=== PATIENT | female | born 1980 | race Caucasian/White ===

== ENCOUNTER 2017-02-12 14:39 | Inpatient (IN) | payer BC ==
--- NOTE | 2017-02-12 15:04 | ER Document Report ---
ED Medical Screen (RME) - General Chief Complaint: Fall Injury Stated Complaint: FALL,BACK,NECK,HEAD PAIN Time Seen by Provider: 02/12/17 14:56 Notes: 36-year-old female with extensive past medical history including multiple abdominal surgeries who presents today after a fall yesterday morning. According to the patient and friend the patient has been "going downhill" for many months. Patient supposedly has lost extensive amounts of weight and supposedly is around 85 pounds. Patient states she fell down 3-4 steps losing consciousness. She complains of pain to the head, neck, lower back and chest. She denies any shortness of breath. Patient states that she has nausea with "gagging" without any obvious vomiting. TRAVEL OUTSIDE OF THE [place] IN LAST 30 DAYS: No - Related Data Allergies/Adverse Reactions: amoxicillin [Amoxicillin] Allergy (Severe, Verified 02/12/17 14:42) Past Medical History - Past Medical History Cardiac Medical History: Denies: Hx Coronary Artery Disease, Hx Heart Attack, Hx Hypertension Pulmonary Medical History: Denies: Hx Asthma, Hx Bronchitis, Hx COPD, Hx Pneumonia, Hx Tuberculosis Neurological Medical History: Denies: Hx Cerebrovascular Accident, Hx Seizures Renal/ Medical History: Denies: Hx Peritoneal Dialysis GI Medical History: Reports: Hx Ulcer - Required surgical treatment Musculoskeltal Medical History: Denies Hx Arthritis Past Surgical History: Reports: Hx Abdominal Surgery - entrectomy, vagotomy, Hx Appendectomy, Hx Cholecystectomy. Denies: Hx Hysterectomy, Hx Pacemaker - Immunizations Hx Diphtheria, Pertussis, Tetanus Vaccination: Yes Physical Exam - Vital signs Vitals: Temp Pulse Resp BP Pulse Ox 98.0 F 73 14 123/87 H 99 02/12/17 14:44 02/12/17 14:44 02/12/17 14:44 02/12/17 14:44 02/12/17 14:44 Course - Vital Signs Vital signs: Temp Pulse Resp BP Pulse Ox 98.0 F 73 14 123/87 H 99 02/12/17 14:44 02/12/17 14:44 02/12/17 14:44 02/12/17 14:44 02/12/17 14:44
[2017-02-12 15:49] LABS: ABSOLUTE EOSINOPHILS # (AUTO) 0.2 10^3/uL (0.0-0.6); ABSOLUTE LYMPHOCYTES (AUTO) 1.8 10^3/uL (0.5-4.7); ABSOLUTE MONOCYTES (AUTO) 0.4 10^3/uL (0.1-1.4); ABSOLUTE NEUT (AUTO) 4.2 10^3/uL (1.7-8.2); BASOPHILS % (AUTO) 0.7 % (0-2); EOSINOPHILS % (AUTO) 3.1 % (0-6); HEMATOCRIT 40.9 % (36.0-47.0); HEMOGLOBIN 13.9 g/dL (12.0-15.5); HGB HCT DIFFERENCE 0.8; LYMPHOCYTES % (AUTO) 27.4 % (13-45); MEAN CORPUSCULAR HEMOGLOBIN 31.4 pg (27.0-33.4); MEAN CORPUSCULAR HGB CONC 34.1 g/dL (32.0-36.0); MEAN CORPUSCULAR VOLUME 92 fl (80-97); MONOCYTES % (AUTO) 5.6 % (3-13); RED BLOOD COUNT 4.44 10^6/uL (3.72-5.28); RED CELL DISTRIBUTION WIDTH 11.8 % (11.5-14.0); SEGMENTED NEUTROPHILS % (AUTO) 63.2 % (42-78); WHITE BLOOD COUNT 6.6 10^3/uL (4.0-10.5)
[2017-02-12 16:19] LABS: ALANINE AMINOTRANSFERASE 30 U/L (9-52); ALBUMIN 4.3 g/dL (3.5-5.0); ALKALINE PHOSPHATASE 43 U/L (38-126); ANION GAP 12 (5-19); ASPARTATE AMINO TRANSFERASE 26 U/L (14-36); BILIRUBIN,DIRECT 0.4 mg/dL (0.0-0.4); BILIRUBIN,TOTAL 0.5 mg/dL (0.2-1.3); BLOOD UREA NITROGEN 31 mg/dL (7-20); CALCIUM 9.8 mg/dL (8.4-10.2); CARBON DIOXIDE 33 mmol/L (22-30); CHLORIDE 93 mmol/L (98-107); CREATININE RESULT 0.91 mg/dL (0.52-1.25); GLUCOSE 89 mg/dL (75-110); SODIUM 137.8 mmol/L (137-145); TOTAL PROTEIN 7.3 g/dL (6.3-8.2)
[2017-02-12 16:23] LABS: POTASSIUM 2.7 mmol/L (3.6-5.0)
--- NOTE | 2017-02-12 17:19 | ER Document Report ---
ED General - General Mode of Arrival: Ambulatory Information source: Patient TRAVEL OUTSIDE OF THE [place] IN LAST 30 DAYS: No - HPI Patient complains to provider of: Back Pain and malnutrition Onset: Other - see notes above Associated symptoms: Other - see notes above <AMIRA FONTENOT - Last Filed: 02/12/17 18:10> <SHIRLEYJADON MARK - Last Filed: 02/12/17 22:01> - General Chief Complaint: Fall Injury Stated Complaint: FALL,BACK,NECK,HEAD PAIN Time Seen by Provider: 02/12/17 16:56 Notes: 36 year old female with history of vagomoty, enterectomy, gastric revision surgery for her enterectomy, and a bowel obstruction presents to the ED complaining of back, bilateral leg, and bilateral feet pain secondary to falling down the stairs today and malnutrition that started secondary to multiple abdominal surgeries 3.5-4 years ago. Patient's friend states that over the past 3 months, the patient has been losing a lot of weight with about a 20 lbs loss in the last 2 months. Patient reports that she tries to eat, but becomes nauseous and starts dry heaving when doing so. Patient is also complaining of bilateral lower extremity swelling, but has seen Dr. Garay (GI) who has given her water pills. Patient had an endoscopy performed in [place] which was unremarkable. Patient reports that she feels like she needs to be admitted and the last time she felt good was when she had a PICC line placed in Summer 2015. Patient's surgeon is Dr. Corbett at [facility]. (AMIRA FONTENOT) - Related Data Allergies/Adverse Reactions: amoxicillin [Amoxicillin] Allergy (Severe, Verified 02/12/17 14:42) Home Medications: Current Home Medications Clonazepam [Klonopin] 1 mg PO QHS 02/12/17 [History] Hydrochlorothiazide 12.5 mg PO DAILY 02/12/17 [History] Iron,Carbonyl/Vit C/Vit B12/FA [Iron 100 Plus Tablet] 1 each PO DAILY 02/12/17 [ History] Potassium Chloride [Klor-Con] 1 each PO DAILY 02/12/17 [History] Past Medical History - General Information source: Patient - Social History Smoking Status: Never Smoker Chew tobacco use (# tins/day): No Frequency of alcohol use: None Drug Abuse: None Family History: Reviewed & Not Pertinent Patient has suicidal ideation: No Patient has homicidal ideation: No Renal/ Medical History: Denies: Hx Peritoneal Dialysis GI Medical History: Reports: Hx Ulcer - Required surgical treatment Musculoskeltal Medical History: Denies Hx Arthritis Past Surgical History: Reports: Hx Abdominal Surgery - entrectomy, vagotomy, Hx Appendectomy, Hx Cholecystectomy - Immunizations Hx Diphtheria, Pertussis, Tetanus Vaccination: Yes <AMIRA FONTENOT - Last Filed: 02/12/17 18:10> Review of Systems - Review of Systems Constitutional: See HPI, Weight loss - 20 lbs over 2 months EENT: No symptoms reported Cardiovascular: No symptoms reported Respiratory: No symptoms reported Gastrointestinal: See HPI, Nausea, Other - dry heaving Genitourinary: No symptoms reported Female Genitourinary: No symptoms reported Musculoskeletal: See HPI, Back pain, Leg swelling - bilaterally, Other - bilateral leg and feet pain Skin: No symptoms reported Hematologic/Lymphatic: No symptoms reported Neurological/Psychological: No symptoms reported -: Yes All other systems reviewed and negative <AMIRA FONTENOT - Last Filed: 02/12/17 18:10> Physical Exam - Vital signs Interpretation: Normal - General General appearance: Alert, Other - cachectic In distress: Mild - tearful - Respiratory Respiratory status: No respiratory distress Chest status: Nontender Breath sounds: Normal Chest palpation: Normal - Cardiovascular Rhythm: Regular Heart sounds: Normal auscultation Murmur: No - Abdominal Inspection: Normal Distension: No distension Bowel sounds: Normal Tenderness: Nontender Organomegaly: No organomegaly - Extremities General upper extremity: Normal inspection, Nontender, Normal color, Normal ROM , Normal temperature General lower extremity: Normal inspection, Nontender, Edema - mild nonpitting, b/l, Normal color, Normal ROM, Normal temperature, Normal weight bearing. No: Manjula's sign <JADON WATSON - Last Filed: 02/12/17 22:01> - Vital signs Vitals: Temp Pulse Resp BP Pulse Ox 98.0 F 73 14 123/87 H 99 02/12/17 14:44 02/12/17 14:44 02/12/17 14:44 02/12/17 14:44 02/12/17 14:44 Course - Laboratory Result Diagrams: 02/12/17 15:20 02/12/17 15:20 - Consults Dr. Claros Time consulted: 17:27 <AMIRA FONTENOT - Last Filed: 02/12/17 18:10> - Laboratory Result Diagrams: 02/12/17 15:20 02/12/17 15:20 <JADON WATSON - Last Filed: 02/12/17 22:01> - Re-evaluation Re-evalutation: 02/12/17 Patient is a 36-year-old female who comes in complaining of weakness and falling. Patient has a history of valvular patient due to multiple intestinal surgeries. Patient is tearful in the room and states that she is nauseated all the time and cannot keep things down. Patient is hypokalemic. Potassium will be ordered as a replacement in the emergency department. Patient will be discussed with the hospitalist service for further evaluation of her malnourishment. Stable time of admission. Patient agrees with this plan. (JADON WATSON) - Vital Signs Vital signs: Temp Pulse Resp BP Pulse Ox 98.7 F 76 16 106/62 100 02/12/17 21:33 02/12/17 21:33 02/12/17 21:33 02/12/17 21:33 02/12/17 21:33 - Laboratory Laboratory results interpreted by me: 02/12/17 15:20 Potassium 2.7 L* Chloride 93 L Carbon Dioxide 33 H BUN 31 H - Consults Dr. Claros Reason for consultation: 02/12/17 17:27 Patient was discussed with Dr. Claros who agrees to admit her. (AMIRA FONTENOT) Discharge <AMIRA FONTENOT - Last Filed: 02/12/17 18:10> - Discharge Admitting Provider: Hospitalist Unit Admitted: Telemetry <JADON WATSON - Last Filed: 02/12/17 22:01> - Discharge Clinical Impression: Hypokalemia, Weakness Condition: Stable Disposition: ADMITTED INPATIENT Scribe Attestation: 02/12/17 22:01 I personally performed the services described in the documentation, reviewed and edited the documentation which was dictated to the scribe in my presence, and it accurately records my words and actions. (JADON WATSON) Scribe Documentation - Scribe Written by Scribe:: Arben Curiel, 02/12/2017 1809 acting as scribe for :: Shirley <AMIRA FONTENOT - Last Filed: 02/12/17 18:10>
[2017-02-12] MEDS: POTASSI CL 20 MEQ/50 ML RIDER 50 ML IV SCH ×3 (17:53→23:15)
[2017-02-12] MEDS ORDERED: ACETAMINOPHEN 325 MG TABLET PO PRN (18:20)
--- NOTE | 2017-02-12 18:37 | PDOC H&P ---
History of Present Illness Admission Date/PCP: 02/12/17 17:51 Patient complains of: Weakness and fall History of Present Illness: SHIKHA DEAN is a 36 year old female with a past history of malnutrition following multiple abdominal surgeries a few years ago including gastric antrectomy and vagotomy. She has since been hospitalized for small bowel obstruction. She has at times required home TPN for several months. She has had prior issues with electrolyte disturbances as well. She was found in the emergency department to be very hypokalemic. Of note she was started on HCTZ one month ago for swelling in her legs. In discussion with patient it does not sound like she has any symptoms consistent with short gut syndrome such as watery diarrhea. Her protein/ albumin levels are normal. It sounds more like she has no appetite or sensation of hunger since having vagotomy. Past Medical History Cardiac Medical History: Denies: Coronary Artery Disease, Myocardial Infarction, Hypertension Pulmonary Medical History: Denies: Asthma, Bronchitis, Chronic Obstructive Pulmonary Disease (COPD), Pneumonia, Tuberculosis Neurological Medical History: Denies: Seizures Musculoskeltal Medical History: Denies: Arthritis Hematology: Reports: Anemia Past Surgical History Past Surgical History: Reports: Appendectomy, Cholecystectomy, Other - Gastric antrectomy/vagotomy Denies: Hysterectomy, Pacemaker Social History Information Source: Patient Lives with: Family Smoking Status: Never Smoker Frequency of Alcohol Use: None Hx Recreational Drug Use: No Hx Prescription Drug Abuse: No - Advance Directive Resuscitation Status: Full Code Family History Family History: Reviewed & Not Pertinent Parental Family History Reviewed: Yes Children Family History Reviewed: Yes Sibling(s) Family History Reviewed.: Yes Medication/Allergy Home Medications: Clonazepam [Klonopin] 1 mg PO QHS 02/12/17 Hydrochlorothiazide 12.5 mg PO DAILY 02/12/17 Iron,Carbonyl/Vit C/Vit B12/FA [Iron 100 Plus Tablet] 1 each PO DAILY 02/12/17 Potassium Chloride [Klor-Con] 1 each PO DAILY 02/12/17 Allergies/Adverse Reactions: amoxicillin [Amoxicillin] Allergy (Severe, Verified 02/12/17 14:42) Review of Systems Constitutional: PRESENT: fatigue, weakness. ABSENT: chills, fever(s), headache( s), weight gain, weight loss Eyes: ABSENT: visual disturbances Ears: ABSENT: hearing changes Cardiovascular: ABSENT: chest pain, dyspnea on exertion, edema, orthropnea, palpitations Respiratory: ABSENT: cough, hemoptysis Gastrointestinal: ABSENT: abdominal pain, constipation, diarrhea, hematemesis, hematochezia, nausea, vomiting Genitourinary: ABSENT: dysuria, hematuria Musculoskeletal: ABSENT: joint swelling Integumentary: ABSENT: rash, wounds Neurological: ABSENT: abnormal gait, abnormal speech, confusion, dizziness, focal weakness, syncope Psychiatric: ABSENT: anxiety, depression, homidical ideation, suicidal ideation Endocrine: ABSENT: cold intolerance, heat intolerance, polydipsia, polyuria Hematologic/Lymphatic: ABSENT: easy bleeding, easy bruising Physical Exam Vital Signs: Temp Pulse Resp BP Pulse Ox 98.0 F 73 14 123/87 H 99 02/12/17 14:44 02/12/17 14:44 02/12/17 14:44 02/12/17 14:44 02/12/17 14:44 PHYSICAL EXAM: GENERAL: Appears well, no acute distress, emaciated HEENT: Normocephalic, no scleral icterus, conjunctiva clear, EOEM intact, PERRLA , moist mucous membranes NECK: trachea midline, no thyromegally RESPIRATORY: Clear to auscultation, no wheezes/rhonchi CARDIAC: Regular rate and rhythm, no murmur/kasi/rub ABDOMEN: Soft, no distension, no tenderness, no guarding, normal bowel sounds, negative Stone sign RECTAL: deferred : deferred EXTREMITIES: No edema, cyanosis, clubbing MUSCULOSKELETAL: No joint swelling or deformity VASCULAR: normal peripheral pulses NEUROLOGIC: Alert, oriented to person/place/time, normal speech, cranial nerves grossly intact, 5/5 strength in all extremities, tactile sensation intact in all extremities SKIN: No rash, no wounds, no worrisome skin lesions PSYCHIATRIC: Normal mood, normal affect Results Laboratory Results: Labs- All tests 24 hr 02/12/17 02/12/17 02/12/17 15:20 15:20 15:20 WBC 6.6 RBC 4.44 Hgb 13.9 Hct 40.9 MCV 92 MCH 31.4 MCHC 34.1 RDW 11.8 Plt Count 340 Seg Neutrophils % 63.2 Lymphocytes % 27.4 Monocytes % 5.6 Eosinophils % 3.1 Basophils % 0.7 Absolute Neutrophils 4.2 Absolute Lymphocytes 1.8 Absolute Monocytes 0.4 Absolute Eosinophils 0.2 Absolute Basophils 0.0 Sodium 137.8 Potassium 2.7 L* Chloride 93 L Carbon Dioxide 33 H Anion Gap 12 BUN 31 H Creatinine 0.91 Est GFR ( Amer) > 60 Est GFR (Non-Af Amer) > 60 Glucose 89 Calcium 9.8 Total Bilirubin 0.5 Direct Bilirubin 0.4 Indirect Bilirubin Not Reportable Neonat Total Bilirubin Not Reportable AST 26 ALT 30 Alkaline Phosphatase 43 Troponin I < 0.012 Total Protein 7.3 Albumin 4.3 Impressions: Cervical Spine CT 02/12/17 15:02 IMPRESSION: No acute findings. Head CT 02/12/17 15:02 IMPRESSION: NORMAL BRAIN CT WITHOUT CONTRAST. Chest X-Ray 02/12/17 15:03 IMPRESSION: NO SIGNIFICANT RADIOGRAPHIC FINDING IN THE CHEST. Lumbar Spine X-Ray 02/12/17 15:03 IMPRESSION: Mild scoliosis with no acute abnormality. Pelvis X-Ray 02/12/17 15: IMPRESSION: NEGATIVE STUDY OF THE PELVIS. Assessment & Plan - Diagnosis (1) Hypokalemia Is this a current diagnosis for this admission?: Yes (2) Anorexia Is this a current diagnosis for this admission?: YesPlan: Likely related to abdominal surgeries and vagotomy. I will start patient on Megace. (3) Weakness Is this a current diagnosis for this admission?: Yes (4) B12 deficiency anemia Is this a current diagnosis for this admission?: YesPlan: Likely related to gastric surgery. Check B-12 level. (5) History of partial gastrectomy Is this a current diagnosis for this admission?: Yes (6) Peptic ulcer disease Is this a current diagnosis for this admission?: YesPlan: Patient states that she has not had a take medications since having vagotomy. (7) Edema Is this a current diagnosis for this admission?: YesPlan: Discontinue hydrochlorothiazide secondary to hypokalemia. Start spironolactone 50 mg daily. (8) Underweight Is this a current diagnosis for this admission?: YesPlan: Start Megace for appetite stimulation. Ensure 1 can twice daily. Patient's albumin level is normal at this time and she is able to take oral intake, so I don't think TPN is entirely necessary. Check thyroid function studies. (9) Status post fall Is this a current diagnosis for this admission?: YesPlan: Imaging mentioned above negative for acute injury. - Time Time Spent: Greater than 70 Minutes Anticipated discharge: Home Within: within 24 hours
[2017-02-12] MEDS ORDERED: ENOXAPARIN SODIUM INJ 40 MG/0.4 ML DISP.SYRIN SUBCUT ONE (19:30)
[2017-02-12] MEDS: CLONAZEPAM 1 MG TABLET PO SCH (22:06)
[2017-02-12 22:07] LABS: PHOSPHORUS 4.7 mg/dL (2.5-4.5)
--- NOTE | 2017-02-12 22:13 | EKG REPORT ---
SEVERITY:- NORMAL ECG - SINUS RHYTHM : Confirmed by: Padma Mota MD 12-Feb-2017 22:13:10
[2017-02-12 22:32] LABS: FREE T3 3.26 pg/mL (2.77-5.27)
[2017-02-12 22:45] LABS: THYROID STIMULATING HORMONE 0.08 uIU/mL (0.47-4.68)
[2017-02-13] MEDS: ENOXAPARIN SODIUM INJ 40 MG/0.4 ML DISP.SYRIN SUBCUT SCH (08:00)
[2017-02-13] MEDS ORDERED: VIT C PO SCH (10:00)
[2017-02-13] MEDS: MEGESTROL ACETATE SUSP 400 MG/10 ML UDCUP PO SCH (10:00)
[2017-02-13] MEDS: SPIRONOLACTONE 25 MG TABLET PO SCH (10:00)
[2017-02-13] MEDS ORDERED: IRON CARBONYL PO SCH (10:00)
[2017-02-13] MEDS ORDERED: [UNRECOGNIZED DRUG - OTHER] PO SCH (10:00)
[2017-02-13] MEDS ORDERED: VIT B12 PO SCH (10:00)
[2017-02-13] MEDS ORDERED: DOCUSATE SODIUM 100 MG CAPSULE ONE ×2 (11:40→17:46)
[2017-02-13] MEDS ORDERED: POTASSI CL 20 MEQ/50 ML RIDER 20 MEQ/50 ML RTUPB IV ONE ×2 (11:40→13:02)
--- NOTE | 2017-02-13 16:42 | PROGRESS NOTE E ---
Progress Note NAME: SHIKHA DEAN : 1980 AGE: 36Y DATE: 02/13/2017 ROOM: 425 TIME SPENT MANAGING PATIENT: Twenty-five minutes. SUBJECTIVE: The patient has no new complaints. Her appetite is still poor. Potassium is reported to be low at 3.0 by nursing staff. Nursing also reports that patient has had issues with constipation and has not had a bowel movement in 3 or 4 days. OBJECTIVE: VITAL SIGNS: Temperature 97.6, blood pressure 153/86, pulse 114, respiratory rate 16, O2 sat 94% on room air. GENERAL: She is alert, very cachectic appearing. No acute distress. HEENT: Sclerae are nonicteric. Oropharynx has moist mucous membranes. NECK: No JVD. Midline trachea. RESPIRATORY: Clear to auscultation. No wheezes or rhonchi. CARDIAC: Regular rate and rhythm. No murmurs, gallops, or rubs. ABDOMEN: Scaphoid, nondistended, nontender. Positive bowel sounds. EXTREMITIES: No edema, cyanosis, or clubbing. She does have diffuse muscle wasting noted. LABORATORY: Potassium 3.0. ASSESSMENT AND PLAN: 1. HYPOKALEMIA. Patient will be administered potassium chloride 20 mEq IV times 2 doses. Continue potassium containing maintenance IV fluids. Magnesium level was normal. 2. MALNUTRITION. Continue to address this with oral means. Patient has been given Megace for poor appetite. She does not appear to have findings consistent with a short gut syndrome despite multiple prior GI surgeries. I think her anorexia is related to previous vagotomy possibly. 3. HISTORY OF PEPTIC ULCER DISEASE WITH PRIOR VAGOTOMY. 4. EDEMA. Patient was taken off hydrochlorothiazide secondary to hypokalemia. She has been placed on spironolactone. 5. CONSTIPATION. Start Colace. DICTATING PHYSICIAN: DENIS CARNEY M.D. [id number] PHY#: [id number] ID: [id number] JOB#: [id number] ACCT: [id number] cc: >
[2017-02-13] MEDS: CLONAZEPAM 1 MG TABLET PO SCH (22:20)
[2017-02-14 06:35] LABS: HEMATOCRIT 33.7 % (36.0-47.0); HGB HCT DIFFERENCE 1.1; MEAN CORPUSCULAR HEMOGLOBIN 31.6 pg (27.0-33.4); MEAN CORPUSCULAR HGB CONC 34.3 g/dL (32.0-36.0); MEAN CORPUSCULAR VOLUME 92 fl (80-97); RED BLOOD COUNT 3.66 10^6/uL (3.72-5.28); WHITE BLOOD COUNT 8.9 10^3/uL (4.0-10.5)
[2017-02-14 06:37] LABS: HEMOGLOBIN 11.6 g/dL (12.0-15.5)
[2017-02-14] MEDS: ENOXAPARIN SODIUM INJ 40 MG/0.4 ML DISP.SYRIN SUBCUT SCH (08:08)
[2017-02-14 08:54] LABS: ANION GAP 9 (5-19); BLOOD UREA NITROGEN 24 mg/dL (7-20); CALCIUM 8.5 mg/dL (8.4-10.2); CARBON DIOXIDE 27 mmol/L (22-30); CHLORIDE 106 mmol/L (98-107); CREATININE RESULT 0.75 mg/dL (0.52-1.25); GLUCOSE 60 mg/dL (75-110); MAGNESIUM 1.7 mg/dL (1.6-2.3)
[2017-02-14 08:57] LABS: POTASSIUM 2.9 mmol/L (3.6-5.0)
[2017-02-14] MEDS ORDERED: POTASSI CL 20 MEQ/50 ML RIDER 50 ML IV SCH (09:05)
--- NOTE | 2017-02-14 13:46 | Physician Advisory Note ---
Physician Advisor ProgressNote .: Pursuant to the plan for [facility], I have reviewed the medical record for this patient. Physician Advisor Statement: Possible documentation opportunities if attending agrees: 1. "acute hypokalemia due to HCTZ, correctly prescribed & properly administered " 2. ? - "anemia of nutritional B12 deficiency & ___" 3. "underweight with protein-calorie malnutrition [state mild, mod, or severe] with BMI 18.0, ____[?wt loss, ?appetite loss, ]" [if possible, give specifics on intake, wt loss, loss of SQ fat & muscle mass, diminished hand under cutter strength, & clinical importance such as (A) nutritional assessment ordered, (B) modified diet or supplements ordered, (C) additional labs ordered, (D) prolonged wound healing time, (E) delayed infxn clearance] As always, if concerned about any unstable VS or abnormal labs, please comment on them & note what doing about them, & please document each day the potential clinical problems you are concerned could occur if pt not kept in hospital for tx at this time. Thanks for your help with documentation accuracy/specificity improvement! Lisa Tejeda MD [facility] Physician Advisor, Fellow of Hospital Medicine
[2017-02-14] MEDS: FERROUS SULFATE 325 MG TABLET PO SCH (13:53)
[2017-02-14] MEDS: DOCUSATE SODIUM 100 MG CAPSULE PO SCH ×2 (13:53→20:27)
[2017-02-14] MEDS: POTASSIUM CHLORIDE 10 MEQ TABLET.SA PO SCH ×2 (13:53→22:10)
[2017-02-14] MEDS: SPIRONOLACTONE 25 MG TABLET PO SCH (13:53)
[2017-02-14] MEDS: MEGESTROL ACETATE SUSP 400 MG/10 ML UDCUP PO SCH (15:03)
[2017-02-14] MEDS: ONDANSETRON HCL INJ/PF 4 MG/2 ML SDV IV PRN (15:04)
[2017-02-14 17:40] LABS: APPEARANCE,URINE CLEAR; BILIRUBIN,URINE NEGATIVE (NEGATIVE); GLUCOSE, URINE NEGATIVE (NEGATIVE); KETONES,URINE NEGATIVE (NEGATIVE); LEUKOCYTE ESTERASE,URINE NEGATIVE (NEGATIVE); NITRITE,URINE NEGATIVE (NEGATIVE); PROTEIN,URINE NEGATIVE (NEGATIVE); URINE SPECIFIC GRAVITY 1.026; UROBILINOGEN,URINE NEGATIVE mg/dL (<2.0)
[2017-02-14 17:52] LABS: URINE BARBITURATES SCREEN NEGATIVE; URINE METHADONE SCREEN NEGATIVE; URINE OPIATES LOW NEGATIVE; URINE PHENCYCLIDINE SCREEN NEGATIVE
[2017-02-14] MEDS ORDERED: CYANOCOBALAMIN (VITAMIN B-12) INJ 1000 MCG/1 ML VIAL IM ONE (19:00)
[2017-02-14] MEDS ORDERED: NORMAL SALINE 10 ML SDV (AFTER EACH USE) IV PRN (20:02)
[2017-02-14] MEDS: POTASSIUM CHLORIDE 20 MEQ/50 ML RTU IV SCH ×2 (20:27→23:10)
--- NOTE | 2017-02-14 20:46 | PROGRESS NOTE E ---
Progress Note NAME: SHIKHA DEAN : 1980 AGE: 36Y DATE: 02/14/2017 ROOM: 425 TIME SPENT: Time spent managing patient is 35 minutes. SUBJECTIVE: The patient still has poor appetite. She is very concerned about her weight and states that her and her mother would like to consider TPN to improve her malnutrition. She states this has worked in the past and she has had home TPN before. She is very comfortable administering this. She denies fever, chills, headache, chest pain, shortness of breath. OBJECTIVE: VITAL SIGNS: Temperature 98.0. Blood pressure 111/61. Pulse 84. Respirations 20. GENERAL: She is alert in no acute distress. She is very emaciated appearing. HEENT: Sclerae anicteric. Conjunctivae clear. Oropharynx has moist mucous membranes. NECK: No JVD. Midline trachea. RESPIRATORY: Clear to auscultation. No wheeze or rhonchi. CARDIAC: Regular rate and rhythm without murmurs, gallops, rubs. ABDOMEN: Soft, nontender, nondistended. Positive bowel sounds. EXTREMITIES: No edema, cyanosis, or clubbing. SKIN: No rashes. PSYCHIATRIC: Appropriate mood and affect. LABORATORIES: White blood count 8.9, hemoglobin 11.6, hematocrit 33.7, platelets 233. Sodium 142, potassium 2.9, chloride 106, bicarbonate 27, BUN 24, creatinine 0.75, glucose 60, calcium 8.5. Magnesium 1.7. ASSESSMENT: 1. ACUTE HYPOKALEMIA. Multifactorial to include poor nutritional intake as well as hydrochlorothiazide administration. Hydrochlorothiazide was discontinued. We are addressing nutritional issues as mentioned below. Potassium will be replaced IV, and she will be started on Klor-Con 20 mEq p.o. twice daily as well. Continue to monitor electrolytes closely. 2. SEVERE MALNUTRITION DUE TO POOR ORAL INTAKE AND MULTIPLE GASTRIC SURGERIES PREVIOUSLY. We will place a PICC line and have Dietary consult for TPN recommendations. The patient may need to go home on home TPN again. She is followed by Dr. Valle of Gastroenterology for GI issues. 3. ANOREXIA. Possibly secondary to multiple abdominal surgeries and prior vagotomy. Continue Megace. The patient will be started on Remeron 7.5 mg nightly as well. 4. VITAMIN B12 DEFICIENCY ANEMIA. Start the patient on daily B12 injections for now. We will probably do this for 3 days or so, and then she will need B12 injections every 2 weeks for now. 5. HISTORY OF PARTIAL GASTRECTOMY AND VAGOTOMY. 6. PEPTIC ULCER DISEASE. The patient does not take routine medications for this since having antral gastrectomy and vagotomy. 7. EDEMA. The patient was taken off hydrochlorothiazide secondary to hypokalemia. She was started on spironolactone 50 mg daily. 8. DICTATING PHYSICIAN: DENIS CARNEY M.D. [id number] PHY#: [id number] ID: [id number] JOB#: [id number] ACCT: [id number] cc: >
[2017-02-14] MEDS: CLONAZEPAM 1 MG TABLET PO SCH (22:10)
[2017-02-14] MEDS: MIRTAZAPINE 15 MG TABLET PO SCH (22:11)
[2017-02-14] MEDS: NORMAL SALINE 10 ML SDV (SCHEDULED) IV SCH (22:12)
[2017-02-15 06:48] LABS: ABSOLUTE EOSINOPHILS # (AUTO) 0.2 10^3/uL (0.0-0.6); ABSOLUTE LYMPHOCYTES (AUTO) 2.1 10^3/uL (0.5-4.7); ABSOLUTE MONOCYTES (AUTO) 0.6 10^3/uL (0.1-1.4); ABSOLUTE NEUT (AUTO) 4.4 10^3/uL (1.7-8.2); BASOPHILS % (AUTO) 0.6 % (0-2); EOSINOPHILS % (AUTO) 2.9 % (0-6); HEMATOCRIT 33.1 % (36.0-47.0); HGB HCT DIFFERENCE -0.1; LYMPHOCYTES % (AUTO) 28.3 % (13-45); MEAN CORPUSCULAR HEMOGLOBIN 31.2 pg (27.0-33.4); MEAN CORPUSCULAR HGB CONC 33.1 g/dL (32.0-36.0); MEAN CORPUSCULAR VOLUME 94 fl (80-97); MONOCYTES % (AUTO) 7.5 % (3-13); RED BLOOD COUNT 3.51 10^6/uL (3.72-5.28); RED CELL DISTRIBUTION WIDTH 12.3 % (11.5-14.0); SEGMENTED NEUTROPHILS % (AUTO) 60.7 % (42-78); WHITE BLOOD COUNT 7.3 10^3/uL (4.0-10.5)
[2017-02-15 07:00] LABS: BLOOD UREA NITROGEN 23 mg/dL (7-20); CALCIUM 8.8 mg/dL (8.4-10.2); CARBON DIOXIDE 24 mmol/L (22-30); CHLORIDE 112 mmol/L (98-107); CREATININE RESULT 0.55 mg/dL (0.52-1.25); GLUCOSE 96 mg/dL (75-110); POTASSIUM 3.6 mmol/L (3.6-5.0)
[2017-02-15 07:10] LABS: SODIUM 139.7 mmol/L (137-145)
[2017-02-15 07:11] LABS: ANION GAP 4 (5-19)
[2017-02-15] MEDS ORDERED: ENOXAPARIN SODIUM INJ 30 MG/0.3 ML DISP.SYRIN SUBCUT SCH (08:00)
[2017-02-15] MEDS: MEGESTROL ACETATE SUSP 400 MG/10 ML UDCUP PO SCH (10:40)
[2017-02-15] MEDS: POTASSIUM CHLORIDE 10 MEQ TABLET.SA PO SCH ×2 (10:40→22:09)
[2017-02-15] MEDS: FERROUS SULFATE 325 MG TABLET PO SCH (10:40)
[2017-02-15] MEDS: CYANOCOBALAMIN (VITAMIN B-12) INJ 1000 MCG/1 ML VIAL IM SCH (10:40)
[2017-02-15] MEDS: DOCUSATE SODIUM 100 MG CAPSULE PO SCH ×2 (10:40→17:15)
[2017-02-15] MEDS: NORMAL SALINE 10 ML SDV (SCHEDULED) IV SCH ×2 (10:41→22:10)
[2017-02-15] MEDS ORDERED: GLUCAGON,HUMAN RECOMB 1 MG INJ IM PRN (10:43)
[2017-02-15] MEDS ORDERED: DEXTROSE 50%-WATER SYRINGE 12.5 GM/25 ML DOSE IV PRN (10:43)
[2017-02-15] MEDS ORDERED: DEXTROSE 40% GEL 15 GM TUBE PO PRN (10:43)
[2017-02-15] MEDS ORDERED: DEXTROSE 40% GEL 15 GM TUBE X 2 PO PRN (10:43)
[2017-02-15] MEDS ORDERED: DEXTROSE 50%-WATER SYRINGE 25 GM/50 ML DOSE IV PRN (10:43)
[2017-02-15] MEDS ORDERED: DEXTROSE 10%-WATER 1,000 ML IV PRN (10:43)
[2017-02-15] MEDS ORDERED: INSULIN REG, HUMAN 100 UNIT/ML 3 ML VIAL (PYX) SUBCUT PRN (10:43)
[2017-02-15] MEDS ORDERED: ENOXAPARIN SODIUM INJ 40 MG/0.4 ML DISP.SYRIN SUBCUT ONE (11:00)
[2017-02-15] MEDS ORDERED: MAGNESIUM SULFATE/D5W 100 ML IV ONE (11:00)
[2017-02-15] MEDS ORDERED: THIAMINE HCL 100 MG TABLET PO ONE (11:00)
[2017-02-15] MEDS ORDERED: SPIRONOLACTONE 25 MG TABLET PO ONE (11:00)
[2017-02-15] MEDS ORDERED: POTASSI CL 20 MEQ/50 ML RIDER 50 ML IV ONE (11:00)
--- NOTE | 2017-02-15 11:06 | PROGRESS NOTE E ---
Progress Note NAME: SHIKHA DEAN : 1980 AGE: 36Y DATE: 02/15/2017 ROOM: 425 TIME SPENT MANAGING PATIENT: Thirty-five minutes. SUBJECTIVE: The patient has no particular complaints. She had PICC line placed yesterday for TPN. Nursing reports that she has had some issues with nonsustained ventricular tachycardia, brief episodes of anywhere from 5-10 beats. These have been asymptomatic. Patient has no fever, chills, headache, chest pain, shortness of breath, abdominal pain, nausea, vomiting. Appetite remains poor despite initiation of Megace and Remeron. OBJECTIVE: VITAL SIGNS: Temperature 98.5, blood pressure 96/53, pulse 64, respirations 12. GENERAL: She is alert, in no apparent distress. Answers questions appropriately. She is quite cachectic appearing. HEENT: Sclerae are nonicteric. Oropharynx has moist mucous membranes. NECK: No JVD. Midline trachea. RESPIRATORY: Clear to auscultation. No wheezes or rhonchi. CARDIAC: Regular rate and rhythm. No murmurs, gallops, or rubs. ABDOMEN: Soft, nontender, nondistended. Positive bowel sounds. No rebound. No guarding. EXTREMITIES: No edema, cyanosis, or clubbing. NEUROLOGIC: Appropriate mood and affect. LABORATORY: White blood count 7.3, hemoglobin 11.0, hematocrit 33.1, platelets 239. Sodium 139, potassium 3.6, chloride 112, bicarb 24, BUN 23, creatinine 0.55, glucose 96, calcium 8.8. ASSESSMENT AND PLAN: 1. HYPOKALEMIA. Potassium is in the low normal range now. I would still like to give an additional 20 mEq potassium chloride IV to try and get potassium level closer to 4.0 given episodes of nonsustained ventricular tachycardia. 2. HYPOMAGNESEMIA. I will give patient another 2 g of magnesium sulfate IV. 3. NONSUSTAINED VENTRICULAR TACHYCARDIA. Given patient's edema and malnutrition, I would like to check an echocardiogram to rule out cardiomyopathy. 4. EDEMA. This is likely related to malnutrition, however, severe malnutrition states can cause thiamine deficiency and associated cardiomyopathy, so I would like to check an echocardiogram. I would decrease her spironolactone to 25 mg daily secondary to hypotension. Patient was taken off of hydrochlorothiazide for her edema as this caused profound hypokalemia. 5. POOR APPETITE. Likely the result of prior gastrectomy and vagotomy. Patient was started on Megace and Remeron this admission with minimal improvement so far. 6. VITAMIN B12 DEFICIENCY ANEMIA. Patient was started on B12 injections daily on 02/14/2017. We can probably do this for 3 days and then start giving patient B12 injections every 2 weeks. She probably is not absorbing B12 due to prior gastrectomy. 7. HISTORY OF PARTIAL GASTRECTOMY AND VAGOTOMY. 8. HISTORY OF PEPTIC ULCER DISEASE. Patient states she does not take routine medication for this since having antral gastrectomy and vagotomy. 9. SEVERE MALNUTRITION. Patient will be started on TPN in addition to oral intake. We had placed a PICC line and we plan on discharging her home on home TPN once she is medically stable. DICTATING PHYSICIAN: DENIS CARNEY M.D. [id number] PHY#: [id number] ID: [id number] JOB#: [id number] ACCT: [id number] cc: >
[2017-02-15 11:32] LABS: BLOOD UREA NITROGEN 26 mg/dL (7-20); CALCIUM 8.8 mg/dL (8.4-10.2); CREATININE RESULT 0.81 mg/dL (0.52-1.25); GLUCOSE 76 mg/dL (75-110)
[2017-02-15 11:34] LABS: ANION GAP 10 (5-19); CARBON DIOXIDE 29 mmol/L (22-30); CHLORIDE 101 mmol/L (98-107)
[2017-02-15] MEDS ORDERED: FAT EMULSIONS 250 ML IV ONE ×2 (12:00→19:00)
[2017-02-15 12:49] LABS: MAGNESIUM 1.7 mg/dL (1.6-2.3); PHOSPHORUS 2.2 mg/dL (2.5-4.5)
[2017-02-15] MEDS: ONDANSETRON HCL INJ/PF 4 MG/2 ML SDV IV PRN (17:15)
[2017-02-15 17:23] LABS: PROTHROMBIN TIME 14.3 SEC (11.4-15.4)
--- NOTE | 2017-02-15 17:58 | XCELERA REPORT ---
[address] [address] Transthoracic Echocardiogram Report Name: SHIKHA DEAN Age: 36 yrs Gender: Female : 1980 Patient Status: Inpatient Patient Location: 4S\S\425\S\A Study Date: 02/15/2017 11:50 AM Height: 60 in Weight: 85 lb BSA: 1.3 m2 Procedure: A complete two-dimensional transthoracic echocardiogram was performed (2D, M-mode, spectral and color flow Doppler). The study was technically adequate with some images being suboptimal in quality. Reason For Study: vtach, edema Ordering Physician: DENIS CARNEY Performed By: Kike Posadas Interpretation Summary The left ventricular ejection fraction is normal. Doppler measurements suggest normal left ventricular diastolic function There is normal left ventricular wall thickness. The left ventricle is grossly normal size. No regional wall motion abnormalities noted. Borderline right ventricular enlargement. The right ventricular systolic function is normal. The right atrium is normal in size The left atrial size is normal. There is no mitral valve stenosis. There is a trace to mild amount of mitral regurgitation There is no aortic valve stenosis No aortic regurgitation is present. There is a mild amount of tricuspid regurgitation Right ventricular systolic pressure is at the upper limits of normal The aortic root is not well visualized but is probably normal size. The inferior vena cava was not visualized There is no pericardial effusion. MMode/2D Measurements \T\ Calculations RVDd: 1.9 cm LVIDd: 4.3 cm FS: 36.7 % Ao root diam: 2.5 cm IVSd: 0.63 cm LVIDs: 2.7 cm EDV(Teich): 81.2 ml LVPWd: 0.63 cm ESV(Teich): 26.8 ml Ao root area: 4.7 cm2 EF(Teich): 66.9 % LA dimension: 2.6 cm Doppler Measurements \T\ Calculations MV E max luis carlos: MV P1/2t max luis carlos: Ao V2 max: LV V1 max P.4 cm/sec 94.8 cm/sec 119.0 cm/sec 2.5 mmHg MV A max luis carlos: MV P1/2t: 49.1 msec Ao max PG: LV V1 max: 43.3 cm/sec 5.7 mmHg 78.4 cm/sec MV E/A: 2.2 MVA(P1/2t): 4.5 cm2 MV dec slope: 565.2 cm/sec2 PA V2 max: TR max luis carlos: RAP systole: 71.6 cm/sec 207.1 cm/sec 10.0 mmHg PA max PG: TR max P.2 mmHg 2.0 mmHg RVSP(TR): 27.2 mmHg Left Ventricle The left ventricle is grossly normal size. There is normal left ventricular wall thickness. The left ventricular ejection fraction is normal. Doppler measurements suggest normal left ventricular diastolic function. No regional wall motion abnormalities noted. Right Ventricle Borderline right ventricular enlargement. There is normal right ventricular wall thickness. The right ventricular systolic function is normal. Atria The right atrium is normal in size. The left atrial size is normal. Interarterial septum not well visualized and not well dopplered. Cannot comment on ASD/PFO presence. Mitral Valve The mitral valve is grossly normal. There is no mitral valve stenosis. There is a trace to mild amount of mitral regurgitation. Aortic Valve The aortic valve is grossly normal. There is no aortic valve stenosis. No aortic regurgitation is present. Tricuspid Valve The tricuspid valve is not well visualized, but is grossly normal. There is no tricuspid stenosis. There is a mild amount of tricuspid regurgitation. Right ventricular systolic pressure is at the upper limits of normal. Pulmonic Valve The pulmonic valve is not well visualized. Great Vessels The aortic root is not well visualized but is probably normal size. The inferior vena cava was not visualized. Effusions There is no pericardial effusion. : DENIS CARNEY Shyamal
[2017-02-15] MEDS: AMINO ACIDS 5%/D25W 1,000 ML IV PRN (22:08)
[2017-02-15] MEDS: MIRTAZAPINE 15 MG TABLET PO SCH (22:09)
[2017-02-15] MEDS: CLONAZEPAM 1 MG TABLET PO SCH (22:10)
[2017-02-16 06:31] LABS: ABSOLUTE EOSINOPHILS # (AUTO) 0.1 10^3/uL (0.0-0.6); ABSOLUTE LYMPHOCYTES (AUTO) 2.2 10^3/uL (0.5-4.7); ABSOLUTE MONOCYTES (AUTO) 0.7 10^3/uL (0.1-1.4); ABSOLUTE NEUT (AUTO) 6.9 10^3/uL (1.7-8.2); BASOPHILS % (AUTO) 0.4 % (0-2); EOSINOPHILS % (AUTO) 1.3 % (0-6); HEMATOCRIT 32.2 % (36.0-47.0); HEMOGLOBIN 10.8 g/dL (12.0-15.5); HGB HCT DIFFERENCE 0.2; LYMPHOCYTES % (AUTO) 21.8 % (13-45); MEAN CORPUSCULAR HEMOGLOBIN 31.5 pg (27.0-33.4); MEAN CORPUSCULAR HGB CONC 33.4 g/dL (32.0-36.0); MEAN CORPUSCULAR VOLUME 94 fl (80-97); MONOCYTES % (AUTO) 6.7 % (3-13); RED BLOOD COUNT 3.42 10^6/uL (3.72-5.28); RED CELL DISTRIBUTION WIDTH 12.2 % (11.5-14.0); SEGMENTED NEUTROPHILS % (AUTO) 69.8 % (42-78); WHITE BLOOD COUNT 9.9 10^3/uL (4.0-10.5)
[2017-02-16 06:51] LABS: ALANINE AMINOTRANSFERASE 30 U/L (9-52); ALBUMIN 2.5 g/dL (3.5-5.0); ALKALINE PHOSPHATASE 33 U/L (38-126); ANION GAP 7 (5-19); ASPARTATE AMINO TRANSFERASE 12 U/L (14-36); BLOOD UREA NITROGEN 21 mg/dL (7-20); CALCIUM 8.4 mg/dL (8.4-10.2); CARBON DIOXIDE 22 mmol/L (22-30); CHLORIDE 112 mmol/L (98-107); CREATININE RESULT 0.53 mg/dL (0.52-1.25); GLUCOSE 84 mg/dL (75-110); MAGNESIUM 1.8 mg/dL (1.6-2.3); PHOSPHORUS 3.3 mg/dL (2.5-4.5); POTASSIUM 4.4 mmol/L (3.6-5.0); SODIUM 140.5 mmol/L (137-145); TOTAL PROTEIN 4.1 g/dL (6.3-8.2)
[2017-02-16 06:58] LABS: PREALBUMIN 16.3 mg/dL (17.6-36.0)
[2017-02-16 07:05] LABS: BILIRUBIN,TOTAL < 0.1 mg/dL (0.2-1.3)
[2017-02-16] MEDS: ENOXAPARIN SODIUM INJ 40 MG/0.4 ML DISP.SYRIN SUBCUT SCH (08:00)
[2017-02-16] MEDS: SPIRONOLACTONE 25 MG TABLET PO SCH (10:23)
[2017-02-16] MEDS: DOCUSATE SODIUM 100 MG CAPSULE PO SCH ×2 (10:24→17:44)
[2017-02-16] MEDS: MEGESTROL ACETATE SUSP 400 MG/10 ML UDCUP PO SCH (10:24)
[2017-02-16] MEDS: POTASSIUM CHLORIDE 10 MEQ TABLET.SA PO SCH ×2 (10:24→22:26)
[2017-02-16] MEDS: THIAMINE HCL 100 MG TABLET PO SCH (10:24)
[2017-02-16] MEDS: FERROUS SULFATE 325 MG TABLET PO SCH (10:24)
[2017-02-16] MEDS: CYANOCOBALAMIN (VITAMIN B-12) INJ 1000 MCG/1 ML VIAL IM SCH (10:25)
[2017-02-16] MEDS: ONDANSETRON HCL INJ/PF 4 MG/2 ML SDV IV PRN ×2 (10:25→20:32)
[2017-02-16] MEDS: NORMAL SALINE 10 ML SDV (SCHEDULED) IV SCH ×2 (10:25→22:26)
--- NOTE | 2017-02-16 11:34 | PDOC PROGRESS REPORT ---
Subjective Progress Note for:: 02/16/17 Subjective:: Patient is seen on morning rounds. She denies any shortness of breath, dyspnea or chest pain. She is resting comfortably in bed. She denies nausea, abdominal pain or vomiting at the present time. She denies any significant arthralgias or myalgias. Rest of the review of systems are negative. Physical Exam Vital Signs: Temp Pulse Resp BP Pulse Ox 98.7 F 92 12 118/65 100 02/16/17 08:12 02/16/17 08:12 02/16/17 08:12 02/16/17 08:12 02/16/17 08:12 Intake & Output 02/15/17 02/16/17 02/17/17 06:59 06:59 06:59 Intake Total 1755 1752 Output Total 200 Balance 1555 1752 Weight 45.7 kg 48.7 kg General appearance: PRESENT: no acute distress, thin, well-developed Head exam: PRESENT: atraumatic, normocephalic Eye exam: PRESENT: conjunctiva pink, EOMI, PERRLA. ABSENT: scleral icterus Ear exam: PRESENT: normal external ear exam Mouth exam: PRESENT: moist, tongue midline Neck exam: ABSENT: carotid bruit, JVD, lymphadenopathy, thyromegaly Respiratory exam: PRESENT: clear to auscultation jamaal. ABSENT: rales, rhonchi, wheezes Cardiovascular exam: PRESENT: RRR. ABSENT: diastolic murmur, rubs, systolic murmur Pulses: PRESENT: normal dorsalis pedis pul Vascular exam: PRESENT: normal capillary refill GI/Abdominal exam: PRESENT: normal bowel sounds, soft. ABSENT: distended, guarding, mass, organolmegaly, rebound, tenderness Rectal exam: PRESENT: deferred Extremities exam: PRESENT: full ROM. ABSENT: calf tenderness, clubbing, pedal edema Neurological exam: PRESENT: alert, awake, oriented to person, oriented to place , oriented to time, oriented to situation, CN II-XII grossly intact. ABSENT: motor sensory deficit Psychiatric exam: PRESENT: appropriate affect, normal mood. ABSENT: homicidal ideation, suicidal ideation Skin exam: PRESENT: dry, intact, warm. ABSENT: cyanosis, rash Results Laboratory Results: 02/16/17 05:45 02/16/17 05:45 02/13/17 02/15/17 02/16/17 05:11 06:25 05:45 WBC 9.9 RBC 3.42 L Hgb 10.8 L Hct 32.2 L MCV 94 MCH 31.5 MCHC 33.4 RDW 12.2 Plt Count 229 Seg Neutrophils % 69.8 Lymphocytes % 21.8 Monocytes % 6.7 Eosinophils % 1.3 Basophils % 0.4 Absolute Neutrophils 6.9 Absolute Lymphocytes 2.2 Absolute Monocytes 0.7 Absolute Eosinophils 0.1 Absolute Basophils 0.0 Sodium 140.0 Potassium 3.0 L* Chloride 101 Carbon Dioxide 29 Anion Gap 10 BUN 26 H Creatinine 0.81 Est GFR ( Amer) > 60 Est GFR (Non-Af Amer) > 60 Glucose 76 Calcium 8.8 Phosphorus 2.2 L Magnesium 2.0 1.7 Total Bilirubin AST ALT Alkaline Phosphatase Total Protein Albumin Prealbumin 02/16/17 05:45 WBC RBC Hgb Hct MCV MCH MCHC RDW Plt Count Seg Neutrophils % Lymphocytes % Monocytes % Eosinophils % Basophils % Absolute Neutrophils Absolute Lymphocytes Absolute Monocytes Absolute Eosinophils Absolute Basophils Sodium 140.5 Potassium 4.4 Chloride 112 H Carbon Dioxide 22 Anion Gap 7 BUN 21 H Creatinine 0.53 Est GFR ( Amer) > 60 Est GFR (Non-Af Amer) > 60 Glucose 84 Calcium 8.4 Phosphorus 3.3 Magnesium 1.8 Total Bilirubin < 0.1 L AST 12 L ALT 30 Alkaline Phosphatase 33 L Total Protein 4.1 L Albumin 2.5 L Prealbumin 16.3 L Impressions: Cervical Spine CT 02/12/17 15:02 IMPRESSION: No acute findings. Head CT 02/12/17 15:02 IMPRESSION: NORMAL BRAIN CT WITHOUT CONTRAST. Chest X-Ray 02/12/17 15:03 IMPRESSION: NO SIGNIFICANT RADIOGRAPHIC FINDING IN THE CHEST. Lumbar Spine X-Ray 02/12/17 15:03 IMPRESSION: Mild scoliosis with no acute abnormality. Pelvis X-Ray 02/12/17 15:03 IMPRESSION: NEGATIVE STUDY OF THE PELVIS. Guidance Fluoroscopy 02/14/17 00:00 IMPRESSION: SUCCESSFUL PLACEMENT OF A 5 FR DUAL LUMEN 38 CM PICC IN THE left basilic VEIN. Interventional Vascular Procedure 02/14/17 00:00 IMPRESSION: SUCCESSFUL PLACEMENT OF A 5 FR DUAL LUMEN 38 CM PICC IN THE left basilic VEIN. PICC Line Insertion 02/14/17 00:00 IMPRESSION: SUCCESSFUL PLACEMENT OF A 5 FR DUAL LUMEN 38 CM PICC IN THE left basilic VEIN. Assessment & Plan - Diagnosis (1) Anorexia Is this a current diagnosis for this admission?: YesPlan: Patient is improving on TPN. Electrolytes have normalized. Plan is for her to be discharged on home TPN therapy on Saturday. 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 (2) Hypokalemia Is this a current diagnosis for this admission?: YesPlan: Secondary to hydrochlorothiazide. This is been repleted and is now normal. (3) Underweight Is this a current diagnosis for this admission?: YesPlan: Improved, patient has been increasing her oral intake. We will continue to support with TPN therapy (4) Iron deficiency anemia Qualifiers: Iron deficiency anemia type: unspecified iron deficiency Qualified Code(s): D50.9 - Iron deficiency anemia, unspecified Is this a current diagnosis for this admission?: YesPlan: Continue iron supplement (5) B12 deficiency anemia Qualifiers: Vitamin B12 deficiency anemia type: unspecified B12 deficiency Qualified Code(s): D51.9 - Vitamin B12 deficiency anemia, unspecified Is this a current diagnosis for this admission?: YesPlan: Continue supplementation (6) History of partial gastrectomy Is this a current diagnosis for this admission?: YesPlan: Malabsorption secondary to this. (7) Weakness Is this a current diagnosis for this admission?: YesPlan: Improving with TPN (8) Edema Qualifiers: Malnutrition edema type: unspecified malnutrition type Is this a current diagnosis for this admission?: YesPlan: Secondary to hypoalbuminemia (9) Protein-calorie malnutrition, moderate Is this a current diagnosis for this admission?: YesPlan: Secondary to malabsorption due to partial gastrectomy and poor appetite secondary to nausea and abdominal pain. Patient has had less pain and has been able to increase her intake - Time Time Spent with patient: 25-34 minutes Critical Time spent with patient: 15-24 minutes Medications reviewed and adjusted accordingly: Yes Anticipated discharge: Home with Homehealth Within: within 48 hours
--- NOTE | 2017-02-16 17:49 | EKG REPORT ---
SEVERITY:- ABNORMAL ECG - SINUS RHYTHM NONSPECIFIC T ABNORMALITIES, DIFFUSE LEADS PROLONGED QT INTERVAL : Confirmed by: Padma Mota MD 16-Feb-2017 17:48:44
[2017-02-16] MEDS: MIRTAZAPINE 15 MG TABLET PO SCH (22:26)
[2017-02-16] MEDS: AMINO ACIDS 5%/D25W 1,000 ML IV PRN (22:26)
[2017-02-16] MEDS: CLONAZEPAM 1 MG TABLET PO SCH (22:26)
[2017-02-17 05:40] LABS: ALANINE AMINOTRANSFERASE 26 U/L (9-52); ALBUMIN 2.3 g/dL (3.5-5.0); ALKALINE PHOSPHATASE 29 U/L (38-126); ANION GAP 6 (5-19); ASPARTATE AMINO TRANSFERASE 11 U/L (14-36); BILIRUBIN,DIRECT 0.2 mg/dL (0.0-0.4); BILIRUBIN,TOTAL 0.2 mg/dL (0.2-1.3); BLOOD UREA NITROGEN 23 mg/dL (7-20); CALCIUM 8.4 mg/dL (8.4-10.2); CARBON DIOXIDE 20 mmol/L (22-30); CHLORIDE 114 mmol/L (98-107); CREATININE RESULT 0.56 mg/dL (0.52-1.25); GLUCOSE 87 mg/dL (75-110); POTASSIUM 4.8 mmol/L (3.6-5.0); SODIUM 139.8 mmol/L (137-145); TOTAL PROTEIN 4.2 g/dL (6.3-8.2)
[2017-02-17 05:47] LABS: PREALBUMIN 17.4 mg/dL (17.6-36.0)
[2017-02-17] MEDS: THIAMINE HCL 100 MG TABLET PO SCH (09:14)
[2017-02-17] MEDS: POTASSIUM CHLORIDE 10 MEQ TABLET.SA PO SCH ×2 (09:14→21:09)
[2017-02-17] MEDS: MEGESTROL ACETATE SUSP 400 MG/10 ML UDCUP PO SCH (09:14)
[2017-02-17] MEDS: DOCUSATE SODIUM 100 MG CAPSULE PO SCH ×2 (09:14→17:33)
[2017-02-17] MEDS: SPIRONOLACTONE 25 MG TABLET PO SCH (09:14)
[2017-02-17] MEDS: FERROUS SULFATE 325 MG TABLET PO SCH (09:14)
[2017-02-17] MEDS: CYANOCOBALAMIN (VITAMIN B-12) INJ 1000 MCG/1 ML VIAL IM SCH (09:15)
[2017-02-17] MEDS: ENOXAPARIN SODIUM INJ 40 MG/0.4 ML DISP.SYRIN SUBCUT SCH (09:21)
[2017-02-17] MEDS: NORMAL SALINE 10 ML SDV (SCHEDULED) IV SCH ×2 (09:22→21:09)
[2017-02-17] MEDS: ONDANSETRON HCL INJ/PF 4 MG/2 ML SDV IV PRN (09:22)
--- NOTE | 2017-02-17 11:05 | PDOC PROGRESS REPORT ---
Subjective Subjective:: Patient is seen on morning rounds. She denies any shortness of breath, dyspnea or chest pain. She is resting comfortably in bed. She has some intermittent nausea, no abdominal pain or vomiting at the present time. She denies any significant arthralgias or myalgias. Rest of the review of systems are negative. Physical Exam Vital Signs: Temp Pulse Resp BP Pulse Ox 98.5 F 88 12 108/62 98 02/17/17 07:15 02/17/17 07:15 02/17/17 07:15 02/17/17 07:15 02/17/17 07:15 Intake & Output 02/16/17 02/17/17 02/18/17 06:59 06:59 06:59 Intake Total 1752 1428 Balance 1752 1428 Weight 48.7 kg 50.1 kg General appearance: PRESENT: no acute distress, thin, well-developed, well- nourished Head exam: PRESENT: atraumatic, normocephalic Eye exam: PRESENT: conjunctiva pink, EOMI, PERRLA. ABSENT: scleral icterus Ear exam: PRESENT: normal external ear exam Mouth exam: PRESENT: moist, tongue midline Neck exam: ABSENT: carotid bruit, JVD, lymphadenopathy, thyromegaly Respiratory exam: PRESENT: clear to auscultation jamaal. ABSENT: rales, rhonchi, wheezes Cardiovascular exam: PRESENT: RRR. ABSENT: diastolic murmur, rubs, systolic murmur Pulses: PRESENT: normal dorsalis pedis pul Vascular exam: PRESENT: normal capillary refill GI/Abdominal exam: PRESENT: normal bowel sounds, soft. ABSENT: distended, guarding, mass, organolmegaly, rebound, tenderness Rectal exam: PRESENT: deferred Extremities exam: PRESENT: full ROM. ABSENT: calf tenderness, clubbing, pedal edema Neurological exam: PRESENT: alert, awake, oriented to person, oriented to place , oriented to time, oriented to situation, CN II-XII grossly intact. ABSENT: motor sensory deficit Psychiatric exam: PRESENT: appropriate affect, normal mood. ABSENT: homicidal ideation, suicidal ideation Skin exam: PRESENT: dry, intact, warm. ABSENT: cyanosis, rash Results Laboratory Results: 02/16/17 05:45 02/17/17 05:10 02/16/17 02/17/17 05:45 05:10 Sodium 139.8 Potassium 4.8 Chloride 114 H Carbon Dioxide 20 L Anion Gap 6 BUN 23 H Creatinine 0.56 Est GFR ( Amer) > 60 Est GFR (Non-Af Amer) > 60 Glucose 87 Calcium 8.4 Total Bilirubin 0.2 AST 11 L ALT 26 Alkaline Phosphatase 29 L Total Protein 4.2 L Albumin 2.3 L Prealbumin 17.4 L Triglycerides 49 Impressions: Cervical Spine CT 02/12/17 15:02 IMPRESSION: No acute findings. Head CT 02/12/17 15:02 IMPRESSION: NORMAL BRAIN CT WITHOUT CONTRAST. Chest X-Ray 02/12/17 15:03 IMPRESSION: NO SIGNIFICANT RADIOGRAPHIC FINDING IN THE CHEST. Lumbar Spine X-Ray 02/12/17 15:03 IMPRESSION: Mild scoliosis with no acute abnormality. Pelvis X-Ray 02/12/17 15:03 IMPRESSION: NEGATIVE STUDY OF THE PELVIS. Guidance Fluoroscopy 02/14/17 00:00 IMPRESSION: SUCCESSFUL PLACEMENT OF A 5 FR DUAL LUMEN 38 CM PICC IN THE left basilic VEIN. Interventional Vascular Procedure 02/14/17 00:00 IMPRESSION: SUCCESSFUL PLACEMENT OF A 5 FR DUAL LUMEN 38 CM PICC IN THE left basilic VEIN. PICC Line Insertion 02/14/17 00:00 IMPRESSION: SUCCESSFUL PLACEMENT OF A 5 FR DUAL LUMEN 38 CM PICC IN THE left basilic VEIN. Assessment & Plan - Diagnosis (1) Anorexia Is this a current diagnosis for this admission?: YesPlan: Patient is improving on TPN. Electrolytes have normalized. Plan is for her to be discharged on home TPN therapy on Saturday. 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 (2) Hypokalemia Is this a current diagnosis for this admission?: YesPlan: Secondary to hydrochlorothiazide. This is been repleted and is now normal. (3) Underweight Is this a current diagnosis for this admission?: YesPlan: Improved, patient has been increasing her oral intake. We will continue to support with TPN therapy (4) Iron deficiency anemia Qualifiers: Iron deficiency anemia type: unspecified iron deficiency Qualified Code(s): D50.9 - Iron deficiency anemia, unspecified Is this a current diagnosis for this admission?: YesPlan: Continue iron supplement (5) B12 deficiency anemia Qualifiers: Vitamin B12 deficiency anemia type: unspecified B12 deficiency Qualified Code(s): D51.9 - Vitamin B12 deficiency anemia, unspecified Is this a current diagnosis for this admission?: YesPlan: Continue supplementation (6) History of partial gastrectomy Is this a current diagnosis for this admission?: YesPlan: Malabsorption secondary to this. (7) Weakness Is this a current diagnosis for this admission?: YesPlan: Improving with TPN (8) Edema Qualifiers: Malnutrition edema type: unspecified malnutrition type Is this a current diagnosis for this admission?: YesPlan: Secondary to hypoalbuminemia (9) Protein-calorie malnutrition, moderate Is this a current diagnosis for this admission?: YesPlan: Secondary to malabsorption due to partial gastrectomy and poor appetite secondary to nausea and abdominal pain. Patient has had less pain and has been able to increase her intake - Time Time Spent with patient: 25-34 minutes Critical Time spent with patient: 15-24 minutes Medications reviewed and adjusted accordingly: Yes Anticipated discharge: Home with Homehealth Within: within 24 hours
--- NOTE | 2017-02-17 19:32 | PDOC CONSULTATION ---
Consultation Consult Date: 02/15/17 Attending physician:: DENIS CARNEY Consult reason:: V tach History of Present Illness Admission Date/PCP: 02/12/17 18:20 Patient complains of: Generalized weakness and tiredness. History of Present Illness: SHIKHA DEAN is a 36 year old female with a past history of malnutrition following multiple abdominal surgeries a few years ago including gastric antrectomy and vagotomy. She has since been hospitalized for small bowel obstruction. She has at times required home TPN for several months. She has had prior issues with electrolyte disturbances as well. She was found in the emergency department to be very hypokalemic. Of note she was started on HCTZ one month ago for swelling in her legs. In discussion with patient it does not sound like she has any symptoms consistent with short gut syndrome such as watery diarrhea. Her protein/ albumin levels are normal. It sounds more like she has no appetite or sensation of hunger since having vagotomy. While patient being monitored in the hospital she was noted to have short run of nonsustained wide-complex and also a short run of nonsustained narrow complex tachycardia. Patient does describe intermittent palpitations being noted. She has a history of previous syncopal spell but cannot describe it in detail. Last syncopal spell was approximately a year ago. Patient denied any prior history of other heart problems suggest angina, congestive heart failure. History was obtained, and I agree with it, this was supplemented and confirmed. Past Medical History Cardiac Medical History: Denies: Coronary Artery Disease, Myocardial Infarction, Hypertension Pulmonary Medical History: Denies: Asthma, Bronchitis, Chronic Obstructive Pulmonary Disease (COPD), Pneumonia, Tuberculosis Neurological Medical History: Denies: Seizures Musculoskeltal Medical History: Denies: Arthritis Psychiatric Medical History: Denies: Depression Hematology: Reports: Anemia Past Surgical History Past Surgical History: Reports: Appendectomy, Cholecystectomy, Other - Gastric antrectomy/vagotomy Denies: Hysterectomy, Pacemaker Social History Information Source: Patient Lives with: Family Smoking Status: Never Smoker Frequency of Alcohol Use: None Hx Recreational Drug Use: No Drugs: None Hx Prescription Drug Abuse: No - Advance Directive Resuscitation Status: Full Code Family History Family History: Hypertension Parental Family History Reviewed: Yes Children Family History Reviewed: Yes Sibling(s) Family History Reviewed.: Yes Medication/Allergy Home Medications: Clonazepam [Klonopin] 1 mg PO QHS 02/12/17 Hydrochlorothiazide 12.5 mg PO DAILY 02/12/17 Iron,Carbonyl/Vit C/Vit B12/FA [Iron 100 Plus Tablet] 1 each PO DAILY 02/12/17 Potassium Chloride [Klor-Con] 1 each PO DAILY 02/12/17 Allergies/Adverse Reactions: amoxicillin [Amoxicillin] Allergy (Severe, Verified 02/12/17 14:42) Review of Systems Review of Systems: Please see history of present illness and past medical history as wall. Constitutional: No fever or chills reported. Head : No recent chronic headaches, recent head injury. Eyes: No recent eye pain, diplopia, redness, discharge, acute visual changes. Ears: No recent chronic ear pain, acute hearing loss, ear discharge. Oral cavity: No recent ulcerations, bleeding, oral cavity discomfort. Neck: No recent acute neck pain reported. Hematologic: No recent easy bruising or bleeding or hematologic malignancy reported. Lymphatic: No recent lymphatic malignancy, chronic lymphadenopathy reported yet Cardiovascular system review: See history of present illness. Respiratory system review: No recent chronic cough, hemoptysis, blood clots in the lungs reported. Mild Shortness of breath on exertion Gastrointestinal system review: No history of hematemesis, melena, recent change in bowel habits. Patient does describe lack of appetite, intermittent constipation and diarrhea and occasional epigastric discomfort. Genitourinary system review: No recent acute or chronic hematuria, flank pain, UTI etc. reported. Skin system review: Negative for any recent abnormal bruising, no rash, no pruritus reported. Neurologic: No prior history of strokes, mini strokes, seizure disorder. History of syncopal spell a year ago. Psychologic: No history of major psychosis or major depression reported. Mild depression reported Musculoskeletal: Minor aches and pains reported. No acute joint swelling reported. Endocrine: No recent polyuria, polydipsia, recent heat or cold intolerance. Physical Exam Vital Signs: Temp Pulse Resp BP Pulse Ox 98.7 F 85 16 108/65 98 02/15/17 19:20 02/15/17 19:20 02/15/17 19:20 02/15/17 19:20 02/15/17 19:20 Intake & Output 02/14/17 02/15/17 02/16/17 06:59 06:59 06:59 Intake Total 700 5045 782 Output Total 871 200 Balance 75 2335 782 Weight 41.8 kg 45.7 kg Exam: GENERAL: well-nourished and in no acute distress. Alert and oriented x3 HEAD: Atraumatic, normocephalic. EYES: Pupils equal round and reactive to light, extraocular movements intact, sclera anicteric, conjunctiva are normal. ENT: TMs normal, nares patent, oropharynx clear without exudates. Moist mucous membranes. No oral ulcerations or bleeding gums noted NECK: supple without lymphadenopathy. Trachea is central. No cervical or axillary lymphadenopathy noted. Carotids are 2+, JVD WNL LUNGS: Respiration seems nonlabored, no significant accessory muscle action noted. Breath sounds clear to auscultation bilaterally and equal noted. No wheezes rales or rhonchi noted. No significant dullness noted on percussion. CHEST: Palpation of the chest wall shows no significant chest wall tenderness. No other significant abnormalities noted. HEART: [place] [employer]IC, No PSH, 1/6 MYRNA aortic area, 1/6 milan systolic murmur mitral area, no rubs, no gallops. ABDOMEN: Soft, no significant tenderness appreciated, normoactive bowel sounds. No guarding, no rebound. No rigidity noted . No masses appreciated. Scar of previous surgery noted EXTREMITIES: Pedal pulses are 1-2+, no calf tenderness noted. No clubbing or cyanosis.trace to 1+ pedal edema noted NEUROLOGICAL: Focused neurological exam showed no significant neurologic deficit. Normal speech, no focal weakness appreciated. PSYCH: Normal mood, normal affect. Judgment and insight within normal limits. SKIN: No significant ecchymosis, rash, ulcerations or signs of pruritus noted. MUSCULOSKELETAL EXAM: No significant joint swelling noted. Results Laboratory Results: 02/15/17 06:25 02/15/17 06:25 02/13/17 02/15/17 02/15/17 05:11 06:25 06:25 WBC 7.3 RBC 3.51 L Hgb 11.0 L Hct 33.1 L MCV 94 MCH 31.2 MCHC 33.1 RDW 12.3 Plt Count 239 Seg Neutrophils % 60.7 Lymphocytes % 28.3 Monocytes % 7.5 Eosinophils % 2.9 Basophils % 0.6 Absolute Neutrophils 4.4 Absolute Lymphocytes 2.1 Absolute Monocytes 0.6 Absolute Eosinophils 0.2 Absolute Basophils 0.0 Sodium 140.0 139.7 Potassium 3.0 L* 3.6 Chloride 101 112 H Carbon Dioxide 29 24 Anion Gap 10 4 L BUN 26 H 23 H Creatinine 0.81 0.55 Est GFR ( Amer) > 60 > 60 Est GFR (Non-Af Amer) > 60 > 60 Glucose 76 96 Calcium 8.8 8.8 Phosphorus Magnesium 2.0 02/15/17 06:25 WBC RBC Hgb Hct MCV MCH MCHC RDW Plt Count Seg Neutrophils % Lymphocytes % Monocytes % Eosinophils % Basophils % Absolute Neutrophils Absolute Lymphocytes Absolute Monocytes Absolute Eosinophils Absolute Basophils Sodium Potassium Chloride Carbon Dioxide Anion Gap BUN Creatinine Est GFR ( Amer) Est GFR (Non-Af Amer) Glucose Calcium Phosphorus 2.2 L Magnesium 1.7 EKG Comments: Sinus rhythm, nonspecific T-wave inversions are noted. Impressions: Cervical Spine CT 02/12/17 15:02 IMPRESSION: No acute findings. Head CT 02/12/17 15:02 IMPRESSION: NORMAL BRAIN CT WITHOUT CONTRAST. Chest X-Ray 02/12/17 15:03 IMPRESSION: NO SIGNIFICANT RADIOGRAPHIC FINDING IN THE CHEST. Lumbar Spine X-Ray 02/12/17 15:03 IMPRESSION: Mild scoliosis with no acute abnormality. Pelvis X-Ray 02/12/17 15:03 IMPRESSION: NEGATIVE STUDY OF THE PELVIS. Guidance Fluoroscopy 02/14/17 00:00 IMPRESSION: SUCCESSFUL PLACEMENT OF A 5 FR DUAL LUMEN 38 CM PICC IN THE left basilic VEIN. Interventional Vascular Procedure 02/14/17 00:00 IMPRESSION: SUCCESSFUL PLACEMENT OF A 5 FR DUAL LUMEN 38 CM PICC IN THE left basilic VEIN. PICC Line Insertion 02/14/17 00:00 IMPRESSION: SUCCESSFUL PLACEMENT OF A 5 FR DUAL LUMEN 38 CM PICC IN THE left basilic VEIN. Assessment & Plan - Diagnosis (1) Nonsustained ventricular tachycardia Is this a current diagnosis for this admission?: Yes (2) Paroxysmal atrial tachycardia Is this a current diagnosis for this admission?: Yes (3) Abnormal electrocardiogram Is this a current diagnosis for this admission?: Yes (4) Malnutrition Is this a current diagnosis for this admission?: Yes (5) Electrolyte imbalance Is this a current diagnosis for this admission?: Yes - Notes Notes: Nonsustained ventricular tachycardia: This was asymptomatic. Patient does have significant electrolyte imbalance. At this point will recommend prolonged monitoring. Paroxysmal atrial tachycardia: Possibly also related to electrolyte imbalance. Abnormal electrocardiogram: Patient has some nonspecific T-wave inversion. Will order a 2D echocardiogram to look at any structural cardiac abnormalities. Malnutrition: Patient may have deficiency of thiamine, selenium, which can cause cardiomyopathy. Patient encouraged to improve intake. Electrolyte imbalance and malnutrition: Recommend keeping potassium above 4 mg/ L and magnesium over 2 mg percent. This was discussed with hospitalist. Patient to report any syncope, near syncope. - Time Time Spent: 30 to 50 Minutes - CODE STATUS was discussed, patient remains full code. Surrogate decision-maker not identified by the patient. Multiple medical problems were addressed. More than 50% of the time spent coordinating care, discussing management plans with involved caregivers. Management plans discussed with involved personnels. Medical decision making was of moderate to high complexity, patient's has multiple comorbidities. Medications reviewed and adjusted accordingly: Yes
--- NOTE | 2017-02-17 19:34 | PDOC PROGRESS REPORT ---
Subjective Progress Note for:: 02/16/17 Subjective:: Patient claims to be feeling better. She is denying any chest, neck discomfort. Telemetry strips reviewed showed no significant arrhythmia. Physical Exam Vital Signs: Temp Pulse Resp BP Pulse Ox 98.6 F 101 H 25 H 120/65 98 02/16/17 16:00 02/16/17 16:00 02/16/17 16:00 02/16/17 16:00 02/16/17 16:00 Intake & Output 02/15/17 02/16/17 02/17/17 06:59 06:59 06:59 Intake Total 1755 1752 580 Output Total 200 Balance 1555 1752 580 Weight 45.7 kg 48.7 kg Exam: GENERAL: well-nourished and in no acute distress. Alert and oriented x3 HEAD: Atraumatic, normocephalic. EYES: Pupils equal round and reactive to light, extraocular movements intact, sclera anicteric, conjunctiva are normal. ENT: TMs normal, nares patent, oropharynx clear without exudates. Moist mucous membranes. No oral ulcerations or bleeding gums noted NECK: supple without lymphadenopathy. Trachea is central. No cervical or axillary lymphadenopathy noted. Carotids are 2+, JVD WNL LUNGS: Respiration seems nonlabored, no significant accessory muscle action noted. Breath sounds clear to auscultation bilaterally and equal noted. No wheezes rales or rhonchi noted. No significant dullness noted on percussion. CHEST: Palpation of the chest wall shows no significant chest wall tenderness. No other significant abnormalities noted. 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 ABDOMEN: Soft, no significant tenderness appreciated, normoactive bowel sounds. No guarding, no rebound. No rigidity noted . No masses appreciated. EXTREMITIES: Pedal pulses are 1-2+, no calf tenderness noted. No clubbing or cyanosis.trace to 1+ pedal edema noted NEUROLOGICAL: Focused neurological exam showed no significant neurologic deficit. Normal speech, no focal weakness appreciated. PSYCH: Normal mood, normal affect. Judgment and insight within normal limits. SKIN: No significant ecchymosis, rash, ulcerations or signs of pruritus noted. MUSCULOSKELETAL EXAM: No significant joint swelling noted. Results Laboratory Results: 02/16/17 05:45 02/16/17 05:45 02/16/17 02/16/17 02/16/17 05:45 05:45 05:45 WBC 9.9 RBC 3.42 L Hgb 10.8 L Hct 32.2 L MCV 94 MCH 31.5 MCHC 33.4 RDW 12.2 Plt Count 229 Seg Neutrophils % 69.8 Lymphocytes % 21.8 Monocytes % 6.7 Eosinophils % 1.3 Basophils % 0.4 Absolute Neutrophils 6.9 Absolute Lymphocytes 2.2 Absolute Monocytes 0.7 Absolute Eosinophils 0.1 Absolute Basophils 0.0 Sodium 140.5 Potassium 4.4 Chloride 112 H Carbon Dioxide 22 Anion Gap 7 BUN 21 H Creatinine 0.53 Est GFR ( Amer) > 60 Est GFR (Non-Af Amer) > 60 Glucose 84 Calcium 8.4 Phosphorus 3.3 Magnesium 1.8 Total Bilirubin < 0.1 L AST 12 L ALT 30 Alkaline Phosphatase 33 L Total Protein 4.1 L Albumin 2.5 L Prealbumin 16.3 L Triglycerides 49 Impressions: Cervical Spine CT 02/12/17 15:02 IMPRESSION: No acute findings. Head CT 02/12/17 15:02 IMPRESSION: NORMAL BRAIN CT WITHOUT CONTRAST. Chest X-Ray 02/12/17 15:03 IMPRESSION: NO SIGNIFICANT RADIOGRAPHIC FINDING IN THE CHEST. Lumbar Spine X-Ray 02/12/17 15:03 IMPRESSION: Mild scoliosis with no acute abnormality. Pelvis X-Ray 02/12/17 15:03 IMPRESSION: NEGATIVE STUDY OF THE PELVIS. Guidance Fluoroscopy 02/14/17 00:00 IMPRESSION: SUCCESSFUL PLACEMENT OF A 5 FR DUAL LUMEN 38 CM PICC IN THE left basilic VEIN. Interventional Vascular Procedure 02/14/17 00:00 IMPRESSION: SUCCESSFUL PLACEMENT OF A 5 FR DUAL LUMEN 38 CM PICC IN THE left basilic VEIN. PICC Line Insertion 02/14/17 00:00 IMPRESSION: SUCCESSFUL PLACEMENT OF A 5 FR DUAL LUMEN 38 CM PICC IN THE left basilic VEIN. Assessment & Plan - Diagnosis (1) Abnormal electrocardiogram Is this a current diagnosis for this admission?: Yes (2) Electrolyte imbalance Is this a current diagnosis for this admission?: Yes (3) Hypokalemia Is this a current diagnosis for this admission?: Yes (4) Malnutrition Is this a current diagnosis for this admission?: Yes (5) Nonsustained ventricular tachycardia Is this a current diagnosis for this admission?: Yes (6) Paroxysmal atrial tachycardia Is this a current diagnosis for this admission?: Yes - Notes Notes: Nonsustained ventricular tachycardia: This was asymptomatic. No recurrences noted last 24 hours patient does have significant electrolyte imbalance. At this point will recommend prolonged monitoring. Paroxysmal atrial tachycardia: Possibly also related to electrolyte imbalance. No recurrences noted last 24 hours Abnormal electrocardiogram: Patient has some nonspecific T-wave inversion. 2D echo results reviewed with the patient and no structural cardiac abnormalities. Malnutrition: Patient may have deficiency of thiamine, selenium, which can cause cardiomyopathy. Patient encouraged to improve intake. Electrolyte imbalance and malnutrition: Recommend keeping potassium above 4 mg/ L and magnesium over 2 mg percent. This was discussed with hospitalist. Patient to report any syncope, near syncope. There has been no recurrence of cardiac dysrhythmia. Electrolytes have improved. 2D echocardiogram results reviewed with the patient. Patient has normal LVEF. Will continue to observe patient. - Time Time with patient: 15-25 minutes - More than 50% of the time spent coordinating care, discussing management plans with involved caregivers. Management plans discussed with involved personnels. Medical decision making was of moderate to high complexity, patient's has multiple comorbidities. Medications reviewed and adjusted accordingly: Yes
--- NOTE | 2017-02-17 19:36 | PDOC PROGRESS REPORT ---
Subjective Progress Note for:: 02/17/17 Subjective:: Patient claims to be feeling better. She is denying any chest, neck discomfort. Telemetry strips reviewed showed no significant arrhythmia. Patient is noted to be receiving IV hyperalimentation. Discussed that there could be some short-term risk with it. Patient again encouraged to improve p.o. intake.. Physical Exam Vital Signs: Temp Pulse Resp BP Pulse Ox 98.6 F 104 H 12 113/67 99 02/17/17 16:00 02/17/17 16:00 02/17/17 16:00 02/17/17 16:00 02/17/17 16:00 Intake & Output 02/16/17 02/17/17 02/18/17 06:59 06:59 06:59 Intake Total 1752 1428 Balance 1752 1428 Weight 48.7 kg 50.1 kg Exam: GENERAL: well-nourished and in no acute distress. Alert and oriented x3 HEAD: Atraumatic, normocephalic. EYES: Pupils equal round and reactive to light, extraocular movements intact, sclera anicteric, conjunctiva are normal. ENT: TMs normal, nares patent, oropharynx clear without exudates. Moist mucous membranes. No oral ulcerations or bleeding gums noted NECK: supple without lymphadenopathy. Trachea is central. No cervical or axillary lymphadenopathy noted. Carotids are 2+, JVD WNL LUNGS: Respiration seems nonlabored, no significant accessory muscle action noted. Breath sounds clear to auscultation bilaterally and equal noted. No wheezes rales or rhonchi noted. No significant dullness noted on percussion. CHEST: Palpation of the chest wall shows no significant chest wall tenderness. No other significant abnormalities noted. 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 ABDOMEN: Soft, no significant tenderness appreciated, normoactive bowel sounds. No guarding, no rebound. No rigidity noted . No masses appreciated. EXTREMITIES: Pedal pulses are 1-2+, no calf tenderness noted. No clubbing or cyanosis.trace to 1+ pedal edema noted NEUROLOGICAL: Focused neurological exam showed no significant neurologic deficit. Normal speech, no focal weakness appreciated. PSYCH: Normal mood, normal affect. Judgment and insight within normal limits. SKIN: No significant ecchymosis, rash, ulcerations or signs of pruritus noted. MUSCULOSKELETAL EXAM: No significant joint swelling noted. Results Laboratory Results: 02/16/17 05:45 02/17/17 05:10 02/17/17 05:10 Sodium 139.8 Potassium 4.8 Chloride 114 H Carbon Dioxide 20 L Anion Gap 6 BUN 23 H Creatinine 0.56 Est GFR ( Amer) > 60 Est GFR (Non-Af Amer) > 60 Glucose 87 Calcium 8.4 Total Bilirubin 0.2 AST 11 L ALT 26 Alkaline Phosphatase 29 L Total Protein 4.2 L Albumin 2.3 L Prealbumin 17.4 L Impressions: Cervical Spine CT 02/12/17 15:02 IMPRESSION: No acute findings. Head CT 02/12/17 15:02 IMPRESSION: NORMAL BRAIN CT WITHOUT CONTRAST. Chest X-Ray 02/12/17 15:03 IMPRESSION: NO SIGNIFICANT RADIOGRAPHIC FINDING IN THE CHEST. Lumbar Spine X-Ray 02/12/17 15:03 IMPRESSION: Mild scoliosis with no acute abnormality. Pelvis X-Ray 02/12/17 15:03 IMPRESSION: NEGATIVE STUDY OF THE PELVIS. Guidance Fluoroscopy 02/14/17 00:00 IMPRESSION: SUCCESSFUL PLACEMENT OF A 5 FR DUAL LUMEN 38 CM PICC IN THE left basilic VEIN. Interventional Vascular Procedure 02/14/17 00:00 IMPRESSION: SUCCESSFUL PLACEMENT OF A 5 FR DUAL LUMEN 38 CM PICC IN THE left basilic VEIN. PICC Line Insertion 02/14/17 00:00 IMPRESSION: SUCCESSFUL PLACEMENT OF A 5 FR DUAL LUMEN 38 CM PICC IN THE left basilic VEIN. Assessment & Plan - Diagnosis (1) Abnormal electrocardiogram Is this a current diagnosis for this admission?: Yes (2) Electrolyte imbalance Is this a current diagnosis for this admission?: Yes (3) Hypokalemia Is this a current diagnosis for this admission?: Yes (4) Malnutrition Is this a current diagnosis for this admission?: Yes (5) Nonsustained ventricular tachycardia Is this a current diagnosis for this admission?: Yes (6) Paroxysmal atrial tachycardia Is this a current diagnosis for this admission?: Yes - Notes Notes: Telemetry strips were all reviewed. There has been no significant dysrhythmia noted in the last 48 hours. This is probably related to improved nutrition and correction of electrolytes. As noted before, will recommend a stress echo to be ordered as an outpatient. This can be performed to my office. In the meantime patient has been asked to report any dizziness, sustained palpitations , syncope, near syncope. It may also be worthwhile to consider a event monitor as an outpatient. This was discussed with the patient - Time Time with patient: 15-25 minutes Medications reviewed and adjusted accordingly: Yes
[2017-02-17] MEDS: MIRTAZAPINE 15 MG TABLET PO SCH (21:09)
[2017-02-17] MEDS: AMINO ACIDS 5%/D25W 1,000 ML IV PRN (21:09)
[2017-02-17] MEDS: CLONAZEPAM 1 MG TABLET PO SCH (21:09)
[2017-02-18 05:52] LABS: HEMATOCRIT 29.9 % (36.0-47.0); HEMOGLOBIN 10.1 g/dL (12.0-15.5); HGB HCT DIFFERENCE 0.4; MEAN CORPUSCULAR HEMOGLOBIN 31.7 pg (27.0-33.4); MEAN CORPUSCULAR HGB CONC 33.7 g/dL (32.0-36.0); MEAN CORPUSCULAR VOLUME 94 fl (80-97); RED BLOOD COUNT 3.19 10^6/uL (3.72-5.28); RED CELL DISTRIBUTION WIDTH 12.4 % (11.5-14.0); WHITE BLOOD COUNT 9.4 10^3/uL (4.0-10.5)
[2017-02-18 06:07] LABS: ALANINE AMINOTRANSFERASE 30 U/L (9-52); ALBUMIN 2.5 g/dL (3.5-5.0); ALKALINE PHOSPHATASE 29 U/L (38-126); ANION GAP 6 (5-19); ASPARTATE AMINO TRANSFERASE 14 U/L (14-36); BLOOD UREA NITROGEN 21 mg/dL (7-20); CALCIUM 8.3 mg/dL (8.4-10.2); CARBON DIOXIDE 20 mmol/L (22-30); CHLORIDE 112 mmol/L (98-107); CREATININE RESULT 0.51 mg/dL (0.52-1.25); GLUCOSE 77 mg/dL (75-110); MAGNESIUM 1.5 mg/dL (1.6-2.3); POTASSIUM 4.8 mmol/L (3.6-5.0); PROTHROMBIN TIME 13.9 SEC (11.4-15.4); TOTAL PROTEIN 3.9 g/dL (6.3-8.2)
[2017-02-18 06:30] LABS: BILIRUBIN,TOTAL < 0.1 mg/dL (0.2-1.3)
[2017-02-18] MEDS: CYANOCOBALAMIN (VITAMIN B-12) INJ 1000 MCG/1 ML VIAL IM SCH (09:10)
[2017-02-18] MEDS: MEGESTROL ACETATE SUSP 400 MG/10 ML UDCUP PO SCH (09:11)
[2017-02-18] MEDS: THIAMINE HCL 100 MG TABLET PO SCH (09:11)
[2017-02-18] MEDS: FERROUS SULFATE 325 MG TABLET PO SCH (09:11)
[2017-02-18] MEDS: DOCUSATE SODIUM 100 MG CAPSULE PO SCH (09:11)
[2017-02-18] MEDS: ENOXAPARIN SODIUM INJ 40 MG/0.4 ML DISP.SYRIN SUBCUT SCH (09:12)
[2017-02-18] MEDS: NORMAL SALINE 10 ML SDV (SCHEDULED) IV SCH (09:12)
[2017-02-18] MEDS ORDERED: POTASSIUM CHLORIDE 10 MEQ TABLET.SA PO SCH (10:00)
[2017-02-18] MEDS ORDERED: POTASSIUM CHLORIDE PO SCH (10:00)
[2017-02-18] MEDS ORDERED: FAT EMULSIONS 250 ML IV SCH (10:00)
[2017-02-18] MEDS ORDERED: HYDROCHLOROTHIAZIDE 12.5 MG CAPSULE PO SCH (10:00)
[2017-02-18] MEDS: ONDANSETRON HCL INJ/PF 4 MG/2 ML SDV IV PRN (11:40)
[2017-02-18] MEDS: MAGNESIUM SULFATE 1 GM/D5W 100 ML IV SCH ×2 (11:43→13:18)
[2017-02-18] MEDS ORDERED: BUMETANIDE 1 MG TABLET PO ONE ×2 (12:00→13:00)
--- NOTE | 2017-02-18 15:49 | PDOC PROGRESS REPORT ---
Subjective Progress Note for:: 02/18/17 Subjective:: Patient is seen on morning rounds. She denies any shortness of breath, dyspnea or chest pain. She is resting comfortably in bed. She has some intermittent nausea, no abdominal pain or vomiting at the present time. She denies any significant arthralgias or myalgias. Rest of the review of systems are negative. Physical Exam Vital Signs: Temp Pulse Resp BP Pulse Ox 99.0 F 116 H 12 124/63 98 02/18/17 14:56 02/18/17 14:56 02/18/17 14:56 02/18/17 14:56 02/18/17 14:56 Intake & Output 02/17/17 02/18/17 02/19/17 06:59 06:59 06:59 Intake Total 1428 2578 Balance 1428 2578 Weight 50.1 kg 52.4 kg General appearance: PRESENT: no acute distress, thin, well-developed Head exam: PRESENT: atraumatic, normocephalic Eye exam: PRESENT: conjunctiva pink, EOMI, PERRLA. ABSENT: scleral icterus Ear exam: PRESENT: normal external ear exam Mouth exam: PRESENT: moist, tongue midline Neck exam: ABSENT: carotid bruit, JVD, lymphadenopathy, thyromegaly Respiratory exam: PRESENT: clear to auscultation jamaal. ABSENT: rales, rhonchi, wheezes Cardiovascular exam: PRESENT: RRR. ABSENT: diastolic murmur, rubs, systolic murmur Pulses: PRESENT: normal dorsalis pedis pul Vascular exam: PRESENT: normal capillary refill GI/Abdominal exam: PRESENT: normal bowel sounds, soft. ABSENT: distended, guarding, mass, organolmegaly, rebound, tenderness Rectal exam: PRESENT: deferred Extremities exam: PRESENT: full ROM. ABSENT: calf tenderness, clubbing, pedal edema Neurological exam: PRESENT: alert, awake, oriented to person, oriented to place , oriented to time, oriented to situation, CN II-XII grossly intact. ABSENT: motor sensory deficit Psychiatric exam: PRESENT: appropriate affect, normal mood. ABSENT: homicidal ideation, suicidal ideation Skin exam: PRESENT: dry, intact, warm. ABSENT: cyanosis, rash Results Laboratory Results: 02/18/17 05:25 02/18/17 05:25 02/18/17 02/18/17 05:25 05:25 WBC 9.4 RBC 3.19 L Hgb 10.1 L Hct 29.9 L MCV 94 MCH 31.7 MCHC 33.7 RDW 12.4 Plt Count 241 Sodium 138.0 Potassium 4.8 Chloride 112 H Carbon Dioxide 20 L Anion Gap 6 BUN 21 H Creatinine 0.51 L Est GFR ( Amer) > 60 Est GFR (Non-Af Amer) > 60 Glucose 77 Calcium 8.3 L Magnesium 1.5 L Total Bilirubin < 0.1 L AST 14 ALT 30 Alkaline Phosphatase 29 L Total Protein 3.9 L Albumin 2.5 L Prealbumin 22.0 Impressions: Cervical Spine CT 02/12/17 15:02 IMPRESSION: No acute findings. Head CT 02/12/17 15:02 IMPRESSION: NORMAL BRAIN CT WITHOUT CONTRAST. Chest X-Ray 02/12/17 15:03 IMPRESSION: NO SIGNIFICANT RADIOGRAPHIC FINDING IN THE CHEST. Lumbar Spine X-Ray 02/12/17 15:03 IMPRESSION: Mild scoliosis with no acute abnormality. Pelvis X-Ray 02/12/17 15:03 IMPRESSION: NEGATIVE STUDY OF THE PELVIS. Guidance Fluoroscopy 02/14/17 00:00 IMPRESSION: SUCCESSFUL PLACEMENT OF A 5 FR DUAL LUMEN 38 CM PICC IN THE left basilic VEIN. Interventional Vascular Procedure 02/14/17 00:00 IMPRESSION: SUCCESSFUL PLACEMENT OF A 5 FR DUAL LUMEN 38 CM PICC IN THE left basilic VEIN. PICC Line Insertion 02/14/17 00:00 IMPRESSION: SUCCESSFUL PLACEMENT OF A 5 FR DUAL LUMEN 38 CM PICC IN THE left basilic VEIN. Assessment & Plan - Diagnosis (1) Anorexia Is this a current diagnosis for this admission?: YesPlan: Patient is improving on TPN. Electrolytes have normalized. Plan is for her to be discharged on home TPN therapy on Saturday. 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 (2) Hypokalemia Is this a current diagnosis for this admission?: YesPlan: Secondary to hydrochlorothiazide. This is been repleted and is now normal. (3) Underweight Is this a current diagnosis for this admission?: YesPlan: Improved, patient has been increasing her oral intake. We will continue to support with TPN therapy (4) Iron deficiency anemia Qualifiers: Iron deficiency anemia type: unspecified iron deficiency Qualified Code(s): D50.9 - Iron deficiency anemia, unspecified Is this a current diagnosis for this admission?: YesPlan: Continue iron supplement (5) B12 deficiency anemia Qualifiers: Vitamin B12 deficiency anemia type: unspecified B12 deficiency Qualified Code(s): D51.9 - Vitamin B12 deficiency anemia, unspecified Is this a current diagnosis for this admission?: YesPlan: Continue supplementation (6) History of partial gastrectomy Is this a current diagnosis for this admission?: YesPlan: Malabsorption secondary to this. (7) Weakness Is this a current diagnosis for this admission?: YesPlan: Improving with TPN (8) Edema Qualifiers: Malnutrition edema type: unspecified malnutrition type Is this a current diagnosis for this admission?: YesPlan: Secondary to hypoalbuminemia (9) Protein-calorie malnutrition, moderate Is this a current diagnosis for this admission?: YesPlan: Secondary to malabsorption due to partial gastrectomy and poor appetite secondary to nausea and abdominal pain. Patient has had less pain and has been able to increase her intake - Time Time Spent with patient: 25-34 minutes Critical Time spent with patient: 15-24 minutes Medications reviewed and adjusted accordingly: Yes Anticipated discharge: Home
[2017-02-18 17:42] VITALS: BP 107/55
--- NOTE | 2017-02-18 17:57 | PDOC DISCHARGE SUMMARY ---
General - Admit/Disc Date/PCP Admission Date/Primary Care Provider: 02/12/17 18:20 Discharge Date: 02/18/17 - Discharge Diagnosis (1) Anorexia Is this a current diagnosis for this admission?: YesSummary: Patient was started on Megace 800mg daily (2) Hypokalemia Is this a current diagnosis for this admission?: YesSummary: Repleted (3) Underweight Is this a current diagnosis for this admission?: Yes (4) Iron deficiency anemia Is this a current diagnosis for this admission?: Yes (5) B12 deficiency anemia Is this a current diagnosis for this admission?: YesSummary: Was supplemented (6) History of partial gastrectomy Is this a current diagnosis for this admission?: Yes (7) Weakness Is this a current diagnosis for this admission?: YesSummary: Resolved (8) Edema Is this a current diagnosis for this admission?: YesSummary: Improved (9) Protein-calorie malnutrition, moderate Is this a current diagnosis for this admission?: YesSummary: TPN supplement for the next week - Additional Information Resuscitation Status: Full Code Discharge Diet: Regular Discharge Activity: Activity As Tolerated, Balance Activity w/Rest Home Medications: Clonazepam [Klonopin] 1 mg PO QHS 02/12/17 Hydrochlorothiazide 12.5 mg PO DAILY 02/12/17 Iron,Carbonyl/Vit C/Vit B12/FA [Iron 100 Plus Tablet] 1 each PO DAILY 02/12/17 Potassium Chloride [Klor-Con] 1 each PO DAILY 02/12/17 Diltiazem HCl [Cardizem Cd 120 mg Capsule] 120 mg PO QHS #30 cap.sr.24h Megestrol Acetate [Megace Leola 400 mg/10 ml Udcup] 800 mg PO DAILY #240 ml 02/18 Ondansetron [Zofran Odt 4 mg Tablet] 4 mg PO Q4HP PRN #30 tab.rapdis 02/18/17 History of Present Illness Patient complains of: Weakness and fall History of Present Illness: SHIKHA DEAN is a 36 year old female with a past history of malnutrition following multiple abdominal surgeries a few years ago including gastric antrectomy and vagotomy. She has since been hospitalized for small bowel obstruction. She has at times required home TPN for several months. She has had prior issues with electrolyte disturbances as well. She was found in the emergency department to be very hypokalemic. Of note she was started on HCTZ one month ago for swelling in her legs. In discussion with patient it does not sound like she has any symptoms consistent with short gut syndrome such as watery diarrhea. Her protein/ albumin levels are normal. It sounds more like she has no appetite or sensation of hunger since having vagotomy. Hospital Course Hospital Course: Patient was admitted to telemetry floor. She was started on Megace and Remeron, her appetite remained poor. She had a PICC line placed and was started on TPN to supplement her oral intake. She had some atrial arrythmias and nonsustained VT on telemetry. Cardiology was consulted. Dr Mcdonald saw the patient in consult. She was started on low dose Diltiazem. She had transthoracic echo that was unremarkable. Social work was consulted for discharge planning with home TPN. Patient is ready for discharge today with home TPN Physical Exam Vital Signs: Temp Pulse Resp BP Pulse Ox 99.0 F 116 H 12 124/63 98 02/18/17 14:56 02/18/17 14:56 02/18/17 14:56 02/18/17 14:56 02/18/17 14:56 Intake & Output 02/17/17 02/18/17 02/19/17 06:59 06:59 06:59 Intake Total 1428 2578 Balance 1428 2578 Weight 50.1 kg 52.4 kg General appearance: PRESENT: no acute distress, thin, well-developed Head exam: PRESENT: atraumatic, normocephalic Eye exam: PRESENT: conjunctiva pink, EOMI, PERRLA. ABSENT: scleral icterus Ear exam: PRESENT: normal external ear exam Mouth exam: PRESENT: moist, tongue midline Neck exam: ABSENT: carotid bruit, JVD, lymphadenopathy, thyromegaly Respiratory exam: PRESENT: clear to auscultation jamaal. ABSENT: rales, rhonchi, wheezes Cardiovascular exam: PRESENT: RRR. ABSENT: diastolic murmur, rubs, systolic murmur Pulses: PRESENT: normal dorsalis pedis pul Vascular exam: PRESENT: normal capillary refill GI/Abdominal exam: PRESENT: normal bowel sounds, soft. ABSENT: distended, guarding, mass, organolmegaly, rebound, tenderness Rectal exam: PRESENT: deferred Extremities exam: PRESENT: +2 edema Musculoskeletal exam: PRESENT: ambulatory, full ROM, normal inspection Neurological exam: PRESENT: alert, awake, oriented to person, oriented to place , oriented to time, oriented to situation, CN II-XII grossly intact. ABSENT: motor sensory deficit Psychiatric exam: PRESENT: appropriate affect, normal mood. ABSENT: homicidal ideation, suicidal ideation Skin exam: PRESENT: dry, intact, warm. ABSENT: cyanosis, rash Results Laboratory Results: 02/18/17 05:25 02/18/17 05:25 02/18/17 02/18/17 02/18/17 05:25 05:25 16:00 WBC 9.4 RBC 3.19 L Hgb 10.1 L Hct 29.9 L MCV 94 MCH 31.7 MCHC 33.7 RDW 12.4 Plt Count 241 Sodium 138.0 Potassium 4.8 Chloride 112 H Carbon Dioxide 20 L Anion Gap 6 BUN 21 H Creatinine 0.51 L Est GFR ( Amer) > 60 Est GFR (Non-Af Amer) > 60 Glucose 77 Calcium 8.3 L Magnesium 1.5 L Total Bilirubin < 0.1 L AST 14 ALT 30 Alkaline Phosphatase 29 L Total Protein 3.9 L Albumin 2.5 L Prealbumin 22.0 Triglycerides 108 Impressions: Cervical Spine CT 02/12/17 15:02 IMPRESSION: No acute findings. Head CT 02/12/17 15:02 IMPRESSION: NORMAL BRAIN CT WITHOUT CONTRAST. Chest X-Ray 02/12/17 15:03 IMPRESSION: NO SIGNIFICANT RADIOGRAPHIC FINDING IN THE CHEST. Lumbar Spine X-Ray 02/12/17 15:03 IMPRESSION: Mild scoliosis with no acute abnormality. Pelvis X-Ray 02/12/17 15:03 IMPRESSION: NEGATIVE STUDY OF THE PELVIS. Guidance Fluoroscopy 02/14/17 00:00 IMPRESSION: SUCCESSFUL PLACEMENT OF A 5 FR DUAL LUMEN 38 CM PICC IN THE left basilic VEIN. Interventional Vascular Procedure 02/14/17 00:00 IMPRESSION: SUCCESSFUL PLACEMENT OF A 5 FR DUAL LUMEN 38 CM PICC IN THE left basilic VEIN. PICC Line Insertion 02/14/17 00:00 IMPRESSION: SUCCESSFUL PLACEMENT OF A 5 FR DUAL LUMEN 38 CM PICC IN THE left basilic VEIN. Qualifiers PATEINT BEING DISCHARGED WITH ANY OF THE FOLLOWING DIAGNOSIS?: No Plan Discharge Plan: Home with home TPN and HH nursing Time Spent: Less than 30 Minutes
[2017-02-18] MEDS ORDERED: DILTIAZEM HCL 120 MG CAP.SR.24H PO SCH (22:00)
--- NOTE | 2017-02-19 09:15 | PDOC PROGRESS REPORT ---
Subjective Progress Note for:: 02/18/17 Subjective:: Patient claims to be feeling better. She is denying any chest, neck discomfort. Telemetry strips reviewed showed nonsustained run of wide-complex tachycardia. Patient also complains of feeling intermittent fluttering in the chest. Patient was noted to have low magnesium level of 1.5 mg percent. I gave verbal order for patient to have 2 g of magnesium sulfate over one hour.. Patient is noted to be receiving IV hyperalimentation. Discussed that there could be some short-term risk with it. Patient again encouraged to improve p.o. intake of calories and nutrition... Physical Exam Vital Signs: Temp Pulse Resp BP Pulse Ox 99.0 F 116 H 12 107/55 L 98 02/18/17 17:39 02/18/17 17:39 02/18/17 17:39 02/18/17 17:39 02/18/17 17:39 Intake & Output 02/18/17 02/19/17 02/20/17 06:59 06:59 06:59 Intake Total 2578 Balance 2578 Weight 52.4 kg Exam: GENERAL: well-nourished and in no acute distress. Alert and oriented x3 HEAD: Atraumatic, normocephalic. EYES: Pupils equal round and reactive to light, extraocular movements intact, sclera anicteric, conjunctiva are normal. ENT: TMs normal, nares patent, oropharynx clear without exudates. Moist mucous membranes. No oral ulcerations or bleeding gums noted NECK: supple without lymphadenopathy. Trachea is central. No cervical or axillary lymphadenopathy noted. Carotids are 2+, JVD WNL LUNGS: Respiration seems nonlabored, no significant accessory muscle action noted. Breath sounds clear to auscultation bilaterally and equal noted. No wheezes rales or rhonchi noted. No significant dullness noted on percussion. CHEST: Palpation of the chest wall shows no significant chest wall tenderness. No other significant abnormalities noted. 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 ABDOMEN: Soft, no significant tenderness appreciated, normoactive bowel sounds. No guarding, no rebound. No rigidity noted . No masses appreciated. Surgical scars noted in the abdomen. EXTREMITIES: Pedal pulses are 1-2+, no calf tenderness noted. No clubbing or cyanosis.trace to 1+ pedal edema noted NEUROLOGICAL: Focused neurological exam showed no significant neurologic deficit. Normal speech, no focal weakness appreciated. PSYCH: Normal mood, normal affect. Judgment and insight within normal limits. SKIN: No significant ecchymosis, rash, ulcerations or signs of pruritus noted. MUSCULOSKELETAL EXAM: No significant joint swelling noted. Results Laboratory Results: 02/18/17 05:25 02/18/17 05:25 02/18/17 16:00 Triglycerides 108 Impressions: Cervical Spine CT 02/12/17 15:02 IMPRESSION: No acute findings. Head CT 02/12/17 15:02 IMPRESSION: NORMAL BRAIN CT WITHOUT CONTRAST. Chest X-Ray 02/12/17 15:03 IMPRESSION: NO SIGNIFICANT RADIOGRAPHIC FINDING IN THE CHEST. Lumbar Spine X-Ray 02/12/17 15:03 IMPRESSION: Mild scoliosis with no acute abnormality. Pelvis X-Ray 02/12/17 15:03 IMPRESSION: NEGATIVE STUDY OF THE PELVIS. Guidance Fluoroscopy 02/14/17 00:00 IMPRESSION: SUCCESSFUL PLACEMENT OF A 5 FR DUAL LUMEN 38 CM PICC IN THE left basilic VEIN. Interventional Vascular Procedure 02/14/17 00:00 IMPRESSION: SUCCESSFUL PLACEMENT OF A 5 FR DUAL LUMEN 38 CM PICC IN THE left basilic VEIN. PICC Line Insertion 02/14/17 00:00 IMPRESSION: SUCCESSFUL PLACEMENT OF A 5 FR DUAL LUMEN 38 CM PICC IN THE left basilic VEIN. Assessment & Plan - Diagnosis (1) Wide-complex tachycardia Is this a current diagnosis for this admission?: Yes (2) Nonsustained ventricular tachycardia Is this a current diagnosis for this admission?: Yes (3) Paroxysmal atrial tachycardia Is this a current diagnosis for this admission?: Yes (4) Abnormal electrocardiogram Is this a current diagnosis for this admission?: Yes (5) Malnutrition Is this a current diagnosis for this admission?: Yes (6) Electrolyte imbalance Is this a current diagnosis for this admission?: Yes - Notes Notes: Wide-complex tachycardia versus nonsustained ventricular tachycardia: Probable wide-complex aberrant rather than nonsustained ventricular tachycardia. Most likely related to hypomagnesemia. Patient noted to have normal LVEF. Patient never had syncope or near syncope. Patient to report such occurrence. In the meantime maintain electrolytes within normal limits. Paroxysmal atrial tachycardia: Stable Abnormal electrocardiogram: Echocardiogram results reviewed. Malnutrition: Patient on TPN. Electrolyte imbalance: This is being corrected. Intermittent pedal edema: Possibly related to venous insufficiency. Patient encouraged to elevate legs. Patient on Lasix for symptomatic relief patient was on HCTZ for symptomatic relief but feel that the Bumex may be a better option. Patient advised to follow-up with operations logistics analyst of her choice. - Time Time with patient: 15-25 minutes - CODE STATUS was discussed, patient remains full code. Surrogate decision-maker unchanged. Multiple medical problems were addressed. More than 50% of the time spent coordinating care, discussing management plans with involved caregivers. Management plans discussed with involved personnels. Medical decision making was of moderate to high complexity , patient's has multiple comorbidities. Medications reviewed and adjusted accordingly: Yes
== END 2017-02-18 17:42 | disposition home health service (06) | DRG 640 ==
LOC: ER 14:39 → UNDOADMIN 17:51 → EH 17:51 → INTOOBSV 18:20 → EH 18:20 → OBSVTOIN 18:20 → 4S 19:44 → OBSVTOIN 02-14 18:19
PROVIDERS: ADMIT Family Medicine; ATTEND Family Medicine
PROC: 3E0436Z Introduction of Nutritional Substance into Central Vein, Percutaneous Approach (ICD-10-PCS; principal; 2017-02-14)
PROC: B548ZZA Ultrasonography of Superior Vena Cava, Guidance (ICD-10-PCS; 2017-02-14)
PROC: 3E0436Z Introduction of Nutritional Substance into Central Vein, Percutaneous Approach (ICD-10-PCS; 2017-02-14)
DX: E87.6 Hypokalemia (principal); E43 Unspecified severe protein-calorie malnutrition; I47.1 Supraventricular tachycardia; I47.2 Ventricular tachycardia; K91.2 Postsurgical malabsorption, not elsewhere classified; E83.42 Hypomagnesemia; D51.9 Vitamin B12 deficiency anemia, unspecified; R60.9 Edema, unspecified; I87.2 Venous insufficiency (chronic) (peripheral); K59.00 Constipation, unspecified; D50.9 Iron deficiency anemia, unspecified; Z68.22 Body mass index [BMI] 22.0-22.9, adult; Z88.0 Allergy status to penicillin; Z90.49 Acquired absence of other specified parts of digestive tract; Z90.3 Acquired absence of stomach [part of]; Z87.11 Personal history of peptic ulcer disease; Z91.81 History of falling
CPT/HCPCS: 36415; 36569; 70450; 71020; 72110; 72125; 72170; 76937; 77001; 80048; 80053; 80076; 80307; 81001; 82607; 82962; 83735; 84100; 84134; 84439; 84443; 84478; 84481; 84484; 84703; 85025; 85027; 85610; 93005; 93010; 93306; 99285; G0378; J1642; J1650; J2405; J3420; J3475; J3480; J3490

== ENCOUNTER 2017-03-14 18:35 | Emergency (ER) | payer SELFPAY ==
--- NOTE | 2017-03-14 20:17 | ER Document Report ---
ED General - General Chief Complaint: Arm Pain Stated Complaint: PICC LINE ISSUES Time Seen by Provider: 03/14/17 19:26 Notes: Patient is a 36 year old female who presents with concerns of possible PICC line issues. States that her PICC line has been pulled back approximately 1 inch since placement that she was referred to the emergency department by her primary care doctor for concerns regarding displacement. She notes that since line is in place she has had a constant, throbbing, mild pain to the area. This is not new or different today. She denies any spreading erythema around the area, purulent drainage fever or constitutional symptoms. TRAVEL OUTSIDE OF THE [place] IN LAST 30 DAYS: No - Related Data Allergies/Adverse Reactions: amoxicillin [Amoxicillin] Allergy (Severe, Verified 03/14/17 18:44) Past Medical History - General Information source: Patient - Social History Smoking Status: Never Smoker Frequency of alcohol use: None Drug Abuse: None Lives with: Family Family History: Reviewed & Not Pertinent, Hypertension Patient has suicidal ideation: No Patient has homicidal ideation: No - Past Medical History Cardiac Medical History: Denies: Hx Coronary Artery Disease, Hx Heart Attack, Hx Hypertension Pulmonary Medical History: Denies: Hx Asthma, Hx Bronchitis, Hx COPD, Hx Pneumonia, Hx Tuberculosis Neurological Medical History: Denies: Hx Cerebrovascular Accident, Hx Seizures Renal/ Medical History: Denies: Hx Peritoneal Dialysis GI Medical History: Reports: Hx Ulcer - Required surgical treatment Musculoskeltal Medical History: Denies Hx Arthritis Psychiatric Medical History: Denies: Hx Depression Past Surgical History: Reports: Hx Abdominal Surgery - entrectomy, vagotomy, Hx Appendectomy, Hx Cholecystectomy, Other - Gastric antrectomy/vagotomy. Denies: Hx Hysterectomy, Hx Pacemaker - Immunizations Hx Diphtheria, Pertussis, Tetanus Vaccination: Yes Review of Systems - Review of Systems Notes: Constitutional: Negative for fever. HENT: Negative for sore throat. Eyes: Negative for visual changes. Cardiovascular: Negative for chest pain. Respiratory: Negative for shortness of breath. Gastrointestinal: Negative for abdominal pain, vomiting or diarrhea. Genitourinary: Negative for dysuria. Musculoskeletal: Negative for back pain. Skin: Negative for rash. Neurological: Negative for headaches, weakness or numbness. 10 point ROS negative except as marked above and in HPI. Physical Exam - Vital signs Interpretation: Normal Notes: PHYSICAL EXAMINATION: GENERAL: Well-appearing, well-nourished and in no acute distress. HEAD: Atraumatic, normocephalic. EYES: sclera anicteric, conjunctiva are normal. ENT: Moist mucous membranes. NECK: Normal range of motion LUNGS: Normal work of breathing HEART: 2+ radial pulses bilaterally EXTREMITIES: no pitting or edema. No cyanosis. NEUROLOGICAL: No focal neurological deficits. Moves all extremities spontaneously and on command. PSYCH: Normal mood, normal affect. SKIN: Warm, Dry, normal turgor, no rashes or lesions noted. Left PICC line in place without surrounding erythema or purulent drainage. Mild ecchymosis to the area. Course - Re-evaluation Re-evalutation: 03/14/17 20:17 Patient presents with concerns about possible PICC line displacement in her left upper extremity. Notes that the PICC line apparently was pulled back approximately 1 inch and then reinserted by her home nurse. There is no evidence of infection or erythema at the site. She states that she has chronic pain to the site is unchanged today. No infectious symptoms, vitals within normal limits. Patient is overall very well in appearance and in no acute distress. I discussed the PICC line with our radiologist decontamination technician who agrees that given that the line pulled back and flushes without difficulty and there are no infectious signs at the site there is no acute indication for further imaging or workup for this concern today. At this time will discharge with return precautions and follow-up recommendations. Verbal discharge instructions given a the bedside and opportunity for questions given. Medication warnings reviewed. Patient is in agreement with this plan and has verbalized understanding of return precautions and the need for primary care follow-up in the next 24-72 hours. Discharge - Discharge Clinical Impression: Status post PICC central line placement Condition: Good Disposition: HOME, SELF-CARE Additional Instructions: Please return if you develop signs of infection around the PICC site including spreading redness, increased pain, pus draining from the area or any other symptoms that are concerning to you. Referrals: ARTEMIO JOSEPH, DO [Primary Care Provider] - Follow up as needed
== END 2017-03-14 20:30 | disposition home or self-care (01) ==
LOC: ER 18:35
DX: Z45.2 Encounter for adjustment and management of vascular access device (principal); M79.602 Pain in left arm; G89.29 Other chronic pain; R58 Hemorrhage, not elsewhere classified
CPT/HCPCS: 99283

== ENCOUNTER 2017-06-14 17:18 | Emergency (ER) | payer OTHER ==
[2017-06-14] MEDS ORDERED: ALTEPLASE INJ 2 MG VIAL (CATH CLEARANCE) IV ONE ×2 (17:56→18:36)
--- NOTE | 2017-06-14 18:09 | ER Document Report ---
ED Medical Screen (RME) - General Chief Complaint: Other Stated Complaint: LEFT ARM PAIN Time Seen by Provider: 06/14/17 17:56 Mode of Arrival: Ambulatory Information source: Patient TRAVEL OUTSIDE OF THE [place] IN LAST 30 DAYS: No - HPI Patient complains to provider of: PICC line dysfunction Notes: 06/14/17 18:09 Patient is a 36-year-old female who receives TPN through PICC line in her left upper extremity, 3 days ago she reports she had a hard time pushing flushes through, yesterday as stopped working altogether, she tried to go to [facility] today to see if they could help her out, however it has been quite sometime since she was a patient there so they referred her to the emergency room for evaluation and treatment - Related Data Allergies/Adverse Reactions: amoxicillin [Amoxicillin] Allergy (Severe, Verified 06/14/17 17:31) Past Medical History - Social History Chew tobacco use (# tins/day): No Frequency of alcohol use: None Drug Abuse: None - Past Medical History Cardiac Medical History: Denies: Hx Coronary Artery Disease, Hx Heart Attack, Hx Hypertension Pulmonary Medical History: Denies: Hx Asthma, Hx Bronchitis, Hx COPD, Hx Pneumonia, Hx Tuberculosis Neurological Medical History: Denies: Hx Cerebrovascular Accident, Hx Seizures Renal/ Medical History: Denies: Hx Peritoneal Dialysis GI Medical History: Reports: Hx Ulcer - Required surgical treatment Musculoskeltal Medical History: Denies Hx Arthritis Psychiatric Medical History: Denies: Hx Depression Past Surgical History: Reports: Hx Abdominal Surgery - entrectomy, vagotomy, SBO , Hx Appendectomy, Hx Cholecystectomy, Other - Gastric antrectomy/vagotomy. Denies: Hx Hysterectomy, Hx Pacemaker - Immunizations Hx Diphtheria, Pertussis, Tetanus Vaccination: Yes Physical Exam - Vital signs Vitals: Temp Pulse Resp BP Pulse Ox 97.2 F 122 H 18 103/75 98 06/14/17 17:29 06/14/17 17:29 06/14/17 17:29 06/14/17 17:29 06/14/17 17:29 Course - Vital Signs Vital signs: Temp Pulse Resp BP Pulse Ox 97.2 F 122 H 18 103/75 98 06/14/17 17:29 06/14/17 17:29 06/14/17 17:29 06/14/17 17:29 06/14/17 17:29
--- NOTE | 2017-06-14 18:27 | RADIOLOGY REPORT (SQ) ---
EXAM DESCRIPTION: HUMERUS LEFT COMPLETED DATE/TIME: 06/14/2017 6:12 pm REASON FOR STUDY: UNABLE TO ACCESS PICC line COMPARISON: None. NUMBER OF VIEWS: One view. TECHNIQUE: Two radiographic images were acquired of the left humerus to include elbow and shoulder i n at least one projection. LIMITATIONS: None. FINDINGS: An AP view shows a PICC line on the medial aspect of left all arm and extending upward. T he line appears intact and is not kinked. IMPRESSION: PICC line as described. TECHNICAL DOCUMENTATION: JOB ID: [id number]- All Rights Reserved
--- NOTE | 2017-06-14 18:29 | RADIOLOGY REPORT (SQ) ---
EXAM DESCRIPTION: CHEST SINGLE VIEW COMPLETED DATE/TIME: 06/14/2017 6:12 pm REASON FOR STUDY: UNABLE TO ACCESS PICC LINE COMPARISON: None. EXAM PARAMETERS: NUMBER OF VIEWS: One view. TECHNIQUE: Single frontal radiographic view of the chest acquired. RADIATION DOSE: NA LIMITATIONS: None. FINDINGS: LUNGS AND PLEURA: No opacities, masses or pneumothorax. No pleural effusion. MEDIASTINUM AND HILAR STRUCTURES: No masses. Contour normal. HEART AND VASCULAR STRUCTURES: Heart normal in size. Normal vasculature. BONES: No acute findings. HARDWARE: A PICC line is present from the left. The tip of the catheter is in the superior vena cava . The tip of the catheter does not appear to be up against vessel wall. The catheter is not kinked. OTHER: No other significant finding. IMPRESSION: No acute disease in the chest. PICC line is as described. TECHNICAL DOCUMENTATION: JOB ID: [id number]
--- NOTE | 2017-06-14 19:05 | ER Document Report ---
ED General - General Chief Complaint: Other Stated Complaint: LEFT ARM PAIN Time Seen by Provider: 06/14/17 17:56 Mode of Arrival: Ambulatory Notes: Patient is a 36-year-old female with past medical history of anorexia, chronic TPN infusion requirement through a PICC line who presents with concerns that her PICC line is not functioning. States that she is having difficulty infusing TPN due to resistance. She has had similar symptoms in the past. She has not seen her primary care doctor regarding this concern. Denies any erythema or infectious symptoms around the PICC line site. She denies any additional concerns or complaints. TRAVEL OUTSIDE OF THE [place] IN LAST 30 DAYS: No - Related Data Allergies/Adverse Reactions: amoxicillin [Amoxicillin] Allergy (Severe, Verified 06/14/17 17:31) Past Medical History - General Information source: Patient - Social History Smoking Status: Never Smoker Chew tobacco use (# tins/day): No Frequency of alcohol use: None Drug Abuse: None Lives with: Family Family History: Reviewed & Not Pertinent, Hypertension - Past Medical History Cardiac Medical History: Denies: Hx Coronary Artery Disease, Hx Heart Attack, Hx Hypertension Pulmonary Medical History: Denies: Hx Asthma, Hx Bronchitis, Hx COPD, Hx Pneumonia, Hx Tuberculosis Neurological Medical History: Denies: Hx Cerebrovascular Accident, Hx Seizures Renal/ Medical History: Denies: Hx Peritoneal Dialysis GI Medical History: Reports: Hx Ulcer - Required surgical treatment Musculoskeltal Medical History: Denies Hx Arthritis Psychiatric Medical History: Denies: Hx Depression Past Surgical History: Reports: Hx Abdominal Surgery - entrectomy, vagotomy, SBO , Hx Appendectomy, Hx Cholecystectomy, Other - Gastric antrectomy/vagotomy. Denies: Hx Hysterectomy, Hx Pacemaker - Immunizations Hx Diphtheria, Pertussis, Tetanus Vaccination: Yes Review of Systems - Review of Systems Notes: Constitutional: Negative for fever. HENT: Negative for sore throat. Eyes: Negative for visual changes. Cardiovascular: Negative for chest pain. Respiratory: Negative for shortness of breath. Gastrointestinal: Negative for abdominal pain, vomiting or diarrhea. Genitourinary: Negative for dysuria. Musculoskeletal: Negative for back pain. Skin: Negative for rash. Neurological: Negative for headaches, weakness or numbness. 10 point ROS negative except as marked above and in HPI. Physical Exam - Vital signs Vitals: Temp Pulse Resp BP Pulse Ox 97.2 F 122 H 18 103/75 98 06/14/17 17:29 06/14/17 17:29 06/14/17 17:29 06/14/17 17:29 06/14/17 17:29 Interpretation: Tachycardic Notes: PHYSICAL EXAMINATION: GENERAL: Well-appearing, well-nourished and in no acute distress. HEAD: Atraumatic, normocephalic. EYES: sclera anicteric, conjunctiva are normal. ENT: Moist mucous membranes. NECK: Normal range of motion LUNGS: Normal work of breathing HEART: 2+ radial pulses bilaterally EXTREMITIES: no pitting or edema. No cyanosis. NEUROLOGICAL: No focal neurological deficits. Moves all extremities spontaneously and on command. PSYCH: Normal mood, normal affect. SKIN: Warm, Dry, normal turgor, no rashes or lesions noted. Left upper extremity PICC line site in place without surrounding erythema Course - Re-evaluation Re-evalutation: 06/14/17 19:05 Patient presents with poor flow to her PICC line ports. X-rays show PICC line is in place. Will infuse TPA to these areas and reassess 06/14/17 20:46 PICC lines are now flowing with blood return and saline is easy to push. No further concerns. At this time will discharge with return precautions and follow-up recommendations. Verbal discharge instructions given a the bedside and opportunity for questions given. Medication warnings reviewed. Patient is in agreement with this plan and has verbalized understanding of return precautions and the need for primary care follow-up in the next 24-72 hours. - Vital Signs Vital signs: Temp Pulse Resp BP Pulse Ox 97.2 F 74 16 112/66 98 06/14/17 17:29 06/14/17 20:58 06/14/17 20:58 06/14/17 20:58 06/14/17 20:58 - Diagnostic Test Radiology reviewed: Reports reviewed Discharge - Discharge Clinical Impression: Occluded PICC line Qualifiers: Encounter type: initial encounter Qualified Code(s): T82.898A - Other specified complication of vascular prosthetic devices, implants and grafts, initial encounter Condition: Good Disposition: HOME, SELF-CARE Additional Instructions: Please return to the emergency room immediately if you experience any concerning symptoms including high fevers, severe headache, chest pain, difficulty breathing, abdominal pain, slurred speech, numbness or weakness in your arms or legs, or any other symptom that concerns you. Referrals: ARTEMIO JOSEPH, [Primary Care Provider] - Follow up as needed
[2017-06-14 21:37] VITALS: BP 112/66
== END 2017-06-14 20:58 | disposition home or self-care (01) ==
LOC: ER 17:18
DX: T82.898A Other specified complication of vascular prosthetic devices, implants and grafts, initial encounter (principal); M79.602 Pain in left arm; R63.0 Anorexia
CPT/HCPCS: 99283; 71010; 73060; J2997

== ENCOUNTER 2017-07-01 14:15 | Inpatient (IN) | payer OTHER ==
[2017-07-01] MEDS ORDERED: NORMAL SALINE 500 ML IV PRN (15:33)
--- NOTE | 2017-07-01 15:38 | ER Document Report ---
ED Medical Screen (RME) - General Chief Complaint: Weakness Stated Complaint: LEFT ARM PAIN AT PIC LINE SITE Time Seen by Provider: 07/01/17 15:33 Mode of Arrival: Ambulatory Information source: Patient Notes: This is a 36-year-old female with a history of malabsorption syndrome, refractory ulcers requiring antrectomy and vagotomy complicated by SBO and need for further gastric revision. The patient gets her nutrition via TPN via a left PICC line. She presents to the emergency room with significantly increased weakness, difficulty ambulating because of the weakness. Records reveal that she does have a history significant for electrolyte depletion precipitating cardiac arrhythmias. TRAVEL OUTSIDE OF THE [place] IN LAST 30 DAYS: No - Related Data Allergies/Adverse Reactions: amoxicillin [Amoxicillin] Allergy (Severe, Verified 06/14/17 17:31) Past Medical History - Social History Chew tobacco use (# tins/day): No Frequency of alcohol use: None Drug Abuse: None - Past Medical History Cardiac Medical History: Denies: Hx Coronary Artery Disease, Hx Heart Attack, Hx Hypertension Pulmonary Medical History: Denies: Hx Asthma, Hx Bronchitis, Hx COPD, Hx Pneumonia, Hx Tuberculosis Neurological Medical History: Denies: Hx Cerebrovascular Accident, Hx Seizures Renal/ Medical History: Denies: Hx Peritoneal Dialysis GI Medical History: Reports: Hx Ulcer - Required surgical treatment Musculoskeltal Medical History: Denies Hx Arthritis Psychiatric Medical History: Denies: Hx Depression Past Surgical History: Reports: Hx Abdominal Surgery - entrectomy, vagotomy, SBO , Hx Appendectomy, Hx Cholecystectomy, Other - Gastric antrectomy/vagotomy. Denies: Hx Hysterectomy, Hx Pacemaker - Immunizations Hx Diphtheria, Pertussis, Tetanus Vaccination: Yes Physical Exam - Vital signs Vitals: Temp Pulse Resp BP Pulse Ox 99.5 F 74 18 106/57 L 100 07/01/17 14:21 07/01/17 14:21 07/01/17 14:21 07/01/17 14:21 07/01/17 14:21 Course - Vital Signs Vital signs: Temp Pulse Resp BP Pulse Ox 99.5 F 74 18 106/57 L 100 07/01/17 14:21 07/01/17 14:21 07/01/17 14:21 07/01/17 14:21 07/01/17 14:21
[2017-07-01] MEDS ORDERED: NORMAL SALINE 10 ML SDV (AFTER EACH USE) IV PRN (16:23)
[2017-07-01 17:34] LABS: ABSOLUTE BASOPHILS # (AUTO) 0.1 10^3/uL (0.0-0.2); ABSOLUTE EOSINOPHILS # (AUTO) 0.4 10^3/uL (0.0-0.6); ABSOLUTE LYMPHOCYTES (AUTO) 2.2 10^3/uL (0.5-4.7); ABSOLUTE MONOCYTES (AUTO) 0.7 10^3/uL (0.1-1.4); EOSINOPHILS % (AUTO) 4.3 % (0-6); HEMATOCRIT 30.7 % (36.0-47.0); HEMOGLOBIN 11.1 g/dL (12.0-15.5); HGB HCT DIFFERENCE 2.6; LYMPHOCYTES % (AUTO) 26.5 % (13-45); MEAN CORPUSCULAR HGB CONC 36.2 g/dL (32.0-36.0); MEAN CORPUSCULAR VOLUME 86 fl (80-97); MONOCYTES % (AUTO) 7.8 % (3-13); RED BLOOD COUNT 3.58 10^6/uL (3.72-5.28); SEGMENTED NEUTROPHILS % (AUTO) 60.4 % (42-78); WHITE BLOOD COUNT 8.3 10^3/uL (4.0-10.5)
[2017-07-01 17:54] LABS: ALANINE AMINOTRANSFERASE 30 U/L (9-52); ALBUMIN 3.3 g/dL (3.5-5.0); ALKALINE PHOSPHATASE 43 U/L (38-126); ANION GAP 14 (5-19); ASPARTATE AMINO TRANSFERASE 34 U/L (14-36); BILIRUBIN,DIRECT 0.6 mg/dL (0.0-0.4); BILIRUBIN,TOTAL 0.6 mg/dL (0.2-1.3); BLOOD UREA NITROGEN 18 mg/dL (7-20); CALCIUM 8.7 mg/dL (8.4-10.2); CARBON DIOXIDE 20 mmol/L (22-30); CHLORIDE 107 mmol/L (98-107); CREATININE RESULT 0.95 mg/dL (0.52-1.25); GLUCOSE 87 mg/dL (75-110); MAGNESIUM 1.8 mg/dL (1.6-2.3); SODIUM 140.5 mmol/L (137-145)
[2017-07-01 18:08] LABS: POTASSIUM 2.9 mmol/L (3.6-5.0)
[2017-07-01] MEDS ORDERED: POTASSIUM CHLORIDE 20 MEQ/15 ML UDCUP PO ONE (18:30)
--- NOTE | 2017-07-01 18:31 | ER Document Report ---
ED Dizziness/Weakness - General Chief Complaint: General Weakness Stated Complaint: LEFT ARM PAIN AT PIC LINE SITE Time Seen by Provider: 07/01/17 15:33 Mode of Arrival: Ambulatory Notes: The patient is a 36-year-old female, past medical history malnutrition following multiple abdominal surgeries a few years ago including gastric antrectomy and vagotomy, anorexia, daily 18 hour TPN, presents with increased generalized weakness and a clogged left arm PICC line for the past day. She received 16 hours of TPN yesterday, but was unable to begin her TPN today. She feels like her potassium is low because she is having difficulty moving her legs , which frequently happens with her hypokalemia. She was admitted to the hospital 4 months ago for similar symptoms where she required 4 days of admission due to her severe hypokalemia, atrial and ventricular arrhythmias and lower extremity weakness. After supplementation for 4 days, her strength returned and she was discharged home on the TPN. She denies nausea, vomiting, abdominal pain, fevers, diarrhea, constipation, back pain, rash, shortness of breath or chest pain. TRAVEL OUTSIDE OF THE [place] IN LAST 30 DAYS: No - Related Data Allergies/Adverse Reactions: amoxicillin [Amoxicillin] Allergy (Severe, Verified 06/14/17 17:31) Home Medications: Current Home Medications Aspirin/Acetaminophen/Caffeine [Excedrin Migraine Caplet] 1 each PO DAILY [History] Furosemide 20 mg PO DAILY 07/01/17 [History] Ibuprofen [Motrin 800 mg Tablet] 800 mg PO PRN PRN 07/01/17 [History] Promethazine HCl [Phenergan 25 mg Tablet] 25 mg PO PRN PRN 07/01/17 [History] Rizatriptan Benzoate [Maxalt] 10 mg PO PRN PRN 07/01/17 [History] Past Medical History - General Information source: Patient - Social History Smoking Status: Never Smoker Chew tobacco use (# tins/day): No Frequency of alcohol use: None Drug Abuse: None Family History: Reviewed & Not Pertinent, Hypertension Patient has suicidal ideation: No - Past Medical History Cardiac Medical History: Denies: Hx Coronary Artery Disease, Hx Heart Attack, Hx Hypertension Pulmonary Medical History: Denies: Hx Asthma, Hx Bronchitis, Hx COPD, Hx Pneumonia, Hx Tuberculosis Neurological Medical History: Denies: Hx Cerebrovascular Accident, Hx Seizures Renal/ Medical History: Denies: Hx Peritoneal Dialysis GI Medical History: Reports: Hx Ulcer - Required surgical treatment Musculoskeltal Medical History: Denies Hx Arthritis Psychiatric Medical History: Denies: Hx Depression Past Surgical History: Reports: Hx Abdominal Surgery - entrectomy, vagotomy, SBO , Hx Appendectomy, Hx Cholecystectomy, Other - Gastric antrectomy/vagotomy. Denies: Hx Hysterectomy, Hx Pacemaker - Immunizations Hx Diphtheria, Pertussis, Tetanus Vaccination: Yes Review of Systems - Review of Systems Notes: REVIEW OF SYSTEMS: CONSTITUTIONAL: -fevers, -chills EENT: -eye pain, -difficulty swallowing, -nasal congestion CARDIOVASCULAR:-chest pain, -syncope. RESPIRATORY: -cough, -SOB GASTROINTESTINAL: -abdominal pain, - nausea, -vomiting, -diarrhea GENITOURINARY: -dysuria, -hematuria MUSCULOSKELETAL: +B/L leg weakness, -back pain, -neck pain SKIN: -rash or skin lesions. HEMATOLOGIC: -easy bruising or bleeding. LYMPHATIC: -swollen, enlarged glands. NEUROLOGICAL: -altered mental status or loss of consciousness, -headache PSYCHIATRIC: -anxiety, -depression. ALL OTHER SYSTEMS REVIEWED AND NEGATIVE. Physical Exam - Vital signs Vitals: Temp Pulse Resp BP Pulse Ox 99.5 F 74 18 106/57 L 100 07/01/17 14:21 07/01/17 14:21 07/01/17 14:21 07/01/17 14:21 07/01/17 14:21 - Notes Notes: PHYSICAL EXAMINATION: GENERAL: Underweight, no acute distress HEAD: Atraumatic, normocephalic. EYES: Pupils equal round and reactive to light, extraocular movements intact, sclera anicteric, conjunctiva are normal. ENT: nares patent, oropharynx clear without exudates. Moist mucous membranes. NECK: Normal range of motion, supple without lymphadenopathy LUNGS: Breath sounds clear to auscultation bilaterally and equal. No wheezes rales or rhonchi. HEART: Regular rate and rhythm without murmurs ABDOMEN: Soft, nontender, normoactive bowel sounds. No guarding, no rebound. No masses appreciated. EXTREMITIES: Left arm PICC line without blood return, no surrounding erythema or discharge. Normal range of motion, no pitting or edema. No cyanosis. NEUROLOGICAL: Cranial nerves grossly intact. Unable to move bilateral legs. Brisk capillary refill. PSYCH: Normal mood, normal affect. SKIN: Warm, Dry, normal turgor, no rashes or lesions noted. Course - Re-evaluation Re-evalutation: Patient presents with severe hypokalemia that is leading to her generalized weakness and difficulty moving her legs. She has had this in the past and it resolved after several days with potassium supplementation. She was last admitted 01/2017 and required 4 days of admission for similar symptoms. Considered [place] Syndrome, but with the hypokalemia and similar symptoms in the past, I believe it is less likely today. No respiratory issues. PICC line was unclogged using TPA, but she said that it frequently malfunctions at home. She was given potassium and magnesium supplementation in the ER, but she still is having similar symptoms. Her primary care physician is Dr. Mendez. No arrhythmias on the vehicle monitor technician while in the ED. 07/02/17 00:[address] Vaughan (Hospitalist) and he has accepted patient as Inpatient to Telemetry due to the hypokalemia and weakness. - Vital Signs Vital signs: Temp Pulse Resp BP Pulse Ox 99.5 F 74 18 106/57 L 100 07/01/17 14:21 07/01/17 14:21 07/01/17 14:21 07/01/17 14:21 07/01/17 14:21 - Laboratory Result Diagrams: 07/01/17 17:15 07/01/17 20:40 Laboratory results interpreted by me: 07/01/17 07/01/17 07/01/17 17:15 17:15 20:40 RBC 3.58 L Hgb 11.1 L Hct 30.7 L MCHC 36.2 H Potassium 2.9 L* 2.8 L* Chloride 112 H Carbon Dioxide 20 L 21 L Glucose 72 L Calcium 8.2 L Direct Bilirubin 0.6 H Total Protein 6.0 L 5.3 L Albumin 3.3 L 2.9 L - EKG Interpretation by Me EKG shows normal: Sinus rhythm, [place], Intervals, QRS Complexes When compared to previous EKG there are: No significant change Discharge - Discharge Clinical Impression: Hypokalemia, Weakness, Protein-calorie malnutrition, moderate, Electrolyte imbalance Condition: Stable
[2017-07-01] MEDS: POTASSI CL 20 MEQ/50 ML RIDER 20 MEQ/50 ML RTUPB IV SCH ×2 (19:01→22:47)
[2017-07-01] MEDS ORDERED: ALTEPLASE INJ 2 MG VIAL (CATH CLEARANCE) IV ONE (19:56)
[2017-07-01 20:13] LABS: ADD ON TESTING BLD IN LAB ACKNOWLEDGE
[2017-07-01 20:34] LABS: MAGNESIUM 1.8 mg/dL (1.6-2.3)
[2017-07-01] MEDS ORDERED: MAGNESIUM SULFATE/D5W 1 GM/100 ML RTUPB IV SCH (20:45)
[2017-07-01 21:03] LABS: ALANINE AMINOTRANSFERASE 28 U/L (9-52); ALBUMIN 2.9 g/dL (3.5-5.0); ALKALINE PHOSPHATASE 44 U/L (38-126); ANION GAP 8 (5-19); ASPARTATE AMINO TRANSFERASE 17 U/L (14-36); BILIRUBIN,DIRECT 0.2 mg/dL (0.0-0.4); BILIRUBIN,TOTAL 0.2 mg/dL (0.2-1.3); BLOOD UREA NITROGEN 15 mg/dL (7-20); CALCIUM 8.2 mg/dL (8.4-10.2); CARBON DIOXIDE 21 mmol/L (22-30); CHLORIDE 112 mmol/L (98-107); CREATININE RESULT 0.84 mg/dL (0.52-1.25); GLUCOSE 72 mg/dL (75-110); SODIUM 140.9 mmol/L (137-145); TOTAL PROTEIN 5.3 g/dL (6.3-8.2)
[2017-07-01 21:10] LABS: POTASSIUM 2.8 mmol/L (3.6-5.0)
[2017-07-01] MEDS ORDERED: NORMAL SALINE 10 ML SDV (SCHEDULED) IV SCH (22:00)
[2017-07-02] MEDS ORDERED: POTASSI CL 20 MEQ/D5-1/2NS 1L 1,000 ML IV SCH (00:45)
[2017-07-02] MEDS ORDERED: PROMETHAZINE HCL 25 MG TABLET PO PRN (00:46)
[2017-07-02] MEDS ORDERED: DICYCLOMINE HCL 20 MG TABLET PO ONE ×2 (00:46→04:15)
[2017-07-02] MEDS ORDERED: ACETAMINOPHEN 325 MG TABLET PO PRN (00:46)
[2017-07-02 01:48] LABS: ANION GAP 7 (5-19); BLOOD UREA NITROGEN 15 mg/dL (7-20); CALCIUM 8.1 mg/dL (8.4-10.2); CARBON DIOXIDE 20 mmol/L (22-30); CHLORIDE 115 mmol/L (98-107); CREATININE RESULT 0.79 mg/dL (0.52-1.25); GLUCOSE 81 mg/dL (75-110); POTASSIUM 3.1 mmol/L (3.6-5.0); SODIUM 142.4 mmol/L (137-145)
[2017-07-02] MEDS ORDERED: INFLUENZA ADLT QUAD (36MOS+) 2017-18 VAC 0.5 ML SYR IM PRN (03:11)
[2017-07-02] MEDS: POTASSI CL 20 MEQ/50 ML RIDER 20 MEQ/50 ML RTUPB IV SCH (03:43)
[2017-07-02] MEDS: POTASSIUM CHLORIDE 20 MEQ/15 ML UDCUP PO SCH ×4 (04:10→19:01)
[2017-07-02 04:16] LABS: APPEARANCE,URINE CLEAR; BILIRUBIN,URINE NEGATIVE (NEGATIVE); GLUCOSE, URINE NEGATIVE (NEGATIVE); KETONES,URINE NEGATIVE (NEGATIVE); LEUKOCYTE ESTERASE,URINE NEGATIVE (NEGATIVE); NITRITE,URINE NEGATIVE (NEGATIVE); PROTEIN,URINE NEGATIVE (NEGATIVE); URINE SPECIFIC GRAVITY 1.012; UROBILINOGEN,URINE NEGATIVE mg/dL (<2.0)
[2017-07-02 04:32] LABS: URINE BARBITURATES SCREEN NEGATIVE; URINE METHADONE SCREEN NEGATIVE; URINE OPIATES LOW NEGATIVE; URINE PHENCYCLIDINE SCREEN NEGATIVE
--- NOTE | 2017-07-02 04:46 | EKG REPORT ---
SEVERITY:- ABNORMAL ECG - SINUS RHYTHM ABNORMAL T, CONSIDER ISCHEMIA, DIFFUSE LEADS : Confirmed by: Padma Mota MD 02-Jul-2017 04:29:37
--- NOTE | 2017-07-02 06:14 | PDOC H&P ---
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 Patient denies recent change in TPN or medication regiment with persistent loose stools developing severe weakness prompting evaluation emergency room where she is found to have a potassium of 2.9 after repletion it is unchanged prompting referral to the hospitalist for admission. Patient denies chest pain abdominal pain nausea or vomiting. Past Medical History Cardiac Medical History: Denies: Coronary Artery Disease, Myocardial Infarction, Hypertension Pulmonary Medical History: Denies: Asthma, Bronchitis, Chronic Obstructive Pulmonary Disease (COPD), Pneumonia, Tuberculosis Neurological Medical History: Denies: Seizures GI Medical History: Reports: Peptic Ulcer Disease, Other - partial gastrectomy, partial small bowel resection. Dumping syndrome Musculoskeltal Medical History: Denies: Arthritis Psychiatric Medical History: Denies: Depression - anxiety, insomnia Hematology: Reports: Anemia Past Surgical History Past Surgical History: Reports: Appendectomy, Cholecystectomy, Other - Gastric antrectomy/vagotomy Denies: Hysterectomy, Pacemaker Social History Information Source: Patient Lives with: Family Smoking Status: Never Smoker Frequency of Alcohol Use: None Hx Recreational Drug Use: No Drugs: None Hx Prescription Drug Abuse: No - Advance Directive Resuscitation Status: Full Code Family History Family History: Reviewed & Not Pertinent, Hypertension Parental Family History Reviewed: Yes Children Family History Reviewed: Yes Sibling(s) Family History Reviewed.: Yes Medication/Allergy Home Medications: Clonazepam [Klonopin] 2 mg PO QHS 02/12/17 Diltiazem HCl [Cardizem Cd 120 mg Capsule] 120 mg PO QHS #30 cap.sr.24h Megestrol Acetate [Megace [place] 400 mg/10 ml Udcup] 800 mg PO DAILY #240 ml 02/18 Aspirin/Acetaminophen/Caffeine [Excedrin Migraine Caplet] 1 each PO DAILY Furosemide 20 mg PO DAILY 07/01/17 Ibuprofen [Motrin 800 mg Tablet] 800 mg PO PRN PRN 07/01/17 Promethazine HCl [Phenergan 25 mg Tablet] 25 mg PO PRN PRN 07/01/17 Rizatriptan Benzoate [Maxalt] 10 mg PO PRN PRN 07/01/17 Allergies/Adverse Reactions: amoxicillin [Amoxicillin] Allergy (Severe, Verified 06/14/17 17:31) Review of Systems Constitutional: ABSENT: chills, fever(s), headache(s), weight gain, weight loss Eyes: ABSENT: visual disturbances Ears: ABSENT: hearing changes Cardiovascular: ABSENT: chest pain, dyspnea on exertion, edema, orthropnea, palpitations Respiratory: ABSENT: cough, hemoptysis Gastrointestinal: ABSENT: abdominal pain, constipation, diarrhea, hematemesis, hematochezia, nausea, vomiting Genitourinary: ABSENT: dysuria, hematuria Musculoskeletal: ABSENT: joint swelling Integumentary: ABSENT: rash, wounds Neurological: ABSENT: abnormal gait, abnormal speech, confusion, dizziness, focal weakness, syncope Psychiatric: ABSENT: anxiety, depression, homidical ideation, suicidal ideation Endocrine: ABSENT: cold intolerance, heat intolerance, polydipsia, polyuria Hematologic/Lymphatic: ABSENT: easy bleeding, easy bruising Physical Exam Vital Signs: Temp Pulse Resp BP Pulse Ox 98 F 80 16 120/58 L 100 07/02/17 02:37 07/02/17 02:37 07/02/17 02:37 07/02/17 02:37 07/02/17 02:37 Intake & Output 06/30/17 07/01/17 07/02/17 11:59 11:59 11:59 Weight 48.3 kg General appearance: PRESENT: no acute distress, cooperative Head exam: PRESENT: atraumatic, normocephalic Eye exam: PRESENT: conjunctiva pink, EOMI, PERRLA. ABSENT: scleral icterus Ear exam: PRESENT: normal external ear exam Mouth exam: PRESENT: dry mucosa Neck exam: ABSENT: carotid bruit, JVD, lymphadenopathy, thyromegaly Respiratory exam: PRESENT: clear to auscultation jamaal. ABSENT: rales, rhonchi, wheezes Cardiovascular exam: PRESENT: RRR. ABSENT: diastolic murmur, rubs, systolic murmur Pulses: PRESENT: normal dorsalis pedis pul Vascular exam: PRESENT: normal capillary refill GI/Abdominal exam: PRESENT: normal bowel sounds, soft. ABSENT: distended, guarding, mass, organolmegaly, rebound, tenderness Rectal exam: PRESENT: deferred Extremities exam: PRESENT: full ROM. ABSENT: calf tenderness, clubbing, pedal edema Neurological exam: PRESENT: alert, awake, oriented to person, oriented to place , oriented to time, oriented to situation, CN II-XII grossly intact. ABSENT: motor sensory deficit Psychiatric exam: PRESENT: appropriate affect, normal mood. ABSENT: homicidal ideation, suicidal ideation Skin exam: PRESENT: dry, intact, warm. ABSENT: cyanosis, rash Results Laboratory Results: 07/02/17 01:19 07/02/17 07/02/17 01:19 03:59 Sodium 142.4 Potassium 3.1 L Chloride 115 H Carbon Dioxide 20 L Anion Gap 7 BUN 15 Creatinine 0.79 Est GFR ( Amer) > 60 Est GFR (Non-Af Amer) > 60 Glucose 81 Calcium 8.1 L Urine Color YELLOW Urine Appearance CLEAR Urine pH 6.0 Ur Specific [place] 1.012 Urine Protein NEGATIVE Urine Glucose (UA) NEGATIVE Urine Ketones NEGATIVE Urine Blood NEGATIVE Urine Nitrite NEGATIVE Ur Leukocyte Esterase NEGATIVE Urine WBC (Auto) 1 Assessment & Plan - Diagnosis (1) Hypokalemia Is this a current diagnosis for this admission?: Yes Plan: Secondary to partial small bowel obstruction and dumping syndrome, consider trial antibiotics for overgrowth, GI consult, half-normal saline with 20 mEq of potassium and potassium chloride liquid every 6 hours with reevaluation of chemistry. (2) Protein-calorie malnutrition, moderate Is this a current diagnosis for this admission?: Yes Plan: Suggested by body habitus will obtain prealbumin (3) Weakness Is this a current diagnosis for this admission?: Yes Plan: Secondary to #1 replete and recheck - Time Time Spent: 50 to 70 Minutes
[2017-07-02] MEDS: HEPARIN SOD (PORCINE) 5,000 UNIT/ML 1 ML SYRINGE SUBCUT SCH ×3 (06:54→21:44)
[2017-07-02] MEDS ORDERED: POTASSI CL 20 MEQ/D5-1/2NS 1L 1000 ML IV SCH (09:30)
[2017-07-02 09:34] LABS: ANION GAP 5 (5-19); BLOOD UREA NITROGEN 12 mg/dL (7-20); CALCIUM 8.4 mg/dL (8.4-10.2); CARBON DIOXIDE 21 mmol/L (22-30); CHLORIDE 116 mmol/L (98-107); CREATININE RESULT 0.71 mg/dL (0.52-1.25); GLUCOSE 97 mg/dL (75-110); POTASSIUM 3.3 mmol/L (3.6-5.0); SODIUM 142.2 mmol/L (137-145)
[2017-07-02] MEDS: NORMAL SALINE 10 ML SDV (AFTER EACH USE) IV PRN ×2 (10:13→15:51)
[2017-07-02] MEDS: NORMAL SALINE 10 ML SDV (SCHEDULED) IV SCH ×2 (10:15→21:43)
[2017-07-02] MEDS: MEGESTROL ACETATE SUSP 400 MG/10 ML UDCUP PO SCH (11:34)
--- NOTE | 2017-07-02 14:10 | PDOC CONSULTATION ---
Consultation Consult Date: 07/02/17 Attending physician:: ML BRADY Consult reason:: dysphagia History of Present Illness Admission Date/PCP: 07/02/17 00:46 History of Present Illness: Patient has a complicated medical history had weight loss surgery and was complicated by multiple strictures I had seen the patient back in 2012, and she required multiple dilations due to stricture formation eventually had a revision, patient states still has some nausea and vomiting apparently still taking NSAIDS at times for migraines patient admitted secondary to hypokalemia and weakness this is being corrected she has been having peripheral edema patient initially felt due to low albumin, however peripheral edema continued when protein was corrected with TPN patient apparently started on diuretic now does have hypokalemia. Past Medical History Cardiac Medical History: Denies: Coronary Artery Disease, Myocardial Infarction, Hypertension Pulmonary Medical History: Denies: Asthma, Bronchitis, Chronic Obstructive Pulmonary Disease (COPD), Pneumonia, Tuberculosis Neurological Medical History: Denies: Seizures GI Medical History: Reports: Peptic Ulcer Disease, Other - partial gastrectomy, partial small bowel resection. Dumping syndrome Musculoskeltal Medical History: Denies: Arthritis Psychiatric Medical History: Denies: Depression - anxiety, insomnia Hematology: Reports: Anemia Past Surgical History Past Surgical History: Reports: Appendectomy, Cholecystectomy, Other - Gastric antrectomy/vagotomy Denies: Hysterectomy, Pacemaker Social History Lives with: Family Smoking Status: Never Smoker Frequency of Alcohol Use: None Hx Recreational Drug Use: No Drugs: None Hx Prescription Drug Abuse: No - Advance Directive Resuscitation Status: Full Code Family History Family History: Reviewed & Not Pertinent, Hypertension Parental Family History Reviewed: Yes Children Family History Reviewed: Unknown Sibling(s) Family History Reviewed.: Unknown Medication/Allergy Home Medications: Clonazepam [Klonopin] 4 mg PO QHS 02/12/17 Diltiazem HCl [Cardizem Cd 120 mg Capsule] 120 mg PO QHS #30 cap.sr.24h Megestrol Acetate [Megace Leola 400 mg/10 ml Udcup] 800 mg PO DAILY #240 ml 02/18 Aspirin/Acetaminophen/Caffeine [Excedrin Migraine Caplet] 1 each PO DAILY Furosemide 20 mg PO DAILY 07/01/17 Ibuprofen [Motrin 800 mg Tablet] 800 mg PO TID 07/01/17 Rizatriptan Benzoate [Maxalt] 10 mg PO DAILYP PRN 07/01/17 Buprenorphine HCl/Naloxone HCl [Suboxone 8 mg-2 mg Sl Film] 2 film SL DAILY 12/14 Ondansetron HCl [Zofran 8 mg Tablet] 8 mg PO Q8 07/02/17 Allergies/Adverse Reactions: amoxicillin [Amoxicillin] Allergy (Severe, Verified 06/14/17 17:31) Review of Systems Constitutional: ABSENT: fever(s), headache(s), night sweats, weakness Eyes: ABSENT: visual disturbances Ears: ABSENT: hearing changes Nose, Mouth, and Throat: ABSENT: mouth pain, sore throat Cardiovascular: ABSENT: edema, orthropnea Respiratory: ABSENT: dyspnea, hemoptysis Gastrointestinal: PRESENT: dysphagia, nausea, vomiting. ABSENT: diarrhea, melena Genitourinary: ABSENT: dysuria, hematuria Musculoskeletal: ABSENT: deformity Integumentary: ABSENT: lesions, pruritus Neurological: PRESENT: weakness. ABSENT: syncope, tingling, tremor(s), vertigo Psychiatric: ABSENT: hallucinations Endocrine: ABSENT: polydipsia, polyphagia, polyuria Hematologic/Lymphatic: ABSENT: easy bruising Physical Exam Vital Signs: Temp Pulse Resp BP Pulse Ox 98.3 F 71 15 98/44 L 99 07/02/17 11:57 07/02/17 11:57 07/02/17 11:57 07/02/17 11:57 07/02/17 11:57 Intake & Output 07/01/17 07/02/17 07/03/17 06:59 06:59 06:59 Intake Total 698 Output Total 600 Balance 98 Weight 48.3 kg General appearance: PRESENT: cooperative, mild distress, thin Head exam: PRESENT: atraumatic, normocephalic Eye exam: PRESENT: EOMI, PERRLA. ABSENT: nystagmus, periorbital swelling, scleral icterus Mouth exam: PRESENT: moist, neck supple Teeth exam: ABSENT: edentulous Throat exam: ABSENT: tonsillar exudate Neck exam: ABSENT: meningismus, tenderness, thyromegaly Respiratory exam: PRESENT: symmetrical, unlabored. ABSENT: tachypnea, wheezes Cardiovascular exam: PRESENT: RRR, +S1, +S2 GI/Abdominal exam: PRESENT: normal bowel sounds, soft. ABSENT: Stone's sign, rebound, rigid Extremities exam: ABSENT: joint swelling Musculoskeletal exam: PRESENT: full ROM Neurological exam: PRESENT: oriented to time, oriented to situation, CN II-XII grossly intact Skin exam: PRESENT: normal color. ABSENT: mottled, pallor, petechiae, urticaria , vesicles Results Laboratory Results: 07/02/17 09:00 07/02/17 07/02/17 07/02/17 01:19 03:59 04:32 Sodium 142.4 Potassium 3.1 L Chloride 115 H Carbon Dioxide 20 L Anion Gap 7 BUN 15 Creatinine 0.79 Est GFR ( Amer) > 60 Est GFR (Non-Af Amer) > 60 Glucose 81 Calcium 8.1 L Prealbumin 20.2 Urine Color YELLOW Urine Appearance CLEAR Urine pH 6.0 Ur Specific [place] 1.012 Urine Protein NEGATIVE Urine Glucose (UA) NEGATIVE Urine Ketones NEGATIVE Urine Blood NEGATIVE Urine Nitrite NEGATIVE Ur Leukocyte Esterase NEGATIVE Urine WBC (Auto) 1 07/02/17 09:00 Sodium 142.2 Potassium 3.3 L Chloride 116 H Carbon Dioxide 21 L Anion Gap 5 BUN 12 Creatinine 0.71 Est GFR ( Amer) > 60 Est GFR (Non-Af Amer) > 60 Glucose 97 Calcium 8.4 Prealbumin Urine Color Urine Appearance Urine pH Ur Specific [place] Urine Protein Urine Glucose (UA) Urine Ketones Urine Blood Urine Nitrite Ur Leukocyte Esterase Urine WBC (Auto) Assessment & Plan - Diagnosis (1) Hypokalemia Is this a current diagnosis for this admission?: Yes Plan: Probably due to use of Lasix, although she is not taking here while admitted would check urine potassium to see there are any renal issues with respect to K wasting spoke to Dr Woodall, 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 (2) Protein-calorie malnutrition, moderate Is this a current diagnosis for this admission?: Yes Plan: On TPN, patient will need twice weekly labs as an out patient to monitor the original issue leading to this has been the inability to eat since her first operation , she has not done well multiple strictures in the past leading to another revision will need repeat EGD now Risks, benefit and alternatives discussed with the patient in detail further recommendations to follow she is still taking occasional NSAID which should be completely discontinued she may need a feeding jejunostomy which may have be placed surgically at some point if she is not able to maintain her weight (3) Edema Qualifiers: Malnutrition edema type: unspecified malnutrition type Plan: it was left to be due to a low albumin but patient has stated that she would get peripheral edema even when that had been corrected that was the reason she was started on Lasix which may have precipitated the hypokalemia Dr Woodall will check a spot urine potassium since she is not on Lasix at this point. - Time Time Spent: 50 to 70 Minutes
[2017-07-02] MEDS ORDERED: HEPARIN SOD (PORCINE) 5,000 UNIT/ML 1 ML SYRINGE SUBCUT ONE (16:00)
[2017-07-02] MEDS ORDERED: POTASSIUM CHLORIDE 10 MEQ TABLET.SA PO ONE (16:15)
[2017-07-02] MEDS: NORMAL SALINE 1000 ML 1,000 ML IV PRN (16:27)
[2017-07-02] MEDS: CLONAZEPAM 1 MG TABLET PO SCH (21:42)
[2017-07-03] MEDS: DILTIAZEM HCL 120 MG CAP.SR.24H PO SCH (00:14)
[2017-07-03] MEDS: NORMAL SALINE 1000 ML 1,000 ML IV PRN ×2 (03:07→23:48)
[2017-07-03 03:43] LABS: ANION GAP 6 (5-19); BLOOD UREA NITROGEN 13 mg/dL (7-20); CALCIUM 8.2 mg/dL (8.4-10.2); CARBON DIOXIDE 19 mmol/L (22-30); CHLORIDE 118 mmol/L (98-107); CREATININE RESULT 0.66 mg/dL (0.52-1.25); GLUCOSE 84 mg/dL (75-110); POTASSIUM 3.5 mmol/L (3.6-5.0); SODIUM 143.3 mmol/L (137-145)
[2017-07-03] MEDS: HEPARIN SOD (PORCINE) 5,000 UNIT/ML 1 ML SYRINGE SUBCUT SCH ×3 (05:10→21:44)
[2017-07-03 06:27] LABS: ABSOLUTE EOSINOPHILS # (AUTO) 0.2 10^3/uL (0.0-0.6); ABSOLUTE LYMPHOCYTES (AUTO) 1.3 10^3/uL (0.5-4.7); ABSOLUTE MONOCYTES (AUTO) 0.4 10^3/uL (0.1-1.4); ABSOLUTE NEUT (AUTO) 4.6 10^3/uL (1.7-8.2); BASOPHILS % (AUTO) 0.3 % (0-2); HEMATOCRIT 25.8 % (36.0-47.0); HEMOGLOBIN 9.1 g/dL (12.0-15.5); HGB HCT DIFFERENCE 1.5; LYMPHOCYTES % (AUTO) 19.8 % (13-45); MEAN CORPUSCULAR HGB CONC 35.4 g/dL (32.0-36.0); MEAN CORPUSCULAR VOLUME 88 fl (80-97); MONOCYTES % (AUTO) 5.8 % (3-13); RED BLOOD COUNT 2.95 10^6/uL (3.72-5.28); RED CELL DISTRIBUTION WIDTH 11.5 % (11.5-14.0); SEGMENTED NEUTROPHILS % (AUTO) 71.1 % (42-78); WHITE BLOOD COUNT 6.4 10^3/uL (4.0-10.5)
[2017-07-03] MEDS ORDERED: GLYCOPYRROLATE INJ 0.4 MG/2 ML VIAL ONE (11:11)
[2017-07-03] MEDS ORDERED: ONDANSETRON HCL INJ/PF 4 MG/2 ML SDV ONE ×2 (11:11→13:04)
[2017-07-03] MEDS ORDERED: NALOXONE HCL INJ/PF 0.4 MG/1 ML SDV ONE (11:11)
[2017-07-03] MEDS ORDERED: EPINEPHRINE INJ 1 MG/10 ML DISP.SYRIN ONE (11:12)
[2017-07-03] MEDS ORDERED: FLUMAZENIL INJ 0.5 MG/5 ML VIAL ONE (11:12)
[2017-07-03] MEDS ORDERED: DIPHENHYDRAMINE HCL 50 MG/ML VIAL ONE (11:13)
[2017-07-03] MEDS ORDERED: MIDAZOLAM 2 MG/2 ML INJ ONE ×2 (11:13→13:01)
[2017-07-03] MEDS ORDERED: GLUCAGON,HUMAN RECOMB 1 MG INJ ONE (11:13)
[2017-07-03] MEDS: MIDAZOLAM 2 MG/2 ML INJ ONE ×2 (11:49→12:11)
[2017-07-03] MEDS: FENTANYL CITRATE INJ/PF 100 MCG/2 ML AMPUL ONE ×3 (11:51→12:13)
[2017-07-03] MEDS ORDERED: POTASSI CL 20 MEQ/50 ML RIDER 20 MEQ/50 ML RTUPB IV SCH (13:00)
[2017-07-03] MEDS ORDERED: FENTANYL CITRATE INJ/PF 100 MCG/2 ML AMPUL ONE (13:01)
[2017-07-03] MEDS ORDERED: PROPOFOL INJ 200 MG/20 ML VIAL IV ONE (13:02)
[2017-07-03] MEDS ORDERED: DIPHENHYDRAMINE HCL 50 MG/ML VIAL IV PRN (13:47)
[2017-07-03] MEDS ORDERED: FENTANYL CITRATE INJ/PF 100 MCG/2 ML AMPUL IV PRN ×3 (13:47)
--- NOTE | 2017-07-03 15:06 | PDOC PROGRESS REPORT ---
Subjective Progress Note for:: 07/03/17 Subjective:: Patient feeling slightly better today. No diarrhea. No nausea or vomiting this time. Patient not on any diuretics at the moment. Patient reports lower extremity edema and has been on diuretics before. There is no chills or fever. No chest pain or shortness of breath. Physical Exam Vital Signs: Temp Pulse Resp BP Pulse Ox 98.3 F 68 18 100/63 100 07/03/17 14:21 07/03/17 14:21 07/03/17 14:21 07/03/17 14:21 07/03/17 14:21 Intake & Output 07/02/17 07/03/17 07/04/17 06:59 06:59 06:59 Intake Total 698 3641 5682 Output Total 600 500 Balance 98 3141 5682 Weight 48.3 kg General appearance: PRESENT: no acute distress, cooperative Head exam: PRESENT: normocephalic Eye exam: PRESENT: EOMI Mouth exam: PRESENT: moist, neck supple Neck exam: ABSENT: JVD Respiratory exam: PRESENT: clear to auscultation jamaal. ABSENT: rhonchi, wheezes Cardiovascular exam: PRESENT: RRR. ABSENT: gallop GI/Abdominal exam: PRESENT: hyperactive bowel sounds. ABSENT: distended Extremities exam: PRESENT: other - Trace lower extremity edema Neurological exam: PRESENT: alert, awake, oriented to situation Skin exam: PRESENT: dry, warm. ABSENT: cyanosis Results Laboratory Results: 07/03/17 06:05 07/03/17 03:05 07/03/17 07/03/17 03:05 06:05 WBC 6.4 RBC 2.95 L Hgb 9.1 L Hct 25.8 L MCV 88 MCH 31.0 MCHC 35.4 RDW 11.5 Plt Count 249 Seg Neutrophils % 71.1 Lymphocytes % 19.8 Monocytes % 5.8 Eosinophils % 3.0 Basophils % 0.3 Absolute Neutrophils 4.6 Absolute Lymphocytes 1.3 Absolute Monocytes 0.4 Absolute Eosinophils 0.2 Absolute Basophils 0.0 Sodium 143.3 Potassium 3.5 L Chloride 118 H Carbon Dioxide 19 L Anion Gap 6 BUN 13 Creatinine 0.66 Est GFR ( Amer) > 60 Est GFR (Non-Af Amer) > 60 Glucose 84 Calcium 8.2 L Assessment & Plan - Diagnosis (1) Hypokalemia Is this a current diagnosis for this admission?: Yes (2) Protein-calorie malnutrition, moderate Is this a current diagnosis for this admission?: Yes (3) Edema Qualifiers: Malnutrition edema type: unspecified malnutrition type Is this a current diagnosis for this admission?: Yes (5) Anemia of chronic disease Is this a current diagnosis for this admission?: Yes - Time Time Spent with patient: 15-24 minutes - Plan Summary Plan Summary: Continue IV hydration. Continue to monitor electrolytes. Replace potassium. Hemoglobin dropped probably related to hydration we will recheck level in the morning. Patient is going for dilatation today due to esophageal stricture. Appreciate gastroenterology help.
[2017-07-03] MEDS: MEGESTROL ACETATE SUSP 400 MG/10 ML UDCUP PO SCH (15:25)
[2017-07-03] MEDS: NORMAL SALINE 10 ML SDV (SCHEDULED) IV SCH ×2 (15:30→21:43)
[2017-07-03] MEDS: POTASSIUM CHLORIDE 20 MEQ/50 ML RTU IV SCH ×2 (17:50→20:46)
--- NOTE | 2017-07-03 19:11 | Operative Report ---
Operative Report DATE OF SURGERY: 07/03/17 Operative Report: The risks benefits and alternatives of the procedure explained to the patient in detail and informed consent is obtained. A GIF Olympus video scope was inserted into the patient's mouth and hypopharynx, the esophagus is identified intubated and insufflated ,the scope was then advanced through the esophagus stomach and duodenum ,retroflexion maneuver is done, the esophagus stomach and first and second portions of the duodenum examined Patient initially taken for conscious sedation. It was noted that her PICC line did not appear to be functioning well. She had had 2 mg of Versed and 75 mcg of fentanyl but did not appear to have any sedation effects. Therefore new IV was placed. She was given a further 2 mg and 50 mcg of fentanyl. She was unable to tolerate the procedure. She had to be taken down to the OR for propofol sedation. PREOPERATIVE DIAGNOSIS: Nausea vomiting POSTOPERATIVE DIAGNOSIS: Normal anastomotic site no stricture noted OPERATION: Small intestinal enteroscopy with biopsies SURGEON: ML BRADY ANESTHESIA: LMAC TISSUE REMOVED OR ALTERED: Tissue at the anastomotic site sampled COMPLICATIONS: None. ESTIMATED BLOOD LOSS: None. INTRAOPERATIVE FINDINGS: As noted above. PROCEDURE: Patient tolerated the procedure well. No immediate postprocedure complications are noted. Patient discharged her room in good condition. Resume previous diet as tolerated. We will wait on pathology. Outpatient follow-up.
[2017-07-03] MEDS: CLONAZEPAM 1 MG TABLET PO SCH (21:42)
[2017-07-04] MEDS: DILTIAZEM HCL 120 MG CAP.SR.24H PO SCH ×2 (00:20→21:37)
[2017-07-04] MEDS: HEPARIN SOD (PORCINE) 5,000 UNIT/ML 1 ML SYRINGE SUBCUT SCH ×3 (05:15→21:41)
[2017-07-04 06:24] LABS: HEMATOCRIT 26.2 % (36.0-47.0); HEMOGLOBIN 9.3 g/dL (12.0-15.5); HGB HCT DIFFERENCE 1.7; MEAN CORPUSCULAR HGB CONC 35.3 g/dL (32.0-36.0); MEAN CORPUSCULAR VOLUME 88 fl (80-97); RED BLOOD COUNT 2.98 10^6/uL (3.72-5.28); RED CELL DISTRIBUTION WIDTH 11.6 % (11.5-14.0); WHITE BLOOD COUNT 7.3 10^3/uL (4.0-10.5)
[2017-07-04 06:38] LABS: ANION GAP 7 (5-19); BLOOD UREA NITROGEN 12 mg/dL (7-20); CARBON DIOXIDE 19 mmol/L (22-30); CHLORIDE 114 mmol/L (98-107); CREATININE RESULT 0.66 mg/dL (0.52-1.25); GLUCOSE 99 mg/dL (75-110); POTASSIUM 3.5 mmol/L (3.6-5.0); SODIUM 139.9 mmol/L (137-145)
[2017-07-04] MEDS: MEGESTROL ACETATE SUSP 400 MG/10 ML UDCUP PO SCH (10:10)
[2017-07-04] MEDS: NORMAL SALINE 10 ML SDV (SCHEDULED) IV SCH ×2 (10:11→21:41)
--- NOTE | 2017-07-04 10:32 | Physician Advisory Note ---
Physician Advisor ProgressNote .: Pursuant to the plan for [facility], I have reviewed the medical record for this patient. Physician Advisor Statement: Nice documentation of malnutrition & likely causes of edema. No real major recommendations to add to this chart's documentation. May consider documenting, if you agree: 1. "Acute metabolic acidosis, suspect due to ____" [GI losses from ...?, hyperalimentation?, ...] - Last bicarb was low, but before that, normal several times .... 2. "Anemia due to chronic ____" [best guess here] - 'anemia of chr dz' isn't a specific enough dx now - we are expected to indicate most likely type underlying chr dz, which may be CKD, or a cancer, an inflammatory d/o, or an infectious dz.... (not leaving a blue note on this one) Thanks! CK
--- NOTE | 2017-07-04 12:01 | PDOC PROGRESS REPORT ---
Subjective Progress Note for:: 07/04/17 Subjective:: Patient felt better this morning. However still has poor oral intake. No nausea or vomiting or abdominal pain this time. No chills or fever. No diarrhea. Her PICC line was malfunctioning. It is her second PICC line placed for her to have TPN as needed at home. Upper endoscopy performed no reported stricture was present. Physical Exam Vital Signs: Temp Pulse Resp BP Pulse Ox 98.2 F 75 18 101/71 100 07/04/17 08:00 07/04/17 08:00 07/04/17 08:00 07/04/17 08:00 07/04/17 08:00 Intake & Output 07/03/17 07/04/17 07/05/17 06:59 06:59 06:59 Intake Total 3641 7327 Output Total 500 700 Balance 3141 6627 General appearance: PRESENT: no acute distress, cooperative Head exam: PRESENT: normocephalic Eye exam: PRESENT: EOMI Mouth exam: PRESENT: moist, neck supple Neck exam: ABSENT: JVD Respiratory exam: PRESENT: clear to auscultation jamaal. ABSENT: rhonchi, wheezes Cardiovascular exam: PRESENT: RRR. ABSENT: gallop GI/Abdominal exam: PRESENT: soft. ABSENT: distended, tenderness Extremities exam: PRESENT: other - Trace lower extremity edema Neurological exam: PRESENT: alert, awake, oriented to situation Skin exam: PRESENT: dry, warm. ABSENT: cyanosis Results Laboratory Results: 07/04/17 06:05 07/04/17 06:05 07/04/17 07/04/17 06:05 06:05 WBC 7.3 RBC 2.98 L Hgb 9.3 L Hct 26.2 L MCV 88 MCH 31.0 MCHC 35.3 RDW 11.6 Plt Count 242 Sodium 139.9 Potassium 3.5 L Chloride 114 H Carbon Dioxide 19 L Anion Gap 7 BUN 12 Creatinine 0.66 Est GFR ( Amer) > 60 Est GFR (Non-Af Amer) > 60 Glucose 99 Calcium 8.0 L Assessment & Plan - Diagnosis (1) Hypokalemia Is this a current diagnosis for this admission?: Yes (2) Protein-calorie malnutrition, moderate Is this a current diagnosis for this admission?: Yes (3) Edema Qualifiers: Malnutrition edema type: unspecified malnutrition type Is this a current diagnosis for this admission?: Yes (5) Anemia of chronic disease Is this a current diagnosis for this admission?: Yes - Time Time Spent with patient: 25-34 minutes - Plan Summary Plan Summary: Case discussed with Dr. Valle. Continue current medications. No definite recent while the patient will have dysphagia at this time. The meantime we will correct hypokalemia and check magnesium. I have consulted and discussed the case with surgical service regarding putting a more permanent line of Port-A -Cath. Be scheduled to have one placed tomorrow. Continue supportive care.
[2017-07-04] MEDS: NORMAL SALINE 1000 ML 1,000 ML IV PRN (12:44)
[2017-07-04] MEDS: POTASSI CL 20 MEQ/50 ML RIDER 20 MEQ/50 ML RTUPB IV SCH ×2 (12:46→14:59)
[2017-07-04] MEDS ORDERED: MAGNESIUM SULFATE/D5W 1 GM/100 ML RTUPB IV SCH (15:00)
--- NOTE | 2017-07-04 16:11 | PDOC CONSULTATION ---
History of Present Illness Admission Date/PCP: 07/02/17 00:46 Patient complains of: Need for central venous access for TPN. History of Present Illness: 36-year-old female status post multiple abdominal surgeries with chronic nausea and anorexia, TPN dependent. She has a PICC line that has been present for several months with dysfunction frequently. Request made now to general surgery for Port-A-Cath placement. Past Medical History Cardiac Medical History: Denies: Coronary Artery Disease, Myocardial Infarction, Hypertension Pulmonary Medical History: Denies: Asthma, Bronchitis, Chronic Obstructive Pulmonary Disease (COPD), Pneumonia, Tuberculosis Neurological Medical History: Denies: Seizures GI Medical History: Reports: Peptic Ulcer Disease, Other - partial gastrectomy, partial small bowel resection. Dumping syndrome Musculoskeltal Medical History: Denies: Arthritis Psychiatric Medical History: Denies: Depression - anxiety, insomnia Hematology: Reports: Anemia Past Surgical History Past Surgical History: Reports: Appendectomy, Cholecystectomy, Other - Gastric antrectomy/vagotomy Denies: Hysterectomy, Pacemaker Social History Lives with: Family Smoking Status: Never Smoker Frequency of Alcohol Use: None Hx Recreational Drug Use: No Drugs: None Hx Prescription Drug Abuse: No - Advance Directive Resuscitation Status: Full Code Family History Family History: Reviewed & Not Pertinent, Hypertension Parental Family History Reviewed: No Children Family History Reviewed: No Sibling(s) Family History Reviewed.: No Medication/Allergy Home Medications: Clonazepam [Klonopin] 4 mg PO QHS 02/12/17 Diltiazem HCl [Cardizem Cd 120 mg Capsule] 120 mg PO QHS #30 cap.sr.24h Megestrol Acetate [Megace [place] 400 mg/10 ml Udcup] 800 mg PO DAILY #240 ml 02/18 Aspirin/Acetaminophen/Caffeine [Excedrin Migraine Caplet] 1 each PO DAILY Furosemide 20 mg PO DAILY 07/01/17 Ibuprofen [Motrin 800 mg Tablet] 800 mg PO TID 07/01/17 Rizatriptan Benzoate [Maxalt] 10 mg PO DAILYP PRN 07/01/17 Buprenorphine HCl/Naloxone HCl [Suboxone 8 mg-2 mg Sl Film] 2 film SL DAILY 12/14 Ondansetron HCl [Zofran 8 mg Tablet] 8 mg PO Q8 07/02/17 Allergies/Adverse Reactions: amoxicillin [Amoxicillin] Allergy (Severe, Verified 06/14/17 17:31) Physical Exam Vital Signs: Temp Pulse Resp BP Pulse Ox 98.2 F 86 18 101/71 100 07/04/17 08:00 07/04/17 14:00 07/04/17 08:00 07/04/17 08:00 07/04/17 08:00 Intake & Output 07/03/17 07/04/17 07/05/17 06:59 06:59 06:59 Intake Total 3641 7327 Output Total 500 700 Balance 3141 6627 General appearance: PRESENT: no acute distress, cooperative Neck exam: PRESENT: other - No neck masses. Respiratory exam: PRESENT: clear to auscultation jamaal Cardiovascular exam: PRESENT: RRR GI/Abdominal exam: PRESENT: other - Soft, nondistended, nontender to palpation. Results Laboratory Results: 07/04/17 06:05 07/04/17 06:05 07/04/17 07/04/17 07/04/17 06:05 06:05 12:55 WBC 7.3 RBC 2.98 L Hgb 9.3 L Hct 26.2 L MCV 88 MCH 31.0 MCHC 35.3 RDW 11.6 Plt Count 242 Sodium 139.9 Potassium 3.5 L Chloride 114 H Carbon Dioxide 19 L Anion Gap 7 BUN 12 Creatinine 0.66 Est GFR ( Amer) > 60 Est GFR (Non-Af Amer) > 60 Glucose 99 Calcium 8.0 L Magnesium 1.4 L Assessment & Plan - Diagnosis (1) Anorexia Is this a current diagnosis for this admission?: Yes Plan: Patient has long-term requirements for TPN. Hospitalist request Port-A-Cath placement. Will plan Port-A-Cath placement tomorrow. I have discussed with the patient the risk and benefits of the procedure including risk of bleeding, infection, vascular injury, lung injury, thrombotic complications. She understands and wants to proceed. I will discuss her case with the oncoming surgical list and will get her on the schedule for the procedure tomorrow. N.p.o. in the morning for the procedure
[2017-07-04] MEDS ORDERED: MAGNESIUM SULFATE/D5W 1 GM/100 ML RTUPB IV ONE (19:30)
[2017-07-04] MEDS ORDERED: POTASSIUM CHLORIDE 20 MEQ/50 ML RTU IV ONE (20:30)
[2017-07-04] MEDS: CLONAZEPAM 1 MG TABLET PO SCH (21:40)
[2017-07-05] MEDS: NORMAL SALINE 1000 ML 1,000 ML IV PRN (01:34)
[2017-07-05] MEDS: HEPARIN SOD (PORCINE) 5,000 UNIT/ML 1 ML SYRINGE SUBCUT SCH ×3 (05:17→22:02)
[2017-07-05] MEDS ORDERED: MIDAZOLAM 2 MG/2 ML INJ ONE ×2 (09:01→09:07)
[2017-07-05] MEDS ORDERED: FENTANYL CITRATE INJ/PF 100 MCG/2 ML AMPUL ONE ×2 (09:02→09:07)
[2017-07-05] MEDS ORDERED: KETAMINE HCL INJ 500 MG/10 ML VIAL ONE (09:06)
[2017-07-05] MEDS ORDERED: EPHEDRINE SULFATE INJ 50 MG/1 ML AMPULE ONE (09:07)
[2017-07-05] MEDS ORDERED: PROPOFOL INJ 200 MG/20 ML VIAL IV ONE (09:07)
[2017-07-05] MEDS ORDERED: ACETAMINOPHEN 100 ML IV ONE (09:08)
[2017-07-05] MEDS ORDERED: CLINDAMYCIN PHOSPHATE INJ 300 MG/2 ML SDV ONE (09:08)
[2017-07-05] MEDS: MEGESTROL ACETATE SUSP 400 MG/10 ML UDCUP PO SCH (09:22)
[2017-07-05] MEDS: NORMAL SALINE 10 ML SDV (SCHEDULED) IV SCH ×2 (09:22→22:01)
[2017-07-05] MEDS ORDERED: LIDOCAINE 1%/EPINEPHRINE INJ 20 ML VIAL ONE (09:36)
[2017-07-05] MEDS ORDERED: PROMETHAZINE HCL INJ 25 MG/1 ML VIAL IV PRN (10:43)
[2017-07-05] MEDS ORDERED: DIPHENHYDRAMINE HCL 50 MG/ML VIAL IV PRN (10:43)
[2017-07-05] MEDS ORDERED: FENTANYL CITRATE INJ/PF 100 MCG/2 ML AMPUL IV PRN ×3 (10:43)
[2017-07-05] MEDS ORDERED: MORPHINE SULFATE 10 MG/ML INJ IV PRN (10:47)
--- NOTE | 2017-07-05 10:47 | OPERATIVE REPORT E ---
Operative Report NAME: SHIKHA DEAN : 1980 AGE: 36Y DATE OF SURGERY: 07/05/2017 ROOM: 535 PREOPERATIVE DIAGNOSIS: Post multiple abdominal surgeries and malnutrition. POSTOPERATIVE DIAGNOSIS: Post multiple abdominal surgeries and malnutrition. PROCEDURE: Placement of port-a-cath for TPN use. SURGEON: JAIME ADKINS M.D. ANESTHESIA: Local MAC. INDICATION: This is a 36-year-old female with previous gastric resection for ulcer and subsequent other operations for obstruction. Patient unable to tolerate enough p.o. nutrition and therefore needed TPN supplement. DESCRIPTION OF PROCEDURE: After adequate IV sedation, patient was placed in supine position and the right neck and chest were then prepped and draped in the usual sterile fashion. Local anesthesia infiltrated right infraclavicular area and another area on the mid clavicular area about 8 cm below. The right subclavian vein was then punctured and guidewire passed through the needle into the superior vena cava under fluoroscopy guidance. The insertion site was then incised to about 8 mm. Next, another incision made at the lower anesthetized area about 2.5 cm long. A pocket was then developed and the subcutaneous area just below the dermis. Next, a catheter was then threaded from the lower incision to the subclavian incision site. Next, the guidewire was then placed with dilator and sheath. The sheath noted to be going down into the superior vena cava under fluoroscopy. Next, the dilator and guidewire subsequently pulled out and the tip of the catheter inserted through the sheath and threaded down to the superior vena cava under fluoroscopy guidance. Sheath was subsequently removed, peeled out. The other end of the catheter was then divided to about the 18 cm aiden. Next, the [id number] reservoir was then connected to the sheath and the catheter protected threaded over the connection to the reservoir. The reservoir was then placed into the previously made pocket and subsequently the dermis and subcu closed with interrupted 2-0 Vicryl and the skin closed with subcuticular 4-0 Vicryl undyed. The infraclavicular area was then closed with running subcuticular closure 4-0 Vicryl undyed. The port was subsequently accessed with a Grimm needle and where the blood could easily be aspirated and heparin about 4 mL was injected into the catheter. Sterile Dermabond dressings were used to close the incision sites. Patient tolerated procedure well. Needle, instrument, and sponge count were all correct, and estimated blood loss was about 5 mL. Patient then brought to the PACU in satisfactory condition. A portable chest x-ray will be taken in the PACU. Patient tolerated the procedure well. DICTATING PHYSICIAN: JAIME ADKINS M.D. [id number] PHY#: [id number] ID: [id number] JOB#: [id number] ACCT: [id number] cc:JAIME ADKINS M.D. >
--- NOTE | 2017-07-05 10:50 | PDOC DISCHARGE SUMMARY ---
General - Admit/Disc Date/PCP Admission Date/Primary Care Provider: 07/02/17 00:46 Discharge Date: 07/05/17 - Discharge Diagnosis (1) Hypokalemia Is this a current diagnosis for this admission?: Yes (2) Protein-calorie malnutrition, moderate Is this a current diagnosis for this admission?: Yes (3) Edema Is this a current diagnosis for this admission?: Yes (5) Anemia of chronic disease Is this a current diagnosis for this admission?: Yes - Additional Information Resuscitation Status: Full Code Discharge Diet: As Tolerated, Regular Discharge Activity: Activity As Tolerated, Balance Activity w/Rest Home Medications: Clonazepam [Klonopin] 4 mg PO QHS 02/12/17 Diltiazem HCl [Cardizem Cd 120 mg Capsule] 120 mg PO QHS #30 cap.sr.24h Megestrol Acetate [Megace Leola 400 mg/10 ml Udcup] 800 mg PO DAILY #240 ml 02/18 Aspirin/Acetaminophen/Caffeine [Excedrin Migraine Caplet] 1 each PO DAILY Furosemide 20 mg PO DAILY 07/01/17 Ibuprofen [Motrin 800 mg Tablet] 800 mg PO TID 07/01/17 Rizatriptan Benzoate [Maxalt] 10 mg PO DAILYP PRN 07/01/17 Buprenorphine HCl/Naloxone HCl [Suboxone 8 mg-2 mg Sl Film] 2 film SL DAILY 12/14 Ondansetron HCl [Zofran 8 mg Tablet] 8 mg PO Q8 07/02/17 Magnesium Oxide 400 mg PO BID #20 tablet 07/05/17 Potassium Chloride 20 meq PO BID #10 tab.er.prt 07/05/17 Additional Information: Basic metabolic panel and magnesium level outpatient with primary care physician on next visit. History of Present Illness Patient complains of: Dizziness and lightheadedness History of Present Illness: SHIKHA DEAN is a 36 year old female with a past medical history of exceptional and severe peptic ulcer disease requiring partial gastrectomy with revision, complicated by small bowel obstruction requiring partial small bowel resection resulting in chronic dumping and malnutrition requiring long-term TPN. Patient denies recent change in TPN or medication regiment with persistent loose stools developing severe weakness prompting evaluation emergency room where she is found to have a potassium of 2.9 after repletion it is unchanged prompting referral to the hospitalist for admission. Patient denies chest pain abdominal pain nausea or vomiting. Hospital Course Hospital Course: The patient was admitted to telemetry. The patient was started on intravenous fluids. Antiemetics were given as needed. Gastroenterology was consulted. Patient eventually underwent upper endoscopy which did not reveal any stricture. Likewise there is no peptic ulcer disease that is active as reported by gastroenterology service. Course was noted for patient having malfunctioning on her PICC line. Surgery was consulted who eventually performed Port-A-Cath placement. The patient tolerated the procedure well. The patient's symptoms with time improved and resolved and she was able to tolerate oral intake. At this point patient was ready to be discharged. Electrolytes were monitored and were replaced. The rest of the hospital stays unremarkable. Physical Exam Vital Signs: Temp Pulse Resp BP Pulse Ox 98.0 F 73 14 99/59 L 100 07/05/17 08:34 07/05/17 08:34 07/05/17 08:34 07/05/17 08:34 07/05/17 08:34 Intake & Output 07/04/17 07/05/17 07/06/17 06:59 06:59 06:59 Intake Total 7327 3666 Output Total 700 Balance 6627 3666 General appearance: PRESENT: no acute distress, cooperative Head exam: PRESENT: normocephalic Eye exam: PRESENT: EOMI Mouth exam: PRESENT: moist, neck supple Neck exam: ABSENT: JVD Respiratory exam: PRESENT: clear to auscultation jamaal Cardiovascular exam: PRESENT: RRR GI/Abdominal exam: PRESENT: hyperactive bowel sounds, soft. ABSENT: distended Extremities exam: PRESENT: other - Trace pretibial edema Neurological exam: PRESENT: alert, awake, oriented to person, oriented to place , oriented to time, oriented to situation Skin exam: PRESENT: dry, warm. ABSENT: cyanosis Results Laboratory Results: 07/04/17 06:05 07/04/17 06:05 07/04/17 12:55 Magnesium 1.4 L Qualifiers PATEINT BEING DISCHARGED WITH ANY OF THE FOLLOWING DIAGNOSIS?: No Plan Discharge Plan: Follow-up with primary care physician in 1 week. Follow-up with Dr. Valle in 1- 2 weeks. Time Spent: Less than 30 Minutes
[2017-07-05] MEDS ORDERED: DEXAMETHASONE SOD PHOSPHATE INJ 4 MG/1 ML VIAL ONE (11:00)
[2017-07-05] MEDS ORDERED: ONDANSETRON HCL INJ/PF 4 MG/2 ML SDV ONE (11:00)
[2017-07-05] MEDS ORDERED: LIDOCAINE 2% INJ-PF (20 MG/ML) 10 ML AMPUL ONE (11:00)
--- NOTE | 2017-07-05 11:20 | RADIOLOGY REPORT (SQ) ---
EXAM DESCRIPTION: CHEST SINGLE VIEW COMPLETED DATE/TIME: 07/05/2017 10:43 am REASON FOR STUDY: POST PORTACATH INSERTION. COMPARISON: 06/14/2017 EXAM PARAMETERS: NUMBER OF VIEWS: One view. TECHNIQUE: Single frontal radiographic view of the chest acquired. RADIATION DOSE: NA LIMITATIONS: None. FINDINGS: LUNGS AND PLEURA: No opacities, masses or pneumothorax. No pleural effusion. MEDIASTINUM AND HILAR STRUCTURES: No masses. Contour normal. HEART AND VASCULAR STRUCTURES: Heart normal in size. Normal vasculature. BONES: Scoliosis. No acute abnormality. HARDWARE: Injection port on the right. A PICC line is in place on the left with the tip of the fernie ter in the superior vena cava. OTHER: No other significant finding. IMPRESSION: NO ACUTE RADIOGRAPHIC FINDING IN THE CHEST. TECHNICAL DOCUMENTATION: JOB ID: [id number]
--- NOTE | 2017-07-05 12:34 | RADIOLOGY REPORT (SQ) ---
EXAM DESCRIPTION: FLUORO/CV PLACEMENT COMPLETED DATE/TIME: 07/05/2017 10:53 am REASON FOR STUDY: PORTACATH PLCMT RT SIDE ASSISTED WITH FLUORO IN OR COMPARISON: None. FLUOROSCOPY TIME: 1.1 minutes 1 digital C-arm image saved to PACS. TECHNIQUE: Intra-operative images acquired during surgical procedure to evaluate progress. NUMBER OF IMAGES: Cine fluoroscopic images. LIMITATIONS: None. FINDINGS: Intra procedural imaging and fluoro during placement of a right permanent central line, wi th the tip of the catheter in the superior vena cava. Please see the operative report for further de tails. IMPRESSION: Intra procedural imaging and fluoro COMMENT: Quality ID [id number]: Final reports for procedures using fluoroscopy that document radiation exp osure indices, or exposure time and number of fluorographic images (if radiation exposure indices are not available) Please consult full operative report of the attending physician for description of the procedure. TECHNICAL DOCUMENTATION: JOB ID: [id number] [employer]- All Rights Reserved
[2017-07-05] MEDS: OXYCODONE-ACETAMINOPHEN 5-325 MG TABLET PO PRN ×2 (13:21→17:55)
[2017-07-05] MEDS: CLINDAMYCIN 300 MG/D5W RTU 300 MG/50 ML RTUPB IV SCH (17:48)
[2017-07-05 20:38] LABS: ANION GAP 9 (5-19); BLOOD UREA NITROGEN 11 mg/dL (7-20); CALCIUM 8.6 mg/dL (8.4-10.2); CARBON DIOXIDE 18 mmol/L (22-30); CHLORIDE 113 mmol/L (98-107); CREATININE RESULT 0.71 mg/dL (0.52-1.25); GLUCOSE 94 mg/dL (75-110); MAGNESIUM 1.8 mg/dL (1.6-2.3); POTASSIUM 4.5 mmol/L (3.6-5.0)
[2017-07-05 21:08] LABS: THYROID STIMULATING HORMONE 0.06 uIU/mL (0.47-4.68)
[2017-07-05] MEDS: DILTIAZEM HCL 120 MG CAP.SR.24H PO SCH (22:01)
[2017-07-05] MEDS: CLONAZEPAM 1 MG TABLET PO SCH (22:01)
[2017-07-06] MEDS: CLINDAMYCIN 300 MG/D5W RTU 300 MG/50 ML RTUPB IV SCH (01:40)
[2017-07-06] MEDS: HEPARIN SOD (PORCINE) 5,000 UNIT/ML 1 ML SYRINGE SUBCUT SCH (05:27)
[2017-07-06] MEDS: OXYCODONE-ACETAMINOPHEN 5-325 MG TABLET PO PRN (08:08)
[2017-07-06] MEDS: MEGESTROL ACETATE SUSP 400 MG/10 ML UDCUP PO SCH (09:12)
[2017-07-06] MEDS: NORMAL SALINE 10 ML SDV (SCHEDULED) IV SCH (09:14)
--- NOTE | 2017-07-06 10:10 | PDOC PROGRESS REPORT ---
Subjective Progress Note for:: 07/06/17 Subjective:: Patient postoperatively yesterday developed some nausea and stayed in the hospital overnight. Patient had antiemetics and symptoms resolved. Feeling better this morning. No chills or fever. Physical Exam Vital Signs: Temp Pulse Resp BP Pulse Ox 98.1 F 74 14 96/47 L 100 07/06/17 07:56 07/06/17 07:56 07/06/17 07:56 07/06/17 07:56 07/06/17 07:56 Intake & Output 07/05/17 07/06/17 07/07/17 06:59 06:59 06:59 Intake Total 3666 3225 Output Total 905 Balance 3666 2320 General appearance: PRESENT: no acute distress, cooperative Head exam: PRESENT: normocephalic Eye exam: PRESENT: EOMI Skin exam: PRESENT: other - Surgical wound without any bleeding or dehiscence. Results Laboratory Results: 07/04/17 06:05 07/05/17 18:51 07/05/17 07/05/17 07/05/17 18:51 18:51 18:51 Sodium 140.0 Potassium 4.5 Chloride 113 H Carbon Dioxide 18 L Anion Gap 9 BUN 11 Creatinine 0.71 Est GFR ( Amer) > 60 Est GFR (Non-Af Amer) > 60 Glucose 94 Calcium 8.6 Magnesium 1.8 TSH 0.06 L Free T4 0.54 L Free T3 pg/mL 1.96 L Impressions: Chest X-Ray 07/05/17 00:00 IMPRESSION: NO ACUTE RADIOGRAPHIC FINDING IN THE CHEST. Guidance Fluoroscopy 07/05/17 00:00 IMPRESSION: Intra procedural imaging and fluoro Assessment & Plan - Diagnosis (1) Hypokalemia Is this a current diagnosis for this admission?: Yes (2) Protein-calorie malnutrition, moderate Is this a current diagnosis for this admission?: Yes (3) Edema Qualifiers: Malnutrition edema type: unspecified malnutrition type Is this a current diagnosis for this admission?: Yes (5) Anemia of chronic disease Is this a current diagnosis for this admission?: Yes (6) Hypothyroidism (acquired) Is this a current diagnosis for this admission?: Yes - Time Time Spent with patient: Less than 15 minutes - Plan Summary Plan Summary: Continue discharge plan. Magnesium and potassium is be normal we will discontinue. 3 T4 and free T3 were low we will begin Synthroid.
[2017-07-06] MEDS ORDERED: LEVOTHYROXINE SODIUM 0.025 MG TABLET PO SCH (11:00)
[2017-07-06 12:03] VITALS: BP 99/59
== END 2017-07-06 12:18 | disposition home health service (06) | DRG 641 ==
LOC: ER 14:15 → EH 07-02 00:46 → 5 07-02 02:31
PROVIDERS: ADMIT Internal Medicine; ATTEND Internal Medicine
PROC: 0DB68ZX Excision of Stomach, Via Natural or Artificial Opening Endoscopic, Diagnostic (ICD-10-PCS; 2017-07-03)
PROC: 0JH63XZ Insertion of Tunneled Vascular Access Device into Chest Subcutaneous Tissue and Fascia, Percutaneous Approach (ICD-10-PCS; 2017-07-05)
PROC: 0JH60XZ Insertion of Tunneled Vascular Access Device into Chest Subcutaneous Tissue and Fascia, Open Approach (ICD-10-PCS; 2017-07-05)
PROC: B5181ZA Fluoroscopy of Superior Vena Cava using Low Osmolar Contrast, Guidance (ICD-10-PCS; 2017-07-05)
PROC: 3E0436Z Introduction of Nutritional Substance into Central Vein, Percutaneous Approach (ICD-10-PCS; 2017-07-05)
PROC: 02HV33Z Insertion of Infusion Device into Superior Vena Cava, Percutaneous Approach (ICD-10-PCS; principal; 2017-07-05 09:30)
DX: E87.6 Hypokalemia (principal); E44.0 Moderate protein-calorie malnutrition; K95.89 Other complications of other bariatric procedure; T82.514A Breakdown (mechanical) of infusion catheter, initial encounter; K91.1 Postgastric surgery syndromes; Z68.20 Body mass index [BMI] 20.0-20.9, adult; R63.0 Anorexia; F41.9 Anxiety disorder, unspecified; D64.9 Anemia, unspecified; Y83.9 Surgical procedure, unspecified as the cause of abnormal reaction of the patient, or of later complication, without mention of misadventure at the time of the procedure; R60.9 Edema, unspecified; Z90.49 Acquired absence of other specified parts of digestive tract; Z88.0 Allergy status to penicillin; Z90.3 Acquired absence of stomach [part of]; Z87.11 Personal history of peptic ulcer disease; Z82.49 Family history of ischemic heart disease and other diseases of the circulatory system
CPT/HCPCS: 36415; 36592; 43239; 532; 71010; 740; 77001; 80048; 80053; 80307; 81001; 83735; 84133; 84134; 84300; 84439; 84443; 84481; 84703; 85025; 85027; 88305; 88342; 90686; 93005; 93010; 96361; 96365; 96366; 96368; 96375; 99285; C1788; J0131; J0171; J1100; J1200; J1610; J1642; J1644; J2250; J2270; J2310; J2405; J2704; J2997; J3010; J3475; J3480; J3490; J7030; J7040

== ENCOUNTER → 2017-07-29 | Outpatient (CLI) | payer OTHER ==
[2017-07-29 13:50] LABS: ABSOLUTE EOSINOPHILS # (AUTO) 0.5 10^3/uL (0.0-0.6); ABSOLUTE LYMPHOCYTES (AUTO) 2.6 10^3/uL (0.5-4.7); ABSOLUTE MONOCYTES (AUTO) 0.5 10^3/uL (0.1-1.4); ABSOLUTE NEUT (AUTO) 4.5 10^3/uL (1.7-8.2); BASOPHILS % (AUTO) 0.6 % (0-2); EOSINOPHILS % (AUTO) 5.8 % (0-6); HEMATOCRIT 32.1 % (36.0-47.0); HGB HCT DIFFERENCE 0.9; LYMPHOCYTES % (AUTO) 32.1 % (13-45); MEAN CORPUSCULAR HEMOGLOBIN 30.4 pg (27.0-33.4); MEAN CORPUSCULAR HGB CONC 34.3 g/dL (32.0-36.0); MEAN CORPUSCULAR VOLUME 89 fl (80-97); RED BLOOD COUNT 3.62 10^6/uL (3.72-5.28); RED CELL DISTRIBUTION WIDTH 12.8 % (11.5-14.0); SEGMENTED NEUTROPHILS % (AUTO) 55.5 % (42-78)
[2017-07-29 14:08] LABS: ALANINE AMINOTRANSFERASE 29 U/L (9-52); ALBUMIN 3.9 g/dL (3.5-5.0); ALKALINE PHOSPHATASE 47 U/L (38-126); ANION GAP 14 (5-19); ASPARTATE AMINO TRANSFERASE 21 U/L (14-36); BILIRUBIN,DIRECT 0.4 mg/dL (0.0-0.4); BILIRUBIN,TOTAL 0.4 mg/dL (0.2-1.3); BLOOD UREA NITROGEN 22 mg/dL (7-20); CALCIUM 8.9 mg/dL (8.4-10.2); CARBON DIOXIDE 21 mmol/L (22-30); CHLORIDE 109 mmol/L (98-107); CREATININE RESULT 0.89 mg/dL (0.52-1.25); GLUCOSE 114 mg/dL (75-110); MAGNESIUM 2.1 mg/dL (1.6-2.3); PHOSPHORUS 4.4 mg/dL (2.5-4.5); SODIUM 143.8 mmol/L (137-145); TOTAL PROTEIN 6.3 g/dL (6.3-8.2); TRIGLYCERIDES 102 mg/dL (<150)
[2017-07-29 14:14] LABS: PREALBUMIN 31.7 mg/dL (17.6-36.0)
== END ==
LOC: WELLCARE 13:39
PROVIDERS: ATTEND Family Medicine
DX: Z90.3 Acquired absence of stomach [part of] (principal); R63.0 Anorexia; R11.0 Nausea
CPT/HCPCS: 80053; 83735; 84100; 84134; 84478; 85025

== ENCOUNTER → 2017-08-09 | Outpatient (CLI) | payer OTHER ==
[2017-08-09 17:36] LABS: ANION GAP 14 (5-19); BLOOD UREA NITROGEN 21 mg/dL (7-20); CALCIUM 8.2 mg/dL (8.4-10.2); CARBON DIOXIDE 20 mmol/L (22-30); CHLORIDE 111 mmol/L (98-107); CREATININE RESULT 0.76 mg/dL (0.52-1.25); GLUCOSE 88 mg/dL (75-110); MAGNESIUM 1.8 mg/dL (1.6-2.3); PHOSPHORUS 3.6 mg/dL (2.5-4.5); POTASSIUM 3.2 mmol/L (3.6-5.0)
== END ==
LOC: LAB 16:58
PROVIDERS: ATTEND Family Medicine
DX: Z90.3 Acquired absence of stomach [part of] (principal); R63.0 Anorexia; M62.81 Muscle weakness (generalized); R11.0 Nausea
CPT/HCPCS: 36415; 80048; 83735; 84100

== ENCOUNTER 2017-11-22 13:26 | Emergency (ER) | payer OTHER ==
[2017-11-22] MEDS ORDERED: NORMAL SALINE 1000 ML 1,000 ML IV ONE (14:09)
--- NOTE | 2017-11-22 14:09 | ER Document Report ---
ED Medical Screen (RME) - General Chief Complaint: Abnormal Lab Results Stated Complaint: ABNORMAL LABS, FEVER Time Seen by Provider: 11/22/17 14:07 Mode of Arrival: Ambulatory Information source: Patient, Relative TRAVEL OUTSIDE OF THE [place] IN LAST 30 DAYS: No - HPI Patient complains to provider of: abnormal labs Onset: This morning - Dr. Mendez follows pt. for malabsorption syndrome. She had labs done earlier this week and was called by his office to let her know her WBC count was elevated and K+ was low - Related Data Allergies/Adverse Reactions: amoxicillin [Amoxicillin] Allergy (Severe, Verified 11/22/17 13:30) Past Medical History - Past Medical History Cardiac Medical History: Denies: Hx Coronary Artery Disease, Hx Heart Attack, Hx Hypertension Pulmonary Medical History: Denies: Hx Asthma, Hx Bronchitis, Hx COPD, Hx Pneumonia, Hx Tuberculosis Neurological Medical History: Denies: Hx Cerebrovascular Accident, Hx Seizures Renal/ Medical History: Denies: Hx Peritoneal Dialysis GI Medical History: Reports: Hx Ulcer - Required surgical treatment Musculoskeltal Medical History: Denies Hx Arthritis Psychiatric Medical History: Denies: Hx Depression - anxiety, insomnia Past Surgical History: Reports: Hx Abdominal Surgery - entrectomy, vagotomy, SBO , Hx Appendectomy, Hx Cholecystectomy, Other - Gastric antrectomy/vagotomy. Denies: Hx Hysterectomy, Hx Pacemaker - Immunizations Hx Diphtheria, Pertussis, Tetanus Vaccination: Yes History of Influenza Vaccine for 06/2017 - 11/2017 Season: No Physical Exam - Vital signs Vitals: Temp Pulse Resp BP Pulse Ox 98.7 F 90 14 110/66 99 11/22/17 13:41 11/22/17 13:41 11/22/17 13:41 11/22/17 13:41 11/22/17 13:41 Course - Vital Signs Vital signs: Temp Pulse Resp BP Pulse Ox 98.7 F 90 14 110/66 99 11/22/17 13:41 11/22/17 13:41 11/22/17 13:41 11/22/17 13:41 11/22/17 13:41
[2017-11-22 14:49] LABS: ABSOLUTE BASOPHILS # (AUTO) 0.1 10^3/uL (0.0-0.2); ABSOLUTE EOSINOPHILS # (AUTO) 0.2 10^3/uL (0.0-0.6); ABSOLUTE LYMPHOCYTES (AUTO) 2.2 10^3/uL (0.5-4.7); ABSOLUTE MONOCYTES (AUTO) 0.5 10^3/uL (0.1-1.4); ABSOLUTE NEUT (AUTO) 4.5 10^3/uL (1.7-8.2); BASOPHILS % (AUTO) 0.7 % (0-2); EOSINOPHILS % (AUTO) 2.5 % (0-6); HEMOGLOBIN 10.4 g/dL (12.0-15.5); LYMPHOCYTES % (AUTO) 29.6 % (13-45); MEAN CORPUSCULAR HEMOGLOBIN 29.8 pg (27.0-33.4); MEAN CORPUSCULAR HGB CONC 34.5 g/dL (32.0-36.0); MEAN CORPUSCULAR VOLUME 86 fl (80-97); MONOCYTES % (AUTO) 6.2 % (3-13); PLATELET COUNT 400 10^3/uL (150-450); RED BLOOD COUNT 3.48 10^6/uL (3.72-5.28); TOTAL CELLS COUNTED % (AUTO) 100 %; WHITE BLOOD COUNT 7.4 10^3/uL (4.0-10.5)
[2017-11-22 15:08] LABS: APPEARANCE,URINE SLIGHTLY-CLOUDY; BILIRUBIN,URINE NEGATIVE (NEGATIVE); COLOR,URINE YELLOW; GLUCOSE, URINE NEGATIVE (NEGATIVE); KETONES,URINE TRACE mg/dL (NEGATIVE); LEUKOCYTE ESTERASE,URINE SMALL (NEGATIVE); NITRITE,URINE NEGATIVE (NEGATIVE); PROTEIN,URINE 30 mg/dL (NEGATIVE); URINE SPECIFIC GRAVITY 1.018; UROBILINOGEN,URINE NEGATIVE mg/dL (<2.0)
[2017-11-22 15:09] LABS: ALANINE AMINOTRANSFERASE 50 U/L (9-52); ALBUMIN 3.6 g/dL (3.5-5.0); ALKALINE PHOSPHATASE 126 U/L (38-126); ANION GAP 15 (5-19); ASPARTATE AMINO TRANSFERASE 20 U/L (14-36); BILIRUBIN,DIRECT 0.2 mg/dL (0.0-0.4); BILIRUBIN,TOTAL 0.2 mg/dL (0.2-1.3); BLOOD UREA NITROGEN 17 mg/dL (7-20); CALCIUM 8.9 mg/dL (8.4-10.2); CARBON DIOXIDE 20 mmol/L (22-30); CHLORIDE 105 mmol/L (98-107); GLUCOSE 84 mg/dL (75-110); POTASSIUM 3.1 mmol/L (3.6-5.0); SODIUM 139.7 mmol/L (137-145); TOTAL PROTEIN 6.4 g/dL (6.3-8.2)
--- NOTE | 2017-11-22 16:21 | RADIOLOGY REPORT (SQ) ---
EXAM DESCRIPTION: CHEST PA/LAT COMPLETED DATE/TIME: 11/22/2017 4:11 pm REASON FOR STUDY: fever COMPARISON: 07/05/2017. EXAM PARAMETERS: NUMBER OF VIEWS: two views TECHNIQUE: Digital Frontal and Lateral radiographic views of the chest acquired. RADIATION DOSE: NA LIMITATIONS: none FINDINGS: LUNGS AND PLEURA: No opacities, masses or pneumothorax. No pleural effusion. MEDIASTINUM AND HILAR STRUCTURES: No masses or contour abnormalities. HEART AND VASCULAR STRUCTURES: Heart normal size. No evidence for failure. BONES: No acute findings. Thoracic scoliosis. HARDWARE: Vascular access port. OTHER: No other significant finding. IMPRESSION: NO SIGNIFICANT RADIOGRAPHIC FINDING IN THE CHEST. TECHNICAL DOCUMENTATION: JOB ID: [id number] [employer]- All Rights Reserved Reading location - IP/workstation name: [email or web address]
[2017-11-22] MEDS ORDERED: POTASSIUM CHLORIDE 10 MEQ TABLET.SA PO ONE (16:36)
[2017-11-22 17:19] LABS: A TYPE INFLUENZA AG NEGATIVE (NEGATIVE); B INFLUENZA AG NEGATIVE (NEGATIVE)
[2017-11-22] MEDS ORDERED: CEFTRIAXONE INJ 1000 MG VIAL IV ONE (17:33)
--- NOTE | 2017-11-22 17:34 | ER Document Report ---
ED General - General Chief Complaint: Abnormal Lab Results Stated Complaint: ABNORMAL LABS, FEVER Time Seen by Provider: 11/22/17 14:07 Mode of Arrival: Ambulatory Information source: Patient TRAVEL OUTSIDE OF THE [place] IN LAST 30 DAYS: No - HPI Notes: 37-year-old female presents today with a past medical history of multiple abdominal surgeries, malabsorption syndrome, gastric antrectomy, vagal myotomy, anorexia, daily 18 hours TPN presents today for concerns of recent elevated fevers 4 days ago that has since ceased as well as her home health nurse told her that she should be seen in the ER because she had abnormal lab values after she had blood drawn 3 days ago, was told last night that her labs looked abnormal and advised her to go to the ER Because she had flulike symptoms 4 days ago. Denies . Is getting her TPN through her portacath. she does drink fluids without issues. Denies any fevers or chills. Denies fevers, chills, chest pain,palpitations, shortness of breath, dyspnea, nausea, vomiting, diarrhea, abdominal pain, hematuria,blurred vision, double vision, loss of vision, speech changes, LH, dizziness, syncope, headaches, wheezing, ST , URI, neck pain, weakness, bowel or bladder dysfunction, saddle anesthesia, numbness or tingling in bilateral upper or lower extremities equally, muscle paralysis, weakness in bilateral upper or lower extremities equally or rash. Denies IV drug use. - Related Data Allergies/Adverse Reactions: amoxicillin [Amoxicillin] Allergy (Severe, Verified 11/22/17 13:30) Past Medical History - General Information source: Patient, Relative - Social History Smoking Status: Never Smoker Frequency of alcohol use: None Drug Abuse: None Family History: Reviewed & Not Pertinent, Hypertension Patient has suicidal ideation: No Patient has homicidal ideation: No - Past Medical History Cardiac Medical History: Denies: Hx Coronary Artery Disease, Hx Heart Attack, Hx Hypertension Pulmonary Medical History: Denies: Hx Asthma, Hx Bronchitis, Hx COPD, Hx Pneumonia, Hx Tuberculosis Neurological Medical History: Denies: Hx Cerebrovascular Accident, Hx Seizures Renal/ Medical History: Denies: Hx Peritoneal Dialysis GI Medical History: Reports: Hx Ulcer - Required surgical treatment Musculoskeltal Medical History: Denies Hx Arthritis Psychiatric Medical History: Denies: Hx Depression - anxiety, insomnia Past Surgical History: Reports: Hx Abdominal Surgery - entrectomy, vagotomy, SBO , Hx Appendectomy, Hx Cholecystectomy, Hx Genitourinary Surgery - intestines removed from prior bowel obstruction., Other - Gastric antrectomy/vagotomy. Denies: Hx Hysterectomy, Hx Pacemaker - Immunizations Hx Diphtheria, Pertussis, Tetanus Vaccination: Yes Review of Systems - Review of Systems Notes: REVIEW OF SYSTEMS: CONSTITUTIONAL : Denies fever, chills, or sweats. Reports recent fevers, congestion myalgias 4 days ago. EENT: Denies eye, ear, throat, or mouth pain or symptoms. Denies nasal or sinus congestion or discharge. Denies throat, tongue, or mouth swelling or difficulty swallowing. CARDIOVASCULAR: Denies chest pain. Denies palpitations or racing or irregular heart beat. Denies ankle edema. RESPIRATORY: Denies cough, cold, or chest congestion. Denies shortness of breath, difficulty breathing, or wheezing. GASTROINTESTINAL: Denies abdominal pain or distention. Denies nausea, vomiting , or diarrhea. Denies blood in vomitus, stools, or per rectum. Denies black, tarry stools. Denies constipation. GENITOURINARY: Denies difficulty urinating, painful urination, burning, frequency, blood in urine, or discharge. FEMALE GENITOURINARY: Denies vaginal bleeding, heavy or abnormal periods, irregular periods. Denies vaginal discharge or odor. MUSCULOSKELETAL: Denies back or neck pain or stiffness. Denies joint pain or swelling. SKIN: Denies rash, lesions or sores. HEMATOLOGIC : Denies easy bruising or bleeding. LYMPHATIC: Denies swollen, enlarged glands. NEUROLOGICAL: Denies confusion or altered mental status. Denies passing out or loss of consciousness. Denies dizziness or lightheadedness. Denies headache. Denies weakness or paralysis or loss of use of either side. Denies problems with gait or speech. Denies sensory loss, numbness, or tingling. Denies seizures. PSYCHIATRIC: Denies anxiety or stress. Denies depression, suicidal ideation, or homicidal ideation. ALL OTHER SYSTEMS REVIEWED AND NEGATIVE. Physical Exam - Vital signs Vitals: Temp Pulse Resp BP Pulse Ox 98.7 F 90 14 110/66 99 11/22/17 13:41 11/22/17 13:41 11/22/17 13:41 11/22/17 13:41 11/22/17 13:41 - Notes Notes: PHYSICAL EXAMINATION: GENERAL: underweight, no acute distress. HEAD: Atraumatic, normocephalic. EYES: Pupils equal round and reactive to light, extraocular movements intact, conjunctiva are normal. ENT: Nares patent, oropharynx clear without exudates. Moist mucous membranes. NECK: Normal range of motion, supple without lymphadenopathy LUNGS: Breath sounds clear to auscultation bilaterally and equal. No wheezes rales or rhonchi. HEART: Regular rate and rhythm without murmurs ABDOMEN: Soft, nontender, nondistended abdomen. No guarding, no rebound. No masses appreciated. Female : deferred Musculoskeletal: Normal range of motion, no pitting or edema. No cyanosis. Noted Port-A-Cath in her right chest, no surrounding erythema, induration or fluctuance. No drainage from site NEUROLOGICAL: Cranial nerves grossly intact. Normal speech, normal gait. Normal sensory, motor exams PSYCH: Normal mood, normal affect. SKIN: Warm, Dry, normal turgor, no rashes or lesions noted. Dictation was performed using [employer] software voice recognition software Course - Re-evaluation Re-evalutation: 1600-Contacted Dr. Mendez primary care office to see if they had any recent lab work that showed a leukocytosis or any recent blood cultures that showed any septicemia because patient was very concerned about this, was not exactly sure as to why she was told to come to the emergency room. Discussed with the nurse that patient has not had any recent leukocytosis, positive blood cultures with bacteremia. Discussed this with patient that I have spoken to the primary care and am unable to ascertain as to why she was advised to come to the emergency room. Patient pulled up an email from the home health nurse who advised her to be seen by the doctors because she had abnormal lab values such as hypokalemia. Asked her if she had any recent fevers which patient says she did approximately 4 days ago, patient states that this is why she came to the emergency room today because her home health nurse advised her to be seen by a medical provider. Labs are negative for leukocytosis, patient does have hypokalemia we will replace with 40 mEq of potassium chloride p.o. . CMP showed normal kidney and liver results unremarkable. Urinalysis does show a UTI, will treat with Bactrim DS, twice daily for 10 days.. Patient given 1 L of fluid as well as 1 g Rocephin IV. Vitals are stable. Crease oral fluids. Follow-up with PCP within 24 hours. Discussed the need to return to the ER for any new or worsening sx. Patient understands to take the Rx as directed. All questions answered. Patient comfortable with the decision to go home. - Vital Signs Vital signs: Temp Pulse Resp BP Pulse Ox 98.7 F 90 14 110/66 99 11/22/17 13:41 11/22/17 13:41 11/22/17 13:41 11/22/17 13:41 11/22/17 13:41 - Laboratory Result Diagrams: 11/22/17 14:26 11/22/17 14:26 Laboratory results interpreted by me: 11/22/17 11/22/17 11/22/17 14:26 14:26 14:26 RBC 3.48 L Hgb 10.4 L Hct 30.0 L Potassium 3.1 L Carbon Dioxide 20 L Lactic Acid 0.6 L Urine Protein Urine Ketones Urine Blood Ur Leukocyte Esterase 11/22/17 14:26 RBC Hgb Hct Potassium Carbon Dioxide Lactic Acid Urine Protein 30 H Urine Ketones TRACE H Urine Blood MODERATE H Ur Leukocyte Esterase SMALL H Discharge - Discharge Clinical Impression: Hypokalemia, Underweight UTI (urinary tract infection) Qualifiers: Urinary tract infection type: site unspecified Hematuria presence: with hematuria Qualified Code(s): N39.0 - Urinary tract infection, site not specified Condition: Good Disposition: HOME, SELF-CARE Instructions: Hypokalemia ([facility]), Nitrofurantoin ([facility]), Urinary Tract Infection ([facility]) Additional Instructions: Hypokalemia You have an abnormally decreased level of serum potassium. Hypokalemia may cause weakness, fatigue, or heart rhythm abnormalities. Sometimes there are no symptoms at all. Usually, low serum potassium is due to taking diuretics ( water pills). It can also be due to excessive vomiting or diarrhea. If no obvious cause is evident, further evaluation will be necessary. Treatment is usually oral potassium supplements. Take these exactly as prescribed. You may also want to select foods which are naturally high in potassium -- fruits (such as bananas, cantaloupe, grapes, oranges, prunes, tomatoes), fresh vegetables (potatoes, spinach, beans, peas), orange or tomato juice, tomato pasta sauce, milk, fish (halibut, tuna, salmon, brigette) A follow-up blood test is usually performed to assure that the potassium is returning to normal. Call the physician if you suffer severe weakness, muscle twitching or cramping, palpitations (pounding or irregular heartbeat), or any other new or alarming symptoms. Urinary Tract Infection Your evaluation indicates that you have a urinary tract infection. This is due to germs growing in the bladder. This is a common problem. This infection usually responds quickly to antibiotics. Your antibiotic should be taken exactly as prescribed. Drink plenty of fluids -- three to four quarts a day. Occasionally, a bladder anesthetic will be prescribed to help stop the feeling of urgency until the antibiotic has a chance to clear the infection. This may cause your urine to be dark orange. Certain urine infections require a culture. If the doctor obtained a culture, the results will be back in two days. You should call to see if a change in treatment is needed. A repeat urinalysis after you finish treatment is often recommended. The physician will let you know if further testing is required. Call the doctor if you develop fever, chills, flank pain, inability to urinate, or blood in the urine. Take antibiotics with food as directed. Eat yogurt daily to prevent loose stool. Monitor for any fevers or chills. Follow-up with your primary care provider tomorrow, return to the emergency room if symptoms become worse as soon as possible. Return immediately for any new or worsening symptoms. Follow up with primary care provider, call tomorrow to make followup appointment. Prescriptions: Sulfamethoxazole/Trimethoprim [Bactrim Ds Tablet] 1 each PO BID #20 tablet Referrals: ARTEMIO MENDEZ DO [Primary Care Provider] - Follow up tomorrow
[2017-11-22 18:56] VITALS: BP 112/84
== END 2017-11-22 19:50 | disposition home or self-care (01) ==
LOC: ER 13:26
DX: N39.0 Urinary tract infection, site not specified (principal); R50.9 Fever, unspecified; K90.9 Intestinal malabsorption, unspecified; R63.0 Anorexia
CPT/HCPCS: 99284; 96361; 96365; 36415; 87040; 83605; 85025; 81025; 87077; 80053; 81001; 87186; 87804; 71046; J0696; J7030

== ENCOUNTER 2017-11-23 16:10 | Inpatient (IN) | payer OTHER ==
--- NOTE | 2017-11-23 16:28 | ER Document Report ---
ED Medical Screen (RME) - General Chief Complaint: Abnormal Lab Results Stated Complaint: ABNORMAL LABS Time Seen by Provider: 11/23/17 16:27 Mode of Arrival: Ambulatory Information source: Patient TRAVEL OUTSIDE OF THE [place] IN LAST 30 DAYS: No - HPI Patient complains to provider of: abnl labs Onset: Yesterday - pt . seen in ED yesterday and sent home -- called today to [facility] for positive BC - Related Data Allergies/Adverse Reactions: amoxicillin [Amoxicillin] Allergy (Severe, Verified 11/22/17 13:30) Past Medical History - Past Medical History Cardiac Medical History: Denies: Hx Coronary Artery Disease, Hx Heart Attack, Hx Hypertension Pulmonary Medical History: Denies: Hx Asthma, Hx Bronchitis, Hx COPD, Hx Pneumonia, Hx Tuberculosis Neurological Medical History: Denies: Hx Cerebrovascular Accident, Hx Seizures Renal/ Medical History: Denies: Hx Peritoneal Dialysis GI Medical History: Reports: Hx Ulcer - Required surgical treatment Musculoskeltal Medical History: Denies Hx Arthritis Psychiatric Medical History: Denies: Hx Depression - anxiety, insomnia Past Surgical History: Reports: Hx Abdominal Surgery - entrectomy, vagotomy, SBO , Hx Appendectomy, Hx Cholecystectomy, Hx Genitourinary Surgery - intestines removed from prior bowel obstruction., Other - Gastric antrectomy/vagotomy. Denies: Hx Hysterectomy, Hx Pacemaker - Immunizations Hx Diphtheria, Pertussis, Tetanus Vaccination: Yes History of Influenza Vaccine for 06/2017 - 11/2017 Season: No
[2017-11-23 17:58] LABS: ABSOLUTE BASOPHILS # (AUTO) 0.1 10^3/uL (0.0-0.2); ABSOLUTE EOSINOPHILS # (AUTO) 0.3 10^3/uL (0.0-0.6); ABSOLUTE LYMPHOCYTES (AUTO) 1.7 10^3/uL (0.5-4.7); ABSOLUTE MONOCYTES (AUTO) 0.5 10^3/uL (0.1-1.4); ABSOLUTE NEUT (AUTO) 6.3 10^3/uL (1.7-8.2); BASOPHILS % (AUTO) 0.7 % (0-2); EOSINOPHILS % (AUTO) 2.9 % (0-6); HEMATOCRIT 28.3 % (36.0-47.0); HEMOGLOBIN 9.7 g/dL (12.0-15.5); LYMPHOCYTES % (AUTO) 18.8 % (13-45); MEAN CORPUSCULAR HEMOGLOBIN 29.8 pg (27.0-33.4); MEAN CORPUSCULAR HGB CONC 34.2 g/dL (32.0-36.0); MEAN CORPUSCULAR VOLUME 87 fl (80-97); MONOCYTES % (AUTO) 6.1 % (3-13); PLATELET COUNT 416 10^3/uL (150-450); RED BLOOD COUNT 3.25 10^6/uL (3.72-5.28); RED CELL DISTRIBUTION WIDTH 12.5 % (11.5-14.0); SEGMENTED NEUTROPHILS % (AUTO) 71.5 % (42-78); TOTAL CELLS COUNTED % (AUTO) 100 %; WHITE BLOOD COUNT 8.9 10^3/uL (4.0-10.5)
[2017-11-23 18:18] LABS: ALANINE AMINOTRANSFERASE 33 U/L (9-52); ALBUMIN 3.4 g/dL (3.5-5.0); ALKALINE PHOSPHATASE 123 U/L (38-126); ANION GAP 13 (5-19); ASPARTATE AMINO TRANSFERASE 15 U/L (14-36); BLOOD UREA NITROGEN 13 mg/dL (7-20); CALCIUM 8.9 mg/dL (8.4-10.2); CARBON DIOXIDE 18 mmol/L (22-30); CHLORIDE 111 mmol/L (98-107); GLUCOSE 94 mg/dL (75-110); POTASSIUM 3.4 mmol/L (3.6-5.0); SODIUM 142.4 mmol/L (137-145)
[2017-11-23 18:20] LABS: BILIRUBIN,TOTAL < 0.1 mg/dL (0.2-1.3)
[2017-11-23] MEDS ORDERED: MICAFUNGIN SODIUM INJ/PF 100 MG VIAL IV ONE (19:30)
[2017-11-23] MEDS ORDERED: VANCOMYCIN HCL INJ 1000 MG VIAL IV ONE (19:32)
[2017-11-23] MEDS ORDERED: CEFEPIME 2 GM/D5W RTU 2 GM/50 ML RTUPB IV ONE (19:32)
--- NOTE | 2017-11-23 19:38 | ER Document Report ---
ED General - General Chief Complaint: Abnormal Lab Results Stated Complaint: ABNORMAL LABS Time Seen by Provider: 11/23/17 16:27 Mode of Arrival: Ambulatory Notes: Patient is a 37-year-old female with a complex past medical history including chronic anorexia, need for continuous TPN infusion through Port-A-Cath site who was seen in the emergency department yesterday and has been contacted to come back due to a fungal contaminant versus possible infection in a blood culture was drawn yesterday from her Port-A-Cath site. Patient reports that the Port-A- Cath site has been red, swollen and painful for the past 5-6 days. She describes it as a dull, aching, constant pain. Nothing improves or worsens the pain. She has never had similar complications with this cath site. She did have fever several days ago but has not had a recurrence since that time. She denies any vomiting or any additional new symptoms. TRAVEL OUTSIDE OF THE [place] IN LAST 30 DAYS: No - Related Data Allergies/Adverse Reactions: amoxicillin [Amoxicillin] Allergy (Severe, Verified 11/22/17 13:30) Past Medical History - General Information source: Patient - Social History Smoking Status: Never Smoker Frequency of alcohol use: None Drug Abuse: None Lives with: Family Family History: Reviewed & Not Pertinent, Hypertension Patient has suicidal ideation: No Patient has homicidal ideation: No - Past Medical History Cardiac Medical History: Denies: Hx Coronary Artery Disease, Hx Heart Attack, Hx Hypertension Pulmonary Medical History: Denies: Hx Asthma, Hx Bronchitis, Hx COPD, Hx Pneumonia, Hx Tuberculosis Neurological Medical History: Denies: Hx Cerebrovascular Accident, Hx Seizures Renal/ Medical History: Denies: Hx Peritoneal Dialysis GI Medical History: Reports: Hx Ulcer - Required surgical treatment Musculoskeltal Medical History: Denies Hx Arthritis Psychiatric Medical History: Denies: Hx Depression - anxiety, insomnia Past Surgical History: Reports: Hx Abdominal Surgery - entrectomy, vagotomy, SBO , Hx Appendectomy, Hx Cholecystectomy, Hx Genitourinary Surgery - intestines removed from prior bowel obstruction., Other - Gastric antrectomy/vagotomy. Denies: Hx Hysterectomy, Hx Pacemaker - Immunizations Hx Diphtheria, Pertussis, Tetanus Vaccination: Yes Review of Systems - Review of Systems Notes: Constitutional: Negative for fever. HENT: Negative for sore throat. Eyes: Negative for visual changes. Cardiovascular: Negative for chest pain. Respiratory: Negative for shortness of breath. Gastrointestinal: Negative for abdominal pain, vomiting or diarrhea. Genitourinary: Negative for dysuria. Musculoskeletal: Negative for back pain. Skin: Positive for pain and swelling around the Port-A-Cath site. Neurological: Negative for headaches, weakness or numbness. 10 point ROS negative except as marked above and in HPI. Physical Exam - Vital signs Vitals: Temp Pulse Resp BP Pulse Ox 97.9 F 81 16 126/83 H 94 11/23/17 16:11 11/23/17 16:11 11/23/17 16:11 11/23/17 16:11 11/23/17 16:11 Interpretation: Normal Notes: PHYSICAL EXAMINATION: GENERAL: Well-appearing, well-nourished and in no acute distress. HEAD: Atraumatic, normocephalic. EYES: Pupils equal round and reactive to light, extraocular movements intact, sclera anicteric, conjunctiva are normal. ENT: nares patent, oropharynx clear without exudates. Moist mucous membranes. NECK: Normal range of motion, supple without lymphadenopathy LUNGS: Breath sounds clear to auscultation bilaterally and equal. No wheezes rales or rhonchi. HEART: Regular rate and rhythm without murmurs ABDOMEN: Soft, nontender, normoactive bowel sounds. No guarding, no rebound. No masses appreciated. EXTREMITIES: Normal range of motion, no pitting or edema. No cyanosis. NEUROLOGICAL: No focal neurological deficits. Moves all extremities spontaneously and on command. PSYCH: Normal mood, normal affect. SKIN: Warm, Dry, normal turgor, erythema and swelling around the Port-A-Cath site in the right chest Course - Re-evaluation Re-evalutation: 11/23/17 19:36 Patient presents is presenting with a port that appears to to be infected with associated erythema and swelling. Unfortunately 1 of her blood cultures from yesterday has returned positive for yeast and although this may be a contaminant in the context of the patient having had fevers within the past several days and what appears to be an apparent port site infection, I do believe that she warrants broad-spectrum coverage including antifungals. We will also redraw cultures today prior to initiation of antibiotics. I have also consulted with Dr. Watson and awaiting a callback as he did place this port originally. I have discussed this case with the hospitalist on-call Dr. Velazquez who is accepted this patient for admission. - Vital Signs Vital signs: Temp Pulse Resp BP Pulse Ox 98.4 F 88 18 121/76 100 11/23/17 21:27 11/23/17 21:27 11/23/17 21:27 11/23/17 21:27 11/23/17 21:27 - Laboratory Result Diagrams: 11/23/17 17:45 11/23/17 17:45 Laboratory results interpreted by me: 11/23/17 11/23/17 17:45 17:45 RBC 3.25 L Hgb 9.7 L Hct 28.3 L Potassium 3.4 L Chloride 111 H Carbon Dioxide 18 L Total Bilirubin < 0.1 L Total Protein 6.0 L Albumin 3.4 L Discharge - Discharge Clinical Impression: Hypokalemia, Underweight, Anemia of chronic disease Infection due to port-a-cath Qualifiers: Encounter type: initial encounter Qualified Code(s): T80.219A - Unspecified infection due to central venous catheter, initial encounter Condition: Fair Disposition: ADMITTED INPATIENT Admitting Provider: Hospitalist - [facility] Unit Admitted: Medical Floor
[2017-11-23] MEDS ORDERED: 1/2 NORMAL SALINE 1,000 ML IV PRN (19:46)
[2017-11-23] MEDS ORDERED: ALBUTEROL SULFATE 0.083% NEB 2.5 MG/3 ML AMPUL NEB PRN (19:46)
[2017-11-23] MEDS ORDERED: VANCOMYCIN HCL 0 MG in DEXTROSE 5%-WATER 250 ML IV NR (20:00)
[2017-11-23] MEDS: FENTANYL CITRATE INJ/PF 100 MCG/2 ML AMPUL IV PRN (20:48)
[2017-11-23] MEDS ORDERED: FENTANYL CITRATE INJ/PF 100 MCG/2 ML AMPUL IV PRN (21:13)
[2017-11-23] MEDS: PROMETHAZINE HCL INJ 25 MG/1 ML VIAL IV PRN (21:29)
[2017-11-23] MEDS ORDERED: FLUCONAZOLE 200 MG/NS RTU 100 ML IV ONE (21:30)
--- NOTE | 2017-11-23 21:43 | PDOC H&P ---
History of Present Illness Admission Date/PCP: ARTEMIO JOSEPH DO Patient complains of: Fever and chills with increased pain and erythema around port-a- cath for about a week. 1/2 blood cultures drawm yesterday grew yeast. History of Present Illness: SHIKHA DEAN is a 37 year old female with history of malabsorption ( post multiple abdominal surgeries including partial gastrectomy secondary to nonhealing ulcers, on TPN) and tachycardia was admitted with above-mentioned complaints. The patient was at her pharmacist yesterday getting her TPN where she was told that her WBC was elevated and was advised to come to the ED. In the ED, she had blood work done including blood cultures and UA. She was found to have UTI and was started on Bactrim and discharged home. The patient was called back today because 1/2 of her blood cultures grew yeast. According to the patient, she has been having fevers up to 103.5 over the last week and that she has been having increased pain and erythema around her Port-A-Cath for the last 2 days. She denied any discharge from Port-A-Cath. She said she felt nauseous but she is unable to vomit. She had some abdominal pain and she has been constipated. The last bowel movement was 2 days ago of somewhat soft, nonbloody stool. She denied any urinary symptoms but had generalized weakness. She apparently has chronic chest pain and dyspnea. She has been feeling congested lately and having intermittent cough. In the ED, her temperature was 98.7, heart rate 90, respiratory rate 14, blood pressure 110/66 with oxygen saturation of 99% on room air. WBC was 8.9. Her urinalysis was positive on 11/22/2026 but her chest x-ray was negative for any acute findings. She was started on Vancomycin x1, 2 g cefepime 1 and 100 mg Diflucan IV 1. Past Medical History Medical History: Other - According to the patient and per previous records. Cardiac Medical History: Denies: Coronary Artery Disease, Myocardial Infarction, Hypertension Pulmonary Medical History: Denies: Asthma, Bronchitis, Chronic Obstructive Pulmonary Disease (COPD), Pneumonia, Tuberculosis Neurological Medical History: Denies: Seizures GI Medical History: Reports: Other - Malabsorption, post multiple abdominal/ gastric surgeries. Musculoskeltal Medical History: Denies: Arthritis Psychiatric Medical History: Denies: Depression - anxiety, insomnia Hematology: Reports: Anemia Past Surgical History Past Surgical History: Reports: Appendectomy, Cholecystectomy, Other - Gastric antrectomy/vagotomy; SBO. Denies: Hysterectomy, Pacemaker Social History Smoking Status: Never Smoker Cigarettes Packs Per Day: 0 Frequency of Alcohol Use: None Hx Recreational Drug Use: No Drugs: None Hx Prescription Drug Abuse: No Family History Family History: Hypertension Parental Family History Reviewed: Yes - Father: Arrhythmias. Children Family History Reviewed: No Sibling(s) Family History Reviewed.: Yes Medication/Allergy Home Medications: Clonazepam [Klonopin] 4 mg PO QHS 02/12/17 Diltiazem HCl [Cardizem Cd 120 mg Capsule] 120 mg PO QHS #30 cap.sr.24h Megestrol Acetate [Megace Leola 400 mg/10 ml Udcup] 800 mg PO DAILY #240 ml 02/18 Aspirin/Acetaminophen/Caffeine [Excedrin Migraine Caplet] 1 each PO DAILY Furosemide 20 mg PO DAILY 07/01/17 Ibuprofen [Motrin 800 mg Tablet] 800 mg PO TID 07/01/17 Rizatriptan Benzoate [Maxalt] 10 mg PO DAILYP PRN 07/01/17 Buprenorphine HCl/Naloxone HCl [Suboxone 8 mg-2 mg Sl Film] 2 film SL DAILY 12/14 Ondansetron HCl [Zofran 8 mg Tablet] 8 mg PO Q8 07/02/17 Levothyroxine Sodium [Synthroid 0.025 mg Tablet] 0.025 mg PO DAILY #30 tablet Sulfamethoxazole/Trimethoprim [Bactrim Ds Tablet] 1 each PO BID #20 tablet 11/22 Allergies/Adverse Reactions: amoxicillin [Amoxicillin] Allergy (Severe, Verified 11/22/17 13:30) Review of Systems ROS unobtainable: Other - Pertinent positives and negatives as per HPI. Physical Exam Vital Signs: Temp Pulse Resp BP Pulse Ox 97.9 F 81 16 126/83 H 94 11/23/17 16:11 11/23/17 16:11 11/23/17 16:11 11/23/17 16:11 11/23/17 16:11 General appearance: PRESENT: no acute distress, other - Cachectic. Head exam: PRESENT: atraumatic, normocephalic Eye exam: PRESENT: conjunctiva pink, PERRLA. ABSENT: scleral icterus Mouth exam: PRESENT: moist, tongue midline Neck exam: PRESENT: full ROM. ABSENT: JVD Respiratory exam: PRESENT: clear to auscultation jamaal. ABSENT: rales, rhonchi, wheezes Cardiovascular exam: PRESENT: RRR - S1 S2 normal. Pulses: PRESENT: normal dorsalis pedis pul, +1 pedal pulses bilateral GI/Abdominal exam: PRESENT: normal bowel sounds, soft. ABSENT: distended, rebound, tenderness Rectal exam: PRESENT: deferred Extremities exam: PRESENT: full ROM, pedal edema Neurological exam: PRESENT: alert, awake, oriented to person, oriented to place , oriented to time, oriented to situation Skin exam: PRESENT: dry, intact, warm. ABSENT: cyanosis, rash Results Laboratory Results: 11/23/17 17:45 11/23/17 17:45 11/23/17 11/23/17 17:45 17:45 WBC 8.9 RBC 3.25 L Hgb 9.7 L Hct 28.3 L MCV 87 MCH 29.8 MCHC 34.2 RDW 12.5 Plt Count 416 Seg Neutrophils % 71.5 Lymphocytes % 18.8 Monocytes % 6.1 Eosinophils % 2.9 Basophils % 0.7 Absolute Neutrophils 6.3 Absolute Lymphocytes 1.7 Absolute Monocytes 0.5 Absolute Eosinophils 0.3 Absolute Basophils 0.1 Sodium 142.4 Potassium 3.4 L Chloride 111 H Carbon Dioxide 18 L Anion Gap 13 BUN 13 Creatinine 0.82 Est GFR ( Amer) > 60 Est GFR (Non-Af Amer) > 60 Glucose 94 Calcium 8.9 Total Bilirubin < 0.1 L AST 15 ALT 33 Alkaline Phosphatase 123 Total Protein 6.0 L Albumin 3.4 L Impressions: 2017: Chest x-ray, no acute findings. Assessment & Plan - Diagnosis (1) Fungemia Is this a current diagnosis for this admission?: Yes Plan: Will follow up repeat blood cultures done in the ED and check echocardiogram. Will start micafungin for now awaiting sensitivity. Surgery was consulted by the ED physician for Port-A-Cath removal. The patient will probably need PICC line placed temporarily to receive antibiotics and TPN until negative cultures. She will ultimately need a tunneled catheter. (2) Infection due to port-a-cath Qualifiers: Encounter type: initial encounter Qualified Code(s): T80.219A - Unspecified infection due to central venous catheter, initial encounter Is this a current diagnosis for this admission?: Yes Plan: Will continue broad coverage antibiotics with vancomycin, cefepime and micafungin awaiting cultures. Surgery was consulted by the ED physician for Port-A-Cath removal. (3) Sinus tachycardia Is this a current diagnosis for this admission?: Yes Plan: Chronic per patient, We will resume Cardizem CD 120 mg daily. (4) UTI (urinary tract infection) Qualifiers: Urinary tract infection type: site unspecified Hematuria presence: with hematuria Qualified Code(s): N39.0 - Urinary tract infection, site not specified; R31.9 - Hematuria, unspecified; R31.9 - Hematuria, unspecified Is this a current diagnosis for this admission?: Yes Plan: We will follow-up urine culture and continue broad coverage antibiotics for now. (5) Anorexia Is this a current diagnosis for this admission?: No Plan: Nutrition consult for TPN. Regular diet as tolerated. (6) Pedal edema Is this a current diagnosis for this admission?: No Plan: The patient is on Lasix at home which we will resume. - Time Time Spent: 50 to 70 Minutes - Inpatient Certification Based on my medical assessment, after consideration of the patient's comorbidities, presenting symptoms, or acuity I expect that the services needed warrant INPATIENT care.: Yes I certify that my determination is in accordance with my understanding of Medicare's requirements for reasonable and necessary INPATIENT services [42 CFR 412.3e].: Yes
[2017-11-23] MEDS ORDERED: CEFEPIME 1 GM/D5W RTU 1 GM/50 ML RTUPB IV SCH (22:00)
[2017-11-23] MEDS ORDERED: DILTIAZEM HCL 120 MG CAP.SR.24H PO SCH (22:00)
[2017-11-24] MEDS ORDERED: DILTIAZEM HCL 120 MG CAP.SR.24H PO ONE (00:51)
[2017-11-24] MEDS: HEPARIN SOD (PORCINE) 5,000 UNIT/ML 1 ML SYRINGE SUBCUT SCH ×4 (01:19→22:28)
[2017-11-24] MEDS: CLONAZEPAM 1 MG TABLET PO SCH ×2 (01:20→22:28)
[2017-11-24] MEDS: FENTANYL CITRATE INJ/PF 100 MCG/2 ML AMPUL IV PRN (02:57)
[2017-11-24] MEDS: PROMETHAZINE HCL INJ 25 MG/1 ML VIAL IV PRN (02:57)
[2017-11-24 06:42] LABS: ALANINE AMINOTRANSFERASE 33 U/L (9-52); ALBUMIN 3.2 g/dL (3.5-5.0); ALKALINE PHOSPHATASE 110 U/L (38-126); ANION GAP 15 (5-19); ASPARTATE AMINO TRANSFERASE 16 U/L (14-36); BILIRUBIN,DIRECT 0.1 mg/dL (0.0-0.4); BILIRUBIN,TOTAL 0.1 mg/dL (0.2-1.3); BLOOD UREA NITROGEN 13 mg/dL (7-20); CALCIUM 8.7 mg/dL (8.4-10.2); CARBON DIOXIDE 19 mmol/L (22-30); CHLORIDE 107 mmol/L (98-107); GLUCOSE 83 mg/dL (75-110); PHOSPHORUS 4.1 mg/dL (2.5-4.5); POTASSIUM 3.5 mmol/L (3.6-5.0); SODIUM 141.2 mmol/L (137-145); TOTAL PROTEIN 6.2 g/dL (6.3-8.2)
[2017-11-24] MEDS: LEVOTHYROXINE SODIUM 0.025 MG TABLET PO SCH (07:02)
[2017-11-24 08:18] LABS: HEMATOCRIT 25.7 % (36.0-47.0); MEAN CORPUSCULAR HEMOGLOBIN 29.8 pg (27.0-33.4); MEAN CORPUSCULAR HGB CONC 34.6 g/dL (32.0-36.0); MEAN CORPUSCULAR VOLUME 86 fl (80-97); PLATELET COUNT 391 10^3/uL (150-450); RED BLOOD COUNT 2.99 10^6/uL (3.72-5.28); RED CELL DISTRIBUTION WIDTH 12.4 % (11.5-14.0); WHITE BLOOD COUNT 7.9 10^3/uL (4.0-10.5)
[2017-11-24 08:19] LABS: HEMOGLOBIN 8.9 g/dL (12.0-15.5)
[2017-11-24] MEDS ORDERED: NORMAL SALINE 1000 ML 250 ML IV ONE (09:30)
[2017-11-24] MEDS ORDERED: (PENDING PHARMACY ID) (Aspirin/Acetaminophen/Caffeine [Excedrin Migraine Caplet] 1 EACH) PO SCH (10:00)
[2017-11-24] MEDS ORDERED: IBUPROFEN 800 MG TABLET PO SCH (10:00)
[2017-11-24] MEDS ORDERED: MICAFUNGIN SODIUM 100 MG in NORMAL SALINE 100 ML IV SCH (10:00)
[2017-11-24] MEDS: FLUCONAZOLE 200 MG/NS RTU 100 ML IV SCH (11:00)
[2017-11-24] MEDS: MEGESTROL ACETATE SUSP 400 MG/10 ML UDCUP PO SCH (11:01)
[2017-11-24] MEDS: NORMAL SALINE 1000 ML 1,000 ML IV PRN ×2 (11:06→20:01)
[2017-11-24] MEDS: KETOROLAC TROMETHAMINE INJ/PF 30 MG/1 ML SDV IV PRN ×2 (11:20→18:03)
[2017-11-24] MEDS ORDERED: CEFEPIME 1 GM/D5W RTU 1 GM/50 ML RTUPB IV ONE (12:00)
[2017-11-24] MEDS: VANCOMYCIN HCL 500 MG in DEXTROSE 5%-WATER 100 ML IV SCH (17:48)
[2017-11-24] MEDS ORDERED: ONDANSETRON HCL INJ/PF 4 MG/2 ML SDV ONE (17:58)
[2017-11-24] MEDS: CEFEPIME 1 GM/D5W RTU 1 GM/50 ML RTUPB IV SCH (22:28)
[2017-11-25] MEDS: ONDANSETRON HCL INJ/PF 4 MG/2 ML SDV IV PRN (01:14)
[2017-11-25] MEDS: KETOROLAC TROMETHAMINE INJ/PF 30 MG/1 ML SDV IV PRN ×3 (04:46→19:43)
[2017-11-25] MEDS: HEPARIN SOD (PORCINE) 5,000 UNIT/ML 1 ML SYRINGE SUBCUT SCH ×3 (05:24→22:40)
[2017-11-25] MEDS: LEVOTHYROXINE SODIUM 0.025 MG TABLET PO SCH (05:24)
[2017-11-25] MEDS: VANCOMYCIN HCL 500 MG in DEXTROSE 5%-WATER 100 ML IV SCH ×2 (05:24→19:25)
[2017-11-25 06:40] LABS: ABSOLUTE EOSINOPHILS # (AUTO) 0.2 10^3/uL (0.0-0.6); ABSOLUTE LYMPHOCYTES (AUTO) 1.9 10^3/uL (0.5-4.7); ABSOLUTE MONOCYTES (AUTO) 0.5 10^3/uL (0.1-1.4); ABSOLUTE NEUT (AUTO) 6.9 10^3/uL (1.7-8.2); BASOPHILS % (AUTO) 0.4 % (0-2); EOSINOPHILS % (AUTO) 2.3 % (0-6); HEMATOCRIT 24.3 % (36.0-47.0); HEMOGLOBIN 8.3 g/dL (12.0-15.5); LYMPHOCYTES % (AUTO) 20.2 % (13-45); MEAN CORPUSCULAR HEMOGLOBIN 29.8 pg (27.0-33.4); MEAN CORPUSCULAR VOLUME 87 fl (80-97); MONOCYTES % (AUTO) 5.5 % (3-13); PLATELET COUNT 364 10^3/uL (150-450); RED BLOOD COUNT 2.78 10^6/uL (3.72-5.28); RED CELL DISTRIBUTION WIDTH 12.1 % (11.5-14.0); SEGMENTED NEUTROPHILS % (AUTO) 71.6 % (42-78); TOTAL CELLS COUNTED % (AUTO) 100 %; WHITE BLOOD COUNT 9.6 10^3/uL (4.0-10.5)
[2017-11-25 06:59] LABS: ANION GAP 15 (5-19); BLOOD UREA NITROGEN 12 mg/dL (7-20); CALCIUM 7.9 mg/dL (8.4-10.2); CARBON DIOXIDE 15 mmol/L (22-30); CHLORIDE 112 mmol/L (98-107); GLUCOSE 179 mg/dL (75-110); POTASSIUM 3.2 mmol/L (3.6-5.0); SODIUM 141.9 mmol/L (137-145)
--- NOTE | 2017-11-25 07:18 | PDOC PROGRESS REPORT ---
Subjective Progress Note for:: 11/24/17 Subjective:: Fever and chills with erythema around Port a cath site Reason For Visit: FUNGEMIA BC yielded fungus Physical Exam Vital Signs: Temp Pulse Resp BP Pulse Ox 98.2 F 72 17 69/44 L 100 11/24/17 07:36 11/24/17 07:36 11/24/17 07:36 11/24/17 07:36 11/24/17 07:36 Intake & Output 11/23/17 11/24/17 11/25/17 06:59 06:59 06:59 Intake Total 160 Balance 160 Weight 44.2 kg General appearance: PRESENT: no acute distress Head exam: PRESENT: atraumatic Throat exam: PRESENT: other - no exudates seen Respiratory exam: PRESENT: clear to auscultation jamaal. ABSENT: rales, rhonchi, wheezes Pulses: PRESENT: normal dorsalis pedis pul GI/Abdominal exam: PRESENT: normal bowel sounds, soft. ABSENT: distended, guarding, mass, organolmegaly, rebound, tenderness Rectal exam: PRESENT: deferred Extremities exam: PRESENT: full ROM. ABSENT: calf tenderness, clubbing, pedal edema Skin exam: PRESENT: other - R shima cath with surrounding erythema, no discharges seen, Results Laboratory Results: 11/24/17 07:44 11/24/17 06:01 11/24/17 11/24/17 11/24/17 06:01 06:01 07:44 WBC Cancelled 7.9 RBC Cancelled 2.99 L Hgb Cancelled 8.9 L Hct Cancelled 25.7 L MCV Cancelled 86 MCH Cancelled 29.8 MCHC Cancelled 34.6 RDW Cancelled 12.4 Plt Count Cancelled 391 Sodium 141.2 Potassium 3.5 L Chloride 107 Carbon Dioxide 19 L Anion Gap 15 BUN 13 Creatinine 0.74 Est GFR ( Amer) > 60 Est GFR (Non-Af Amer) > 60 Glucose 83 Calcium 8.7 Phosphorus 4.1 Magnesium 2.1 Total Bilirubin 0.1 L AST 16 ALT 33 Alkaline Phosphatase 110 Total Protein 6.2 L Albumin 3.2 L Assessment & Plan - Diagnosis (1) Sepsis affecting skin Is this a current diagnosis for this admission?: Yes Plan: Follow up on cultures and continue same antibiotics (2) Hypotension Is this a current diagnosis for this admission?: Yes Plan: IVF, hold antihypertensives (3) Infection due to port-a-cath Qualifiers: Encounter type: initial encounter Qualified Code(s): T80.219A - Unspecified infection due to central venous catheter, initial encounter Is this a current diagnosis for this admission?: Yes (4) UTI (urinary tract infection) Qualifiers: Urinary tract infection type: site unspecified Is this a current diagnosis for this admission?: Yes Plan: Follow up on cultures (5) Electrolyte imbalance Is this a current diagnosis for this admission?: Yes Plan: Will follow up and replace as needed (6) Malnutrition Qualifiers: Malnutrition type: protein-calorie malnutrition Protein-calorie malnutrition severity: moderate Qualified Code(s): E44.0 - Moderate protein- calorie malnutrition Is this a current diagnosis for this admission?: Yes Plan: Nutrition supplements, consults and replacements - Time Time Spent with patient: 15-24 minutes Medications reviewed and adjusted accordingly: Yes Anticipated discharge: Home Within: within 72 hours - Inpatient Certification Medical Necessity: Risk of Complication if Not Cared For in Hospital
[2017-11-25] MEDS ORDERED: POTASSIUM CHLORIDE 10 MEQ TABLET.SA PO ONE (08:30)
[2017-11-25] MEDS ORDERED: POTASSI CL 20 MEQ/50 ML RIDER 20 MEQ/50 ML RTUPB IV ONE (08:30)
[2017-11-25] MEDS: ACETAMINOPHEN 325 MG TABLET PO PRN (10:20)
[2017-11-25] MEDS: MEGESTROL ACETATE SUSP 400 MG/10 ML UDCUP PO SCH (10:21)
[2017-11-25] MEDS: FLUCONAZOLE 200 MG/NS RTU 100 ML IV SCH (10:21)
[2017-11-25] MEDS: CEFEPIME 1 GM/D5W RTU 1 GM/50 ML RTUPB IV SCH ×2 (10:22→22:39)
--- NOTE | 2017-11-25 11:52 | PDOC PROGRESS REPORT ---
Subjective Progress Note for:: 11/25/17 Subjective:: Fever and chills with erythema around Port a cath site No fever no vomiting Po intake limited. Supplemented TPN via shima cath at home currently on hold due to the fungemia Reason For Visit: FUNGEMIA Physical Exam Vital Signs: Temp Pulse Resp BP Pulse Ox 98.2 F 76 16 100/60 100 11/25/17 07:45 11/25/17 07:45 11/25/17 07:45 11/25/17 07:45 11/25/17 07:45 Intake & Output 11/24/17 11/25/17 11/26/17 06:59 06:59 06:59 Intake Total 160 480 Balance 160 480 Weight 44.2 kg General appearance: PRESENT: no acute distress, thin Head exam: PRESENT: atraumatic Eye exam: PRESENT: conjunctiva pink, EOMI, PERRLA. ABSENT: scleral icterus Neck exam: ABSENT: carotid bruit, JVD, lymphadenopathy, thyromegaly Cardiovascular exam: PRESENT: RRR. ABSENT: diastolic murmur, rubs, systolic murmur GI/Abdominal exam: PRESENT: normal bowel sounds, soft. ABSENT: distended, guarding, mass, organolmegaly, rebound, tenderness Rectal exam: PRESENT: deferred Musculoskeletal exam: PRESENT: ambulatory Neurological exam: PRESENT: alert, awake, oriented to person, oriented to place , oriented to time Skin exam: PRESENT: other - R port a cath on chest wall with surrounding rythema Results Laboratory Results: 11/25/17 06:15 11/25/17 06:15 11/25/17 11/25/17 06:15 06:15 WBC 9.6 RBC 2.78 L Hgb 8.3 L Hct 24.3 L MCV 87 MCH 29.8 MCHC 34.0 RDW 12.1 Plt Count 364 Seg Neutrophils % 71.6 Lymphocytes % 20.2 Monocytes % 5.5 Eosinophils % 2.3 Basophils % 0.4 Absolute Neutrophils 6.9 Absolute Lymphocytes 1.9 Absolute Monocytes 0.5 Absolute Eosinophils 0.2 Absolute Basophils 0.0 Sodium 141.9 Potassium 3.2 L Chloride 112 H Carbon Dioxide 15 L Anion Gap 15 BUN 12 Creatinine 0.65 Est GFR ( Amer) > 60 Est GFR (Non-Af Amer) > 60 Glucose 179 H Calcium 7.9 L Magnesium 1.7 Assessment & Plan - Diagnosis (1) Sepsis affecting skin Is this a current diagnosis for this admission?: Yes Plan: Cultures still yielding Fungi. This will be sent to reference lab for further evaluation. Patient is clinically better. (2) Hypotension Is this a current diagnosis for this admission?: Yes Plan: IVF, hold antihypertensives Her blood pressure usually runs low and she is asymptomatic. Continue fluid bolus prn (3) Infection due to port-a-cath Qualifiers: Encounter type: initial encounter Qualified Code(s): T80.219A - Unspecified infection due to central venous catheter, initial encounter Is this a current diagnosis for this admission?: Yes Plan: Consulted Surgicalists for removal. (4) UTI (urinary tract infection) Qualifiers: Urinary tract infection type: site unspecified Is this a current diagnosis for this admission?: Yes Plan: Urine culture from 11/22 is negative and initial UA showed negative nitrite' doubt a true UTI Deescalate antibiotics as appropriate (5) Electrolyte imbalance Is this a current diagnosis for this admission?: Yes (6) Malnutrition Qualifiers: Malnutrition type: protein-calorie malnutrition Protein-calorie malnutrition severity: moderate Qualified Code(s): E44.0 - Moderate protein- calorie malnutrition Is this a current diagnosis for this admission?: Yes Plan: Nutrition supplements, consults and replacements TPN as appropriate (7) Anemia of chronic disease Is this a current diagnosis for this admission?: Yes Plan: However this likely worsened with acute illness. Will check iron stores and transfuse as necessary (8) Fungemia Is this a current diagnosis for this admission?: Yes Plan: Continue Diflucan, obtain further testing to ensure this is appropriate, repeat Blood cultures. F/u on echo and arrange for Opthalmology consult to evaluate for endopthalmitis. - Time Time Spent with patient: 15-24 minutes Medications reviewed and adjusted accordingly: Yes Anticipated discharge: Home with Homehealth Within: within 72 hours - Inpatient Certification Medical Necessity: Need for IV Antibiotics, Risk of Complication if Not Cared For in Hospital
--- NOTE | 2017-11-25 18:59 | XCELERA REPORT ---
[address] [address] Transthoracic Echocardiogram Report Name: SHIKHA DEAN Age: 37 yrs Gender: Female : 1980 Patient Status: Inpatient Patient Location: [address] [place], [place] [address]A Study Date: 11/25/2017 11:12 AM Height: 60 in Weight: 97 lb BSA: 1.4 m2 Procedure: A complete two-dimensional transthoracic echocardiogram was performed (2D, M-mode, spectral and color flow Doppler). The study was technically adequate with some images being suboptimal in quality. Reason For Study: Fungemia Ordering Physician: JESUS MCNALLY Performed By: Shira Bonilla Interpretation Summary The left ventricular ejection fraction is normal. Doppler measurements suggest normal left ventricular diastolic function There is normal left ventricular wall thickness. The left ventricle is grossly normal size. No regional wall motion abnormalities noted. The right ventricular systolic function is normal. The right atrium is normal in size The left atrial size is normal. There is a trace amount of mitral regurgitation There is no mitral valve stenosis. There is no aortic valve stenosis No aortic regurgitation is present. There is a trace or physiologic amount of tricuspid regurgitation Right ventricular systolic pressure is at the upper limits of normal The aortic root is not well visualized but is probably normal size. The inferior vena cava appeared normal and decreased > 50% with respiration (RAP 5-10 mmHg) There is no pericardial effusion. MMode/2D Measurements & Calculations RVDd: 1.5 cm LVIDd: 4.2 cm FS: 41.8 % Ao root diam: 2.5 cm IVSd: 0.48 cm LVIDs: 2.4 cm EDV(Teich): 78.8 ml LVPWd: 0.51 cm ESV(Teich): 21.1 ml Ao root area: 4.8 cm2 EF(Teich): 73.2 % LA dimension: 3.2 cm Doppler Measurements & Calculations MV E max luis carlos: MV P1/2t max luis carlos: Ao V2 max: LV V1 max P.2 cm/sec 97.7 cm/sec 112.1 cm/sec 1.8 mmHg MV A max luis carlos: MV P1/2t: 41.7 msec Ao max PG: LV V1 max: 55.3 cm/sec 5.0 mmHg 67.1 cm/sec MV E/A: 1.8 MVA(P1/2t): 5.3 cm2 MV dec slope: 686.9 cm/sec2 PA V2 max: TR max luis carlos: 76.5 cm/sec 201.5 cm/sec PA max PG: TR max P.2 mmHg 2.3 mmHg Left Ventricle The left ventricle is grossly normal size. There is normal left ventricular wall thickness. The left ventricular ejection fraction is normal. Doppler measurements suggest normal left ventricular diastolic function. No regional wall motion abnormalities noted. Right Ventricle The right ventricle is grossly normal size. There is normal right ventricular wall thickness. The right ventricular systolic function is normal. Atria The right atrium is normal in size. The left atrial size is normal. The interatrial septum is intact with no evidence for an atrial septal defect. Mitral Valve The mitral valve is grossly normal. There is no mitral valve stenosis. There is a trace amount of mitral regurgitation. Aortic Valve The aortic valve is grossly normal. There is no aortic valve stenosis. No aortic regurgitation is present. Tricuspid Valve The tricuspid valve is not well visualized, but is grossly normal. There is no tricuspid stenosis. There is a trace or physiologic amount of tricuspid regurgitation. Right ventricular systolic pressure is at the upper limits of normal. Pulmonic Valve The pulmonic valve is not well visualized. Great Vessels The aortic root is not well visualized but is probably normal size. The inferior vena cava appeared normal and decreased > 50% with respiration (RAP 5-10 mmHg). Effusions There is no pericardial effusion. : JESUS MCNALLY > Suhas Mcdonald
[2017-11-25] MEDS: CLONAZEPAM 1 MG TABLET PO SCH (22:39)
[2017-11-26] MEDS: NORMAL SALINE 1000 ML 1,000 ML IV PRN (02:22)
[2017-11-26] MEDS ORDERED: BUPIVACAINE HCL 0.25 % INJ/PF (2.5 MG/1 ML) 30 ML VIAL ONE (05:26)
[2017-11-26] MEDS ORDERED: LIDOCAINE 0.5% INJ-PF (5 MG/ML) 50 ML SDV ONE (05:26)
[2017-11-26] MEDS: LEVOTHYROXINE SODIUM 0.025 MG TABLET PO SCH (05:33)
[2017-11-26] MEDS: VANCOMYCIN HCL 500 MG in DEXTROSE 5%-WATER 100 ML IV SCH (05:33)
[2017-11-26] MEDS: HEPARIN SOD (PORCINE) 5,000 UNIT/ML 1 ML SYRINGE SUBCUT SCH ×3 (06:08→21:16)
[2017-11-26] MEDS: KETOROLAC TROMETHAMINE INJ/PF 30 MG/1 ML SDV IV PRN ×3 (06:28→21:16)
[2017-11-26 07:11] LABS: IRON(TIBC) 32.4 ug/dL (37-170)
[2017-11-26] MEDS ORDERED: PROPOFOL INJ 200 MG/20 ML VIAL IV ONE (07:18)
[2017-11-26] MEDS ORDERED: MIDAZOLAM 2 MG/2 ML INJ ONE (07:18)
[2017-11-26] MEDS ORDERED: FENTANYL CITRATE INJ/PF 100 MCG/2 ML AMPUL ONE ×2 (07:18→08:41)
[2017-11-26 08:17] LABS: FOLATE 7.77 ng/mL (>2.76)
[2017-11-26 08:20] LABS: ABSOLUTE RETICS # 0.035 10^6/uL (0.028-0.122); HEMATOCRIT 32.1 % (36.0-47.0); MEAN CORPUSCULAR HEMOGLOBIN 29.5 pg (27.0-33.4); MEAN CORPUSCULAR HGB CONC 33.2 g/dL (32.0-36.0); MEAN CORPUSCULAR VOLUME 89 fl (80-97); PLATELET COUNT 564 10^3/uL (150-450); RED BLOOD COUNT 3.62 10^6/uL (3.72-5.28); RED CELL DISTRIBUTION WIDTH 12.3 % (11.5-14.0); RETICULOCYTE COUNT (AUTO) 0.97 % (0.66-2.85); WHITE BLOOD COUNT 13.3 10^3/uL (4.0-10.5)
[2017-11-26 08:28] LABS: HEMOGLOBIN 10.7 g/dL (12.0-15.5)
--- NOTE | 2017-11-26 08:48 | Operative Report ---
Operative Report DATE OF SURGERY: 11/26/17 PREOPERATIVE DIAGNOSIS: 1. Fungal infection, septicemia. 2. Infected Port-A- Cath. 3. Malabsorption syndrome. POSTOPERATIVE DIAGNOSIS: 1. Fungal infection, septicemia. Post removal of infected Port-A-Cath. 2. Infected Port-A-Cath. 3. Malabsorption syndrome. OPERATION: Explantation of infected Port-A-Cath. SURGEON: PRASANNA DIEHL MANAGER LONG TERM CARE: None ANESTHESIA: LMAC TISSUE REMOVED OR ALTERED: Not applicable. COMPLICATIONS: None. ESTIMATED BLOOD LOSS: 2 mL. INTRAOPERATIVE FINDINGS: Avoid right-sided, single-lumen port. Completely removed and discarded. PROCEDURE: PROCEDURE: The right subclavian area was prepared with [Betadine] and draped out with sterile linen. After the"universal time-out", in which it was confirmed that the patient [did receive antibiotic], the procedure commenced. The patient was appropriately anesthetized. The old wound was opened using cautery gaining access to the ports. The port and its catheter were removed completely and discarded off the field. The wound was debrided of non viable tissue using cautery with removal of loose debris, as well. The wound was irrigated with [Peroxide] . And then Betadine placed in the wound and left for a few minutes. .The wound was now irrigated with saline and Xeroform placed within it, dressed with [box and the procedure concluded. In this patient with a serous fungal septicemia and local port infection. Who needs long-term venous access for daily parenteral nutrition, I suggest use of a tunneled PICC catheter or at any rate the tunneled catheter for access. This should have a much lower rate of infection than the port. Port is designed to be accessed only intermittently.
[2017-11-26] MEDS ORDERED: OXYCODONE-ACETAMINOPHEN 5-325 MG TABLET ONE (10:37)
[2017-11-26] MEDS: MEGESTROL ACETATE SUSP 400 MG/10 ML UDCUP PO SCH (10:40)
[2017-11-26] MEDS: FLUCONAZOLE 200 MG/NS RTU 100 ML IV SCH (10:40)
[2017-11-26] MEDS: CEFEPIME 1 GM/D5W RTU 1 GM/50 ML RTUPB IV SCH ×2 (10:40→21:16)
[2017-11-26] MEDS: FUROSEMIDE 20 MG TABLET PO SCH (10:40)
[2017-11-26 11:05] LABS: ANION GAP 11 (5-19); BLOOD UREA NITROGEN 12 mg/dL (7-20); CALCIUM 8.9 mg/dL (8.4-10.2); CARBON DIOXIDE 16 mmol/L (22-30); CHLORIDE 117 mmol/L (98-107); GLUCOSE 91 mg/dL (75-110); POTASSIUM 3.9 mmol/L (3.6-5.0); SODIUM 143.6 mmol/L (137-145)
--- NOTE | 2017-11-26 14:42 | PDOC PROGRESS REPORT ---
Subjective Progress Note for:: 11/26/17 Subjective:: Fever and chills with erythema around Port a cath site No fever no vomiting Po intake limited. Supplemented TPN via shima cath at home currently on hold due to the fungemia Will continue oral intake, and plan to insert Cental catheter in about a week if blood cultures remain negative Reason For Visit: FUNGEMIA, tunnelled PICC Physical Exam Vital Signs: Temp Pulse Resp BP Pulse Ox 98.2 F 99 16 106/62 98 11/26/17 12:09 11/26/17 12:09 11/26/17 12:09 11/26/17 12:09 11/26/17 12:09 Intake & Output 11/25/17 11/26/17 11/27/17 06:59 06:59 06:59 Intake Total 480 800 210 Output Total 5 Balance 480 800 205 Weight 48.3 kg General appearance: PRESENT: no acute distress, cooperative, thin, other - malnourished Head exam: PRESENT: atraumatic Eye exam: PRESENT: conjunctiva pink, EOMI, PERRLA. ABSENT: scleral icterus Ear exam: PRESENT: normal external ear exam Mouth exam: PRESENT: dry mucosa Neck exam: ABSENT: carotid bruit, JVD, lymphadenopathy, thyromegaly Respiratory exam: PRESENT: clear to auscultation jamaal. ABSENT: rales, rhonchi, wheezes Cardiovascular exam: PRESENT: RRR. ABSENT: diastolic murmur, rubs, systolic murmur Pulses: PRESENT: normal dorsalis pedis pul GI/Abdominal exam: PRESENT: normal bowel sounds, soft. ABSENT: distended, guarding, mass, organolmegaly, rebound, tenderness Rectal exam: PRESENT: deferred Extremities exam: PRESENT: full ROM. ABSENT: calf tenderness, clubbing, pedal edema Musculoskeletal exam: PRESENT: ambulatory Neurological exam: PRESENT: alert, awake, oriented to person, oriented to place , oriented to time, oriented to situation, CN II-XII grossly intact. ABSENT: motor sensory deficit Skin exam: PRESENT: other - shima cath removed from R chest wall, area slightly tender Results Laboratory Results: 11/26/17 07:23 11/26/17 10:42 11/26/17 11/26/17 11/26/17 06:40 06:40 07:23 WBC Cancelled 13.3 H RBC Cancelled 3.62 L Hgb Cancelled 10.7 L D Hct Cancelled 32.1 L MCV Cancelled 89 MCH Cancelled 29.5 MCHC Cancelled 33.2 RDW Cancelled 12.3 Plt Count Cancelled 564 H Retic Count (auto) Cancelled 0.97 Absolute Retic Cancelled 0.035 Sodium Potassium Chloride Carbon Dioxide Anion Gap BUN Creatinine Est GFR ( Amer) Est GFR (Non-Af Amer) Glucose Calcium Iron 32.4 L TIBC 272 % Saturation 12 Ferritin 36.30 Vitamin B12 354.0 Folate 7.77 11/26/17 10:42 WBC RBC Hgb Hct MCV MCH MCHC RDW Plt Count Retic Count (auto) Absolute Retic Sodium 143.6 Potassium 3.9 Chloride 117 H Carbon Dioxide 16 L Anion Gap 11 BUN 12 Creatinine 0.61 Est GFR ( Amer) > 60 Est GFR (Non-Af Amer) > 60 Glucose 91 Calcium 8.9 Iron TIBC % Saturation Ferritin Vitamin B12 Folate 11/23/17 20:50 Blood Blood Culture - Final C.albicans/C.dubliniensis Status: Imported from PACS Assessment & Plan - Diagnosis (1) Sepsis affecting skin Is this a current diagnosis for this admission?: Yes Plan: Cultures still yielding Fungi. This has been sent to reference lab for further identification Patient is clinically better. (2) Hypotension Is this a current diagnosis for this admission?: Yes Plan: IVF, continue to hold antihypertensives Her blood pressure usually runs low and she is asymptomatic. Continue fluid bolus prn (3) Infection due to port-a-cath Qualifiers: Encounter type: subsequent encounter Qualified Code(s): T80.219D - Unspecified infection due to central venous catheter, subsequent encounter Is this a current diagnosis for this admission?: Yes Plan: This was removed by Dr. Bose today. (4) UTI (urinary tract infection) Qualifiers: Urinary tract infection type: site unspecified Is this a current diagnosis for this admission?: Yes Plan: Urine culture from 11/22 is negative and initial UA showed negative nitrite' doubt a true UTI She has been on cefepime since 11/24 and I think this can be safely discontinued in another day or so as I see no indication for continuing this antibiotic (5) Electrolyte imbalance Is this a current diagnosis for this admission?: Yes Plan: Will follow up and replace as needed It will improve once able to restart TPN (6) Malnutrition Qualifiers: Malnutrition type: protein-calorie malnutrition Protein-calorie malnutrition severity: moderate Qualified Code(s): E44.0 - Moderate protein- calorie malnutrition Is this a current diagnosis for this admission?: Yes Plan: Nutrition supplements, consults and replacements TPN as appropriate (7) Anemia of chronic disease Is this a current diagnosis for this admission?: Yes Plan: Hemoglobin is back up to 10 with no transfusion (8) Fungemia Is this a current diagnosis for this admission?: Yes Plan: Continue Diflucan, await further identification from reference lab to ensure this is appropriate, repeat Blood cultures. Opthalmology consult pending to evaluate for endopthalmitis. 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 This current Port-A-Cath at been in place for about 6 months according to the patient
[2017-11-26] MEDS: VANCOMYCIN HCL 1,000 MG in DEXTROSE 5%-WATER 250 ML IV SCH (18:02)
[2017-11-26] MEDS: OXYCODONE-ACETAMINOPHEN 5-325 MG TABLET PO PRN (18:02)
[2017-11-26] MEDS: CLONAZEPAM 1 MG TABLET PO SCH (21:16)
[2017-11-27] MEDS: OXYCODONE-ACETAMINOPHEN 5-325 MG TABLET PO PRN ×3 (04:47→20:34)
[2017-11-27] MEDS: VANCOMYCIN HCL 1,000 MG in DEXTROSE 5%-WATER 250 ML IV SCH (05:02)
[2017-11-27] MEDS: HEPARIN SOD (PORCINE) 5,000 UNIT/ML 1 ML SYRINGE SUBCUT SCH ×3 (05:08→23:56)
[2017-11-27] MEDS: LEVOTHYROXINE SODIUM 0.025 MG TABLET PO SCH (08:28)
[2017-11-27] MEDS: KETOROLAC TROMETHAMINE INJ/PF 30 MG/1 ML SDV IV PRN ×2 (08:28→16:41)
--- NOTE | 2017-11-27 09:57 | PDOC PROGRESS REPORT ---
Subjective Progress Note for:: 11/27/17 Subjective:: Fever and chills with erythema around Port a cath site No fever no vomiting Po intake limited. Supplemented TPN via shima cath at home currently on hold due to the fungemia Will continue oral intake, and plan to insert Central catheter in about a week if blood cultures remain negative Reason For Visit: FUNGEMIA, tunnelled PICC Physical Exam Vital Signs: Temp Pulse Resp BP Pulse Ox 97.7 F 73 15 94/54 L 100 11/27/17 08:15 11/27/17 08:15 11/27/17 08:15 11/27/17 08:15 11/27/17 08:15 Intake & Output 11/26/17 11/27/17 11/28/17 06:59 06:59 06:59 Intake Total 800 450 Output Total 5 Balance 800 445 Weight 48.3 kg General appearance: PRESENT: thin, other - undernourished Head exam: PRESENT: atraumatic, normocephalic Ear exam: PRESENT: normal external ear exam Mouth exam: PRESENT: moist, tongue midline Neck exam: ABSENT: carotid bruit, JVD, lymphadenopathy, thyromegaly Respiratory exam: PRESENT: clear to auscultation jamaal. ABSENT: rales, rhonchi, wheezes Cardiovascular exam: PRESENT: RRR. ABSENT: diastolic murmur, rubs, systolic murmur Pulses: PRESENT: normal dorsalis pedis pul Rectal exam: PRESENT: deferred Extremities exam: PRESENT: full ROM. ABSENT: calf tenderness, clubbing, pedal edema Musculoskeletal exam: PRESENT: other - chest wall R tender Results Laboratory Results: 11/26/17 07:23 11/26/17 10:42 11/26/17 11/26/17 06:40 10:42 Sodium 143.6 Potassium 3.9 Chloride 117 H Carbon Dioxide 16 L Anion Gap 11 BUN 12 Creatinine 0.61 Est GFR ( Amer) > 60 Est GFR (Non-Af Amer) > 60 Glucose 91 Calcium 8.9 Transferrin 191 L 11/23/17 20:50 Blood Blood Culture - Final C.albicans/C.dubliniensis Assessment & Plan - Diagnosis (1) Fungemia Is this a current diagnosis for this admission?: Yes Plan: Continue Diflucan, await further identification from reference lab to ensure this is appropriate, repeat Blood cultures. Opthalmology consult ordered to evaluate for endopthalmitis. 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 This last Port-A-Cath at been in place for about 6 months according to the patient, removed 11/26 (2) Sepsis affecting skin Is this a current diagnosis for this admission?: Yes Plan: Cultures still yielding Fungi. Sent to reference lab for further identification Patient is clinically better. Will dc Vancomycin as no indication for this (3) Hypotension Is this a current diagnosis for this admission?: Yes Plan: IVF, continue to hold antihypertensives Her blood pressure usually runs low and she is asymptomatic. Continue fluid bolus prn (4) Infection due to port-a-cath Qualifiers: Encounter type: subsequent encounter Qualified Code(s): T80.219D - Unspecified infection due to central venous catheter, subsequent encounter Is this a current diagnosis for this admission?: Yes Plan: This was removed by Dr. Bose today. Continue Diflucan (5) UTI (urinary tract infection) Qualifiers: Urinary tract infection type: site unspecified Is this a current diagnosis for this admission?: Yes Plan: Urine culture from 11/22 is negative and initial UA showed negative nitrite' doubt a true UTI She has been on cefepime since 11/24. Patient denies dysuria or frequency. Will dc Cefepime (6) Electrolyte imbalance Is this a current diagnosis for this admission?: Yes Plan: Will follow up and replace as needed Should improve once restart TPN (7) Malnutrition Qualifiers: Malnutrition type: protein-calorie malnutrition Protein-calorie malnutrition severity: moderate Qualified Code(s): E44.0 - Moderate protein- calorie malnutrition Is this a current diagnosis for this admission?: Yes Plan: Nutrition supplements, consults and replacements TPN as appropriate (8) Anemia of chronic disease Is this a current diagnosis for this admission?: Yes Plan: Hemoglobin is stable - Time Time Spent with patient: 15-24 minutes Medications reviewed and adjusted accordingly: Yes Anticipated discharge: Home - Inpatient Certification Based on my medical assessment, after consideration of the patient's comorbidities, presenting symptoms, or acuity I expect that the services needed warrant INPATIENT care.: Yes Medical Necessity: Need for IV Antibiotics
[2017-11-27] MEDS: ONDANSETRON HCL INJ/PF 4 MG/2 ML SDV IV PRN (10:37)
[2017-11-27] MEDS: FLUCONAZOLE 200 MG/NS RTU 100 ML IV SCH (10:37)
[2017-11-27] MEDS: MEGESTROL ACETATE SUSP 400 MG/10 ML UDCUP PO SCH (10:37)
[2017-11-27] MEDS: NORMAL SALINE 1000 ML 1,000 ML IV PRN (20:53)
[2017-11-27] MEDS: CLONAZEPAM 1 MG TABLET PO SCH (21:33)
[2017-11-27] MEDS: ACETAMINOPHEN 325 MG TABLET PO PRN (21:33)
[2017-11-28] MEDS: PROMETHAZINE HCL INJ 25 MG/1 ML VIAL IV PRN (00:02)
[2017-11-28] MEDS: NORMAL SALINE 1000 ML 1,000 ML IV PRN (06:29)
[2017-11-28] MEDS: OXYCODONE-ACETAMINOPHEN 5-325 MG TABLET PO PRN ×3 (06:29→22:17)
[2017-11-28] MEDS: HEPARIN SOD (PORCINE) 5,000 UNIT/ML 1 ML SYRINGE SUBCUT SCH ×2 (06:56→14:27)
[2017-11-28 07:42] LABS: ABSOLUTE BASOPHILS # (AUTO) 0.1 10^3/uL (0.0-0.2); ABSOLUTE EOSINOPHILS # (AUTO) 0.4 10^3/uL (0.0-0.6); ABSOLUTE LYMPHOCYTES (AUTO) 2.9 10^3/uL (0.5-4.7); ABSOLUTE MONOCYTES (AUTO) 0.7 10^3/uL (0.1-1.4); BASOPHILS % (AUTO) 0.9 % (0-2); EOSINOPHILS % (AUTO) 3.8 % (0-6); HEMATOCRIT 28.6 % (36.0-47.0); HEMOGLOBIN 9.8 g/dL (12.0-15.5); LYMPHOCYTES % (AUTO) 29.2 % (13-45); MEAN CORPUSCULAR HEMOGLOBIN 29.9 pg (27.0-33.4); MEAN CORPUSCULAR HGB CONC 34.2 g/dL (32.0-36.0); MEAN CORPUSCULAR VOLUME 87 fl (80-97); MONOCYTES % (AUTO) 6.9 % (3-13); PLATELET COUNT 633 10^3/uL (150-450); RED BLOOD COUNT 3.27 10^6/uL (3.72-5.28); RED CELL DISTRIBUTION WIDTH 12.5 % (11.5-14.0); SEGMENTED NEUTROPHILS % (AUTO) 59.2 % (42-78); TOTAL CELLS COUNTED % (AUTO) 100 %
[2017-11-28] MEDS: LEVOTHYROXINE SODIUM 0.025 MG TABLET PO SCH (07:44)
[2017-11-28] MEDS: ONDANSETRON HCL INJ/PF 4 MG/2 ML SDV IV PRN (07:54)
[2017-11-28 08:04] LABS: ANION GAP 8 (5-19); BLOOD UREA NITROGEN 9 mg/dL (7-20); CALCIUM 9.1 mg/dL (8.4-10.2); CARBON DIOXIDE 16 mmol/L (22-30); CHLORIDE 119 mmol/L (98-107); GLUCOSE 82 mg/dL (75-110); POTASSIUM 4.1 mmol/L (3.6-5.0); SODIUM 142.8 mmol/L (137-145)
[2017-11-28] MEDS: FLUCONAZOLE 200 MG/NS RTU 100 ML IV SCH (09:27)
[2017-11-28] MEDS: MEGESTROL ACETATE SUSP 400 MG/10 ML UDCUP PO SCH (09:28)
[2017-11-28] MEDS: FUROSEMIDE 20 MG TABLET PO SCH (09:30)
[2017-11-28] MEDS: KETOROLAC TROMETHAMINE INJ/PF 30 MG/1 ML SDV IV PRN ×2 (09:34→18:34)
--- NOTE | 2017-11-28 12:52 | PDOC PROGRESS REPORT ---
Subjective Progress Note for:: 11/28/17 Subjective:: Fever and chills with erythema around Port a cath site No fever no vomiting Po intake limited. Supplemented TPN via shima cath at home currently on hold due to the fungemia Will continue oral intake, and plan to insert Central catheter in about a week if blood cultures remain negative Patient appears to be taken orally adequately for now I will defer TPN until his central line is in place. Reason For Visit: FUNGEMIA, tunnelled PICC Physical Exam Vital Signs: Temp Pulse Resp BP Pulse Ox 98.1 F 86 16 110/61 100 11/28/17 12:00 11/28/17 12:00 11/28/17 12:00 11/28/17 12:00 11/28/17 12:00 Intake & Output 11/27/17 11/28/17 11/29/17 06:59 06:59 06:59 Intake Total 450 2550 Output Total 5 Balance 445 2550 General appearance: PRESENT: no acute distress, other - Undernourished Head exam: PRESENT: atraumatic Eye exam: PRESENT: conjunctiva pink, EOMI, PERRLA. ABSENT: scleral icterus Mouth exam: PRESENT: moist, tongue midline Neck exam: ABSENT: carotid bruit, JVD, lymphadenopathy, thyromegaly Respiratory exam: PRESENT: clear to auscultation jamaal. ABSENT: rales, rhonchi, wheezes Cardiovascular exam: PRESENT: bradycardia GI/Abdominal exam: PRESENT: normal bowel sounds, soft. ABSENT: distended, guarding, mass, organolmegaly, rebound, tenderness Rectal exam: PRESENT: deferred Neurological exam: PRESENT: alert, awake, oriented to person, oriented to place , oriented to time, oriented to situation, CN II-XII grossly intact. ABSENT: motor sensory deficit Psychiatric exam: PRESENT: appropriate affect, normal mood. ABSENT: homicidal ideation, suicidal ideation Skin exam: PRESENT: other - Erythema around right chest wall at site of removal of Port-A-Cath Results Laboratory Results: 11/28/17 07:16 11/28/17 07:16 11/28/17 11/28/17 07:16 07:16 WBC 10.0 RBC 3.27 L Hgb 9.8 L Hct 28.6 L MCV 87 MCH 29.9 MCHC 34.2 RDW 12.5 Plt Count 633 H Seg Neutrophils % 59.2 Lymphocytes % 29.2 Monocytes % 6.9 Eosinophils % 3.8 Basophils % 0.9 Absolute Neutrophils 6.0 Absolute Lymphocytes 2.9 Absolute Monocytes 0.7 Absolute Eosinophils 0.4 Absolute Basophils 0.1 Sodium 142.8 Potassium 4.1 Chloride 119 H Carbon Dioxide 16 L Anion Gap 8 BUN 9 Creatinine 0.69 Est GFR ( Amer) > 60 Est GFR (Non-Af Amer) > 60 Glucose 82 Calcium 9.1 Magnesium 1.8 11/24/17 18:25 Chest - Right Side Gram Stain - Final 11/24/17 18:25 Chest - Right Side Wound Culture - Final C.albicans/C.dubliniensis Assessment & Plan - Diagnosis (1) Fungemia Is this a current diagnosis for this admission?: Yes Plan: Continue Diflucan, await further identification from reference lab to ensure this is appropriate, repeat Blood cultures. Opthalmology consult ordered to evaluate for endopthalmitis. 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 This last Port-A-Cath at been in place for about 6 months according to the patient, removed 11/26 Time is to reinsert his central line in the left upper extremity by Dr. Juice Watson sometime next week. I will go ahead and order another set of blood cultures tomorrow. (2) Sepsis affecting skin Is this a current diagnosis for this admission?: Yes Plan: Cultures still yielding Fungi. Sent to reference lab for further identification Patient is clinically better. Off cefepime and vancomycin as no indication for bacterial infection (3) Hypotension Is this a current diagnosis for this admission?: Yes Plan: IVF, continue to hold antihypertensives Her blood pressure usually runs low and she is asymptomatic. Continue fluid bolus prn (4) Infection due to port-a-cath Qualifiers: Encounter type: subsequent encounter Qualified Code(s): T80.219D - Unspecified infection due to central venous catheter, subsequent encounter Is this a current diagnosis for this admission?: Yes Plan: This was removed by Dr. Bose Continue Diflucan pending susceptibilities (5) UTI (urinary tract infection) Qualifiers: Urinary tract infection type: site unspecified Is this a current diagnosis for this admission?: Yes Plan: Urine culture from 11/22 is negative and initial UA showed negative nitrite' doubt a true UTI Currently off antibiotics (6) Electrolyte imbalance Is this a current diagnosis for this admission?: Yes Plan: Will follow up and replace as needed Should improve once restart TPN (7) Malnutrition Qualifiers: Malnutrition type: protein-calorie malnutrition Protein-calorie malnutrition severity: moderate Qualified Code(s): E44.0 - Moderate protein- calorie malnutrition Is this a current diagnosis for this admission?: Yes Plan: Nutrition supplements, consults and replacements TPN as appropriate hopefully next week once central line inserted (8) Anemia of chronic disease Is this a current diagnosis for this admission?: Yes Plan: Hemoglobin is stable we will continue to monitor - Time Time Spent with patient: 15-24 minutes Medications reviewed and adjusted accordingly: Yes Anticipated discharge: Home - Inpatient Certification Medical Necessity: Need for IV Antibiotics, Risk of Complication if Not Cared For in Hospital
[2017-11-28 18:18] LABS: VANCOMYCIN,TROUGH < 5.0 ug/mL (5.0-20.0)
[2017-11-28] MEDS: CLONAZEPAM 1 MG TABLET PO SCH (22:16)
[2017-11-29] MEDS: HEPARIN SOD (PORCINE) 5,000 UNIT/ML 1 ML SYRINGE SUBCUT SCH ×4 (00:37→21:20)
[2017-11-29] MEDS: KETOROLAC TROMETHAMINE INJ/PF 30 MG/1 ML SDV IV PRN ×2 (02:02→10:25)
[2017-11-29] MEDS: NORMAL SALINE 1000 ML 1,000 ML IV PRN (02:03)
[2017-11-29] MEDS: OXYCODONE-ACETAMINOPHEN 5-325 MG TABLET PO PRN ×3 (06:30→20:50)
[2017-11-29] MEDS: LEVOTHYROXINE SODIUM 0.025 MG TABLET PO SCH (08:18)
[2017-11-29] MEDS: FUROSEMIDE 20 MG TABLET PO SCH (09:39)
[2017-11-29] MEDS: MEGESTROL ACETATE SUSP 400 MG/10 ML UDCUP PO SCH (09:39)
[2017-11-29] MEDS: FLUCONAZOLE 200 MG/NS RTU 100 ML IV SCH (09:40)
--- NOTE | 2017-11-29 14:59 | PDOC PROGRESS REPORT ---
Subjective Progress Note for:: 11/29/17 Subjective:: Patient is feeling pretty well today. No fevers or chills today. She is able to eat a little bit at a time. No vomiting today. No diarrhea. No chest pain or difficulty breathing. She is having some discomfort in the area where the Port-A-Cath has been removed. She and I spoke at length today about her past medical history, including surgical history. We also discussed nutrition and strategized on ways that she could improve her nutritional status with oral intake. She tells me today that she is lactose intolerant. Reason For Visit: FUNGEMIA, tunnelled PICC, poor nutritional status on chronic Physical Exam Vital Signs: Temp Pulse Resp BP Pulse Ox 97.8 F 88 16 113/64 100 11/29/17 11:00 11/29/17 11:00 11/29/17 11:00 11/29/17 11:00 11/29/17 11:00 Intake & Output 11/28/17 11/29/17 11/30/17 06:59 06:59 06:59 Intake Total 2550 240 1500 Balance 2550 240 1500 General appearance: PRESENT: no acute distress, cooperative, thin Head exam: PRESENT: atraumatic, normocephalic Eye exam: PRESENT: conjunctiva pink, EOMI. ABSENT: periorbital swelling, scleral icterus Ear exam: PRESENT: normal external ear exam. ABSENT: drainage Mouth exam: PRESENT: moist, tongue midline Neck exam: PRESENT: tracheostomy. ABSENT: lymphadenopathy Respiratory exam: PRESENT: clear to auscultation jamaal, symmetrical, unlabored. ABSENT: rales, tachypnea, wheezes Cardiovascular exam: PRESENT: RRR. ABSENT: systolic murmur Pulses: PRESENT: normal radial pulses GI/Abdominal exam: PRESENT: hypoactive bowel sounds, soft. ABSENT: distended, tenderness Rectal exam: PRESENT: deferred Extremities exam: PRESENT: pedal edema. ABSENT: tenderness Musculoskeletal exam: PRESENT: normal inspection. ABSENT: tenderness Neurological exam: PRESENT: alert, awake, oriented to person, oriented to place , oriented to situation, CN II-XII grossly intact Psychiatric exam: ABSENT: anxious, depressed Skin exam: PRESENT: other - Dressing in place over right upper chest were Port-A -Cath has been removed, patient asked me not to remove the dressing as it was just recently replaced. No surrounding erythema. Dressing clean dry and intact. Results Laboratory Results: 11/28/17 07:16 11/28/17 17:42 11/28/17 17:42 Creatinine 0.73 Est GFR ( Amer) > 60 Est GFR (Non-Af Amer) > 60 11/23/17 21:30 Blood Blood Culture - Final NO GROWTH IN 5 DAYS Assessment & Plan - Diagnosis (1) Fungemia Is this a current diagnosis for this admission?: Yes Plan: Secondary to infected Port-A-Cath. For now will continue Diflucan, await further identification from reference lab to ensure this is appropriate, repeat blood cultures have been drawn today. Opthalmology consult ordered to evaluate for endopthalmitis, consult pending. 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 This last Port-A-Cath at been in place for about 6 months according to the patient, removed 11/26. Plan for catheter replacement is central line in the left upper extremity by Dr. Juice Watson sometime next week. (2) Infection due to port-a-cath Qualifiers: Encounter type: subsequent encounter Qualified Code(s): T80.219D - Unspecified infection due to central venous catheter, subsequent encounter Is this a current diagnosis for this admission?: Yes Plan: Patient will continue on fluconazole until I hear back from microbiology lab. Clinically she is improving. Plan is to place a new central line next week, surgeon following. Continue to monitor the site of Port-A-Cath removal, right upper chest. (3) Anemia of chronic disease Is this a current diagnosis for this admission?: Yes Plan: Hemoglobin stable. No active bleeding. Continue to monitor. (4) Underweight Is this a current diagnosis for this admission?: Yes Plan: Putting on weight has been difficult for this patient for a long time. She continues to have protein calorie malnutrition. She is working with friends and family on other strategies for improving her nutritional status and for increasing her weight. She agrees to a protein supplement on her tray, I have asked nutrition to consult and to offer her a lactose-free supplement as she has lactose intolerance. Patient continues on Megace. (5) DVT prophylaxis Is this a current diagnosis for this admission?: Yes Plan: Continue heparin 5000 units subcu every 8 hours. (6) Pedal edema Is this a current diagnosis for this admission?: Yes Plan: This is secondary to patient's hypoalbuminemia and poor nutritional status. She has been on Lasix chronically and this will continue for now. Also continue to work with her on her nutritional status. - Time Time Spent with patient: 35 or more minutes Medications reviewed and adjusted accordingly: Yes Anticipated discharge: Home - Inpatient Certification Based on my medical assessment, after consideration of the patient's comorbidities, presenting symptoms, or acuity I expect that the services needed warrant INPATIENT care.: Yes I certify that my determination is in accordance with my understanding of Medicare's requirements for reasonable and necessary INPATIENT services [42 CFR 412.3e].: Yes Medical Necessity: Significant Comorbidiites Make Outpatient Treatment Too Risky , Need Close Monitoring Due to Risk of Patient Decompensation, Need for IV Antibiotics, Risk of Complication if Not Cared For in Hospital
[2017-11-29] MEDS: ONDANSETRON HCL INJ/PF 4 MG/2 ML SDV IV PRN (17:42)
[2017-11-29] MEDS: CLONAZEPAM 1 MG TABLET PO SCH (21:20)
[2017-11-30] MEDS: OXYCODONE-ACETAMINOPHEN 5-325 MG TABLET PO PRN ×3 (03:36→19:43)
[2017-11-30] MEDS: NORMAL SALINE 1000 ML 1,000 ML IV PRN (03:40)
[2017-11-30 05:38] LABS: APPEARANCE,URINE CLEAR; BILIRUBIN,URINE NEGATIVE (NEGATIVE); COLOR,URINE YELLOW; GLUCOSE, URINE NEGATIVE (NEGATIVE); KETONES,URINE NEGATIVE (NEGATIVE); LEUKOCYTE ESTERASE,URINE NEGATIVE (NEGATIVE); NITRITE,URINE NEGATIVE (NEGATIVE); PROTEIN,URINE NEGATIVE (NEGATIVE); URINE SPECIFIC GRAVITY 1.017; UROBILINOGEN,URINE NEGATIVE mg/dL (<2.0)
[2017-11-30] MEDS: HEPARIN SOD (PORCINE) 5,000 UNIT/ML 1 ML SYRINGE SUBCUT SCH ×3 (05:53→22:25)
[2017-11-30] MEDS: LEVOTHYROXINE SODIUM 0.025 MG TABLET PO SCH (05:53)
[2017-11-30 06:57] LABS: HEMATOCRIT 24.1 % (36.0-47.0); HEMOGLOBIN 8.4 g/dL (12.0-15.5); MEAN CORPUSCULAR HEMOGLOBIN 30.2 pg (27.0-33.4); MEAN CORPUSCULAR HGB CONC 34.7 g/dL (32.0-36.0); MEAN CORPUSCULAR VOLUME 87 fl (80-97); PLATELET COUNT 553 10^3/uL (150-450); RED BLOOD COUNT 2.77 10^6/uL (3.72-5.28); RED CELL DISTRIBUTION WIDTH 12.7 % (11.5-14.0); WHITE BLOOD COUNT 10.5 10^3/uL (4.0-10.5)
[2017-11-30 07:18] LABS: ANION GAP 10 (5-19); BLOOD UREA NITROGEN 15 mg/dL (7-20); CALCIUM 8.3 mg/dL (8.4-10.2); CARBON DIOXIDE 17 mmol/L (22-30); CHLORIDE 117 mmol/L (98-107); GLUCOSE 81 mg/dL (75-110); POTASSIUM 4.1 mmol/L (3.6-5.0); SODIUM 144.4 mmol/L (137-145)
[2017-11-30] MEDS: MEGESTROL ACETATE SUSP 400 MG/10 ML UDCUP PO SCH (09:40)
[2017-11-30] MEDS: FLUCONAZOLE 200 MG/NS RTU 100 ML IV SCH (09:40)
[2017-11-30] MEDS: FUROSEMIDE 20 MG TABLET PO SCH (09:40)
--- NOTE | 2017-11-30 16:57 | PDOC PROGRESS REPORT ---
Subjective Progress Note for:: 11/30/17 Subjective:: No fever or chills, no abdominal pain nausea or vomiting, she is able to eat and drink without too much difficulty though volume not very high. Donating without difficulty. Patient is feeling painful bumps on the right side of her scalp. She is convinced that she has shingles. Her right chest wound is a little bit tender, no bleeding. No other chest pain or difficulty breathing. Reason For Visit: FUNGEMIA, tunnelled PICC Physical Exam Vital Signs: Temp Pulse Resp BP Pulse Ox 98.2 F 82 19 119/74 100 11/30/17 15:20 11/30/17 15:20 11/30/17 15:20 11/30/17 15:20 11/30/17 15:20 Intake & Output 11/29/17 11/30/17 12/01/17 06:59 06:59 06:59 Intake Total 240 1880 Balance 240 1880 General appearance: PRESENT: no acute distress, cooperative, thin Head exam: PRESENT: atraumatic, normocephalic Eye exam: PRESENT: conjunctiva pink, EOMI. ABSENT: scleral icterus Ear exam: PRESENT: normal external ear exam. ABSENT: drainage Mouth exam: PRESENT: moist, neck supple Neck exam: ABSENT: lymphadenopathy Respiratory exam: PRESENT: clear to auscultation jamaal, unlabored. ABSENT: wheezes Cardiovascular exam: PRESENT: RRR. ABSENT: systolic murmur Pulses: PRESENT: normal radial pulses Vascular exam: PRESENT: normal capillary refill GI/Abdominal exam: PRESENT: soft. ABSENT: distended, guarding, tenderness Rectal exam: PRESENT: deferred Extremities exam: PRESENT: pedal edema - Mild Neurological exam: PRESENT: alert, awake, oriented to person, oriented to place , oriented to situation, CN II-XII grossly intact Psychiatric exam: PRESENT: appropriate affect. ABSENT: anxious Skin exam: PRESENT: dry, warm, other - Right chest wound where Port-A-Cath has been removed. IodoForm gauze is being used as a packing. No surrounding cellulitis. No drainage. Results Laboratory Results: 11/30/17 06:00 11/30/17 06:00 11/30/17 11/30/17 11/30/17 03:16 06:00 06:00 WBC 10.5 RBC 2.77 L Hgb 8.4 L Hct 24.1 L MCV 87 MCH 30.2 MCHC 34.7 RDW 12.7 Plt Count 553 H Sodium 144.4 Potassium 4.1 Chloride 117 H Carbon Dioxide 17 L Anion Gap 10 BUN 15 Creatinine 0.67 Est GFR ( Amer) > 60 Est GFR (Non-Af Amer) > 60 Glucose 81 Calcium 8.3 L Magnesium 1.8 Urine Color YELLOW Urine Appearance CLEAR Urine pH 6.0 Ur Specific [place] 1.017 Urine Protein NEGATIVE Urine Glucose (UA) NEGATIVE Urine Ketones NEGATIVE Urine Blood SMALL H Urine Nitrite NEGATIVE Ur Leukocyte Esterase NEGATIVE Urine WBC (Auto) 2 Urine RBC (Auto) 2 Assessment & Plan - Diagnosis (1) Fungemia Is this a current diagnosis for this admission?: Yes Plan: Secondary to infected Port-A-Cath. Will continue Diflucan, await further identification from reference lab to ensure this is appropriate, repeat blood cultures have been drawn today. Opthalmology consult ordered to evaluate for endopthalmitis, consult pending. 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 This last Port-A-Cath at been in place for about 6 months according to the patient, removed 11/26. Plan for catheter replacement is central line in the left upper extremity by Dr. Juice Watson sometime next week and when blood cultures are clear. (2) Infection due to port-a-cath Qualifiers: Encounter type: subsequent encounter Qualified Code(s): T80.219D - Unspecified infection due to central venous catheter, subsequent encounter Is this a current diagnosis for this admission?: Yes Plan: Please see plan for fungemia. Would being monitored closely, no drainage, no cellulitis. There is still postoperative packing in place surgeon will manage. (3) Anemia of chronic disease Is this a current diagnosis for this admission?: Yes Plan: Hemoglobin stable. No active bleeding. Continue to monitor. (4) Underweight Is this a current diagnosis for this admission?: Yes Plan: Putting on weight has been difficult for this patient for a long time. She continues to have protein calorie malnutrition. She is working with friends and family on other strategies for improving her nutritional status and for increasing her weight. She agrees to a protein supplement on her tray, I have asked nutrition to consult and to offer her a lactose-free supplement as she has lactose intolerance. Patient continues on Megace. (5) DVT prophylaxis Is this a current diagnosis for this admission?: Yes Plan: 2 new heparin 5000 units subcu every 8 hours. (6) Pedal edema Is this a current diagnosis for this admission?: Yes Plan: Stable, continue to monitor, likely due to poor nutritional status. Continue her Lasix. (7) Scalp lesion Is this a current diagnosis for this admission?: Yes Plan: pt convinced she has shingles, lesions are painful, on exam she has raised lesions in right scalp, some clustered, no blisters seen, pt requests valtrex and I explained I think that foliculitis more likely. Will try valtrex q 8 hrs for a few days and if not improvement will consider antibiotics for folliculitis. - Time Time Spent with patient: 25-34 minutes - Inpatient Certification Medical Necessity: Significant Comorbidiites Make Outpatient Treatment Too Risky , Need Close Monitoring Due to Risk of Patient Decompensation, Risk of Complication if Not Cared For in Hospital
[2017-11-30] MEDS: CLONAZEPAM 1 MG TABLET PO SCH (22:25)
[2017-12-01] MEDS ORDERED: VALACYCLOVIR HCL 500 MG TABLET PO ONE (02:00)
[2017-12-01 06:01] LABS: HEMATOCRIT 26.7 % (36.0-47.0); HEMOGLOBIN 8.9 g/dL (12.0-15.5); MEAN CORPUSCULAR HEMOGLOBIN 28.9 pg (27.0-33.4); MEAN CORPUSCULAR HGB CONC 33.2 g/dL (32.0-36.0); MEAN CORPUSCULAR VOLUME 87 fl (80-97); PLATELET COUNT 604 10^3/uL (150-450); RED BLOOD COUNT 3.07 10^6/uL (3.72-5.28); RED CELL DISTRIBUTION WIDTH 12.5 % (11.5-14.0); WHITE BLOOD COUNT 12.4 10^3/uL (4.0-10.5)
[2017-12-01] MEDS: HEPARIN SOD (PORCINE) 5,000 UNIT/ML 1 ML SYRINGE SUBCUT SCH ×3 (06:24→22:58)
[2017-12-01] MEDS: LEVOTHYROXINE SODIUM 0.025 MG TABLET PO SCH (06:24)
[2017-12-01] MEDS: VALACYCLOVIR HCL 500 MG TABLET PO SCH ×3 (06:24→21:37)
[2017-12-01] MEDS: OXYCODONE-ACETAMINOPHEN 5-325 MG TABLET PO PRN ×3 (06:30→22:26)
[2017-12-01] MEDS: FUROSEMIDE 20 MG TABLET PO SCH (09:46)
[2017-12-01] MEDS: MEGESTROL ACETATE SUSP 400 MG/10 ML UDCUP PO SCH (09:46)
[2017-12-01] MEDS ORDERED: OXYCODONE-ACETAMINOPHEN 5-325 MG TABLET ONE (10:59)
[2017-12-01] MEDS ORDERED: FLUCONAZOLE 400 MG/NS RTU 400 MG/200 ML RTUPB IV ONE (12:00)
--- NOTE | 2017-12-01 14:17 | PDOC PROGRESS REPORT ---
Subjective Progress Note for:: 12/01/17 Subjective:: Patient is doing well no fever no chills no chest pain no abdominal pain Repeat blood cultures on 11/29 were negative Reason For Visit: FUNGEMIA, tunnelled PICC Physical Exam Vital Signs: Temp Pulse Resp BP Pulse Ox 98.6 F 73 16 114/59 L 100 12/01/17 12:45 12/01/17 12:45 12/01/17 12:45 12/01/17 12:45 12/01/17 12:45 Intake & Output 11/30/17 12/01/17 12/02/17 00:59 00:59 00:59 Intake Total 2120 368 Balance 2120 368 General appearance: PRESENT: no acute distress, cooperative, thin Head exam: PRESENT: atraumatic, normocephalic Eye exam: PRESENT: conjunctiva pink, EOMI. ABSENT: scleral icterus Ear exam: PRESENT: normal external ear exam. ABSENT: drainage Mouth exam: PRESENT: moist, neck supple Neck exam: ABSENT: lymphadenopathy Respiratory exam: PRESENT: clear to auscultation jamaal, unlabored. ABSENT: wheezes Cardiovascular exam: PRESENT: RRR. ABSENT: systolic murmur Pulses: PRESENT: normal radial pulses Vascular exam: PRESENT: normal capillary refill GI/Abdominal exam: PRESENT: soft. ABSENT: distended, guarding, tenderness Extremities exam: PRESENT: pedal edema - Mild Neurological exam: PRESENT: alert, awake, oriented to person, oriented to place , oriented to situation, CN II-XII grossly intact Skin exam: PRESENT: dry, warm, other - Right chest wound dressed no drainage Results Laboratory Results: 12/01/17 05:40 11/30/17 06:00 12/01/17 05:40 WBC 12.4 H RBC 3.07 L Hgb 8.9 L Hct 26.7 L MCV 87 MCH 28.9 MCHC 33.2 RDW 12.5 Plt Count 604 H Assessment & Plan - Time Time Spent with patient: (1) Fungemia Is this a current diagnosis for this admission?: Yes Plan: Secondary to infected Port-A-Cath. Will continue Diflucan, await further identification from reference lab to ensure this is appropriate, repeat blood cultures have been drawn today. Opthalmology consult ordered to evaluate for endopthalmitis, consult pending. 3/4 discussed case with infectious disease at [facility] Patient to be treated for 14 days after negative blood culture with fluconazole 400 mg IV daily Treatment will be completed on 12/13/2017 (2) Infection due to port-a-cath Qualifiers: Encounter type: subsequent encounter Qualified Code(s): T80.219D - Unspecified infection due to central venous catheter, subsequent encounter Is this a current diagnosis for this admission?: Yes Plan: Please see plan for fungemia. Would being monitored closely, no drainage, no cellulitis. There is still postoperative packing in place surgeon will manage. (3) Anemia of chronic disease Is this a current diagnosis for this admission?: Yes Plan: Hemoglobin stable. No active bleeding. Continue to monitor. (4) Underweight Is this a current diagnosis for this admission?: Yes Plan: Putting on weight has been difficult for this patient for a long time. She continues to have protein calorie malnutrition. She is working with friends and family on other strategies for improving her nutritional status and for increasing her weight. She agrees to a protein supplement on her tray, I have asked nutrition to consult and to offer her a lactose-free supplement as she has lactose intolerance. Patient continues on Megace. (5) DVT prophylaxis Is this a current diagnosis for this admission?: Yes Plan: 2 new heparin 5000 units subcu every 8 hours. (6) Pedal edema Is this a current diagnosis for this admission?: Yes Plan: Stable, continue to monitor, likely due to poor nutritional status. Continue her Lasix. (7) Scalp lesion Is this a current diagnosis for this admission?: Yes Plan: pt convinced she has shingles, lesions are painful, on exam she has raised lesions in right scalp, some clustered, no blisters seen, pt requests valtrex and I explained I think that foliculitis more likely. Will try valtrex q 8 hrs for a few days and if not improvement will consider antibiotics for folliculitis. To complete treatment after 7 days patient is scheduled for new IV access in a.m. Time Spent with patient: 25-34 minutes
[2017-12-01] MEDS: CLONAZEPAM 1 MG TABLET PO SCH (21:37)
[2017-12-02] MEDS: OXYCODONE-ACETAMINOPHEN 5-325 MG TABLET PO PRN ×4 (04:49→22:27)
[2017-12-02] MEDS: HEPARIN SOD (PORCINE) 5,000 UNIT/ML 1 ML SYRINGE SUBCUT SCH ×3 (05:08→21:11)
[2017-12-02] MEDS: VALACYCLOVIR HCL 500 MG TABLET PO SCH ×3 (05:16→21:19)
[2017-12-02] MEDS: LEVOTHYROXINE SODIUM 0.025 MG TABLET PO SCH (05:16)
[2017-12-02] MEDS: MEGESTROL ACETATE SUSP 400 MG/10 ML UDCUP PO SCH (10:32)
[2017-12-02] MEDS: FUROSEMIDE 20 MG TABLET PO SCH (10:32)
[2017-12-02] MEDS: FLUCONAZOLE 400 MG/NS RTU 400 MG/200 ML RTUPB IV SCH (10:33)
--- NOTE | 2017-12-02 15:57 | PDOC PROGRESS REPORT ---
Subjective Progress Note for:: 12/02/17 Subjective:: Seen and examined this afternoon. She reports feeling fine, her lunch tray was there and did not eat much of it as she reported the food does not taste good. Otherwise no fever nor chills. Plan for port insertion in am. Reason For Visit: FUNGEMIA, tunnelled PICC Physical Exam Vital Signs: Temp Pulse Resp BP Pulse Ox 98.8 F 84 15 110/62 100 12/02/17 11:58 12/02/17 11:58 12/02/17 11:58 12/02/17 11:58 12/02/17 11:58 Intake & Output 12/01/17 12/02/17 12/03/17 06:59 06:59 06:59 Intake Total 368 Balance 368 General appearance: PRESENT: no acute distress, thin Head exam: PRESENT: atraumatic, normocephalic Eye exam: PRESENT: EOMI Mouth exam: PRESENT: moist, neck supple Neck exam: PRESENT: full ROM Respiratory exam: PRESENT: accessory muscle use Cardiovascular exam: PRESENT: RRR GI/Abdominal exam: PRESENT: soft, tenderness - mid abdomen Rectal exam: PRESENT: deferred Extremities exam: PRESENT: full ROM Musculoskeletal exam: PRESENT: full ROM Neurological exam: PRESENT: alert, oriented to person, oriented to time, oriented to situation Psychiatric exam: PRESENT: appropriate affect Results Laboratory Results: 12/01/17 05:40 11/30/17 06:00 Assessment & Plan - Diagnosis (1) Fungemia Is this a current diagnosis for this admission?: Yes Plan: She is to continue on IV Diflucan until December 13, 2017. This has been discussed with infectious disease over at [facility]. Ophthalmology has been consulted and awaiting input.Blood culture from November 29, 2017 negative thus far. (2) Infection due to port-a-cath Qualifiers: Encounter type: subsequent encounter Qualified Code(s): T80.219D - Unspecified infection due to central venous catheter, subsequent encounter Is this a current diagnosis for this admission?: Yes Plan: Continue current IV antibiotic. Dressing in place and wound care per surgery. (3) Anemia of chronic disease Is this a current diagnosis for this admission?: Yes Plan: Continue to monitor hemoglobin (4) Severe protein-calorie malnutrition Is this a current diagnosis for this admission?: Yes Plan: Encourage good p.o. intake Protein supplement Nutrition consult (5) Pedal edema Is this a current diagnosis for this admission?: Yes Plan: Continue Lasix and leg elevation (6) Scalp lesion Is this a current diagnosis for this admission?: Yes Plan: Continue current regimen of antibiotics and reassess (7) DVT prophylaxis Is this a current diagnosis for this admission?: Yes Plan: On heparin SQ
[2017-12-02] MEDS: CLONAZEPAM 1 MG TABLET PO SCH (21:19)
[2017-12-02 21:37] LABS: ABSOLUTE BASOPHILS # (AUTO) 0.1 10^3/uL (0.0-0.2); ABSOLUTE LYMPHOCYTES (AUTO) 2.3 10^3/uL (0.5-4.7); ABSOLUTE MONOCYTES (AUTO) 0.7 10^3/uL (0.1-1.4); ABSOLUTE NEUT (AUTO) 7.5 10^3/uL (1.7-8.2); BASOPHILS % (AUTO) 0.6 % (0-2); EOSINOPHILS % (AUTO) 0.4 % (0-6); HEMATOCRIT 29.2 % (36.0-47.0); LYMPHOCYTES % (AUTO) 21.5 % (13-45); MEAN CORPUSCULAR HEMOGLOBIN 30.1 pg (27.0-33.4); MEAN CORPUSCULAR HGB CONC 34.2 g/dL (32.0-36.0); MEAN CORPUSCULAR VOLUME 88 fl (80-97); MONOCYTES % (AUTO) 6.9 % (3-13); PLATELET COUNT 646 10^3/uL (150-450); RED BLOOD COUNT 3.31 10^6/uL (3.72-5.28); RED CELL DISTRIBUTION WIDTH 12.7 % (11.5-14.0); SEGMENTED NEUTROPHILS % (AUTO) 70.6 % (42-78); TOTAL CELLS COUNTED % (AUTO) 100 %; WHITE BLOOD COUNT 10.6 10^3/uL (4.0-10.5)
[2017-12-02] MEDS: NORMAL SALINE 1000 ML 1,000 ML IV PRN (22:28)
[2017-12-03] MEDS: OXYCODONE-ACETAMINOPHEN 5-325 MG TABLET PO PRN ×4 (04:45→23:53)
[2017-12-03] MEDS ORDERED: OXYCODONE-ACETAMINOPHEN 5-325 MG TABLET PO PRN (05:00)
[2017-12-03] MEDS ORDERED: CLINDAMYCIN 600 MG/D5W RTU 600 MG/50 ML RTUPB IV PRN (05:00)
[2017-12-03] MEDS ORDERED: DIAZEPAM 5 MG TABLET PO PRN (05:00)
[2017-12-03] MEDS: LEVOTHYROXINE SODIUM 0.025 MG TABLET PO SCH (06:32)
[2017-12-03] MEDS: VALACYCLOVIR HCL 500 MG TABLET PO SCH ×3 (06:32→23:02)
[2017-12-03] MEDS: HEPARIN SOD (PORCINE) 5,000 UNIT/ML 1 ML SYRINGE SUBCUT SCH ×3 (06:32→23:56)
[2017-12-03] MEDS: NORMAL SALINE 1000 ML 1,000 ML IV PRN (06:36)
[2017-12-03 07:42] LABS: ALANINE AMINOTRANSFERASE 25 U/L (9-52); ALBUMIN 2.5 g/dL (3.5-5.0); ALKALINE PHOSPHATASE 47 U/L (38-126); ANION GAP 10 (5-19); ASPARTATE AMINO TRANSFERASE 13 U/L (14-36); BLOOD UREA NITROGEN 15 mg/dL (7-20); CALCIUM 8.9 mg/dL (8.4-10.2); CARBON DIOXIDE 18 mmol/L (22-30); CHLORIDE 112 mmol/L (98-107); GLUCOSE 87 mg/dL (75-110); POTASSIUM 4.2 mmol/L (3.6-5.0); SODIUM 139.8 mmol/L (137-145); TOTAL PROTEIN 4.8 g/dL (6.3-8.2)
[2017-12-03 07:47] LABS: BILIRUBIN,TOTAL < 0.1 mg/dL (0.2-1.3)
[2017-12-03 07:54] LABS: INTERNATIONAL RATION (INR) 1.04; PROTHROMBIN TIME 14.3 SEC (11.4-15.4)
[2017-12-03] MEDS ORDERED: LIDOCAINE 0.5% INJ-PF (5 MG/ML) 50 ML SDV ONE ×2 (08:25→11:14)
[2017-12-03] MEDS ORDERED: BACITRACIN INJ 50,000 UNIT VIAL ONE ×2 (08:25→11:15)
[2017-12-03] MEDS ORDERED: MIDAZOLAM 2 MG/2 ML INJ ONE ×2 (08:42→10:49)
[2017-12-03] MEDS ORDERED: FENTANYL CITRATE INJ/PF 100 MCG/2 ML AMPUL ONE ×2 (08:42→10:49)
[2017-12-03] MEDS ORDERED: NORMAL SALINE 10 ML SDV (AFTER EACH USE) IV PRN (12:33)
--- NOTE | 2017-12-03 12:36 | Operative Report ---
Operative Report DATE OF SURGERY: 11/26/17 PREOPERATIVE DIAGNOSIS: 1. Fungal infection, septicemia. 2. Infected Port-A- Cath. 3. Malabsorption syndrome. POSTOPERATIVE DIAGNOSIS: 1. Fungal infection, septicemia. Post removal of infected Port-A-Cath. 2. Infected Port-A-Cath. 3. Malabsorption syndrome. OPERATION: 1. Ultrasound evaluation real-time access into veins. 2. Insertion of left internal jugular based tunneled PICC line under ultrasound guidance. 3. Removal of left internal jugular base PICC line because of thoracic duct leak, presumed. 4. Ultrasound-guided insertion of PICC line via left brachial vein. SURGEON: PRASANNA DIEHL CRIMINAL JUSTICE TEACHER: None ANESTHESIA: LMAC TISSUE REMOVED OR ALTERED: Not applicable. COMPLICATIONS: Persisting, very low volume clear drainage from the left neck incision indicative of lymph. This was addressed by removal of the catheter and application of a firm dressing. This complication was discussed with the patient and with her mother. I believe the best course of action in this patient who depends on TPN, is insertion of a peripheral PICC. As accomplished today. Planning for about 6 weeks and allowing healing of the right open subclavian wound. Thereafter insertion of a tunneled PICC line via the right internal jugular or the left internal jugular. The reasons, plans were discussed frankly with the patient and her mother. They seem to have a good grasp and wish to proceed. ESTIMATED BLOOD LOSS: 2 mL. INTRAOPERATIVE FINDINGS: Of a satisfactory left sided internal jugular vein estimated to be about 1 2.2 cm in diameter. Satisfactory axis and the PICC line placed with the tip just down in the right atrium. A complication was noted after the procedure which is drainage of clear fluid from the neck incision, indicative of thoracic duct leak. The catheter was therefore removed. Considerable difficulty was encountered in obtaining access the left brachial vein 1 of 2 and a PICC line placed. The tip of this catheter was in the superior vena cava anatomically. PROCEDURE: After obtaining informed consent, the patient was taken to the [Layout Designer] and positioned supine. The [left neck] and chest were prepared with chlorhexidine and draped out with sterile linen. After the " universal timeout", in which it was verified that the patient continued to receive antibiotic, the procedure commenced. A steriley sheathed ultrasound probe was used to evaluate the left internal jugular] vein. Local anesthesia was infiltrated adjacent to the probe. Access into the [right internal jugular] vein was obtained using a micropuncture needle, followed by micropuncture wire and then a micropuncture catheter. This was followed by introduction of a 0.018 guidewire the tip of which was placed down into the inferior vena cava . A tunneled PICC catheter the port was now positioned over the chest and an exit site marked and locally anesthetized ,the catheter was placed between the 2 incisions. Proximally, the catheter was now positioned using a peel-away sheath, after dilation. Easy ingress of heparinized solution and egress of blood obtained through both ports. A completion angiogram was done by injecting contrast. The findings were as dictated. The neck incision was now closed using interrupted 3-0 PDS to the subcutaneous tissues, the catheter was anchored at the exit site using 3- 0 PDS. A Biopatch device was now placed adjacent to the catheter. Dressings were applied and the procedure concluded. At this point persisting low-volume clear drainage was noted from the neck wound. This was indicative of a thoracic leak and therefore the catheter was removed from dressings applied. After discussion with the patient and with her mother a left brachial PICC line was inserted. It is to be noted that evaluation of the right side showed no anatomic basilic vein. Instead there were a number of collaterals suggestive of obstruction or distorted anatomy from previous. The findings on the left were absent basilic vein, probably fibrosis from previous PICC line. The brachial vein was duplicate and these were small the lateral, 2.2 mm. The lateral of the brachial veins was accessed with great difficulty. Several attempts were made and finally achieved about 8 cm beneath the axilla. The left arm was prepared with correct sitting and draped in sterile linen. Under ultrasound guidance access into the brachial vein was attempted. 3 tries at increasing levels were done in order to access the vein. This is a consequence of the veins being extremely small. Success was achieved and the catheter tailored to 39 cm and inserted using the peel-away sheath. Easy egress of blood and ingress of heparinized solution was accomplished. The tip of the catheter was visualized well down in the superior vena cava. The catheter was now anchored using the retained fixating device. The catheter was surrounded at this injury to the skin with a Biopatch. Exposure time: [0.1 minutes]. Exposure: 6.7 Amina kirby Contrast amount: [5 mL] of [id number] low osmolality. Copies of the dictated operative report for Dr. Prasanna Watson MD.concluded. Copies of the dictated operative report for Dr. Prasanna Watson MD.
[2017-12-03] MEDS: MEGESTROL ACETATE SUSP 400 MG/10 ML UDCUP PO SCH (12:37)
[2017-12-03] MEDS: FLUCONAZOLE 400 MG/NS RTU 400 MG/200 ML RTUPB IV SCH (12:38)
[2017-12-03] MEDS: FUROSEMIDE 20 MG TABLET PO SCH (12:39)
--- NOTE | 2017-12-03 16:52 | PDOC PROGRESS REPORT ---
Subjective Progress Note for:: 12/03/17 Subjective:: Here with fungemia- had insertion of left internal jugular based tunneled PICC line then she had insertion of PICC line via left brachial vein. Seen and examined this am- and reports pain at the site of PICC removal. Reason For Visit: FUNGEMIA, tunnelled PICC Physical Exam Vital Signs: Temp Pulse Resp BP Pulse Ox 98.3 F 76 16 131/73 H 100 12/03/17 12:26 12/03/17 12:26 12/03/17 12:26 12/03/17 12:26 12/03/17 12:26 Intake & Output 12/02/17 12/03/17 12/04/17 06:59 06:59 06:59 Intake Total 896 Balance 896 General appearance: PRESENT: thin, other - ill-looking Head exam: PRESENT: atraumatic, normocephalic Eye exam: PRESENT: EOMI Neck exam: PRESENT: full ROM Respiratory exam: PRESENT: clear to auscultation jamaal, unlabored. ABSENT: accessory muscle use Cardiovascular exam: PRESENT: RRR GI/Abdominal exam: PRESENT: normal bowel sounds, soft Rectal exam: PRESENT: deferred Musculoskeletal exam: PRESENT: full ROM Neurological exam: PRESENT: alert, oriented to person, oriented to time, oriented to situation, reflexes normal Psychiatric exam: PRESENT: appropriate affect Skin exam: PRESENT: dry, warm Results Laboratory Results: 12/02/17 21:24 12/03/17 06:28 12/02/17 12/03/17 21:24 06:28 WBC 10.6 H RBC 3.31 L Hgb 10.0 L Hct 29.2 L MCV 88 MCH 30.1 MCHC 34.2 RDW 12.7 Plt Count 646 H Seg Neutrophils % 70.6 Lymphocytes % 21.5 Monocytes % 6.9 Eosinophils % 0.4 Basophils % 0.6 Absolute Neutrophils 7.5 Absolute Lymphocytes 2.3 Absolute Monocytes 0.7 Absolute Eosinophils 0.0 Absolute Basophils 0.1 Sodium 139.8 Potassium 4.2 Chloride 112 H Carbon Dioxide 18 L Anion Gap 10 BUN 15 Creatinine 0.57 Est GFR ( Amer) > 60 Est GFR (Non-Af Amer) > 60 Glucose 87 Calcium 8.9 Total Bilirubin < 0.1 L AST 13 L ALT 25 Alkaline Phosphatase 47 Total Protein 4.8 L Albumin 2.5 L Assessment & Plan - Diagnosis (1) Fungemia Is this a current diagnosis for this admission?: Yes Plan: She is to continue on IV Diflucan until December 13, 2017. This has been discussed with infectious disease over at [facility]. Ophthalmology has been consulted and no notes seen in EMR- Will follow. Blood culture from November 29, 2017 negative thus far. (2) Infection due to port-a-cath Qualifiers: Encounter type: subsequent encounter Qualified Code(s): T80.219D - Unspecified infection due to central venous catheter, subsequent encounter Is this a current diagnosis for this admission?: Yes Plan: Continue current IV antibiotic. Dressing in place and wound care. (3) Anemia of chronic disease Is this a current diagnosis for this admission?: Yes Plan: Continue to monitor hemoglobin (4) Severe protein-calorie malnutrition Is this a current diagnosis for this admission?: Yes Plan: Encourage good p.o. intake Protein supplement (5) Pedal edema Is this a current diagnosis for this admission?: Yes Plan: Continue Lasix and leg elevation (6) Scalp lesion Is this a current diagnosis for this admission?: Yes Plan: Resolving. Continue current regimen of antibiotics (7) DVT prophylaxis Is this a current diagnosis for this admission?: Yes Plan: On heparin SQ
[2017-12-03] MEDS: CLONAZEPAM 1 MG TABLET PO SCH (23:01)
[2017-12-03] MEDS: NORMAL SALINE 10 ML SDV (SCHEDULED) IV SCH (23:12)
[2017-12-04] MEDS: OXYCODONE-ACETAMINOPHEN 5-325 MG TABLET PO PRN ×3 (07:33→17:50)
[2017-12-04] MEDS: HEPARIN SOD (PORCINE) 5,000 UNIT/ML 1 ML SYRINGE SUBCUT SCH ×2 (07:33→14:37)
[2017-12-04] MEDS: VALACYCLOVIR HCL 500 MG TABLET PO SCH ×2 (07:33→14:37)
[2017-12-04] MEDS: LEVOTHYROXINE SODIUM 0.025 MG TABLET PO SCH (07:33)
[2017-12-04] MEDS: NORMAL SALINE 10 ML SDV (SCHEDULED) IV SCH (09:24)
[2017-12-04] MEDS: MEGESTROL ACETATE SUSP 400 MG/10 ML UDCUP PO SCH (09:24)
[2017-12-04] MEDS: FUROSEMIDE 20 MG TABLET PO SCH (09:24)
[2017-12-04] MEDS: FLUCONAZOLE 400 MG/NS RTU 400 MG/200 ML RTUPB IV SCH (09:24)
--- NOTE | 2017-12-04 18:57 | PDOC DISCHARGE SUMMARY ---
General - Admit/Disc Date/PCP Admission Date/Primary Care Provider: 11/23/17 20:09 ARTEMIO JOSEPH, DO Discharge Date: 12/04/17 - Discharge Diagnosis (1) Fungemia Is this a current diagnosis for this admission?: Yes (2) Infection due to port-a-cath Is this a current diagnosis for this admission?: Yes (3) Anemia of chronic disease Is this a current diagnosis for this admission?: Yes (4) Severe protein-calorie malnutrition Is this a current diagnosis for this admission?: Yes (5) Pedal edema Is this a current diagnosis for this admission?: Yes (6) Scalp lesion Is this a current diagnosis for this admission?: Yes (7) DVT prophylaxis Is this a current diagnosis for this admission?: Yes - Additional Information Resuscitation Status: Full Code Prescriptions: Levothyroxine Sodium [Synthroid 0.025 mg Tablet] 0.025 mg PO Q6AM #30 tablet Megestrol Acetate [Megace Leola 400 mg/10 ml Udcup] 800 mg PO DAILY 7 Days udc Oxycodone HCl/Acetaminophen [Percocet 5-325 mg Tablet] 1 tab PO Q4HP PRN 2 Days #12 tablet PRN Reason: Valacyclovir HCl [Valtrex 500 mg Tablet] 500 mg PO Q8 3 Days #9 tablet Home Medications: Aspirin/Acetaminophen/Caffeine [Excedrin Migraine Caplet] 1 tab PO DAILY Clonazepam [Klonopin 2 mg Tablet] 4 mg PO QHS 11/24/17 Diltiazem HCl [Diltiazem 24Hr Cd] 120 mg PO QHS 11/24/17 Furosemide [Lasix 20 mg Tablet] 20 mg PO DAILY 11/24/17 Ibuprofen [Motrin 800 mg Tablet] 800 mg PO DAILY 11/24/17 Rizatriptan Benzoate [Maxalt] 10 mg PO DAILYP PRN 11/24/17 Levothyroxine Sodium [Synthroid 0.025 mg Tablet] 0.025 mg PO Q6AM #30 tablet 04/16 Megestrol Acetate [Megace Leola 400 mg/10 ml Udcup] 800 mg PO DAILY 7 Days udc 12/04/17 Oxycodone HCl/Acetaminophen [Percocet 5-325 mg Tablet] 1 tab PO Q4HP PRN 2 Days #12 tablet 12/04/17 Valacyclovir HCl [Valtrex 500 mg Tablet] 500 mg PO Q8 3 Days #9 tablet 12/04/17 History of Present Illness History of Present Illness: SHIKHA DEAN is a 37 year old female with history of malabsorption ( post multiple abdominal surgeries including partial gastrectomy secondary to nonhealing ulcers, on TPN) and tachycardia was admitted with above-mentioned complaints. The patient was at her pharmacist yesterday getting her TPN where she was told that her WBC was elevated and was advised to come to the ED. In the ED, she had blood work done including blood cultures and UA. She was found to have UTI and was started on Bactrim and discharged home. The patient was called back today because 1/2 of her blood cultures grew yeast. According to the patient, she has been having fevers up to 103.5 over the last week and that she has been having increased pain and erythema around her Port-A-Cath for the last 2 days. She denied any discharge from Port-A-Cath. She said she felt nauseous but she is unable to vomit. She had some abdominal pain and she has been constipated. The last bowel movement was 2 days ago of somewhat soft, nonbloody stool. She denied any urinary symptoms but had generalized weakness. She apparently has chronic chest pain and dyspnea. She has been feeling congested lately and having intermittent cough. In the ED, her temperature was 98.7, heart rate 90, respiratory rate 14, blood pressure 110/66 with oxygen saturation of 99% on room air. WBC was 8.9. Her urinalysis was positive on 11/22/2026 but her chest x-ray was negative for any acute findings. She was started on Vancomycin x1, 2 g cefepime 1 and 100 mg Diflucan IV 1. Hospital Course Hospital Course: Patient is a 37-year-old woman with history of multiple abdominal surgery, malabsorption, sever protein calorie malnutrition, was on TPN at home via Port-A-Cath presented to the hospital on November 23, 2017 with blood cultures growing yeasts. She had evidence of leukocytosis. Blood culture this admission grew Cielo albicans and dubliniensis. Surgery was consulted and the port was removed. [facility]ious disease from [facility] recommended that she treat for 14 days from negative blood culture which was November 29, 2017. Surgery attempted to put a PICC via left internal jugular unsuccessfully on 12/03/2017 and th PICC was placed in the left brachial vein. Ophthalmology was consulted and she was seen right before discharge and no change in the plan and the patient was advised to follow-up with ophthalmology if changes in vision. She is to continue on fluconazole 400 mg IV until December 13, 2017. Physical Exam Vital Signs: Temp Pulse Resp BP Pulse Ox 98.1 F 111 H 16 121/67 99 12/04/17 16:47 12/04/17 16:47 12/04/17 16:47 12/04/17 16:47 12/04/17 16:47 Intake & Output 12/03/17 12/04/17 12/05/17 06:59 06:59 06:59 Intake Total 896 450 866 Balance 896 450 866 General appearance: PRESENT: no acute distress, thin, other - chronically ill Head exam: PRESENT: atraumatic, normocephalic Eye exam: PRESENT: EOMI Mouth exam: PRESENT: moist Neck exam: PRESENT: full ROM Respiratory exam: PRESENT: clear to auscultation jamaal, unlabored Cardiovascular exam: PRESENT: RRR GI/Abdominal exam: PRESENT: soft, tenderness Rectal exam: PRESENT: deferred Extremities exam: PRESENT: full ROM, other - L arm PICC Musculoskeletal exam: PRESENT: full ROM Neurological exam: PRESENT: alert, oriented to person, oriented to time, oriented to situation Psychiatric exam: PRESENT: depressed Skin exam: PRESENT: dry, warm Results Laboratory Results: 12/02/17 21:24 12/03/17 06:28 11/29/17 08:08 Blood Blood Culture - Final NO GROWTH IN 5 DAYS 11/29/17 06:25 Blood Blood Culture - Final NO GROWTH IN 5 DAYS Qualifiers - * PATEINT BEING DISCHARGED WITH ANY OF THE FOLLOWING DIAGNOSIS?: No VTE patient discharged on overlapping Therapy?: Yes Plan Time Spent: Greater than 30 Minutes
[2017-12-04 19:21] VITALS: BP 106/56
== END 2017-12-04 19:35 | disposition home or self-care (01) | DRG 314 ==
LOC: ER 16:10 → EH 20:09 → 2N 22:23
PROVIDERS: ADMIT Internal Medicine Geriatric Medicine; ATTEND Internal Medicine Geriatric Medicine
PROC: 3E0F73Z Introduction of Anti-inflammatory into Respiratory Tract, Via Natural or Artificial Opening (ICD-10-PCS; 2017-11-24)
PROC: B548ZZA Ultrasonography of Superior Vena Cava, Guidance (ICD-10-PCS; 2017-11-26)
PROC: B5181ZA Fluoroscopy of Superior Vena Cava using Low Osmolar Contrast, Guidance (ICD-10-PCS; 2017-11-26)
PROC: 3E0336Z Introduction of Nutritional Substance into Peripheral Vein, Percutaneous Approach (ICD-10-PCS; 2017-11-26)
PROC: 02PY33Z Removal of Infusion Device from Great Vessel, Percutaneous Approach (ICD-10-PCS; 2017-11-26)
PROC: 02HV33Z Insertion of Infusion Device into Superior Vena Cava, Percutaneous Approach (ICD-10-PCS; principal; 2017-11-26 07:30)
DX: T80.212A Local infection due to central venous catheter, initial encounter (principal); E43 Unspecified severe protein-calorie malnutrition; B49 Unspecified mycosis; N39.0 Urinary tract infection, site not specified; Z68.20 Body mass index [BMI] 20.0-20.9, adult; D63.8 Anemia in other chronic diseases classified elsewhere; L98.9 Disorder of the skin and subcutaneous tissue, unspecified; R00.0 Tachycardia, unspecified; Z79.899 Other long term (current) drug therapy; Z90.3 Acquired absence of stomach [part of]; Z90.49 Acquired absence of other specified parts of digestive tract; Z79.82 Long term (current) use of aspirin; Z88.0 Allergy status to penicillin; Z45.2 Encounter for adjustment and management of vascular access device; Z82.49 Family history of ischemic heart disease and other diseases of the circulatory system
CPT/HCPCS: 36415; 36558; 36569; 36589; 400; 76937; 77001; 80048; 80053; 80202; 81001; 82565; 82607; 82728; 82746; 83540; 83550; 83735; 84100; 84466; 85025; 85027; 85045; 85610; 87040; 87070; 87077; 87205; 93306; 99284; C1752; C1769; J0692; J1450; J1642; J1644; J1885; J2250; J2405; J2550; J2704; J3010; J3370; J3480; J3490; J7030; J7060; Q9967

== ENCOUNTER 2017-12-11 16:33 | Emergency (ER) | payer OTHER ==
--- NOTE | 2017-12-11 18:23 | RADIOLOGY REPORT (SQ) ---
EXAM DESCRIPTION: CHEST SINGLE VIEW COMPLETED DATE/TIME: 12/11/2017 6:13 pm REASON FOR STUDY: check picc placement COMPARISON: 11/22/2017. EXAM PARAMETERS: NUMBER OF VIEWS: One view. TECHNIQUE: Single frontal radiographic view of the chest acquired. RADIATION DOSE: NA LIMITATIONS: None. FINDINGS: LUNGS AND PLEURA: No opacities, masses or pneumothorax. No pleural effusion. MEDIASTINUM AND HILAR STRUCTURES: No masses. Contour normal. HEART AND VASCULAR STRUCTURES: Heart normal in size. Normal vasculature. BONES: No acute findings. HARDWARE: Tip of the PICC line at the level of the superior vena cava. OTHER: No other significant finding. IMPRESSION: TIP OF THE PICC LINE AT THE LEVEL OF THE SUPERIOR VENA CAVA. TECHNICAL DOCUMENTATION: JOB ID: [id number] [employer]- All Rights Reserved Reading location - IP/workstation name: [email or web address]
[2017-12-11] MEDS ORDERED: ALTEPLASE INJ 2 MG VIAL (CATH CLEARANCE) IV ONE (19:01)
[2017-12-11 20:12] VITALS: BP 120/76
--- NOTE | 2017-12-11 20:15 | ER Document Report ---
ED General - General Chief Complaint: Other Stated Complaint: PICC BLOCKED Time Seen by Provider: 12/11/17 17:41 Mode of Arrival: Ambulatory Information source: Patient Notes: Patient presents with inability to use her PICC line at home. She states it would not flush or draw. She states both herself and her home health nurse tried to flush it with heparin without any success. She denies any other symptoms. No arm pain no arm swelling. Symptoms are mild. Nothing appears to make them better or worse. No known radiation of symptoms. Symptoms have been constant. TRAVEL OUTSIDE OF THE [place] IN LAST 30 DAYS: No - Related Data Allergies/Adverse Reactions: amoxicillin [Amoxicillin] Allergy (Severe, Verified 12/11/17 16:50) Past Medical History - General Information source: Patient - Social History Smoking Status: Never Smoker Chew tobacco use (# tins/day): No Frequency of alcohol use: None Drug Abuse: None Family History: Reviewed & Not Pertinent, Hypertension Patient has suicidal ideation: No Patient has homicidal ideation: No - Past Medical History Cardiac Medical History: Denies: Hx Coronary Artery Disease, Hx Heart Attack, Hx Hypertension Pulmonary Medical History: Denies: Hx Asthma, Hx Bronchitis, Hx COPD, Hx Pneumonia, Hx Tuberculosis Neurological Medical History: Denies: Hx Cerebrovascular Accident, Hx Seizures Renal/ Medical History: Denies: Hx Peritoneal Dialysis GI Medical History: Reports: Hx Ulcer - Required surgical treatment Musculoskeltal Medical History: Denies Hx Arthritis Psychiatric Medical History: Denies: Hx Depression - anxiety, insomnia Past Surgical History: Reports: Hx Abdominal Surgery - entrectomy, vagotomy, SBO , Hx Appendectomy, Hx Cholecystectomy, Hx Genitourinary Surgery - intestines removed from prior bowel obstruction., Other - Gastric antrectomy/vagotomy. Denies: Hx Hysterectomy, Hx Pacemaker - Immunizations Hx Diphtheria, Pertussis, Tetanus Vaccination: Yes Review of Systems - Review of Systems Constitutional: denies: Chills, Fever Cardiovascular: denies: Chest pain, Palpitations Respiratory: denies: Short of breath, Wheezing Gastrointestinal: denies: Diarrhea, Vomiting -: Yes All other systems reviewed and negative Physical Exam - Vital signs Vitals: Temp Pulse Resp BP Pulse Ox 97.9 F 102 H 16 141/86 H 100 12/11/17 16:57 12/11/17 16:57 12/11/17 16:57 12/11/17 16:57 12/11/17 16:57 Interpretation: Normal - General General appearance: Appears well, Alert In distress: None - HEENT Head: Normocephalic, Atraumatic Eyes: Normal Pupils: PERRL - Respiratory Respiratory status: No respiratory distress Chest status: Nontender Breath sounds: Normal Chest palpation: Normal - Cardiovascular Rhythm: Regular Heart sounds: Normal auscultation Murmur: No - Abdominal Inspection: Normal Distension: No distension Bowel sounds: Normal Tenderness: Nontender Organomegaly: No organomegaly - Back Back: Normal, Nontender - Extremities General upper extremity: Normal inspection - Site of PICC line appears unremarkable. There is no swelling or tenderness. No warmth or erythema. There is no apparent kinking of the PICC line., Nontender, Normal color, Normal ROM, Normal temperature General lower extremity: Normal inspection, Nontender, Normal color, Normal ROM , Normal temperature, Normal weight bearing. No: Manjula's sign - Neurological Neuro grossly intact: Yes Cognition: Normal Orientation: AAOx4 [place] Coma Scale Eye Opening: Spontaneous [place] Coma Scale Verbal: Oriented Migel Coma Scale Motor: Obeys Commands Migel Coma Scale Total: 15 Speech: Normal Motor strength normal: LUE, RUE, LLE, RLE Sensory: Normal - Psychological Associated symptoms: Normal affect, Normal mood - Skin Skin Temperature: Warm Skin Moisture: Dry Skin Color: Normal Course - Re-evaluation Re-evalutation: 12/11/17 20:15 Cathflo was used in PICC line now flows and draws easily. - Vital Signs Vital signs: Temp Pulse Resp BP Pulse Ox 99.1 F 91 18 120/76 100 12/11/17 20:11 12/11/17 20:11 12/11/17 20:11 12/11/17 20:11 12/11/17 20:11 - Diagnostic Test Radiology reviewed: Image reviewed, Reports reviewed - X-ray shows no evidence of malpositioning or kinking of the PICC line. Discharge - Discharge Clinical Impression: Occluded PICC line Qualifiers: Encounter type: initial encounter Qualified Code(s): T82.898A - Other specified complication of vascular prosthetic devices, implants and grafts, initial encounter Condition: Stable Disposition: HOME, SELF-CARE Instructions: Central Line Clearing ([facility]) Referrals: ARTEMIO JOSEPH DO [Primary Care Provider] - Follow up as needed
== END 2017-12-11 20:26 | disposition home or self-care (01) ==
LOC: ER 16:33
DX: T82.898A Other specified complication of vascular prosthetic devices, implants and grafts, initial encounter (principal); Z90.49 Acquired absence of other specified parts of digestive tract; Z88.0 Allergy status to penicillin
CPT/HCPCS: 99283; 71045; J2997; J1642

== ENCOUNTER 2018-01-20 10:06 | Day surgery (SDC) | payer OTHER ==
[~2018-01-20 10:06] MED LIST: CLINDAMYCIN 300 MG/D5W RTU 300 MG/50 ML RTUPB IV PRN; DEXTROSE 5%-1/2 NORMAL SALINE 1,000 ML IV PRN; DIAZEPAM 5 MG TABLET PO PRN; OXYCODONE-ACETAMINOPHEN 5-325 MG TABLET PO PRN
[2018-01-20 11:29] LABS: ANION GAP 9 (5-19); BLOOD UREA NITROGEN 18 mg/dL (7-20); CALCIUM 8.8 mg/dL (8.4-10.2); CARBON DIOXIDE 26 mmol/L (22-30); CHLORIDE 106 mmol/L (98-107); GLUCOSE 84 mg/dL (75-110); POTASSIUM 3.2 mmol/L (3.6-5.0); SODIUM 140.7 mmol/L (137-145)
[2018-01-20] MEDS ORDERED: LIDOCAINE 0.5% INJ-PF (5 MG/ML) 50 ML SDV ONE (13:14)
[2018-01-20] MEDS ORDERED: MIDAZOLAM 2 MG/2 ML INJ ONE (13:14)
[2018-01-20] MEDS ORDERED: BACITRACIN INJ 50,000 UNIT VIAL ONE (13:15)
[2018-01-20] MEDS ORDERED: FENTANYL CITRATE INJ/PF 100 MCG/2 ML AMPUL ONE (13:15)
--- NOTE | 2018-01-20 15:05 | Operative Report ---
Operative Report DATE OF SURGERY: 01/20/18 PREOPERATIVE DIAGNOSIS: Malabsorption syndrome. POSTOPERATIVE DIAGNOSIS: Malabsorption syndrome. OPERATION: 1. Ultrasound evaluation of the right internal jugular vein. 2. Insertion of cuffed central catheter via right internal jugular vein. 3. Angiogram and interpretation. SURGEON: PRASANNA DIEHL MOTORS ASSEMBLER: None. ANESTHESIA: Moderate Sedation TISSUE REMOVED OR ALTERED: Not applicable. COMPLICATIONS: None. ESTIMATED BLOOD LOSS: 5 mL. INTRAOPERATIVE FINDINGS: Of a internal jugular vein, on the small side about 1 cm satisfactory access obtained and catheter position with the tip just down in the right atrium. Easy egress of blood smooth flow of contrast through the catheter into the right atrium, ventricle and pulmonary outflow tract PROCEDURE: After obtaining informed consent, the patient was taken to the [Gas Worker] and positioned supine. The [right neck] and chest were prepared with chlorhexidine and draped out with sterile linen. After the " universal timeout", in which it was verified that the patient continued to receive antibiotic, the procedure commenced. A steriley sheathed ultrasound probe was used to evaluate the [ right internal jugular] vein. Local anesthesia was infiltrated adjacent to the probe. Access into the [right internal jugular] vein was obtained using a micropuncture needle, followed by micropuncture wire and then a micropuncture catheter. This was followed by introduction of a 018 guidewire the tip of which was placed down into the inferior vena cava . A cuffed PICC catheter was now positioned over the chest and an exit site marked and locally anesthetized , the catheter was placed between the 2 incisions. It was not tailored to an appropriate length, and the skin is 24 cm. Proximally, the catheter was now positioned using a peel-away sheath, after dilation. Easy ingress of heparinized solution and egress of blood obtained through both ports. A completion angiogram was done by injecting contrast. The findings were as dictated. The neck incision was now closed using interrupted 3-0 PDS to the subcutaneous tissues, the catheter was anchored at the exit site using 3-0 PDS. A Biopatch device was now placed adjacent to the catheter. Dressings were applied and the procedure concluded. Exposure time: [0.3 minutes]. Exposure: 3.87 Amina kirby. Contrast amount: [5 mL] of [id number] low osmolality. Copies of the dictated operative report for Dr. Prasanna Watson MD.concluded. Copies of the dictated operative report for Dr. Prasanna Watson MD.
--- NOTE | 2018-01-20 15:07 | Discharge Summary ---
Discharge Summary (SDC) - Discharge Final Diagnosis: Malabsorption syndrome. Date of Surgery: 01/20/18 Discharge Date: 01/20/18 Forms: Sedation D/C Instructions, Discharge POC-Surgical Service Treatment or Instructions: Discharge home [after recovery per ASU criteria]. Diet ,as tolerated, when fully awake advance as tolerated. Activities within moderation encouraged. Follow up in my office by appointment in about [1 week]. Call for appointment. Leave wounds [covered], [keep clean and dry, until office visit in 1 week]. Hold of on school/work [until evaluation in office]. May shower [in 48 hrs], [try to keep operated area as dry as possible]. Referrals: PRASANNA VANESSA MD [ACTIVE STAFF] - 01/30/18 8:15 am (Follow up as scheduled) Discharge Diet: As Tolerated Respiratory Treatments at Home: Deep Breathing/Coughing Discharge Activity: Activity As Tolerated Report the Following to Your Physician Immediately: Shortness of Breath
[2018-01-20 16:03] VITALS: BP 102/58
--- NOTE | 2018-01-20 16:04 | RADIOLOGY REPORT (SQ) ---
EXAM DESCRIPTION: TUNNELED CENTRAL LINE COMPLETED DATE/TIME: 01/20/2018 3:39 pm REASON FOR STUDY: K90.9 MALABSORPTION TUNNELED PICC LINE K90.9 INTESTINAL MALABSORPTION, UNSPECIFIE D COMPARISON: None. FLUOROSCOPY TIME: 0.3 minutes 17 images saved to PACS. TECHNIQUE: Intra-operative images acquired during surgical procedure to evaluate progress. NUMBER OF IMAGES: 17 LIMITATIONS: None. FINDINGS: Selected images from placement of a right-sided IJ central line. Line tip overlies SVC. IMPRESSION: IMAGE(S) OBTAINED DURING PROCEDURE. COMMENT: Quality ID [id number]: Final reports for procedures using fluoroscopy that document radiation exp osure indices, or exposure time and number of fluorographic images (if radiation exposure indices are not available) Please consult full operative report of the attending physician for description of the procedure. TECHNICAL DOCUMENTATION: JOB ID: [id number] [employer]- All Rights Reserved Reading location - IP/workstation name: [facility]
== END 2018-01-20 15:50 | disposition home or self-care (01) ==
LOC: CCL 10:06
PROVIDERS: ATTEND Surgery
PROC: 05HM33Z Insertion of Infusion Device into Right Internal Jugular Vein, Percutaneous Approach (ICD-10-PCS; principal; 2018-01-20)
DX: K90.9 Intestinal malabsorption, unspecified (principal); Z45.2 Encounter for adjustment and management of vascular access device; I48.91 Unspecified atrial fibrillation; I49.5 Sick sinus syndrome; Z88.0 Allergy status to penicillin; Z79.899 Other long term (current) drug therapy; Z87.19 Personal history of other diseases of the digestive system; Z90.3 Acquired absence of stomach [part of]; Z87.11 Personal history of peptic ulcer disease; Z79.1 Long term (current) use of non-steroidal anti-inflammatories (NSAID); Z90.49 Acquired absence of other specified parts of digestive tract
CPT/HCPCS: 36415; 80048; 36558; 76937; 77001; C1752; Q9967; J2250; J3490 ×3; J3010; J1644

== ENCOUNTER 2018-01-23 10:03 | Emergency (ER) | payer OTHER ==
[2018-01-23 11:00] LABS: ABSOLUTE EOSINOPHILS # (AUTO) 0.3 10^3/uL (0.0-0.6); ABSOLUTE LYMPHOCYTES (AUTO) 0.5 10^3/uL (0.5-4.7); ABSOLUTE NEUT (AUTO) 3.1 10^3/uL (1.7-8.2); BASOPHILS % (AUTO) 0.2 % (0-2); EOSINOPHILS % (AUTO) 7.4 % (0-6); HEMATOCRIT 30.6 % (36.0-47.0); HEMOGLOBIN 10.4 g/dL (12.0-15.5); LYMPHOCYTES % (AUTO) 11.7 % (13-45); MEAN CORPUSCULAR HEMOGLOBIN 29.7 pg (27.0-33.4); MEAN CORPUSCULAR HGB CONC 34.1 g/dL (32.0-36.0); MEAN CORPUSCULAR VOLUME 87 fl (80-97); PLATELET COUNT 272 10^3/uL (150-450); RED BLOOD COUNT 3.51 10^6/uL (3.72-5.28); RED CELL DISTRIBUTION WIDTH 13.3 % (11.5-14.0); SEGMENTED NEUTROPHILS % (AUTO) 79.7 % (42-78); TOTAL CELLS COUNTED % (AUTO) 100 %; WHITE BLOOD COUNT 3.9 10^3/uL (4.0-10.5)
--- NOTE | 2018-01-23 11:07 | ER Document Report ---
ED General - General Chief Complaint: Abnormal Lab Results Stated Complaint: LEG PIN/HEADACHE Time Seen by Provider: 01/23/18 10:26 Mode of Arrival: Ambulatory Information source: Patient Notes: 37-year-old female history of malabsorption presents with complaints of low potassium. Patient notes that she received call her potassium was 2.8, notes intermittent cramping. Patient has had previous hypokalemia TRAVEL OUTSIDE OF THE [place] IN LAST 30 DAYS: No - HPI Onset: Yesterday Onset/Duration: Sudden Quality of pain: Cramping Severity: Mild Pain Level: 1 Associated symptoms: Body/muscle aches Exacerbated by: Other - lasix Relieved by: Other - potassium Similar symptoms previously: Yes Recently seen / treated by doctor: Yes - Related Data Allergies/Adverse Reactions: amoxicillin [Amoxicillin] Allergy (Severe, Verified 01/20/18 11:12) Past Medical History - Social History Smoking Status: Never Smoker Cigarette use (# per day): No Chew tobacco use (# tins/day): No Smoking Education Provided: No Family History: Reviewed & Not Pertinent, Hypertension - Past Medical History Cardiac Medical History: Denies: Hx Coronary Artery Disease, Hx Heart Attack, Hx Hypertension Pulmonary Medical History: Denies: Hx Asthma, Hx Bronchitis, Hx COPD, Hx Pneumonia, Hx Tuberculosis Neurological Medical History: Denies: Hx Cerebrovascular Accident, Hx Seizures Renal/ Medical History: Denies: Hx Peritoneal Dialysis GI Medical History: Reports: Hx Ulcer - Required surgical treatment Musculoskeltal Medical History: Denies Hx Arthritis Psychiatric Medical History: Denies: Hx Depression - anxiety, insomnia Past Surgical History: Reports: Hx Abdominal Surgery - entrectomy, vagotomy, SBO , Hx Appendectomy, Hx Cholecystectomy, Hx Genitourinary Surgery - intestines removed from prior bowel obstruction., Other - Gastric antrectomy/vagotomy. Denies: Hx Hysterectomy, Hx Pacemaker - Immunizations Hx Diphtheria, Pertussis, Tetanus Vaccination: Yes Review of Systems - Review of Systems Notes: REVIEW OF SYSTEMS: CONSTITUTIONAL : Denies fever, chills, or sweats. Denies recent illness. EENT: Denies eye, ear, throat, or mouth pain or symptoms. Denies nasal or sinus congestion or discharge. Denies throat, tongue, or mouth swelling or difficulty swallowing. CARDIOVASCULAR: Denies chest pain. Denies palpitations or racing or irregular heart beat. Denies ankle edema. RESPIRATORY: Denies cough, cold, or chest congestion. Denies shortness of breath, difficulty breathing, or wheezing. GASTROINTESTINAL: Denies abdominal pain or distention. Denies nausea, vomiting , or diarrhea. Denies blood in vomitus, stools, or per rectum. Denies black, tarry stools. Denies constipation. GENITOURINARY: Denies difficulty urinating, painful urination, burning, frequency, blood in urine, or discharge. FEMALE GENITOURINARY: Denies vaginal bleeding, heavy or abnormal periods, irregular periods. Denies vaginal discharge or odor. MUSCULOSKELETAL: Admits cramping in the legs SKIN: Denies rash, lesions or sores. HEMATOLOGIC : Denies easy bruising or bleeding. LYMPHATIC: Denies swollen, enlarged glands. NEUROLOGICAL: Denies confusion or altered mental status. Denies passing out or loss of consciousness. Denies dizziness or lightheadedness. Denies headache. Denies weakness or paralysis or loss of use of either side. Denies problems with gait or speech. Denies sensory loss, numbness, or tingling. Denies seizures. PSYCHIATRIC: Denies anxiety or stress. Denies depression, suicidal ideation, or homicidal ideation. ALL OTHER SYSTEMS REVIEWED AND NEGATIVE. PHYSICAL EXAMINATION: GENERAL: Thin frail appearing female HEAD: Atraumatic, normocephalic. EYES: Pupils equal round and reactive to light, extraocular movements intact, conjunctiva are normal. ENT: Nares patent, oropharynx clear without exudates. Moist mucous membranes. NECK: Normal range of motion, supple without lymphadenopathy LUNGS: Breath sounds clear to auscultation bilaterally and equal. No wheezes rales or rhonchi. HEART: Regular rate and rhythm without murmurs ABDOMEN: Soft, nontender, nondistended abdomen. No guarding, no rebound. No masses appreciated. Female : deferred Musculoskeletal: Normal range of motion, no pitting or edema. No cyanosis. NEUROLOGICAL: Cranial nerves grossly intact. Normal speech, normal gait. Normal sensory, motor exams PSYCH: Normal mood, normal affect. SKIN: Right sided central line placement Dictation was performed using [employer] recognition software Physical Exam - Vital signs Vitals: Temp Pulse Resp BP Pulse Ox 97.5 F 79 16 104/60 100 01/23/18 10:01/23/18 10:08 01/23/18 10:01/23/18 10:08 01/23/18 10:08 Course - Re-evaluation Re-evalutation: 01/23/18 11:21 Patient will probably require oral and IV potassium 01/24/18 08:33 Patient's potassium was noted to be 2.8, she was given both oral and IV supplementation of her potassium, she was watched in the emergency department for over 6 hours, she had no complaints while she was in the ED, I will have her come back for lab recheck the next day to reevaluate her potassium levels After performing a Medical Screening Examination, I estimate there is LOW risk for ACUTE CORONARY SYNDROME, PULMONARY EMBOLI, RESPIRATORY FAILURE, SEPSIS OR MENINGITIS, thus I consider the discharge disposition reasonable. I have reevaluated this patient multiple times and no significant life threatening changes are noted. The patient and I have discussed the diagnosis and risks, and we agree with discharging home with close follow-up. We also discussed returning to the Emergency Department immediately if new or worsening symptoms occur. We have discussed the symptoms which are most concerning (e.g., changing or worsening pain, trouble swallowing or breathing, neck stiffness, fever) that necessitate immediate return. - Vital Signs Vital signs: Temp Pulse Resp BP Pulse Ox 98.1 F 79 18 93/63 L 98 01/23/18 17:15 01/23/18 10:08 01/23/18 17:01 01/23/18 17:01 01/23/18 17:01 - Laboratory Result Diagrams: 01/23/18 10:49 01/23/18 10:49 Laboratory results interpreted by me: 01/23/18 01/23/18 01/23/18 10:49 10:49 11:56 WBC 3.9 L RBC 3.51 L Hgb 10.4 L Hct 30.6 L Seg Neutrophils % 79.7 H Lymphocytes % 11.7 L Monocytes % 1.0 L Eosinophils % 7.4 H Absolute Monocytes 0.0 L Potassium 2.8 L* Total Bilirubin < 0.1 L Total Protein 5.8 L Urine Blood MODERATE H Discharge - Discharge Clinical Impression: Hypokalemia, Weakness, History of partial gastrectomy Condition: Stable Disposition: HOME, SELF-CARE Additional Instructions: Please return immediately if there are any other concerns Forms: Follow-Up Laboratory Testing Referrals: ARTEMIO JOSEPH DO [Primary Care Provider] - Follow up tomorrow
[2018-01-23 11:19] LABS: ALANINE AMINOTRANSFERASE 27 U/L (9-52); ALBUMIN 3.5 g/dL (3.5-5.0); ALKALINE PHOSPHATASE 60 U/L (38-126); ANION GAP 11 (5-19); ASPARTATE AMINO TRANSFERASE 22 U/L (14-36); BLOOD UREA NITROGEN 18 mg/dL (7-20); CALCIUM 8.7 mg/dL (8.4-10.2); CARBON DIOXIDE 25 mmol/L (22-30); CHLORIDE 106 mmol/L (98-107); GLUCOSE 86 mg/dL (75-110); SODIUM 141.8 mmol/L (137-145); TOTAL PROTEIN 5.8 g/dL (6.3-8.2)
[2018-01-23 11:21] LABS: BILIRUBIN,TOTAL < 0.1 mg/dL (0.2-1.3)
[2018-01-23] MEDS ORDERED: POTASSIUM CHLORIDE 10 MEQ TABLET.SA PO ONE ×3 (11:21→11:50)
[2018-01-23 11:22] LABS: POTASSIUM 2.8 mmol/L (3.6-5.0)
[2018-01-23] MEDS ORDERED: POTASSI CL 30 MEQ/D5-1/2NS 1L 30 MEQ/1,000 ML RTUINJ IV ONE ×2 (11:49→11:50)
[2018-01-23] MEDS: POTASSI CL 20 MEQ/50 ML RIDER 20 MEQ/50 ML RTUPB IV SCH ×2 (11:53→11:59)
[2018-01-23 12:14] LABS: APPEARANCE,URINE CLEAR; BILIRUBIN,URINE NEGATIVE (NEGATIVE); COLOR,URINE STRAW; GLUCOSE, URINE NEGATIVE (NEGATIVE); KETONES,URINE NEGATIVE (NEGATIVE); LEUKOCYTE ESTERASE,URINE NEGATIVE (NEGATIVE); NITRITE,URINE NEGATIVE (NEGATIVE); PROTEIN,URINE NEGATIVE (NEGATIVE); URINE SPECIFIC GRAVITY 1.008; UROBILINOGEN,URINE NEGATIVE mg/dL (<2.0)
--- NOTE | 2018-01-23 13:43 | EKG REPORT ---
SEVERITY:- ABNORMAL ECG - SINUS RHYTHM DIFFUSE NONSPECIFIC ST-T CHANGES : Confirmed by: Bakari Grace MD 23-Jan-2018 13:43:15
[2018-01-23 17:13] VITALS: BP 93/63
== END 2018-01-23 17:45 | disposition home or self-care (01) ==
LOC: ER 10:03
DX: E87.6 Hypokalemia (principal); R53.1 Weakness; M79.1 Myalgia; Z90.3 Acquired absence of stomach [part of]
CPT/HCPCS: 93005; 99284; 96365; 96366; 36415; 83735; 85025; 80053; 81001; 93010; J3480

== ENCOUNTER → 2018-01-24 | Outpatient (CLI) | payer OTHER ==
[2018-01-24 15:23] LABS: ALANINE AMINOTRANSFERASE 21 U/L (9-52); ALBUMIN 3.4 g/dL (3.5-5.0); ALKALINE PHOSPHATASE 62 U/L (38-126); ANION GAP 13 (5-19); ASPARTATE AMINO TRANSFERASE 19 U/L (14-36); BLOOD UREA NITROGEN 15 mg/dL (7-20); CALCIUM 8.9 mg/dL (8.4-10.2); CARBON DIOXIDE 23 mmol/L (22-30); CHLORIDE 109 mmol/L (98-107); GLUCOSE 91 mg/dL (75-110); POTASSIUM 4.5 mmol/L (3.6-5.0); SODIUM 144.7 mmol/L (137-145); TOTAL PROTEIN 5.8 g/dL (6.3-8.2)
[2018-01-24 15:28] LABS: BILIRUBIN,TOTAL < 0.1 mg/dL (0.2-1.3)
== END ==
LOC: LAB 14:46
PROVIDERS: ATTEND Emergency Medicine
DX: R10.9 Unspecified abdominal pain (principal)
CPT/HCPCS: 36415; 80053

== ENCOUNTER 2018-02-15 14:05 | Observation (INO) | payer OTHER ==
[2018-02-15 14:57] LABS: ABSOLUTE EOSINOPHILS # (AUTO) 0.1 10^3/uL (0.0-0.6); ABSOLUTE LYMPHOCYTES (AUTO) 0.9 10^3/uL (0.5-4.7); ABSOLUTE NEUT (AUTO) 2.4 10^3/uL (1.7-8.2); BASOPHILS % (AUTO) 0.3 % (0-2); EOSINOPHILS % (AUTO) 4.1 % (0-6); HEMATOCRIT 29.1 % (36.0-47.0); HEMOGLOBIN 9.9 g/dL (12.0-15.5); LYMPHOCYTES % (AUTO) 25.3 % (13-45); MEAN CORPUSCULAR HEMOGLOBIN 28.6 pg (27.0-33.4); MEAN CORPUSCULAR HGB CONC 33.9 g/dL (32.0-36.0); MEAN CORPUSCULAR VOLUME 84 fl (80-97); MONOCYTES % (AUTO) 0.6 % (3-13); PLATELET COUNT 319 10^3/uL (150-450); RED BLOOD COUNT 3.46 10^6/uL (3.72-5.28); RED CELL DISTRIBUTION WIDTH 13.2 % (11.5-14.0); SEGMENTED NEUTROPHILS % (AUTO) 69.7 % (42-78); TOTAL CELLS COUNTED % (AUTO) 100 %; WHITE BLOOD COUNT 3.5 10^3/uL (4.0-10.5)
[2018-02-15] MEDS ORDERED: NORMAL SALINE 500 ML IV ONE (15:12)
--- NOTE | 2018-02-15 15:12 | ER Document Report ---
ED General - General Chief Complaint: Near Syncope Stated Complaint: POSSIBLE SYNCOPE Time Seen by Provider: 02/15/18 14:32 Mode of Arrival: Ambulatory Information source: Patient Notes: This is a 37-year-old female with a complicated medical history including antrectomy/vagotomy entheses complicated by SBO), status post stomach revision, line sepsis, malabsorption with syncope. Patient presents to the emergency room after a syncopal event at home. She had just gotten up this morning felt weak and dizzy and collapsed. Currently she states she feels weak. She has mild back pain from the fall. TRAVEL OUTSIDE OF THE [place] IN LAST 30 DAYS: No - HPI Onset: Just prior to arrival Onset/Duration: Sudden Quality of pain: Dull Severity: Moderate Pain Level: 2 Associated symptoms: denies: Chest pain, Fever, Shortness of breath Exacerbated by: Denies Relieved by: Denies Similar symptoms previously: Yes Recently seen / treated by doctor: Yes - Related Data Allergies/Adverse Reactions: amoxicillin [Amoxicillin] Allergy (Severe, Verified 01/20/18 11:12) Past Medical History - General Information source: Patient, Relative - Social History Smoking Status: Never Smoker Cigarette use (# per day): No Chew tobacco use (# tins/day): No Frequency of alcohol use: None Drug Abuse: None Lives with: Family Family History: Reviewed & Not Pertinent, Hypertension Patient has suicidal ideation: No Patient has homicidal ideation: No - Past Medical History Cardiac Medical History: Denies: Hx Coronary Artery Disease, Hx Heart Attack, Hx Hypertension Pulmonary Medical History: Denies: Hx Asthma, Hx Bronchitis, Hx COPD, Hx Pneumonia, Hx Tuberculosis Neurological Medical History: Denies: Hx Cerebrovascular Accident, Hx Seizures Renal/ Medical History: Denies: Hx Peritoneal Dialysis GI Medical History: Reports: Hx Ulcer - Required surgical treatment Musculoskeltal Medical History: Denies Hx Arthritis Psychiatric Medical History: Denies: Hx Depression - anxiety, insomnia Past Surgical History: Reports: Hx Abdominal Surgery - entrectomy, vagotomy, SBO , Hx Appendectomy, Hx Cholecystectomy, Hx Genitourinary Surgery - intestines removed from prior bowel obstruction., Other - Gastric antrectomy/vagotomy. Denies: Hx Hysterectomy, Hx Pacemaker - Immunizations Hx Diphtheria, Pertussis, Tetanus Vaccination: Yes Review of Systems - Review of Systems Constitutional: denies: Chills, Fever EENT: No symptoms reported Cardiovascular: See HPI Respiratory: No symptoms reported Gastrointestinal: No symptoms reported Genitourinary: No symptoms reported Female Genitourinary: No symptoms reported Musculoskeletal: No symptoms reported Skin: No symptoms reported Hematologic/Lymphatic: No symptoms reported Neurological/Psychological: No symptoms reported Physical Exam - Vital signs Vitals: Temp Resp BP Pulse Ox 97.7 F 25 H 93/56 L 100 02/15/18 14:22 02/15/18 14:22 02/15/18 14:22 02/15/18 14:22 Notes: Physical exam: GENERAL: 87-year-old female, alert and oriented 3, no acute distress. HEAD: Atraumatic, normocephalic. EYES: Pupils equal round and reactive to light, extraocular movements intact, sclera anicteric, conjunctiva are normal. ENT: TMs normal, nares patent, oropharynx clear without exudates. Moist mucous membranes. NECK: Normal range of motion, supple without obvious mass or JVD. LUNGS: Breath sounds clear to auscultation bilaterally and equal. No wheezes rales or rhonchi. HEART: Regular rate and rhythm without murmurs, rubs or gallops. ABDOMEN: Soft, normoactive bowel sounds. No tenderness to palpation. No guarding, no rebound. No masses appreciated. EXTREMITIES: Normal range of motion, no pitting or edema. No clubbing or cyanosis. NEUROLOGICAL: Cranial nerves II through XII grossly intact. Normal speech, moving all extremities. PSYCH: Normal mood, normal affect. SKIN: Warm, Dry, normal turgor, no rashes or lesions noted. Course - Vital Signs Vital signs: Temp Pulse Resp BP Pulse Ox 97.7 F 14 106/61 99 02/15/18 14:22 02/15/18 18:01 02/15/18 18:00 02/15/18 18:01 - Laboratory Result Diagrams: 02/15/18 14:37 02/15/18 14:37 Laboratory results interpreted by me: 02/15/18 02/15/18 14:37 14:37 WBC 3.5 L RBC 3.46 L Hgb 9.9 L Hct 29.1 L Monocytes % 0.6 L Absolute Monocytes 0.0 L Potassium 3.4 L Chloride 108 H BUN 23 H Total Protein 5.8 L Albumin 3.4 L - EKG Interpretation by Me Rate: Normal Rhythm: NSR - EKG shows normal sinus rhythm with a ventricular rate of 66, no acute ST-T wave changes Discharge - Discharge Clinical Impression: Syncope, Dehydration, Hypokalemia Condition: Stable Disposition: ADMITTED OBSERVATION Admitting Provider: Hospitalist - Dr Marino Unit Admitted: Telemetry Referrals: ARTEMIO JOSEPH DO [Primary Care Provider] - Follow up as needed
[2018-02-15] MEDS ORDERED: PROMETHAZINE HCL INJ 25 MG/1 ML VIAL IV ONE (15:13)
[2018-02-15 15:17] LABS: ALANINE AMINOTRANSFERASE 32 U/L (9-52); ALBUMIN 3.4 g/dL (3.5-5.0); ALKALINE PHOSPHATASE 56 U/L (38-126); ANION GAP 11 (5-19); ASPARTATE AMINO TRANSFERASE 15 U/L (14-36); BILIRUBIN,DIRECT 0.2 mg/dL (0.0-0.4); BILIRUBIN,TOTAL 0.2 mg/dL (0.2-1.3); BLOOD UREA NITROGEN 23 mg/dL (7-20); CALCIUM 8.7 mg/dL (8.4-10.2); CARBON DIOXIDE 25 mmol/L (22-30); CHLORIDE 108 mmol/L (98-107); GLUCOSE 93 mg/dL (75-110); POTASSIUM 3.4 mmol/L (3.6-5.0); SODIUM 143.9 mmol/L (137-145); TOTAL PROTEIN 5.8 g/dL (6.3-8.2)
[2018-02-15] MEDS ORDERED: POTASSI CL 20 MEQ/D5-1/2NS 1L 1,000 ML IV ONE (18:49)
[2018-02-15] MEDS ORDERED: ACETAMINOPHEN 325 MG TABLET PO PRN (20:13)
[2018-02-15] MEDS ORDERED: ONDANSETRON HCL INJ/PF 4 MG/2 ML SDV IV PRN (20:13)
[2018-02-15] MEDS ORDERED: CYANOCOBALAMIN (VITAMIN B-12) INJ 1000 MCG/1 ML VIAL IM ONE (20:45)
[2018-02-15 20:53] LABS: APPEARANCE,URINE SLIGHTLY-CLOUDY; BILIRUBIN,URINE NEGATIVE (NEGATIVE); COLOR,URINE YELLOW; GLUCOSE, URINE NEGATIVE (NEGATIVE); KETONES,URINE NEGATIVE (NEGATIVE); LEUKOCYTE ESTERASE,URINE NEGATIVE (NEGATIVE); NITRITE,URINE NEGATIVE (NEGATIVE); PROTEIN,URINE NEGATIVE (NEGATIVE); URINE SPECIFIC GRAVITY 1.021; UROBILINOGEN,URINE NEGATIVE mg/dL (<2.0)
--- NOTE | 2018-02-15 21:04 | EKG REPORT ---
SEVERITY:- NORMAL ECG - SINUS RHYTHM NONSPECIFIC ST-T CHANGES : Confirmed by: Suhas Mcdonald 15-Feb-2018 18:04:05
--- NOTE | 2018-02-15 21:12 | PDOC H&P ---
History of Present Illness Admission Date/PCP: 02/15/18 19:46 ARTEMIO JOSEPH DO History of Present Illness: SHIKHA DEAN is a 37 year old female brought to ER after she has an episode of syncopal attack. Patient reports his feeling dizzy, diaphoresis clammy followed by syncope. Patient endorses prior several episodes of syncopal attack. Of note patient had had extensive multiple bowel surgery including gastrectomy and vagotomy the indication being limb healing bleeding gastric ulcer. Her surgery was complicated by small bowel obstruction and malnutrition for which she has been on TPN. Patient has also IV catheter related sepsis. Patient denies chills, fever, nausea, chest pain, cough, vomiting or diarrhea. She does not have any urinary complaints. She has dizziness but she denied any headache or blurry of vision. Past Medical History Cardiac Medical History: Denies: None, Atrial Fibrillation, Congestive Heart Failure, Coronary Artery Disease, DVT, Myocardial Infarction, Hyperlipidema, Hypertension, Peripheral Vascular Disease, Pulmonary Embolism, Heart Murmur, Other Pulmonary Medical History: Denies: Asthma, Bronchitis, Chronic Obstructive Pulmonary Disease (COPD), Pneumonia, Tuberculosis Neurological Medical History: Denies: Seizures Musculoskeltal Medical History: Denies: Arthritis Psychiatric Medical History: Denies: Depression - anxiety, insomnia Hematology: Reports: Anemia Past Surgical History Past Surgical History: Reports: Appendectomy, Cholecystectomy, Other - Gastric antrectomy/vagotomy Denies: Hysterectomy, Pacemaker Social History Lives with: Family Smoking Status: Never Smoker Frequency of Alcohol Use: None Hx Recreational Drug Use: No Drugs: None Hx Prescription Drug Abuse: No - Advance Directive Resuscitation Status: Full Code Family History Family History: Reviewed & Not Pertinent, Hypertension Parental Family History Reviewed: Yes Children Family History Reviewed: Yes Sibling(s) Family History Reviewed.: Yes Medication/Allergy Home Medications: Aspirin/Acetaminophen/Caffeine [Excedrin Migraine Caplet] 1 tab PO DAILY Clonazepam [Klonopin 2 mg Tablet] 4 mg PO QHS 11/24/17 Diltiazem HCl [Diltiazem 24Hr Cd] 120 mg PO QHS 11/24/17 Furosemide [Lasix 20 mg Tablet] 20 mg PO DAILY 11/24/17 Ibuprofen [Motrin 800 mg Tablet] 800 mg PO DAILY 11/24/17 Rizatriptan Benzoate [Maxalt] 10 mg PO DAILYP PRN 11/24/17 Levothyroxine Sodium [Synthroid 0.025 mg Tablet] 0.025 mg PO Q6AM #30 tablet 04/16 Allergies/Adverse Reactions: amoxicillin [Amoxicillin] Allergy (Severe, Verified 01/20/18 11:12) Review of Systems Constitutional: PRESENT: as per HPI Eyes: PRESENT: as per HPI Cardiovascular: PRESENT: as per HPI Respiratory: PRESENT: as per HPI Gastrointestinal: PRESENT: as per HPI Neurological: PRESENT: as per HPI Psychiatric: PRESENT: as per HPI Physical Exam Vital Signs: Temp Pulse Resp BP Pulse Ox 98.3 F 9 L 104/60 97 02/15/18 20:01 02/15/18 20:01 02/15/18 20:00 02/15/18 20:01 General appearance: PRESENT: no acute distress Head exam: PRESENT: atraumatic, normocephalic Respiratory exam: PRESENT: clear to auscultation jamaal. ABSENT: rales, rhonchi, wheezes Cardiovascular exam: PRESENT: RRR. ABSENT: diastolic murmur, rubs, systolic murmur Neurological exam: PRESENT: alert, awake, oriented to time, oriented to situation Psychiatric exam: PRESENT: depressed Results Laboratory Results: 02/15/18 20:26 Urine Color YELLOW Urine Appearance SLIGHTLY-CLOUDY Urine pH 6.0 Ur Specific [place] 1.021 Urine Protein NEGATIVE Urine Glucose (UA) NEGATIVE Urine Ketones NEGATIVE Urine Blood NEGATIVE Urine Nitrite NEGATIVE Ur Leukocyte Esterase NEGATIVE Urine WBC (Auto) 2 Assessment & Plan - Diagnosis (1) Syncope Qualifiers: Syncope type: vasovagal syncope Qualified Code(s): R55 - Syncope and collapse Is this a current diagnosis for this admission?: Yes Plan: Cautious hydration (2) Malnutrition Qualifiers: Protein-calorie malnutrition severity: moderate Is this a current diagnosis for this admission?: Yes Plan: Most probably this patient might have also micronutrient deficiency including iron and B12. Patient started on cyanocobalamin - Time Critical Time spent with patient: 25-34 minutes
[2018-02-16] MEDS ORDERED: NON-FORMULARY UNIT-DOSE MEDICATION PO PRN (01:42)
[2018-02-16] MEDS ORDERED: CLONAZEPAM 1 MG TABLET PO ONE (02:30)
[2018-02-16] MEDS ORDERED: DILTIAZEM HCL 120 MG CAP.SR.24H PO ONE (03:00)
[2018-02-16] MEDS: LEVOTHYROXINE SODIUM 0.025 MG TABLET PO SCH (06:20)
[2018-02-16 06:50] LABS: HEMATOCRIT 25.2 % (36.0-47.0); HEMOGLOBIN 8.4 g/dL (12.0-15.5); MEAN CORPUSCULAR HEMOGLOBIN 28.6 pg (27.0-33.4); MEAN CORPUSCULAR HGB CONC 33.5 g/dL (32.0-36.0); MEAN CORPUSCULAR VOLUME 86 fl (80-97); PLATELET COUNT 316 10^3/uL (150-450); RED BLOOD COUNT 2.95 10^6/uL (3.72-5.28); RED CELL DISTRIBUTION WIDTH 13.8 % (11.5-14.0); WHITE BLOOD COUNT 5.5 10^3/uL (4.0-10.5)
[2018-02-16 07:27] LABS: ANION GAP 10 (5-19); BLOOD UREA NITROGEN 14 mg/dL (7-20); CALCIUM 8.6 mg/dL (8.4-10.2); CARBON DIOXIDE 21 mmol/L (22-30); CHLORIDE 112 mmol/L (98-107); GLUCOSE 83 mg/dL (75-110); POTASSIUM 3.6 mmol/L (3.6-5.0); SODIUM 142.5 mmol/L (137-145)
[2018-02-16] MEDS ORDERED: CYANOCOBALAMIN (VITAMIN B-12) INJ 1000 MCG/1 ML VIAL IM SCH ×2 (10:00→18:00)
[2018-02-16] MEDS ORDERED: IBUPROFEN 800 MG TABLET PO SCH (10:00)
[2018-02-16] MEDS ORDERED: NON-FORMULARY UNIT-DOSE MEDICATION PO SCH (10:00)
[2018-02-16] MEDS ORDERED: FUROSEMIDE 20 MG TABLET PO SCH (10:00)
[2018-02-16] MEDS: ENOXAPARIN SODIUM INJ 40 MG/0.4 ML DISP.SYRIN SUBCUT SCH (10:24)
[2018-02-16] MEDS ORDERED: ASPIRIN 325 MG TABLET PO ONE (12:00)
--- NOTE | 2018-02-16 13:53 | RADIOLOGY REPORT (SQ) ---
EXAM DESCRIPTION: MRI HEAD WITHOUT COMPLETED DATE/TIME: 02/16/2018 1:24 pm REASON FOR STUDY: stroke eval COMPARISON: CT dated 02/12/2017. TECHNIQUE: Multiplanar imaging includes non-contrasted T1, T2, FLAIR, and diffusion with ADC map seq uences. Images stored on PACS. LIMITATIONS: None. FINDINGS: ANATOMY: No anomalies. Normal vascular flow voids. Pituitary fossa normal. CSF SPACES: Normal in size and contour. No hemorrhage. CEREBRUM: Sulci and gyri normal in size and contour. Normal white matter signal on FLAIR imaging. No evidence of hemorrhage, mass, or extraaxial fluid collection. POSTERIOR FOSSA: No signal alteration. No hemorrhage. No edema, masses or mass effect. Internal lillie tory canals, cerebello-pontine angles, mastoids normal. DIFFUSION IMAGING: Negative for acute or sub-acute infarction. ORBITS: No masses. Globes normal. PARANASAL SINUSES: No fluid levels. Mucosa normal. OTHER: No other significant finding. IMPRESSION: NORMAL MRI OF THE BRAIN WITHOUT INTRAVENOUS GADOLINIUM CONTRAST. EVIDENCE OF ACUTE STROKE: NO. TECHNICAL DOCUMENTATION: JOB ID: [id number] [employer]- All Rights Reserved Reading location - IP/workstation name: [email or web address]
--- NOTE | 2018-02-16 14:15 | RADIOLOGY REPORT (SQ) ---
EXAM DESCRIPTION: MRA HEAD WITHOUT COMPLETED DATE/TIME: 02/16/2018 1:24 pm REASON FOR STUDY: stroke eval COMPARISON: None. TECHNIQUE: Axial 3-D xpkw-vd-klbhzu acquisition imaging performed through the brain in the area of t he [place] of [place]. Images reformatted using 3-D MIPS. LIMITATIONS: None. FINDINGS: SOURCE IMAGES: No unexpected findings on source images. No large masses. 3-D MIP: No aneurysm. No occlusions. No significant stenosis. OTHER: No other significant finding. IMPRESSION: NORMAL MRA OF THE [place] OF [place]. TECHNICAL DOCUMENTATION: JOB ID: [id number] [employer]- All Rights Reserved Reading location - IP/workstation name: [email or web address]
--- NOTE | 2018-02-16 14:17 | RADIOLOGY REPORT (SQ) ---
EXAM DESCRIPTION: MRA NECK WITHOUT COMPLETED DATE/TIME: 02/16/2018 1:24 pm REASON FOR STUDY: stroke eval COMPARISON: None. TECHNIQUE: Axial 2-D volume acquisition imaging through the extracranial carotid and vertebral arter ies with reformatting using 3-D MIPS. LIMITATIONS: None. FINDINGS: RIGHT CAROTID ARTERY: No stenosis or occlusive changes. Limited visualization of the orig in. LEFT CAROTID ARTERY: No stenosis or occlusive changes. Limited visualization of the origin. VERTEBRAL ARTERY: The extracranial portions of the vertebral basilar system are preserved without tiana nosis. No aneurysmal dilatation or dissection is seen. OTHER: No other significant finding. IMPRESSION: NO SIGNIFICANT STENOSIS. COMMENT: Quality ID #[id number]: Measurements of distal internal carotid diameter were used as the denomin ator for stenosis measurement. TECHNICAL DOCUMENTATION: JOB ID: [id number] [employer]- All Rights Reserved Reading location - IP/workstation name: [email or web address]
--- NOTE | 2018-02-16 16:27 | PDOC PROGRESS REPORT ---
Subjective Progress Note for:: 02/16/18 Subjective:: Patient states that she is feeling somewhat better. She states that her left face and arm are still somewhat numb. When the events occurred at home she felt left-sided weakness. She states that she has syncope not infrequently. Currently no chest pain or dyspnea. She is able to eat a little bit of food. No nausea or vomiting, no fevers or chills. Reason For Visit: SYNCOPE, DEHYDRATION Physical Exam Vital Signs: Temp Pulse Resp BP Pulse Ox 98.9 F 97 18 115/62 100 02/16/18 15:52 02/16/18 15:52 02/16/18 15:52 02/16/18 15:52 02/16/18 15:52 Intake & Output 02/15/18 02/16/18 02/17/18 06:59 06:59 06:59 Weight 45 kg General appearance: PRESENT: no acute distress, cooperative, other - Cachectic Head exam: PRESENT: atraumatic, normocephalic Eye exam: ABSENT: conjunctival injection, scleral icterus Mouth exam: PRESENT: neck supple, tongue midline Neck exam: PRESENT: other - Tunneled catheter right upper chest. ABSENT: lymphadenopathy Respiratory exam: PRESENT: clear to auscultation jamaal, unlabored. ABSENT: rales , rhonchi, wheezes Cardiovascular exam: PRESENT: RRR. ABSENT: systolic murmur Pulses: PRESENT: normal radial pulses GI/Abdominal exam: PRESENT: normal bowel sounds, soft. ABSENT: distended, guarding, tenderness Extremities exam: ABSENT: pedal edema Musculoskeletal exam: PRESENT: normal inspection Neurological exam: PRESENT: alert, awake, oriented to person, oriented to place , oriented to situation, CN II-XII grossly intact, other - Left handgrip weaker than right. Very mild left facial droop. Psychiatric exam: PRESENT: flat affect. ABSENT: anxious Skin exam: PRESENT: dry, warm Results Laboratory Results: 02/16/18 06:40 02/16/18 06:40 02/15/18 02/16/18 02/16/18 20:26 06:40 06:40 WBC 5.5 RBC 2.95 L Hgb 8.4 L Hct 25.2 L MCV 86 MCH 28.6 MCHC 33.5 RDW 13.8 Plt Count 316 Sodium 142.5 Potassium 3.6 Chloride 112 H Carbon Dioxide 21 L Anion Gap 10 BUN 14 Creatinine 0.61 Est GFR ( Amer) > 60 Est GFR (Non-Af Amer) > 60 Glucose 83 Calcium 8.6 Urine Color YELLOW Urine Appearance SLIGHTLY-CLOUDY Urine pH 6.0 Ur Specific [place] 1.021 Urine Protein NEGATIVE Urine Glucose (UA) NEGATIVE Urine Ketones NEGATIVE Urine Blood NEGATIVE Urine Nitrite NEGATIVE Ur Leukocyte Esterase NEGATIVE Urine WBC (Auto) 2 Impressions: Brain MRI with MRA 02/16/18 00:00 IMPRESSION: NORMAL MRA OF THE [place]. Head MRI 02/16/18 00:00 IMPRESSION: NORMAL MRI OF THE BRAIN WITHOUT INTRAVENOUS GADOLINIUM CONTRAST. EVIDENCE OF ACUTE STROKE: NO. Neck MRA 02/16/18 00:00 IMPRESSION: NO SIGNIFICANT STENOSIS. Assessment & Plan - Diagnosis (1) Syncope Qualifiers: Syncope type: vasovagal syncope Qualified Code(s): R55 - Syncope and collapse Is this a current diagnosis for this admission?: Yes Plan: Patient had an episode of syncope weakness and inability to rise from the floor after experiencing left-sided weakness and numbness. She was admitted to the hospital with syncope, possible vasovagal episode which this could still possibly be. Secondary to the symptoms she described, some physical exam findings and early family history of cardiovascular problems patient's brain was imaged for stroke. MRA MRI studies all negative. Echocardiogram is pending. sHe is on telemetry as she has a family history of syncope as well, no known history of cardiac arrhythmia but this is a possibility in this patient so we will watch her on telemetry. (2) Malnutrition Qualifiers: Protein-calorie malnutrition severity: moderate Is this a current diagnosis for this admission?: Yes Plan: She has a long-standing history of bowel surgeries which have resulted in a malnourished state. She is been on TPN in the past. She is on multiple supplements. She is cachectic. This is a chronic problem for this unfortunate patient. (3) Arrhythmia Is this a current diagnosis for this admission?: Yes Plan: Patient states that she has had arrhythmia secondary to her malnourished state. She is on diltiazem and we will continue this. Blood pressure and heart rate are stable now. (4) Anxiety Is this a current diagnosis for this admission?: Yes Plan: Patient is on Xanax and we have started her home dosing. (5) Hypothyroidism Is this a current diagnosis for this admission?: Yes Plan: Continue her Synthroid, will check TSH and free T4 - Time Time Spent with patient: 25-34 minutes Medications reviewed and adjusted accordingly: Yes - Inpatient Certification Based on my medical assessment, after consideration of the patient's comorbidities, presenting symptoms, or acuity I expect that the services needed warrant INPATIENT care.: No I certify that my determination is in accordance with my understanding of Medicare's requirements for reasonable and necessary INPATIENT services [42 CFR 412.3e].: No
[2018-02-16] MEDS: RINGERS SOLUTION,LACTATED 1,000 ML IV PRN (18:12)
[2018-02-16] MEDS ORDERED: DILTIAZEM HCL 120 MG CAP.SR.24H PO SCH (22:00)
[2018-02-16] MEDS ORDERED: CLONAZEPAM 1 MG TABLET PO SCH (22:00)
[2018-02-17] MEDS: LEVOTHYROXINE SODIUM 0.025 MG TABLET PO SCH (05:17)
[2018-02-17] MEDS: RINGERS SOLUTION,LACTATED 1,000 ML IV PRN (05:17)
[2018-02-17 07:12] LABS: HEMATOCRIT 25.5 % (36.0-47.0); HEMOGLOBIN 8.6 g/dL (12.0-15.5); MEAN CORPUSCULAR HEMOGLOBIN 28.7 pg (27.0-33.4); MEAN CORPUSCULAR HGB CONC 33.7 g/dL (32.0-36.0); MEAN CORPUSCULAR VOLUME 85 fl (80-97); PLATELET COUNT 308 10^3/uL (150-450); RED BLOOD COUNT 2.99 10^6/uL (3.72-5.28); RED CELL DISTRIBUTION WIDTH 13.6 % (11.5-14.0); WHITE BLOOD COUNT 7.8 10^3/uL (4.0-10.5)
[2018-02-17] MEDS ORDERED: ASPIRIN 325 MG TABLET PO SCH (10:00)
[2018-02-17] MEDS: ENOXAPARIN SODIUM INJ 40 MG/0.4 ML DISP.SYRIN SUBCUT SCH (11:25)
--- NOTE | 2018-02-17 13:47 | Progress Note ---
Provider Note Provider Note: ALFREDO TRIVEDI Search Criteria: Last Name 'Alfredo' and First Name 'Negin' and = 81' and Request Period = 08/21/17' to 02/17/18' - 9 out of 9 Recipients Selected. Fill Date Product, Str, Form Qty Days Pt ID Prescriber Written RX# N/R* Pharm MED+ ------ ---- --------- --- ------- ----- --------- ------ 02/03/2018 SUBOXONE 8 MG-2 MG SL FILM 32.00 14 [id number] 02/03/2018 [id number] N [id number] [facility] 02/02/2018 CLONAZEPAM 2 MG TABLET 60.00 30 [id number] 12/12/2017 [id number] Loi [id number] 00.0 02/01/2018 DEXTROAMP-AMPHETAMIN 20 MG TAB 60.00 30 [id number] 2017 [id number] N [id number] 00.0 01/20/2018 SUBOXONE 8 MG-2 MG SL FILM 32.00 14 [id number] 01/17/2018 [id number] N [id number] [facility] 01/06/2018 SUBOXONE 8 MG-2 MG SL FILM 32.00 14 [id number] 01/06/2018 [id number] N [id number] [facility] 01/06/2018 CLONAZEPAM 2 MG TABLET 60.00 30 [id number] 12/12/2017 [id number] N [id number] [facility] 01/04/2018 DEXTROAMP-AMPHETAMIN 20 MG TAB 60.00 30 [id number] 2017 [id number] N [id number] [facility] 12/23/2017 SUBOXONE 8 MG-2 MG SL FILM 32.00 14 [id number] 12/23/2017 [id number] N [id number] [facility] 12/12/2017 CLONAZEPAM 2 MG TABLET 60.00 30 [id number] 11/08/2017 [id number] R [id number] [facility] 12/09/2017 SUBOXONE 8 MG-2 MG SL FILM 32.00 14 [id number] 12/09/2017 [id number] N [id number] [facility] 12/07/2017 DEXTROAMP-AMPHETAMIN 20 MG TAB 60.00 30 [id number] 2017 [id number] N [id number] [facility] 12/04/2017 OXYCODONE-ACETAMINOPHEN 5-325 12.00 2 [id number] 12/04/2017 [id number] N [id number] 45.0 11/22/2017 SUBOXONE 8 MG-2 MG SL FILM 32.00 14 [id number] 11/22/2017 [id number] N [id number] [facility] 11/10/2017 DEXTROAMP-AMPHETAMIN 20 MG TAB 60.00 30 [id number] 2017 [id number] N [id number] [facility] 11/08/2017 CLONAZEPAM 2 MG TABLET 60.00 30 [id number] 11/08/2017 [id number] N [id number] [facility] 11/08/2017 SUBOXONE 8 MG-2 MG SL FILM 32.00 14 [id number] 11/08/2017 [id number] N [id number] [facility] 10/25/2017 SUBOXONE 8 MG-2 MG SL FILM 32.00 14 [id number] 10/25/2017 [id number] N [id number] [facility] 10/11/2017 SUBOXONE 8 MG-2 MG SL FILM 32.00 14 [id number] 10/11/2017 [id number] N [id number] [facility] 10/11/2017 DEXTROAMP-AMPHETAMIN 20 MG TAB 60.00 30 [id number] 2017 [id number] N [id number] [facility] 10/10/2017 CLONAZEPAM 2 MG TABLET 60.00 30 [id number] 09/03/2017 [id number] R [id number] [facility] 09/27/2017 SUBOXONE 8 MG-2 MG SL FILM 32.00 14 [id number] 09/27/2017 [id number] N [id number] [facility] 09/16/2017 SUBOXONE 8 MG-2 MG SL FILM 32.00 14 [id number] 09/16/2017 [id number] N [id number] [facility] 09/13/2017 CLONAZEPAM 2 MG TABLET 60.00 30 [id number] 09/03/2017 [id number] N [id number] [facility] 09/11/2017 DEXTROAMP-AMPHETAMIN 20 MG TAB 60.00 30 [id number] 2016 [id number] N [id number] [facility] 09/02/2017 SUBOXONE 8 MG-2 MG SL FILM 32.00 12 [id number] 09/02/2017 [id number] N [id number] [facility] [id number] RUFINO GRECO MD; [facility], [address] [facility] [address] [id number] [place]; [facility], [address] [place] [address] [address] [place] [id number] KRYSTAL WEBER MD; [facility], [address] [facility], [facility] [id number] DONIS SHAH, JUAQUIN FALCON; [facility], [address] [place] [address] [address], [facility] [address]
[2018-02-17 14:55] VITALS: BP 103/52
--- NOTE | 2018-02-17 16:32 | XCELERA REPORT ---
[address] [address] Transthoracic Echocardiogram Report Name: SHIKHA DEAN Age: 37 yrs Gender: Female : 1980 Patient Status: Inpatient Patient Location: [address] [place] [address] Study Date: 02/17/2018 09:40 AM Weight: 99 lb Procedure: A two-dimensional transthoracic echocardiogram with color flow and Doppler was performed. The study was technically difficult with many images being suboptimal in quality. Reason For Study: CVA History: CVA. Ordering Physician: AMBER SCHNEIDER Performed By: Kaylah Chaudhry Interpretation Summary There is no obvious cardiac source of embolus noted on this transthoracic echocardiogram. Follow-up with a AMRIT is suggested if cardiac source is still suspected. The left ventricle is normal in size. There is normal left ventricular wall thickness. LV EF is 70% Left ventricular systolic function is normal. Doppler measurements suggest normal left ventricular diastolic function The left ventricular wall motion is normal. There is no thrombus. The right ventricle is normal in size and function. The left atrial size is normal. There is no evidence of mitral valve prolapse. There is no vegetation seen on the mitral valve. There is no mitral valve stenosis. There is no mitral regurgitation noted. There is no aortic valve stenosis There is no LVOT obstruction. No aortic regurgitation is present. There is no tricuspid stenosis. No tricuspid regurgitation. Unable to calculate RVSP due to insufficient TR jet. There is no pericardial effusion. There is no obvious cardiac source of embolus noted on this transthoracic echocardiogram. Follow-up with a AMRIT is suggested if cardiac source is still suspected MMode/2D Measurements & Calculations RVDd: 2.5 cm LVIDd: 2.9 cm FS: 42.7 % Ao root diam: 2.5 cm IVSd: 0.81 cm LVIDs: 1.7 cm EDV(Teich): 33.2 ml Ao root area: 4.9 cm2 LVPWd: 0.98 cmESV(Teich): 8.1 ml EF(Teich): 75.5 % LVOT diam: 1.9 cm LVOT area: 2.9 cm2 Doppler Measurements & Calculations MV E max luis carlos: MV dec slope: Ao V2 max: LV V1 max P.0 cm/sec 127.9 cm/sec 3.6 mmHg MV A max luis carlos: 537.5 cm/sec2 Ao max PG: LV V1 max: 54.4 cm/sec MV dec time: 6.5 mmHg 95.2 cm/sec MV E/A: 1.7 0.17 sec KALI(V,D): 2.1 cm2 PA V2 max: 75.9 cm/sec PA max P.3 mmHg Left Ventricle The left ventricle is normal in size. There is normal left ventricular wall thickness. LV EF is 70%. Left ventricular systolic function is normal. Doppler measurements suggest normal left ventricular diastolic function. The left ventricular wall motion is normal. There is no thrombus. There is no ventricular septal defect visualized. Right Ventricle The right ventricle is normal in size and function. Atria The right atrium is normal. The left atrial size is normal. The interatrial septum is intact with no evidence for an atrial septal defect. Mitral Valve There is no evidence of mitral valve prolapse. There is no vegetation seen on the mitral valve. There is no mitral valve stenosis. There is no mitral regurgitation noted. Aortic Valve There is no aortic valvular vegetation. There is no aortic valve stenosis. There is no LVOT obstruction. No aortic regurgitation is present. Tricuspid Valve There is no tricuspid stenosis. No tricuspid regurgitation. Unable to calculate RVSP due to insufficient TR jet. Pulmonic Valve There is no pulmonic valvular stenosis. There is no pulmonic valvular regurgitation. Great Vessels The aortic root is normal size. Effusions There is no pericardial effusion. : AMBER SCHNEIDER > Padma Mtoa
[2018-02-17] MEDS ORDERED: DILTIAZEM HCL 120 MG CAP.SR.24H PO SCH (22:00)
--- NOTE | 2018-02-18 00:30 | DISCHARGE SUMMARY E ---
Discharge Summary NAME: SHIKHA DEAN : 1980 AGE: 37Y ADMITTED: 02/15/2018 DISCHARGED: 02/17/2018 CODE STATUS: FULL CODE. PRIMARY CARE PROVIDER: Chaim Mendez. DISCHARGE DIAGNOSES: Includes: 1. Polypharmacy consisting of benzodiazepine dependency, amphetamine dependency, and Suboxone. 2. Syncope most likely secondary to #1. 3. Complex migraine headaches. 4. Chronic B12 deficiency secondary to gastric bypass surgery. 5. Indwelling Port-A-Cath with a previous history of fungemia. DISCHARGE MEDICATIONS: Include: 1. Excedrin Migraine 1 tablet p.o. daily p.r.n. 2. Klonopin 4 mg p.o. q. hour of sleep. 3. Lasix 20 mg p.o. daily. 4. Ibuprofen 800 mg p.o. daily. 5. Phenergan 25 mg p.o. q.6 hours p.r.n. 6. Maxalt 10 mg p.o. daily p.r.n. DIET: As tolerated. ACTIVITY: As tolerated. CONDITION: Good. DIAGNOSTICS: Lab values are as followed: Hematology obtained on 02/17/2018: WBCs are 7.8, hemoglobin is 8.6, hematocrit is 25.5, platelet count is 308,000. Chemistry obtained on : Sodium is 142, potassium *------*, chloride is 112, carbon dioxide 21, BUN 14, creatinine is 0.61, glucose 83, calcium is 8.6, magnesium is 3.2, bilirubin 0.2. AST 15, ALT 32, Alk phos 56. Troponin is 0.012, total protein 5.8, albumin 3.4. B12 is 200. TSH is 0.67. Urinalysis obtained on 02/15/2018: Color yellow, appearance slightly cloudy. PH is 6.0, specific gravity is 1.012. Protein negative, glucose negative, ketones negative, occult blood negative, nitrate negative, bilirubin negative, urobilinogen negative, leukocyte esterase is negative. WBC 2, casts 4, bacteria trace, epithelial squamous cells 10, mucus rare, ascorbic acid is negative. Brain MRI with MRA obtained on 02/16/2018 reveals a normal MRA of the craig of [place] with normal MRI of the brain and normal MRA of the neck without evidence of stenosis. EKG obtained on 02/15/2018 reveals sinus rhythm. PHYSICAL EXAMINATION: GENERAL: On examination, the patient is a frail, 37-year-old female who is awake, alert. She is oriented to person, place, time, and situation. She is verbal, conversational, does not appear to be distressed. VITAL SIGNS: Temperature is 98.1, pulse 85, respirations 16, blood pressure is 116/67, oxygen saturation is 100% on room air. SKIN: Warm and dry. No rash. She is not diaphoretic. HEENT: Pupils equal, round, and reactive to light and accommodation. Conjunctiva is pink. There is no evidence of JVP. CARDIOVASCULAR SYSTEM: Heart is regular. There is no murmur or rub. CHEST: Clear, symmetrical, unlabored. ABDOMEN: Soft, nontender, nondistended. BACK: No CVA tenderness or sacral edema. EXTREMITIES: No clubbing, cyanosis, or edema. PSYCHIATRIC: Appropriate affect, pleasant mood. HISTORY OF PRESENT ILLNESS: The patient is a 37-year-old female that is well known to the hospitalist service that has a history of gastric bypass and chronic malnutrition. The patient presented to the emergency department with a chief complaint of dizziness. Apparently, the patient had a syncopal episode at home that left her a diaphoretic clammy. Patient endorses several episodes of syncopal attacks. Other than that, the patient has had extensive multiple bowel surgeries including gastrectomy and vagotomy. The patient's surgery was complicated by a small bowel obstruction and malnutrition port. She was on TPN. The patient also had a catheter related sepsis. The patient denied any chills, fever, nausea, chest pain. Denied any urinary complications. No dizziness. No headache or blurring of vision. However, given that these have been recurrent syncopal episodes, the patient was referred to the hospitalist for observation and management. HOSPITAL COURSE: Patient was *------* in PCU. The patient's history was very difficult to correlate with physical examination. The patient did give a history of unilateral weakness as well as tingling. The patient's B12 was found to be in a decent range as the patient has been chronically supplemented. MRI/MRA of the brain and neck were found to be unremarkable as well as echo. The patient was hydrated and the patient remained on equipment monitor phototypesetting for 48 hours without any evidence of arrhythmia. The patient was resumed on her home medications. Interestingly, according to the patient's , he tends to find her in the bathroom passed out intermittently. The patient did not disclose her current Suboxone treatment nor her Adderall use in conjunction with a large dose of Klonopin. The patient felt that this was not relevant to her chronic condition. The patient also endorses chronic headaches and uses all of her allotted Maxalt each month. Given the patient's workup was found to be unremarkable, it was felt she would benefit from neurological evaluation. The patient instructed not to drive but since this has been an ongoing recurrent issue for the patient, she feels comfortable for discharge with outpatient followup. I do have a suspicion that the patient's polypharmacy is contributing to the patient's overall clinical picture or possibly skewing underlying issues. I have discussed this with both the patient and her family. DISCHARGE PLANNIN. The patient is advised to follow up with her primary care provider within 1-2 weeks for hospital followup. 2. The patient will be referred to Neurology within 2-4 weeks for hospital referral. Time spent on this discharge, including assessment, plan, physical examination, patient education and review of records, is 25 minutes. DICTATING PHYSICIAN: CONSTANTINO SCHMIDT NP [id number] Y#: [id number] ID: [id number] JOB#: [id number] ACCT: [id number] cc:NIKHIL ELLIOTT M.D. >
[2018-02-18] MEDS ORDERED: LEVOTHYROXINE SODIUM 0.025 MG TABLET PO SCH (06:00)
== END 2018-02-17 16:54 | disposition home or self-care (01) ==
LOC: ER 14:05 → EH 19:46 → 2N 22:33 → 4N 02-16 13:36 → 3S 02-16 15:38
PROVIDERS: ADMIT Internal Medicine; ATTEND Internal Medicine
DX: F13.20 Sedative, hypnotic or anxiolytic dependence, uncomplicated (principal); F15.20 Other stimulant dependence, uncomplicated; F11.20 Opioid dependence, uncomplicated; R55 Syncope and collapse; G43.109 Migraine with aura, not intractable, without status migrainosus; D51.9 Vitamin B12 deficiency anemia, unspecified; E64.8 Sequelae of other nutritional deficiencies; Z98.84 Bariatric surgery status; Z98.0 Intestinal bypass and anastomosis status; R20.0 Anesthesia of skin; F32.9 Major depressive disorder, single episode, unspecified; Z95.828 Presence of other vascular implants and grafts; R53.1 Weakness; R29.810 Facial weakness; E44.0 Moderate protein-calorie malnutrition; F41.9 Anxiety disorder, unspecified; I49.9 Cardiac arrhythmia, unspecified; E03.9 Hypothyroidism, unspecified; E86.0 Dehydration; E87.6 Hypokalemia; M54.9 Dorsalgia, unspecified; W19.XXXA Unspecified fall, initial encounter; Y92.009 Unspecified place in unspecified non-institutional (private) residence as the place of occurrence of the external cause; Z90.3 Acquired absence of stomach [part of]; Z86.19 Personal history of other infectious and parasitic diseases; Z98.890 Other specified postprocedural states; Z90.49 Acquired absence of other specified parts of digestive tract; Z82.49 Family history of ischemic heart disease and other diseases of the circulatory system; Z79.899 Other long term (current) drug therapy; Z79.82 Long term (current) use of aspirin; Z68.20 Body mass index [BMI] 20.0-20.9, adult; Z87.11 Personal history of peptic ulcer disease
CPT/HCPCS: 93005; 99285; 96372; 96375; 96365; 96366; 36415 ×2; 82607; 83735; 84443; 85025; 85027 ×2; 80048; 80053; 81001; 84484; 93306; 70551; 70547; 70544; 93010; G0378 ×4; J3420 ×2; J1650 ×2; J3480; J2550; J3490; J2405; J7040; J7120 ×2

== ENCOUNTER 2018-06-26 19:27 | Emergency (ER) | payer OTHER ==
[2018-06-26] MEDS ORDERED: NORMAL SALINE 250 ML IV PRN ×2 (19:47)
--- NOTE | 2018-06-26 19:53 | ER Document Report ---
ED Medical Screen (RME) - General Chief Complaint: General Weakness Stated Complaint: WEAKNESS Time Seen by Provider: 06/26/18 19:46 Notes: Pt. with extensive medical history of bleeding ulcers, blood transfusions and currently on TPN. Stated her PCP called her today stating that her H&H was low and she needed to go to the ED. Pt. stated she feels "like I always do." Stated she is always tired, but denies SOB, CP, vomiting or blood in her stool. EXAM: ABD SNT, non-distended, port right chest I have greeted and performed a rapid initial assessment of this patient. A comprehensive ED assessment and evaluation of the patient, analysis of test results and completion of the medical decision making process will be conducted by additional ED providers. TRAVEL OUTSIDE OF THE [place] IN LAST 30 DAYS: No - Related Data Allergies/Adverse Reactions: amoxicillin [Amoxicillin] Allergy (Severe, Verified 02/16/18 13:07) Past Medical History - Social History Chew tobacco use (# tins/day): No Frequency of alcohol use: None Drug Abuse: None - Past Medical History Cardiac Medical History: Denies: Hx Atrial Fibrillation, Hx Congestive Heart Failure, Hx Coronary Artery Disease, Hx DVT, Hx Heart Attack, Hx Hypercholesterolemia, Hx Hypertension, Hx Peripheral Vascular Disease, Hx Pulmonary Embolism, Hx Heart Murmur Pulmonary Medical History: Denies: Hx Asthma, Hx Bronchitis, Hx COPD, Hx Pneumonia, Hx Tuberculosis Neurological Medical History: Denies: Hx Cerebrovascular Accident, Hx Seizures Renal/ Medical History: Denies: Hx End Stage Renal Disease, Hx Kidney Stones, Hx Peritoneal Dialysis GI Medical History: Reports: Hx Ulcer. Denies: Hx Cirrhosis, Hx Gastroesophageal Reflux Disease Musculoskeltal Medical History: Denies Hx Arthritis, Denies Hx Multiple Sclerosis Psychiatric Medical History: Denies: Hx Bipolar Disorder, Hx Depression, Hx Schizophrenia Past Surgical History: Reports: Hx Abdominal Surgery - entrectomy, vagotomy, SBO , Hx Appendectomy, Hx Cholecystectomy, Hx Genitourinary Surgery - intestines removed from prior bowel obstruction., Other - Gastric antrectomy/vagotomy. Denies: Hx Hysterectomy, Hx Pacemaker - Immunizations Hx Diphtheria, Pertussis, Tetanus Vaccination: Yes History of Influenza Vaccine for 06/2017 - 11/2017 Season: Yes Physical Exam - Vital signs Vitals: Temp Pulse Resp BP Pulse Ox 97.7 F 85 15 116/63 100 06/26/18 19:34 06/26/18 19:34 06/26/18 19:34 06/26/18 19:34 06/26/18 19:34 Course - Vital Signs Vital signs: Temp Pulse Resp BP Pulse Ox 97.7 F 85 15 116/63 100 06/26/18 19:34 06/26/18 19:34 06/26/18 19:34 06/26/18 19:34 06/26/18 19:34 Doctor's Discharge - Discharge Referrals: ARTEMIO JOSEPH DO [Primary Care Provider] - Follow up as needed
--- NOTE | 2018-06-26 20:35 | ER Document Report ---
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 The patient used to receive iron transfusions in the past but has not received these for at least 1 year. She is entirely TPN dependent. She denies any melena, hematochezia, hematemesis, or vaginal bleeding. She states she effectively does not have a menstrual cycle. She states that she feels quite fatigued, lightheaded and overall unwell which is similar to when she has been anemic and required blood transfusions in the past. She has not otherwise noticed that he improves or worsens her symptoms. She denies any fever or localizing infectious symptoms TRAVEL OUTSIDE OF THE [place] IN LAST 30 DAYS: No - Related Data Allergies/Adverse Reactions: amoxicillin [Amoxicillin] Allergy (Severe, Verified 02/16/18 13:07) Past Medical History - General Information source: Patient - Social History Smoking Status: Never Smoker Chew tobacco use (# tins/day): No Frequency of alcohol use: None Drug Abuse: None Lives with: Spouse/Significant other Family History: Reviewed & Not Pertinent, Hypertension Patient has suicidal ideation: No Patient has homicidal ideation: No - Past Medical History Cardiac Medical History: Denies: Hx Atrial Fibrillation, Hx Congestive Heart Failure, Hx Coronary Artery Disease, Hx DVT, Hx Heart Attack, Hx Hypercholesterolemia, Hx Hypertension, Hx Peripheral Vascular Disease, Hx Pulmonary Embolism, Hx Heart Murmur Pulmonary Medical History: Denies: Hx Asthma, Hx Bronchitis, Hx COPD, Hx Pneumonia, Hx Tuberculosis Neurological Medical History: Denies: Hx Cerebrovascular Accident, Hx Seizures Renal/ Medical History: Denies: Hx End Stage Renal Disease, Hx Kidney Stones, Hx Peritoneal Dialysis GI Medical History: Reports: Hx Ulcer. Denies: Hx Cirrhosis, Hx Gastroesophageal Reflux Disease Musculoskeletal Medical History: Denies Hx Arthritis, Denies Hx Multiple Sclerosis Psychiatric Medical History: Denies: Hx Bipolar Disorder, Hx Depression, Hx Schizophrenia Past Surgical History: Reports: Hx Abdominal Surgery - entrectomy, vagotomy, SBO , Hx Appendectomy, Hx Cholecystectomy, Hx Genitourinary Surgery - intestines removed from prior bowel obstruction., Other - Gastric antrectomy/vagotomy. Denies: Hx Hysterectomy, Hx Pacemaker - Immunizations Hx Diphtheria, Pertussis, Tetanus Vaccination: Yes Review of Systems - Review of Systems Notes: Constitutional: Negative for fever. Positive for fatigue HENT: Negative for sore throat. Eyes: Negative for visual changes. Cardiovascular: Negative for chest pain. Respiratory: Negative for shortness of breath. Gastrointestinal: Negative for abdominal pain, vomiting or diarrhea. Genitourinary: Negative for dysuria. Musculoskeletal: Negative for back pain. Skin: Negative for rash. Neurological: Negative for headaches, weakness or numbness. 10 point ROS negative except as marked above and in HPI. Physical Exam - Vital signs Vitals: Temp Pulse Resp BP Pulse Ox 97.7 F 85 15 116/63 100 06/26/18 19:34 06/26/18 19:34 06/26/18 19:34 06/26/18 19:34 06/26/18 19:34 Interpretation: Normal Notes: PHYSICAL EXAMINATION: GENERAL: Somewhat emaciated but in no acute distress HEAD: Atraumatic, normocephalic. EYES: Pupils equal round and reactive to light, extraocular movements intact, sclera anicteric, conjunctiva are normal. ENT: nares patent, oropharynx clear without exudates. Moderately dry mucous membranes. NECK: Normal range of motion, supple without lymphadenopathy LUNGS: Breath sounds clear to auscultation bilaterally and equal. No wheezes rales or rhonchi. HEART: Regular rate and rhythm without murmurs ABDOMEN: Soft, nontender, normoactive bowel sounds. No guarding, no rebound. No masses appreciated. EXTREMITIES: Normal range of motion, no pitting or edema. No cyanosis. NEUROLOGICAL: No focal neurological deficits. Moves all extremities spontaneously and on command. PSYCH: Normal mood, normal affect. SKIN: Warm, Dry, normal turgor, no rashes or lesions noted. Course - Re-evaluation Re-evalutation: 06/26/18 21:23 Patient presents with laboratories most consistent with examination of iron deficiency anemia of chronic disease. Hemoglobin 6.4 as an outpatient, 7.2 here in the emergency department. She will be transfused 2 units for this chronic anemia. No evidence of active bleeding on examination or history. Will discharge after the patient has received 2 units and I have recommended close outpatient follow-up with hematology. The remainder of medical screening exam is otherwise unremarkable. At this time will discharge with return precautions and follow-up recommendations. Verbal discharge instructions given a the bedside and opportunity for questions given. Medication warnings reviewed. Patient is in agreement with this plan and has verbalized understanding of return precautions and the need for primary care follow-up in the next 24-72 hours. - Vital Signs Vital signs: Temp Pulse Resp BP Pulse Ox 97.7 F 85 13 102/71 100 06/26/18 19:34 06/26/18 19:34 06/26/18 20:01 06/26/18 20:00 06/26/18 20:01 - Laboratory Result Diagrams: 06/26/18 20:30 06/26/18 20:30 Laboratory results interpreted by me: 06/26/18 06/26/18 06/26/18 20:30 20:30 20:30 RBC 3.16 L Hgb 7.2 L Hct 22.4 L MCV 71 L MCH 22.9 L RDW 16.2 H Sodium 136.4 L Potassium 3.2 L Calcium 8.2 L Total Bilirubin 0.1 L Total Protein 5.6 L Albumin 3.2 L Crossmatch See Detail Discharge - Discharge Clinical Impression: Severe protein-calorie malnutrition, Anemia of chronic disease Iron (Fe) deficiency anemia Qualifiers: Iron deficiency anemia type: unspecified iron deficiency Qualified Code(s): D50.9 - Iron deficiency anemia, unspecified Condition: Stable Disposition: HOME, SELF-CARE Additional Instructions: You were seen today for a low blood count. You were given 2 units of blood but need to follow-up with hematology as you may require iron infusions. Return if you develop fever, vomiting, abdominal pain, or any other symptoms that are worrisome to you. Please follow closely with your primary care doctor. Referrals: ARTEMIO JOSEPH DO [Primary Care Provider] - Follow up as needed WALT MEADE MD [ACTIVE STAFF] - Follow up in 3-5 days
[2018-06-26 20:46] LABS: ABSOLUTE BASOPHILS # (AUTO) 0.1 10^3/uL (0.0-0.2); ABSOLUTE EOSINOPHILS # (AUTO) 0.2 10^3/uL (0.0-0.6); ABSOLUTE LYMPHOCYTES (AUTO) 1.9 10^3/uL (0.5-4.7); ABSOLUTE MONOCYTES (AUTO) 0.4 10^3/uL (0.1-1.4); ABSOLUTE NEUT (AUTO) 3.2 10^3/uL (1.7-8.2); BASOPHILS % (AUTO) 1.2 % (0-2); EOSINOPHILS % (AUTO) 3.8 % (0-6); HEMATOCRIT 22.4 % (36.0-47.0); LYMPHOCYTES % (AUTO) 32.5 % (13-45); MEAN CORPUSCULAR HEMOGLOBIN 22.9 pg (27.0-33.4); MEAN CORPUSCULAR HGB CONC 32.3 g/dL (32.0-36.0); MEAN CORPUSCULAR VOLUME 71 fl (80-97); MONOCYTES % (AUTO) 6.7 % (3-13); PLATELET COUNT 371 10^3/uL (150-450); RED BLOOD COUNT 3.16 10^6/uL (3.72-5.28); RED CELL DISTRIBUTION WIDTH 16.2 % (11.5-14.0); SEGMENTED NEUTROPHILS % (AUTO) 55.8 % (42-78); TOTAL CELLS COUNTED % (AUTO) 100 %; WHITE BLOOD COUNT 5.8 10^3/uL (4.0-10.5)
[2018-06-26 20:48] LABS: HEMOGLOBIN 7.2 g/dL (12.0-15.5)
[2018-06-26 21:00] LABS: ALANINE AMINOTRANSFERASE 32 U/L (9-52); ALBUMIN 3.2 g/dL (3.5-5.0); ALKALINE PHOSPHATASE 72 U/L (38-126); ANION GAP 7 (5-19); ASPARTATE AMINO TRANSFERASE 20 U/L (14-36); BILIRUBIN,DIRECT 0.1 mg/dL (0.0-0.4); BILIRUBIN,TOTAL 0.1 mg/dL (0.2-1.3); BLOOD UREA NITROGEN 10 mg/dL (7-20); CALCIUM 8.2 mg/dL (8.4-10.2); CARBON DIOXIDE 28 mmol/L (22-30); CHLORIDE 101 mmol/L (98-107); GLUCOSE 89 mg/dL (75-110); POTASSIUM 3.2 mmol/L (3.6-5.0); SODIUM 136.4 mmol/L (137-145); TOTAL PROTEIN 5.6 g/dL (6.3-8.2)
[2018-06-27 03:06] VITALS: BP 110/68
--- NOTE | 2018-06-27 21:04 | EKG REPORT ---
SEVERITY:- NORMAL ECG - SINUS RHYTHM : Confirmed by: Padma Mota MD 27-Jun-2018 21:03:19
== END 2018-06-27 03:25 | disposition home or self-care (01) ==
LOC: ER 19:27
DX: E43 Unspecified severe protein-calorie malnutrition (principal); D50.9 Iron deficiency anemia, unspecified; D63.8 Anemia in other chronic diseases classified elsewhere; R53.1 Weakness; Z98.84 Bariatric surgery status
CPT/HCPCS: 93005; 99285; 86900; 86901; 36415; 36430; 86850; 85025; 80053; 86920; 93010; P9016

== ENCOUNTER 2018-09-06 21:08 | Emergency (ER) | payer SELFPAY ==
[2018-09-06 21:24] VITALS: BP 117/60
[2018-09-06 21:50] LABS: ABSOLUTE EOSINOPHILS # (AUTO) 0.2 10^3/uL (0.0-0.6); ABSOLUTE LYMPHOCYTES (AUTO) 1.4 10^3/uL (0.5-4.7); ABSOLUTE MONOCYTES (AUTO) 0.3 10^3/uL (0.1-1.4); ABSOLUTE NEUT (AUTO) 3.4 10^3/uL (1.7-8.2); BASOPHILS % (AUTO) 0.8 % (0-2); EOSINOPHILS % (AUTO) 4.5 % (0-6); HEMATOCRIT 33.6 % (36.0-47.0); HEMOGLOBIN 11.5 g/dL (12.0-15.5); LYMPHOCYTES % (AUTO) 26.8 % (13-45); MEAN CORPUSCULAR HEMOGLOBIN 27.3 pg (27.0-33.4); MEAN CORPUSCULAR HGB CONC 34.4 g/dL (32.0-36.0); MEAN CORPUSCULAR VOLUME 80 fl (80-97); PLATELET COUNT 403 10^3/uL (150-450); RED BLOOD COUNT 4.22 10^6/uL (3.72-5.28); RED CELL DISTRIBUTION WIDTH 17.4 % (11.5-14.0); SEGMENTED NEUTROPHILS % (AUTO) 62.9 % (42-78); TOTAL CELLS COUNTED % (AUTO) 100 %; WHITE BLOOD COUNT 5.3 10^3/uL (4.0-10.5)
[2018-09-06 22:08] LABS: ANION GAP 16 (5-19); BLOOD UREA NITROGEN 14 mg/dL (7-20); CALCIUM 9.3 mg/dL (8.4-10.2); CARBON DIOXIDE 26 mmol/L (22-30); CHLORIDE 100 mmol/L (98-107); GLUCOSE 109 mg/dL (75-110); POTASSIUM 3.1 mmol/L (3.6-5.0); SODIUM 141.9 mmol/L (137-145)
[2018-09-06 22:09] LABS: ACANTHOCYTES 1+; ANISOCYTOSIS 1+; OVALOCYTES 2+; POIKILOCYTOSIS 2+; TEAR DROP CELLS 1+; TOXIC GRANULATION 1+; TOXIC VACUOLATION PRESENT
[2018-09-06 22:10] LABS: PLATELET COMMENT ADEQUATE
[2018-09-06] MEDS ORDERED: CLONAZEPAM 1 MG TABLET PO ONE (22:56)
--- NOTE | 2018-09-06 23:01 | ER Document Report ---
ED General - General Chief Complaint: Wound Infection Stated Complaint: PICC CATHETER ISSUE Time Seen by Provider: 09/06/18 21:24 Notes: Patient is a 38-year-old female well-known to me with a PICC line into the right subclavian vein for TPN who presents with concerns of possible leukocytosis as an outpatient as well as possible erythema around the PICC line entry site. States that her home nurse informed her that her white blood cell count was at 9 and that she was encouraged to come to the emergency department. She states that she noticed some possible erythema around the PICC line entry site but is no able to identify the site of erythema. She denies any significant pain to the area. Nothing seems to improve or worsen her symptoms. States this does not feel like when she has had infections in her line sites in the past. She denies fever or constitutional symptoms. She has not seen her primary care doctor regarding today's concerns. TRAVEL OUTSIDE OF THE [place] IN LAST 30 DAYS: No - Related Data Allergies/Adverse Reactions: amoxicillin [Amoxicillin] Allergy (Severe, Verified 09/06/18 21:55) Past Medical History - General Information source: Patient - Social History Smoking Status: Never Smoker Frequency of alcohol use: None Drug Abuse: None Lives with: Family Family History: Reviewed & Not Pertinent, Hypertension Patient has suicidal ideation: No Patient has homicidal ideation: No - Past Medical History Cardiac Medical History: Denies: Hx Atrial Fibrillation, Hx Congestive Heart Failure, Hx Coronary Artery Disease, Hx DVT, Hx Heart Attack, Hx Hypercholesterolemia, Hx Hypertension, Hx Peripheral Vascular Disease, Hx Pulmonary Embolism, Hx Heart Murmur Pulmonary Medical History: Denies: Hx Asthma, Hx Bronchitis, Hx COPD, Hx Pneumonia, Hx Tuberculosis Neurological Medical History: Denies: Hx Cerebrovascular Accident, Hx Seizures Renal/ Medical History: Denies: Hx End Stage Renal Disease, Hx Kidney Stones, Hx Peritoneal Dialysis GI Medical History: Reports: Hx Ulcer. Denies: Hx Cirrhosis, Hx Gastroesophageal Reflux Disease Musculoskeletal Medical History: Denies Hx Arthritis, Denies Hx Multiple Sclerosis Psychiatric Medical History: Denies: Hx Bipolar Disorder, Hx Depression, Hx Schizophrenia Past Surgical History: Reports: Hx Abdominal Surgery - entrectomy, vagotomy, SBO , Hx Appendectomy, Hx Cholecystectomy, Hx Genitourinary Surgery - intestines removed from prior bowel obstruction, Other - Gastric antrectomy/vagotomy. Denies: Hx Hysterectomy, Hx Pacemaker - Immunizations Hx Diphtheria, Pertussis, Tetanus Vaccination: Yes Review of Systems - Review of Systems Notes: Constitutional: Negative for fever. HENT: Negative for sore throat. Eyes: Negative for visual changes. Cardiovascular: Negative for chest pain. Respiratory: Negative for shortness of breath. Gastrointestinal: Negative for abdominal pain, vomiting or diarrhea. Genitourinary: Negative for dysuria. Musculoskeletal: Negative for back pain. Skin: Negative for rash. Neurological: Negative for headaches, weakness or numbness. 10 point ROS negative except as marked above and in HPI. Physical Exam - Vital signs Vitals: Temp Pulse Resp BP Pulse Ox 98.3 F 97 16 117/60 98 09/06/18 21:21 09/06/18 21:21 09/06/18 21:21 09/06/18 21:21 09/06/18 21:21 Interpretation: Normal Notes: PHYSICAL EXAMINATION: GENERAL: Somewhat emaciated but in no acute distress HEAD: Atraumatic, normocephalic. EYES: Pupils equal round and reactive to light, extraocular movements intact, sclera anicteric, conjunctiva are normal. ENT: nares patent, oropharynx clear without exudates. Moist mucous membranes. NECK: Normal range of motion, supple without lymphadenopathy LUNGS: Breath sounds clear to auscultation bilaterally and equal. No wheezes rales or rhonchi. HEART: Regular rate and rhythm without murmurs ABDOMEN: Soft, nontender, normoactive bowel sounds. No guarding, no rebound. No masses appreciated. EXTREMITIES: Normal range of motion, no pitting or edema. No cyanosis. NEUROLOGICAL: No focal neurological deficits. Moves all extremities spontaneously and on command. PSYCH: Normal mood, normal affect. SKIN: Warm, Dry, normal turgor, PICC line entry site in the right chest without evidence of erythema or induration Course - Re-evaluation Re-evalutation: 09/06/18 23:01 Patient presents with concerns of possible infection to her PICC site on the right subclavian vein. Patient states that her white blood cell count as an outpatient was reportedly elevated although it is completely normal here. There is no evidence of erythema or infection at the PICC site. The patient denies any other complaints other than being out of her [facility] emergency department. At this time will discharge with return precautions and follow-up recommendations. Verbal discharge instructions given a the bedside and opportunity for questions given. Medication warnings reviewed. Patient is in agreement with this plan and has verbalized understanding of return precautions and the need for primary care follow-up in the next 24-72 hours. - Vital Signs Vital signs: Temp Pulse Resp BP Pulse Ox 98.3 F 97 16 117/60 98 09/06/18 22:01 09/06/18 22:01 09/06/18 22:01 09/06/18 22:01 09/06/18 22:01 - Laboratory Result Diagrams: 09/06/18 21:35 09/06/18 21:35 Laboratory results interpreted by me: 09/06/18 09/06/18 21:35 21:35 Hgb 11.5 L Hct 33.6 L RDW 17.4 H Potassium 3.1 L Discharge - Discharge Clinical Impression: Hypokalemia, Protein-calorie malnutrition, moderate, Anxiety, PICC ( peripherally inserted central catheter) in place Condition: Stable Disposition: HOME, SELF-CARE Additional Instructions: Your WBC is normal. Your site does not currently look infected. Return for any fevers >100.4, increasing pain of the area, or any other concerns you may have. Referrals: ARTEMIO JOSEPH DO [Primary Care Provider] - Follow up as needed
== END 2018-09-06 23:05 | disposition home or self-care (01) ==
LOC: ER 21:08
DX: E44.0 Moderate protein-calorie malnutrition (principal); E87.6 Hypokalemia; F41.9 Anxiety disorder, unspecified; Z95.9 Presence of cardiac and vascular implant and graft, unspecified; Z88.0 Allergy status to penicillin
CPT/HCPCS: 36415; 80048; 85025; 87040; 99283

== ENCOUNTER 2018-10-15 14:33 | Emergency (ER) | payer MEDICAID, OTHER ==
--- NOTE | 2018-10-15 15:10 | ER Document Report ---
ED Medical Screen (RME) - General Chief Complaint: Chest Pain Stated Complaint: ABNORMAL LABS Time Seen by Provider: 10/15/18 15:04 Notes: 38-year-old female to emergency department chief complaint of "abnormal labs". Patient has malabsorption issues. 41 kg. Has most of her nutrition provided by TPN. Has not been on her TPN. Has been losing weight. Had labs done and was told that her potassium is extremely low and she would likely need to be admitted to the hospital. Having some mild chest pain. I have greeted and performed a rapid initial assessment of this patient. A comprehensive ED assessment and evaluation of the patient, analysis of test results and completion of the medical decision making process will be conducted by additional ED providers. TRAVEL OUTSIDE OF THE [place] IN LAST 30 DAYS: No - Related Data Allergies/Adverse Reactions: amoxicillin [Amoxicillin] Allergy (Severe, Verified 10/15/18 14:35) Past Medical History - Social History Frequency of alcohol use: None Drug Abuse: None - Past Medical History Cardiac Medical History: Denies: Hx Atrial Fibrillation, Hx Congestive Heart Failure, Hx Coronary Artery Disease, Hx DVT, Hx Heart Attack, Hx Hypercholesterolemia, Hx Hypertension, Hx Peripheral Vascular Disease, Hx Pulmonary Embolism, Hx Heart Murmur Pulmonary Medical History: Denies: Hx Asthma, Hx Bronchitis, Hx COPD, Hx Pneumonia, Hx Tuberculosis Neurological Medical History: Denies: Hx Cerebrovascular Accident, Hx Seizures Renal/ Medical History: Denies: Hx End Stage Renal Disease, Hx Kidney Stones, Hx Peritoneal Dialysis GI Medical History: Reports: Hx Ulcer. Denies: Hx Cirrhosis, Hx Gastroesophageal Reflux Disease Musculoskeltal Medical History: Denies Hx Arthritis, Denies Hx Multiple Sclerosis Psychiatric Medical History: Denies: Hx Bipolar Disorder, Hx Depression, Hx Schizophrenia Past Surgical History: Reports: Hx Abdominal Surgery - entrectomy, vagotomy, SBO, Hx Appendectomy, Hx Cholecystectomy, Hx Genitourinary Surgery - intestines removed from prior bowel obstruction, Other - Gastric antrectomy/vagotomy. Denies: Hx Hysterectomy, Hx Pacemaker - Immunizations Hx Diphtheria, Pertussis, Tetanus Vaccination: Yes History of Influenza Vaccine for 06/2017 - 11/2017 Season: Yes Physical Exam - Vital signs Vitals: Temp Pulse Resp BP Pulse Ox 98.2 F 83 18 103/57 L 100 10/15/18 14:47 10/15/18 14:47 10/15/18 14:47 10/15/18 14:47 10/15/18 14:47 Course - Vital Signs Vital signs: Temp Pulse Resp BP Pulse Ox 98.2 F 83 18 103/57 L 100 10/15/18 14:47 10/15/18 14:47 10/15/18 14:47 10/15/18 14:47 10/15/18 14:47 Doctor's Discharge - Discharge Referrals: ARTEMIO JOSEPH DO [Primary Care Provider] - Follow up as needed
[2018-10-15] MEDS ORDERED: RINGERS SOLUTION,LACTATED 1,000 ML IV ONE ×2 (15:11→19:47)
--- NOTE | 2018-10-15 15:59 | RADIOLOGY REPORT (SQ) ---
EXAM DESCRIPTION: CHEST 2 VIEWS COMPLETED DATE/TIME: 10/15/2018 3:33 pm REASON FOR STUDY: chest pain COMPARISON: 12/11/2017 EXAM PARAMETERS: NUMBER OF VIEWS: two views TECHNIQUE: Digital Frontal and Lateral radiographic views of the chest acquired. RADIATION DOSE: NA LIMITATIONS: none FINDINGS: LUNGS AND PLEURA: No opacities, masses or pneumothorax. No pleural effusion. MEDIASTINUM AND HILAR STRUCTURES: No masses or contour abnormalities. HEART AND VASCULAR STRUCTURES: Heart normal size. No evidence for failure. BONES: No acute findings. HARDWARE: None in the chest. OTHER: Right neck vascular catheter. IMPRESSION: No acute abnormality of the lungs. TECHNICAL DOCUMENTATION: JOB ID: [id number] [employer]- All Rights Reserved Reading location - IP/workstation name: [email or web address]
--- NOTE | 2018-10-15 16:13 | ER Document Report ---
ED General - General Chief Complaint: Chest Pain Stated Complaint: ABNORMAL LABS Time Seen by Provider: 10/15/18 15:04 Notes: Patient is a 38-year-old female with chronic malabsorption issues, and history of low potassium and magnesium that presents to the emergency department for chief complaint of abnormal labs. Patient was having routine blood work drawn, as she received most of her nutrition via TPN, due to short gut syndrome, malabsorption, and had a potassium that was 2.9, and was advised to come to the emergency department. She has been complaining of some fatigue, and feeling dehydrated as well, and complained of some chest discomfort. She denies any recent fevers, chills, vomiting, but does admit to having some nausea. She is also been complaining of some tingling in her hands and feet. She reports she used to get B12 injections, but has not received them in some time. Past Medical History: Chronic malabsorption, TPN dependent Past Surgical History: Multiple abdominal surgeries, partial gastrectomy, bowel resections, tunneled catheter placement Social History: Denies current tobacco, alcohol or drug use. Family History: Reviewed and noncontributory for presenting illness Allergies: Reviewed, see documented allergy list. REVIEW OF SYSTEMS: Other than noted above, the 12 point review of systems was reviewed with the patient and were negative, all pertinent findings are included in the HPI. PHYSICAL EXAMINATION: Vital signs reviewed, nursing noted reviewed. GENERAL: Cachectic appearing female, but in no acute distress HEAD: Atraumatic, normocephalic. EYES: Eyes appear normal, extraocular movements intact, sclera anicteric, conjunctiva are normal. ENT: nares patent, oropharynx clear without exudates. Moist mucous membranes. NECK: Normal range of motion, supple without lymphadenopathy LUNGS: Breath sounds clear to auscultation bilaterally and equal. No wheezes rales or rhonchi. Chest wall demonstrates a tunneled Regan catheter on the right HEART: Regular rate and rhythm without murmurs ABDOMEN: Soft, mild discomfort with palpation, normoactive bowel sounds. No rebound, guarding, or rigidity. No masses appreciated. EXTREMITIES: Nontender, good range of motion, no pitting or edema. NEUROLOGICAL: No focal neurological deficits. Moves all extremities spontaneously Motor and sensory grossly intact on exam. PSYCH: Normal mood, normal affect. SKIN: Warm, Dry, normal turgor, no rashes or lesions noted on exposed skin TRAVEL OUTSIDE OF THE [place] IN LAST 30 DAYS: No - Related Data Allergies/Adverse Reactions: amoxicillin [Amoxicillin] Allergy (Severe, Verified 10/15/18 14:35) Past Medical History - Social History Smoking Status: Never Smoker Frequency of alcohol use: None Drug Abuse: None Family History: Reviewed & Not Pertinent, Hypertension Patient has suicidal ideation: No Patient has homicidal ideation: No - Past Medical History Cardiac Medical History: Denies: Hx Atrial Fibrillation, Hx Congestive Heart Failure, Hx Coronary Artery Disease, Hx DVT, Hx Heart Attack, Hx Hypercholesterolemia, Hx Hypertension, Hx Peripheral Vascular Disease, Hx Pulmonary Embolism, Hx Heart Murmur Pulmonary Medical History: Denies: Hx Asthma, Hx Bronchitis, Hx COPD, Hx Pneumonia, Hx Tuberculosis Neurological Medical History: Denies: Hx Cerebrovascular Accident, Hx Seizures Renal/ Medical History: Denies: Hx End Stage Renal Disease, Hx Kidney Stones, Hx Peritoneal Dialysis GI Medical History: Reports: Hx Ulcer. Denies: Hx Cirrhosis, Hx Gastroesophageal Reflux Disease Musculoskeletal Medical History: Denies Hx Arthritis, Denies Hx Multiple Sclerosis Psychiatric Medical History: Denies: Hx Bipolar Disorder, Hx Depression, Hx Schizophrenia Past Surgical History: Reports: Hx Abdominal Surgery - entrectomy, vagotomy, SBO, Hx Appendectomy, Hx Cholecystectomy, Hx Genitourinary Surgery - intestines removed from prior bowel obstruction, Other - Gastric antrectomy/vagotomy. Denies: Hx Hysterectomy, Hx Pacemaker - Immunizations Hx Diphtheria, Pertussis, Tetanus Vaccination: Yes Physical Exam - Vital signs Vitals: Temp Pulse Resp BP Pulse Ox 98.2 F 83 18 103/57 L 100 10/15/18 14:47 10/15/18 14:47 10/15/18 14:47 10/15/18 14:47 10/15/18 14:47 Course - Re-evaluation Re-evalutation: Patient seen and examined vital signs reviewed. Laboratory data and imaging were ordered as appropriate for the patient's presenting symptoms and complaint, with consideration of any critical or life threatening conditions that may be associated with their obtained history and exam as noted above. Patient was treated with IV potassium and IV fluids, for mild dehydration, her potassium on our blood draw was 3.4, with a magnesium of 1.9, patient was also treated for her pain, and was feeling improved, I discussed with her the stocking glove type paresthesias she was having, and that we would give her a dose of IM B12 injections, and advised follow-up with her primary care to have this blood work repeated, she has not had folic acid or B12 testing in some time, which she was agreeable to. Patient was replenished with her electrolytes that she needed, and advised discharge to home, and follow-up. Evaluation was most consistent with hypokalemia, dehydration, paresthesias Results were discussed with the patient at this point, after careful consideration I feel that that patient can be discharged from the emergency department, the patient was educated treatments and reasons to return to the emergency department based on their presumed diagnosis as noted above, they were advised to followup with a primary care physician in 2-3 days. Patient was agreeable to plan of care. *Note is created using voice recognition software and may contain spelling, syntax or grammatical errors. Laboratory 10/15/18 10/15/18 10/15/18 16:21 16:21 16:21 WBC 6.1 RBC 3.75 Hgb 10.2 L Hct 29.9 L MCV 80 MCH 27.0 MCHC 34.0 RDW 13.3 Plt Count 331 Seg Neutrophils % 62.3 Lymphocytes % 25.6 Monocytes % 6.9 Eosinophils % 4.4 Basophils % 0.8 Absolute Neutrophils 3.8 Absolute Lymphocytes 1.6 Absolute Monocytes 0.4 Absolute Eosinophils 0.3 Absolute Basophils 0.0 Sodium 140.1 Potassium 3.4 L Chloride 104 Carbon Dioxide 27 Anion Gap 9 BUN 31 H Creatinine 0.97 Est GFR ( Amer) > 60 Est GFR (Non-Af Amer) > 60 Glucose 98 Calcium 8.4 Magnesium 1.9 Total Bilirubin 0.2 Direct Bilirubin 0.2 Neonat Total Bilirubin Not Reportable Neonat Direct Bilirubin Not Reportable Neonat Indirect Bili Not Reportable AST 17 ALT 25 Alkaline Phosphatase 64 Total Protein 6.3 Albumin 4.0 Urine Color Urine Appearance Urine pH Ur Specific [place] Urine Protein Urine Glucose (UA) Urine Ketones Urine Blood Urine Nitrite Urine Bilirubin Urine Urobilinogen Ur Leukocyte Esterase Urine WBC (Auto) Urine RBC (Auto) U Hyaline Cast (Auto) Urine Mucus (Auto) Urine Ascorbic Acid 10/15/18 16:55 WBC RBC Hgb Hct MCV MCH MCHC RDW Plt Count Seg Neutrophils % Lymphocytes % Monocytes % Eosinophils % Basophils % Absolute Neutrophils Absolute Lymphocytes Absolute Monocytes Absolute Eosinophils Absolute Basophils Sodium Potassium Chloride Carbon Dioxide Anion Gap BUN Creatinine Est GFR ( Amer) Est GFR (Non-Af Amer) Glucose Calcium Magnesium Total Bilirubin Direct Bilirubin Neonat Total Bilirubin Neonat Direct Bilirubin Neonat Indirect Bili AST ALT Alkaline Phosphatase Total Protein Albumin Urine Color COLORLESS Urine Appearance CLEAR Urine pH 6.0 Ur Specific [place] 1.006 Urine Protein NEGATIVE Urine Glucose (UA) NEGATIVE Urine Ketones NEGATIVE Urine Blood NEGATIVE Urine Nitrite NEGATIVE Urine Bilirubin NEGATIVE Urine Urobilinogen NEGATIVE Ur Leukocyte Esterase NEGATIVE Urine WBC (Auto) 1 Urine RBC (Auto) 1 U Hyaline Cast (Auto) 3 Urine Mucus (Auto) RARE Urine Ascorbic Acid NEGATIVE Chest X-Ray 10/15/18 15:09 IMPRESSION: No acute abnormality of the lungs. - Vital Signs Vital signs: Temp Pulse Resp BP Pulse Ox 98.2 F 83 17 90/51 L 100 10/15/18 14:47 10/15/18 14:47 10/15/18 22:06 10/15/18 22:06 10/15/18 22:06 - Laboratory Result Diagrams: 10/15/18 16:21 10/15/18 16:21 Laboratory results interpreted by me: 10/15/18 10/15/18 16:21 16:21 Hgb 10.2 L Hct 29.9 L Potassium 3.4 L BUN 31 H - EKG Interpretation by Me Additional EKG results interpreted by me: EKG demonstrates sinus rhythm with a ventricular rate of 77 bpm, normal axis, normal intervals, slight T wave inversions in leads II, III and aVF, this is compared with prior EKG from 06/26/2018, without significant change. Discharge - Discharge Clinical Impression: Hypokalemia, Dehydration, Paresthesia Condition: Stable Disposition: HOME, SELF-CARE Additional Instructions: Please follow-up with your primary care physician, and continue to get your routine blood work, otherwise, do not hesitate to return to the emergency department if you have further concerns. You received enough potassium, to get you to a normal level, via IV, your magnesium was within normal range today. Referrals: ARTEMIO JOSEPH DO [Primary Care Provider] - Follow up in 3-5 days
[2018-10-15 16:26] LABS: ABSOLUTE EOSINOPHILS # (AUTO) 0.3 10^3/uL (0.0-0.6); ABSOLUTE LYMPHOCYTES (AUTO) 1.6 10^3/uL (0.5-4.7); ABSOLUTE MONOCYTES (AUTO) 0.4 10^3/uL (0.1-1.4); ABSOLUTE NEUT (AUTO) 3.8 10^3/uL (1.7-8.2); BASOPHILS % (AUTO) 0.8 % (0-2); EOSINOPHILS % (AUTO) 4.4 % (0-6); HEMATOCRIT 29.9 % (36.0-47.0); HEMOGLOBIN 10.2 g/dL (12.0-15.5); LYMPHOCYTES % (AUTO) 25.6 % (13-45); MEAN CORPUSCULAR VOLUME 80 fl (80-97); MONOCYTES % (AUTO) 6.9 % (3-13); PLATELET COUNT 331 10^3/uL (150-450); RED BLOOD COUNT 3.75 10^6/uL (3.72-5.28); RED CELL DISTRIBUTION WIDTH 13.3 % (11.5-14.0); SEGMENTED NEUTROPHILS % (AUTO) 62.3 % (42-78); TOTAL CELLS COUNTED % (AUTO) 100 %; WHITE BLOOD COUNT 6.1 10^3/uL (4.0-10.5)
[2018-10-15] MEDS ORDERED: ONDANSETRON HCL INJ/PF 4 MG/2 ML SDV IV ONE (16:32)
[2018-10-15] MEDS ORDERED: MORPHINE SULFATE 10 MG/ML INJ IV ONE (16:32)
[2018-10-15 16:44] LABS: ALANINE AMINOTRANSFERASE 25 U/L (9-52); ALKALINE PHOSPHATASE 64 U/L (38-126); ANION GAP 9 (5-19); ASPARTATE AMINO TRANSFERASE 17 U/L (14-36); BILIRUBIN,DIRECT 0.2 mg/dL (0.0-0.4); BILIRUBIN,TOTAL 0.2 mg/dL (0.2-1.3); BLOOD UREA NITROGEN 31 mg/dL (7-20); CALCIUM 8.4 mg/dL (8.4-10.2); CARBON DIOXIDE 27 mmol/L (22-30); CHLORIDE 104 mmol/L (98-107); GLUCOSE 98 mg/dL (75-110); POTASSIUM 3.4 mmol/L (3.6-5.0); SODIUM 140.1 mmol/L (137-145); TOTAL PROTEIN 6.3 g/dL (6.3-8.2)
[2018-10-15 17:31] LABS: APPEARANCE,URINE CLEAR; BILIRUBIN,URINE NEGATIVE (NEGATIVE); COLOR,URINE COLORLESS; GLUCOSE, URINE NEGATIVE (NEGATIVE); KETONES,URINE NEGATIVE (NEGATIVE); LEUKOCYTE ESTERASE,URINE NEGATIVE (NEGATIVE); NITRITE,URINE NEGATIVE (NEGATIVE); PROTEIN,URINE NEGATIVE (NEGATIVE); URINE SPECIFIC GRAVITY 1.006; UROBILINOGEN,URINE NEGATIVE mg/dL (<2.0)
--- NOTE | 2018-10-15 17:58 | EKG REPORT ---
SEVERITY:- BORDERLINE ECG - SINUS RHYTHM BORDERLINE T ABNORMALITIES, DIFFUSE LEADS : Confirmed by: Suhas Mcdonald 15-Oct-2018 17:58:35
[2018-10-15] MEDS: POTASSI CL 20 MEQ/50 ML RIDER 20 MEQ/50 ML RTUPB IV SCH ×2 (18:02→19:52)
[2018-10-15] MEDS ORDERED: CYANOCOBALAMIN (VITAMIN B-12) INJ 1000 MCG/1 ML VIAL IM ONE (19:47)
[2018-10-15] MEDS ORDERED: NORMAL SALINE 1000 ML 1,000 ML IV ONE (19:49)
[2018-10-15 22:13] VITALS: BP 90/51
== END 2018-10-15 22:21 | disposition home or self-care (01) ==
LOC: ER 14:33
DX: E87.6 Hypokalemia (principal); E86.0 Dehydration; R20.0 Anesthesia of skin; R07.9 Chest pain, unspecified; R79.89 Other specified abnormal findings of blood chemistry; R53.83 Other fatigue; R11.0 Nausea
CPT/HCPCS: 93005; 36591; 99284; 96372; 96361; 96375; 96365; 96366; 36415; 83735; 85025; 80053; 81001; 71046; 93010; J3420; J2270; J2405; J3480; J7030; J7120

== ENCOUNTER 2018-12-15 14:39 | Emergency (ER) | payer OTHER ==
[2018-12-15] MEDS ORDERED: NORMAL SALINE 1000 ML 1,000 ML IV ONE (15:36)
[2018-12-15] MEDS ORDERED: MORPHINE SULFATE 10 MG/ML INJ IV ONE (15:36)
--- NOTE | 2018-12-15 15:37 | ER Document Report ---
ED Medical Screen (RME) - General Chief Complaint: Chest Pain Stated Complaint: ABDOMINAL PAIN, CHEST PAIN Time Seen by Provider: 12/15/18 15:26 Primary Care Provider: ARTEMIO JOSEPH DO [Primary Care Provider] - Follow up as needed Mode of Arrival: Ambulatory Information source: Patient TRAVEL OUTSIDE OF THE [place] IN LAST 30 DAYS: No - HPI Patient complains to provider of: Abdominal pain Notes: 12/15/18 15:37 38-year-old female with complicated medical history and surgical history presents to the emergency room today complaining of abdominal pain with distention and inability to have a bowel movement times 10 days, she has had multiple abdominal surgeries in the past and a history of small bowel obstruction 12/15/18 15:37 RAPID MEDICAL EVALUATION DISCLOSURE I have seen this patient as part of a Rapid Medical Evaluation and, if applicable, placed any initially appropriate orders. The patient will be seen and fully evaluated, including a full history and physical exam, by a provider (in Main ED or Fast Track) when a room becomes available. - Related Data Allergies/Adverse Reactions: amoxicillin [Amoxicillin] Allergy (Severe, Verified 12/15/18 14:42) Past Medical History - Social History Frequency of alcohol use: None Drug Abuse: None - Past Medical History Cardiac Medical History: Denies: Hx Atrial Fibrillation, Hx Congestive Heart Failure, Hx Coronary Artery Disease, Hx DVT, Hx Heart Attack, Hx Hypercholesterolemia, Hx Hypertension, Hx Peripheral Vascular Disease, Hx Pulmonary Embolism, Hx Heart Murmur Pulmonary Medical History: Denies: Hx Asthma, Hx Bronchitis, Hx COPD, Hx Pneumonia, Hx Tuberculosis Neurological Medical History: Denies: Hx Cerebrovascular Accident, Hx Seizures Renal/ Medical History: Denies: Hx End Stage Renal Disease, Hx Kidney Stones, Hx Peritoneal Dialysis GI Medical History: Reports: Hx Ulcer - malasportion disease, tachycardia. Denies: Hx Cirrhosis, Hx Gastroesophageal Reflux Disease Musculoskeltal Medical History: Denies Hx Arthritis, Denies Hx Multiple Sclerosis Psychiatric Medical History: Denies: Hx Bipolar Disorder, Hx Depression, Hx Schizophrenia Past Surgical History: Reports: Hx Abdominal Surgery - entrectomy, vagotomy, SBO, Hx Appendectomy, Hx Cholecystectomy, Hx Genitourinary Surgery - intestines removed from prior bowel obstruction, Other - Gastric antrectomy/vagotomy. Denies: Hx Hysterectomy, Hx Pacemaker - Immunizations Hx Diphtheria, Pertussis, Tetanus Vaccination: Yes History of Influenza Vaccine for 06/2017 - 11/2017 Season: Yes Physical Exam - Vital signs Vitals: Temp Pulse Resp BP Pulse Ox 98.4 F 84 17 98/33 L 100 12/15/18 14:58 12/15/18 14:58 12/15/18 14:58 12/15/18 14:58 12/15/18 14:58 Course - Vital Signs Vital signs: Temp Pulse Resp BP Pulse Ox 98.4 F 84 17 98/33 L 100 12/15/18 14:58 12/15/18 14:58 12/15/18 14:58 12/15/18 14:58 12/15/18 14:58 Doctor's Discharge - Discharge Referrals: ARTEMIO JOSEPH DO [Primary Care Provider] - Follow up as needed
[2018-12-15 16:10] LABS: ABSOLUTE BASOPHILS # (AUTO) 0.1 10^3/uL (0.0-0.2); ABSOLUTE EOSINOPHILS # (AUTO) 0.4 10^3/uL (0.0-0.6); ABSOLUTE LYMPHOCYTES (AUTO) 1.9 10^3/uL (0.5-4.7); ABSOLUTE MONOCYTES (AUTO) 0.5 10^3/uL (0.1-1.4); BASOPHILS % (AUTO) 1.3 % (0-2); HEMATOCRIT 24.8 % (36.0-47.0); LYMPHOCYTES % (AUTO) 32.8 % (13-45); MEAN CORPUSCULAR HEMOGLOBIN 24.2 pg (27.0-33.4); MEAN CORPUSCULAR HGB CONC 32.2 g/dL (32.0-36.0); MEAN CORPUSCULAR VOLUME 75 fl (80-97); MONOCYTES % (AUTO) 8.2 % (3-13); PLATELET COUNT 350 10^3/uL (150-450); RED CELL DISTRIBUTION WIDTH 14.9 % (11.5-14.0); SEGMENTED NEUTROPHILS % (AUTO) 50.7 % (42-78); TOTAL CELLS COUNTED % (AUTO) 100 %; WHITE BLOOD COUNT 5.9 10^3/uL (4.0-10.5)
[2018-12-15 16:17] LABS: APPEARANCE,URINE CLOUDY; BILIRUBIN,URINE NEGATIVE (NEGATIVE); COLOR,URINE YELLOW; GLUCOSE, URINE NEGATIVE (NEGATIVE); KETONES,URINE NEGATIVE (NEGATIVE); LEUKOCYTE ESTERASE,URINE LARGE (NEGATIVE); NITRITE,URINE POSITIVE (NEGATIVE); PROTEIN,URINE NEGATIVE (NEGATIVE)
[2018-12-15 16:37] LABS: ALANINE AMINOTRANSFERASE 29 U/L (9-52); ALKALINE PHOSPHATASE 90 U/L (38-126); ANION GAP 8 (5-19); ASPARTATE AMINO TRANSFERASE 17 U/L (14-36); BILIRUBIN,DIRECT 0.2 mg/dL (0.0-0.4); BILIRUBIN,TOTAL 0.3 mg/dL (0.2-1.3); BLOOD UREA NITROGEN 16 mg/dL (7-20); CARBON DIOXIDE 25 mmol/L (22-30); CHLORIDE 104 mmol/L (98-107); GLUCOSE 94 mg/dL (75-110); LIPASE 113.2 U/L (23-300); POTASSIUM 3.4 mmol/L (3.6-5.0); SODIUM 137.4 mmol/L (137-145); TOTAL PROTEIN 6.8 g/dL (6.3-8.2)
[2018-12-15] MEDS ORDERED: HYDROMORPHONE HCL INJ/PF 2 MG/ML AMPULE IV ONE (19:45)
[2018-12-15] MEDS ORDERED: RINGERS SOLUTION,LACTATED 1,000 ML IV ONE (19:45)
[2018-12-15] MEDS ORDERED: CEFTRIAXONE 1 GM/D5W RTU 1 GM/50 ML RTUPB IV ONE (19:45)
--- NOTE | 2018-12-15 20:33 | RADIOLOGY REPORT (SQ) ---
EXAM DESCRIPTION: XR ABDOMEN SUPINE AND ERECT WITH CHEST (ABD ACUTE SERIES) COMPLETED DATE/TME: 12/15/2018 19:45 CLINICAL HISTORY: 38 years, Female, pain no BM Findings: The heart is not enlarged. Right chest tunneled CVC is in place. No pneumothorax. No pulmonary edema. No consolidations. No pleural effusions. No free intraperitoneal air. Status post cholecystectomy. Mild amount of stool in the colon. Postsurgical changes are noted. IMPRESSION: No evidence for bowel obstruction.
[2018-12-15] MEDS ORDERED: DIPHENHYDRAMINE HCL 50 MG/ML VIAL IV ONE (20:46)
[2018-12-15] MEDS ORDERED: METOCLOPRAMIDE HCL INJ/PF 10 MG/2 ML SDV IV ONE (20:46)
[2018-12-15] MEDS ORDERED: POTASSIUM CHLORIDE 20 MEQ/15 ML UDCUP PO ONE (20:48)
--- NOTE | 2018-12-15 20:49 | ER Document Report ---
ED General - General Chief Complaint: Chest Pain Stated Complaint: ABDOMINAL PAIN, CHEST PAIN Time Seen by Provider: 12/15/18 15:26 Primary Care Provider: ARTEMIO JOSEPH DO [Primary Care Provider] - Follow up as needed Mode of Arrival: Ambulatory TRAVEL OUTSIDE OF THE [place] IN LAST 30 DAYS: No - Related Data Allergies/Adverse Reactions: amoxicillin [Amoxicillin] Allergy (Severe, Verified 12/15/18 14:42) Past Medical History - General Information source: Patient - Social History Smoking Status: Never Smoker Frequency of alcohol use: None Drug Abuse: None Family History: Reviewed & Not Pertinent, Hypertension Patient has suicidal ideation: No Patient has homicidal ideation: No - Past Medical History Cardiac Medical History: Denies: Hx Atrial Fibrillation, Hx Congestive Heart Failure, Hx Coronary Artery Disease, Hx DVT, Hx Heart Attack, Hx Hypercholesterolemia, Hx Hype rtension, Hx Peripheral Vascular Disease, Hx Pulmonary Embolism, Hx Heart Murmur Pulmonary Medical History: Denies: Hx Asthma, Hx Bronchitis, Hx COPD, Hx Pneumonia, Hx Tuberculosis Neurological Medical History: Denies: Hx Cerebrovascular Accident, Hx Seizures Renal/ Medical History: Denies: Hx End Stage Renal Disease, Hx Kidney Stones, Hx Peritoneal Dialysis GI Medical History: Reports: Hx Ulcer - malasportion disease, tachycardia. Denies: Hx Cirrhosis, Hx Gastroesophageal Reflux Disease Musculoskeletal Medical History: Denies Hx Arthritis, Denies Hx Multiple Scle rosis Psychiatric Medical History: Denies: Hx Bipolar Disorder, Hx Depression, Hx Schizophrenia Past Surgical History: Reports: Hx Abdominal Surgery - entrectomy, vagotomy, SBO, Hx Appendectomy, Hx Cholecystectomy, Hx Genitourinary Surgery - intestines removed from prior bowel obstruction, Other - Gastric antrectomy/vagotomy. Denies: Hx Hysterectomy, Hx Pacemaker - Immunizations Hx Diphtheria, Pertussis, Tetanus Vaccination: Yes Physical Exam - Vital signs Vitals: Temp Pulse Resp BP Pulse Ox 98.4 F 84 17 98/33 L 100 12/15/18 14:58 12/15/18 14:58 12/15/18 14:58 12/15/18 14:58 12/15/18 14:58 Course - Vital Signs Vital signs: Temp Pulse Resp BP Pulse Ox 98.4 F 84 17 98/33 L 100 12/15/18 14:58 12/15/18 14:58 12/15/18 14:58 12/15/18 14:58 12/15/18 14:58 - Laboratory Result Diagrams: 12/15/18 15:51 12/15/18 15:51 Laboratory results interpreted by me: 12/15/18 12/15/18 12/15/18 15:51 15:51 15:51 RBC 3.30 L Hgb 8.0 L Hct 24.8 L MCV 75 L MCH 24.2 L RDW 14.9 H Eosinophils % 7.0 H Potassium 3.4 L Urine Blood LARGE H Urine Nitrite POSITIVE H Urine Urobilinogen 2.0 H Ur Leukocyte Esterase LARGE H Discharge - Discharge Clinical Impression: Underweight, Chronic abdominal pain, Chronic anemia, Hypokalemia, Anemia of chronic disease Constipation Qualifiers: Constipation type: unspecified constipation type Qualified Code(s): K59.00 - Constipation, unspecified UTI (urinary tract infection) Qualifiers: Urinary tract infection type: site unspecified Hematuria presence: with hematuria Qualified Code(s): N39.0 - Urinary tract infection, site not specified; R31.9 - Hematuria, unspecified Referrals: ARTEMIO JOSEPH DO [Primary Care Provider] - Follow up as needed
--- NOTE | 2018-12-15 21:03 | ER Document Report ---
ED General - General Chief Complaint: Chest Pain Stated Complaint: ABDOMINAL PAIN, CHEST PAIN Time Seen by Provider: 12/15/18 15:26 Primary Care Provider: ML BRADY MD [ACTIVE STAFF] - Follow up tomorrow CHRISTINA FONTENOT MD [ACTIVE STAFF] - Follow up tomorrow ARTEMIO JOSEPH DO [Primary Care Provider] - Follow up as needed Mode of Arrival: Ambulatory Information source: Patient, Relative, [facility] Records Notes: 38-year-old female with a complex medical history, chronic abdominal pain, history of hypertrophic pyloric stenosis, antrectomy, vagotomy, colectomy due to small bowel obstruction, history of appendectomy, cholecystectomy presents with complaint of abdominal pain, constipation, dysuria, left flank pain. Patient states that her home nurse who comes weekly told her that she was showing signs of "peritonitis and gastrointestinal perforation". Patient admits to subjective fever, chills. She denies nausea, vomiting, chest pain, shortness of breath. Patient does have a right tunneled PICC line. She does receive TPN. She does have chronic anemia. TRAVEL OUTSIDE OF THE [place] IN LAST 30 DAYS: No - HPI Onset: Other Onset/Duration: Gradual, Persistent Quality of pain: Cramping, Fullness Severity: Moderate Pain Level: 3 Associated symptoms: Body/muscle aches, Chills, Fever - Subjective, Nausea, Other - Constipation. denies: Diarrhea, Hurts to breath, Vomiting, Shortness of breath Exacerbated by: Denies Relieved by: Denies Similar symptoms previously: Yes Recently seen / treated by doctor: No - Related Data Allergies/Adverse Reactions: amoxicillin [Amoxicillin] Allergy (Severe, Verified 12/15/18 14:42) Past Medical History - General Information source: Patient - Social History Smoking Status: Never Smoker Frequency of alcohol use: None Drug Abuse: None Lives with: Parents Family History: Reviewed & Not Pertinent, Hypertension Patient has suicidal ideation: No Patient has homicidal ideation: No - Past Medical History Cardiac Medical History: Denies: Hx Atrial Fibrillation, Hx Congestive Heart Failure, Hx Coronary Artery Disease, Hx DVT, Hx Heart Attack, Hx Hypercholesterolemia, Hx Hypertension, Hx Peripheral Vascular Disease, Hx Pulmonary Embolism, Hx Heart Murmur Pulmonary Medical History: Denies: Hx Asthma, Hx Bronchitis, Hx COPD, Hx Pneumonia, Hx Tuberculosis Neurological Medical History: Denies: Hx Cerebrovascular Accident, Hx Seizures Renal/ Medical History: Denies: Hx End Stage Renal Disease, Hx Kidney Stones, Hx Peritoneal Dialysis GI Medical History: Reports: Hx Ulcer - malasportion disease, tachycardia. Denies: Hx Cirrhosis, Hx Gastroesophageal Reflux Disease Musculoskeletal Medical History: Denies Hx Arthritis, Denies Hx Multiple Sclerosis Psychiatric Medical History: Denies: Hx Bipolar Disorder, Hx Depression, Hx Schizophrenia Past Surgical History: Reports: Hx Abdominal Surgery - entrectomy, vagotomy, SBO, Hx Appendectomy, Hx Cholecystectomy, Hx Genitourinary Surgery - intestines removed from prior bowel obstruction, Other - Gastric antrectomy/vagotomy. Denies: Hx Hysterectomy, Hx Pacemaker - Immunizations Hx Diphtheria, Pertussis, Tetanus Vaccination: Yes Review of Systems - Review of Systems Constitutional: Chills, Fever, Malaise EENT: denies: Blurred vision Cardiovascular: denies: Chest pain, Palpitations, Dizziness, Lightheaded Respiratory: denies: Cough, Short of breath Gastrointestinal: Abdominal pain, Constipation. denies: Nausea, Vomiting Genitourinary: Dysuria, Flank pain Musculoskeletal: Back pain Skin: denies: Rash Hematologic/Lymphatic: No symptoms reported Neurological/Psychological: Headaches -: Yes All other systems reviewed and negative Physical Exam - Vital signs Vitals: Temp Pulse Resp BP Pulse Ox 98.4 F 84 17 98/33 L 100 12/15/18 14:58 12/15/18 14:58 12/15/18 14:58 12/15/18 14:58 12/15/18 14:58 - Notes Notes: PHYSICAL EXAMINATION: GENERAL: Frail, cachectic HEAD: Atraumatic, normocephalic. EYES: Pupils equal round and reactive to light, extraocular movements intact, conjunctiva are normal. ENT: Nares patent, oropharynx clear without exudates. Moist mucous membranes. NECK: Normal range of motion, supple without lymphadenopathy LUNGS: Breath sounds clear to auscultation bilaterally and equal. No wheezes rales or rhonchi. HEART: Regular rate and rhythm without murmurs ABDOMEN: Soft, mild distention, suprapubic tenderness, left CVA tenderness. No guarding, no rebound. No masses appreciated. Female : deferred Musculoskeletal: Normal range of motion, no pitting or edema. No cyanosis. NEUROLOGICAL: Cranial nerves grossly intact. Normal speech, normal gait. Normal sensory, motor exams PSYCH: Normal mood, normal affect. SKIN: Pallor Course - Re-evaluation Re-evalutation: Laboratory 12/15/18 12/15/18 12/15/18 15:51 15:51 15:51 WBC 5.9 RBC 3.30 L Hgb 8.0 L Hct 24.8 L MCV 75 L MCH 24.2 L MCHC 32.2 RDW 14.9 H Plt Count 350 Seg Neutrophils % 50.7 Lymphocytes % 32.8 Monocytes % 8.2 Eosinophils % 7.0 H Basophils % 1.3 Absolute Neutrophils 3.0 Absolute Lymphocytes 1.9 Absolute Monocytes 0.5 Absolute Eosinophils 0.4 Absolute Basophils 0.1 Sodium 137.4 Potassium 3.4 L Chloride 104 Carbon Dioxide 25 Anion Gap 8 BUN 16 Creatinine 0.79 Est GFR ( Amer) > 60 Est GFR (Non-Af Amer) > 60 Glucose 94 Calcium 9.0 Total Bilirubin 0.3 Direct Bilirubin 0.2 Neonat Total Bilirubin Not Reportable Neonat Direct Bilirubin Not Reportable Neonat Indirect Bili Not Reportable AST 17 ALT 29 Alkaline Phosphatase 90 Total Protein 6.8 Albumin 4.0 Lipase 113.2 Urine Color YELLOW Urine Appearance CLOUDY Urine pH 6.0 Ur Specific [place] 1.020 Urine Protein NEGATIVE Urine Glucose (UA) NEGATIVE Urine Ketones NEGATIVE Urine Blood LARGE H Urine Nitrite POSITIVE H Urine Bilirubin NEGATIVE Urine Urobilinogen 2.0 H Ur Leukocyte Esterase LARGE H Urine WBC (Auto) 129 Urine RBC (Auto) 2 Urine Bacteria (Auto) 2+ Urine WBC Clumps FEW Squamous Epi Cells Auto 1 Urine Mucus (Auto) RARE Urine Ascorbic Acid NEGATIVE Urine HCG, Qual NEGATIVE Acute Abdomen Series 12/15/18 19:45 IMPRESSION: No evidence for bowel obstruction. Temp Pulse Resp BP Pulse Ox 98.2 F 84 10 L 102/58 L 100 12/15/18 21:40 12/15/18 14:58 12/15/18 21:40 12/15/18 21:40 12/15/18 21:40 12/15/18 21:09 38-year-old female with chronic abdominal pain, complex abdominal surgical history presents with abdominal pain, left flank pain. Patient reports that she has not had a bowel movement in approximately 1 week. She does receive TPN through a tunneled PICC line.. She does have a history of chronic anemia. Vital signs reviewed and patient is afebrile, initially hypotensive although I think this was inaccurate blood pressure reading. She does not appear toxic, dehydrated. She is frail, cachectic and pale. Patient reports having had greater than 15 CAT scans "at least". Here she has had 6 CAT scans and has had none of her abdominal surgeries performed here. I did discuss the risk of pe rsistent radiation exposure and subsequent cancer with the patient and her mother . They are agreeable to acute abdominal series to check for signs of obstruction, free air. Patient does have a significant urinary tract infection. CBC is without leukocytosis. Patient does have chronic anemia and her hemoglobin today is 8 and not requiring transfusion. CMP shows mild hypokalemia for which she did receive p.o. potassium and this appears to be a chronic problem for her. Patient did receive IV fluids, IV ceftriaxone. On reevaluation patient now complaining of a frontal headache. She does have a history of migraines. Reglan and Benadryl were administered. 12/15/18 21:35 acute abdominal series shows no evidence of bowel obstruction, free air. Does show stool burden. On reevaluation patient is eating Canadian fries. Reports improvement of her headache. Is requesting Zofran and Maxalt for discharge. 12/15/18 21:41 Patient had an improvement of her blood pressure and it is now 105/63. 12/15/18 21:48 Did discuss with the patient the importance of seeing her primary care physician and her internet technology manager Dr. Brady. 12/15/18 21:49 12/15/18 21:50 - Vital Signs Vital signs: Temp Pulse Resp BP Pulse Ox 98.4 F 84 21 H 105/65 100 12/15/18 14:58 12/15/18 14:58 12/15/18 21:21 12/15/18 21:21 12/15/18 21:21 - Laboratory Result Diagrams: 12/15/18 15:51 12/15/18 15:51 Laboratory results interpreted by me: 12/15/18 12/15/18 12/15/18 15:51 15:51 15:51 RBC 3.30 L Hgb 8.0 L Hct 24.8 L MCV 75 L MCH 24.2 L RDW 14.9 H Eosinophils % 7.0 H Potassium 3.4 L Urine Blood LARGE H Urine Nitrite POSITIVE H Urine Urobilinogen 2.0 H Ur Leukocyte Esterase LARGE H - Diagnostic Test Radiology reviewed: Image reviewed, Reports reviewed Discharge - Discharge Clinical Impression: Underweight, Chronic abdominal pain, Chronic anemia, Hypokalemia, Anemia of chronic disease Constipation Qualifiers: Constipation type: unspecified constipation type Qualified Code(s): K59.00 - Constipation, unspecified UTI (urinary tract infection) Qualifiers: Urinary tract infection type: site unspecified Hematuria presence: with hematuria Qualified Code(s): N39.0 - Urinary tract infection, site not specified Migraine Qualifiers: Migraine type: unspecified Status migrainosus presence: without status migrainosus Intractability: not intractable Qualified Code(s): G43.909 - Migraine, unspecified, not intractable, without status migrainosus B12 deficiency anemia Qualifiers: Vitamin B12 deficiency anemia type: unspecified B12 deficiency Qualified Code(s): D51.9 - Vitamin B12 deficiency anemia, unspecified Malnutrition Qualifiers: Malnutrition type: protein-calorie malnutrition Protein-calorie malnutrition severity: unspecified severity Qualified Code(s): E46 - Unspecified protein-moriah alexandra malnutrition Condition: Fair Disposition: HOME, SELF-CARE Instructions: Abdominal Pain ([facility]), Antinausea Medication ([facility]), Constipation ([facility]), Urinary Tract Infection ([facility]) Additional Instructions: Your urine shows findings consistent with a urinary tract infection. Please take all the antibiotics as directed even if your symptoms have improved. Please follow-up with your primary care physician as needed. Return to emergency room if you develop fever >101F, persistent vomiting, become lethargic, have severe pain in your sides, or any other symptoms that are concerning to you. Prescriptions: Cephalexin Monohydrate [Keflex 500 mg Capsule] 500 mg PO BID 7 Days #14 capsule Ondansetron [Zofran Odt 4 mg Tablet] 1 - 2 tab PO Q4H PRN #15 tab.rapdis PRN Reason: For Nausea/Vomiting Polyethylene Glycol 3350 [Miralax Powder 17 gm/Packet] 1 packet PO DAILY #10 pkg Rizatriptan Benzoate [Maxalt] 5 mg PO Q8H PRN #10 tablet PRN Reason: For Headache Referrals: ARTEMIO JOSEPH DO [Primary Care Provider] - Follow up as needed CHRISTINA FONTENOT MD [ACTIVE STAFF] - Follow up tomorrow ML BRADY MD [ACTIVE STAFF] - Follow up tomorrow
[2018-12-15 21:48] VITALS: BP 102/58
--- NOTE | 2018-12-16 17:13 | EKG REPORT ---
SEVERITY:- ABNORMAL ECG - SINUS RHYTHM NONSPECIFIC T ABNORMALITIES, DIFFUSE LEADS : Confirmed by: Suhas Mcdonald 16-Dec-2018 17:13:01
--- NOTE | 2018-12-16 18:31 | ER Document Report ---
Doctor's Note Notes: 12/16/18 18:29 Received results from microbiology showing 2 sets of positive blood cultures positive for gram-positive cocci, I attempted to place a call to patient at the number listed in her chart to request that she return to the emergency department, however there was no answer and I left a message requesting the patient to call me back
--- NOTE | 2018-12-17 20:17 | ER Document Report ---
Doctor's Note Notes: 12/17/18 20:16 I got up to call from Ms. Fuentes who was returning a call earlier. I went over her chart and I spoke to her at length. I have recommended she come back to the emergency room now for evaluation
== END 2018-12-15 21:48 | disposition home or self-care (01) ==
LOC: ER 14:39
DX: E46 Unspecified protein-calorie malnutrition (principal); D64.89 Other specified anemias; E87.6 Hypokalemia; K59.00 Constipation, unspecified; N39.0 Urinary tract infection, site not specified; G43.909 Migraine, unspecified, not intractable, without status migrainosus; D51.9 Vitamin B12 deficiency anemia, unspecified; R07.9 Chest pain, unspecified; R10.9 Unspecified abdominal pain; G89.29 Other chronic pain; M79.10 Myalgia, unspecified site; R11.0 Nausea
CPT/HCPCS: 93005; 99284; 96361; 96375; 96365; 36415; 87040; 83690; 85025; 81025; 87077; 80053; 81001; 74022; 93010; J1200; J2765; J2270; J1170; J7030; J7120; J0696

== ENCOUNTER 2018-12-18 20:19 | Inpatient (IN) | payer OTHER ==
[2018-12-18] MEDS ORDERED: VANCOMYCIN HCL INJ 1000 MG VIAL IV ONE (22:03)
--- NOTE | 2018-12-18 22:07 | ER Document Report ---
ED General - General Chief Complaint: Abnormal Lab Results Stated Complaint: ABNORMAL LABS Notes: Patient is a 38-year-old female with a complicated past medical history including colectomy, appendectomy, hypertrophic pelvic stenosis, antrectomy, appendectomy, cholecystectomy, small bowel obstruction, chronic abdominal pain, that comes to the emergency department for chief complaint of positive blood cultures. She was evaluated 3 days ago, diagnosed with a urinary tract infection, placed on Rocephin initially and then on Keflex at home, patient reports that she does not feel any better, she still has some pain, she states she still has felt feverish with chills. She states T-max at home over the past several days is 101.9, she has not had one greater than 100.4 today. She denies vomiting, cough, difficulty breathing, dizziness, chest pain. Patient has a PICC line (right tunneled), receives TPN, and also has chronic anemia. TRAVEL OUTSIDE OF THE [place] IN LAST 30 DAYS: No - Related Data Allergies/Adverse Reactions: amoxicillin [Amoxicillin] Allergy (Severe, Verified 12/15/18 14:42) Past Medical History - General Information source: Patient, Relative - Social History Smoking Status: Never Smoker Frequency of alcohol use: None Drug Abuse: None Lives with: Family Family History: Reviewed & Not Pertinent, Hypertension - Past Medical History Cardiac Medical History: Denies: Hx Atrial Fibrillation, Hx Congestive Heart Failure, Hx Coronary Artery Disease, Hx DVT, Hx Heart Attack, Hx Hypercholesterolemia, Hx Hypertension, Hx Peripheral Vascular Disease, Hx Pulmonary Embolism, Hx Heart Murmur Pulmonary Medical History: Denies: Hx Asthma, Hx Bronchitis, Hx COPD, Hx Pneumonia, Hx Tuberculosis Neurological Medical History: Denies: Hx Cerebrovascular Accident, Hx Seizures Renal/ Medical History: Denies: Hx End Stage Renal Disease, Hx Kidney Stones, Hx Peritoneal Dialysis GI Medical History: Reports: Hx Ulcer - malasportion disease, tachycardia. Denies: Hx Cirrhosis, Hx Gastroesophageal Reflux Disease Musculoskeletal Medical History: Denies Hx Arthritis, Denies Hx Multiple Sclerosis Psychiatric Medical History: Denies: Hx Bipolar Disorder, Hx Depression, Hx Schizophrenia Past Surgical History: Reports: Hx Abdominal Surgery - entrectomy, vagotomy, SBO, Hx Appendectomy, Hx Cholecystectomy, Hx Genitourinary Surgery - intestines removed from prior bowel obstruction, Other - Gastric antrectomy/vagotomy. Denies: Hx Hysterectomy, Hx Pacemaker - Immunizations Hx Diphtheria, Pertussis, Tetanus Vaccination: Yes Review of Systems - Review of Systems Constitutional: See HPI EENT: No symptoms reported Cardiovascular: No symptoms reported Respiratory: No symptoms reported Gastrointestinal: See HPI Genitourinary: See HPI Female Genitourinary: No symptoms reported Musculoskeletal: No symptoms reported Skin: No symptoms reported Hematologic/Lymphatic: No symptoms reported Neurological/Psychological: No symptoms reported Physical Exam - Vital signs Vitals: Temp Pulse Resp BP Pulse Ox 98.5 F 76 14 113/76 100 12/18/18 20:44 12/18/18 20:44 12/18/18 20:44 12/18/18 20:44 12/18/18 20:44 - Notes Notes: GENERAL: Alert, interacts well. Chronically cachectic in appearance HEAD: Normocephalic, atraumatic. EYES: Pupils equal, round, and reactive to light. Extraocular movements intact. ENT: Oral mucosa moist, tongue midline. Oropharynx unremarkable. Airway patent. Nares patent, no nasal septal hematoma, TM's intact. NECK: Full range of motion. Supple. Trachea midline. LUNGS: Clear to auscultation bilaterally, no wheezes, rales, or rhonchi. No respiratory distress. HEART: Regular rate and rhythm. No murmur ABDOMEN: Multiple abdominal scars, mild generalized tenderness, nonspecific, no guarding or distention. Bowel sounds present. GENITOURINARY: Deferred EXTREMITIES: Moves all 4 extremities spontaneously. No edema, normal radial and dorsalis pedis pulses bilaterally. No cyanosis. BACK: no cervical, thoracic, lumbar midline tenderness. There is some generalized tenderness in the mid to lower back on both sides, nonspecific. No saddle anesthesia, normal distal neurovascular exam. NEUROLOGICAL: Alert and oriented x3. Normal speech. [cranial nerves II through XII grossly intact]. PSYCH: Normal affect, normal mood. SKIN: Slightly pale. PICC line in the right clavicular area nontender and unremarkable. Course - Re-evaluation Re-evalutation: Patient cachectic, she has mild generalized abdominal tenderness but no guarding or or flank pain is bilateral and somewhat nonspecific. She is not tachycardic, hypotensive, or currently febrile. She reports not feeling any better than last time, last time she did have urine sample consistent with pyelonephritis, unfortunately a culture was not obtained at that time. She did have 2 separate blood cultures positive for staph aureus most likely, no additional features on the blood cultures noted. Patient given vancomycin, has had Keflex earlier. CBC, chemistry, lactic acid unremarkable. Patient's PICC line site does not ap pear to be infected, is not erythematous or tender. Discussed with Dr. Will, because of patient's positive blood cultures, history of sepsis, he does recommend coverage, admission, growing up blood culture discussed with family. They are very uncomfortable but with patient going home because of the same reasons. As result I will discussed with the hospitalist. Discussed with Dr. Pedersen, patient will be admitted to the medical floor. Patient states satisfaction and agreement. - Vital Signs Vital signs: Temp Pulse Resp BP Pulse Ox 98.5 F 76 14 95/59 L 100 12/18/18 20:44 12/18/18 20:44 12/19/18 02:01 12/19/18 02:01 12/19/18 02:01 - Laboratory Result Diagrams: 12/18/18 22:28 12/18/18 22:28 Laboratory results interpreted by me: 12/18/18 12/18/18 22:28 22:28 RBC 3.28 L Hgb 8.0 L Hct 24.6 L MCV 75 L MCH 24.4 L RDW 14.5 H Sodium 136.4 L Potassium 3.0 L* Glucose 130 H Total Bilirubin 0.1 L Discharge - Discharge Clinical Impression: Positive blood cultures, Flank pain, Hypokalemia Condition: Stable Disposition: ADMITTED INPATIENT Admitting Provider: Hospitalist Unit Admitted: Medical Floor
[2018-12-18] MEDS ORDERED: FENTANYL CITRATE INJ/PF 100 MCG/2 ML AMPUL IV ONE (22:20)
[2018-12-18 22:31] LABS: APPEARANCE,URINE CLEAR; BILIRUBIN,URINE NEGATIVE (NEGATIVE); COLOR,URINE STRAW; GLUCOSE, URINE NEGATIVE (NEGATIVE); KETONES,URINE NEGATIVE (NEGATIVE); LEUKOCYTE ESTERASE,URINE NEGATIVE (NEGATIVE); NITRITE,URINE NEGATIVE (NEGATIVE); PROTEIN,URINE NEGATIVE (NEGATIVE); URINE SPECIFIC GRAVITY 1.009; UROBILINOGEN,URINE NEGATIVE mg/dL (<2.0)
[2018-12-18 22:46] LABS: ABSOLUTE BASOPHILS # (AUTO) 0.1 10^3/uL (0.0-0.2); ABSOLUTE EOSINOPHILS # (AUTO) 0.1 10^3/uL (0.0-0.6); ABSOLUTE LYMPHOCYTES (AUTO) 1.6 10^3/uL (0.5-4.7); ABSOLUTE MONOCYTES (AUTO) 0.3 10^3/uL (0.1-1.4); ABSOLUTE NEUT (AUTO) 2.8 10^3/uL (1.7-8.2); BASOPHILS % (AUTO) 1.3 % (0-2); HEMATOCRIT 24.6 % (36.0-47.0); LYMPHOCYTES % (AUTO) 32.7 % (13-45); MEAN CORPUSCULAR HEMOGLOBIN 24.4 pg (27.0-33.4); MEAN CORPUSCULAR HGB CONC 32.7 g/dL (32.0-36.0); MEAN CORPUSCULAR VOLUME 75 fl (80-97); MONOCYTES % (AUTO) 6.2 % (3-13); PLATELET COUNT 301 10^3/uL (150-450); RED BLOOD COUNT 3.28 10^6/uL (3.72-5.28); RED CELL DISTRIBUTION WIDTH 14.5 % (11.5-14.0); SEGMENTED NEUTROPHILS % (AUTO) 57.8 % (42-78); TOTAL CELLS COUNTED % (AUTO) 100 %; WHITE BLOOD COUNT 4.9 10^3/uL (4.0-10.5)
[2018-12-18 23:08] LABS: ALANINE AMINOTRANSFERASE 23 U/L (9-52); ALBUMIN 3.9 g/dL (3.5-5.0); ALKALINE PHOSPHATASE 83 U/L (38-126); ANION GAP 11 (5-19); ASPARTATE AMINO TRANSFERASE 19 U/L (14-36); BILIRUBIN,DIRECT 0.1 mg/dL (0.0-0.4); BILIRUBIN,TOTAL 0.1 mg/dL (0.2-1.3); BLOOD UREA NITROGEN 9 mg/dL (7-20); CARBON DIOXIDE 24 mmol/L (22-30); CHLORIDE 101 mmol/L (98-107); GLUCOSE 130 mg/dL (75-110); SODIUM 136.4 mmol/L (137-145); TOTAL PROTEIN 6.7 g/dL (6.3-8.2)
[2018-12-19] MEDS ORDERED: ONDANSETRON HCL INJ/PF 4 MG/2 ML SDV IV PRN (00:25)
[2018-12-19] MEDS ORDERED: MAG HYDROX/AL HYDROX/SIMETH SUSP 30 ML UDCUP PO PRN (00:25)
[2018-12-19] MEDS ORDERED: ACETAMINOPHEN 325 MG TABLET PO PRN (00:31)
[2018-12-19] MEDS ORDERED: MORPHINE SULFATE 10 MG/ML INJ IV PRN ×2 (00:31→01:13)
[2018-12-19] MEDS ORDERED: NICOTINE 21 MG/24 HR PATCH.TD24 TD PRN (00:31)
[2018-12-19] MEDS ORDERED: ONDANSETRON 4 MG TAB.RAPDIS PO PRN ×2 (00:32→01:12)
[2018-12-19] MEDS ORDERED: CHLORPHENIRAMINE MALEATE 4 MG TABLET PO PRN (00:32)
[2018-12-19] MEDS ORDERED: TEMAZEPAM 15 MG CAPSULE PO PRN (00:35)
[2018-12-19] MEDS ORDERED: PROMETHAZINE HCL INJ 25 MG/1 ML VIAL IV PRN (00:35)
[2018-12-19] MEDS: MORPHINE SULFATE 10 MG/ML INJ IV PRN ×6 (02:01→21:27)
[2018-12-19] MEDS: POTASSI CL 20 MEQ/50 ML RIDER 20 MEQ/50 ML RTUPB IV SCH ×2 (02:02→06:47)
--- NOTE | 2018-12-19 02:49 | PDOC H&P ---
History of Present Illness Admission Date/PCP: 12/19/18 00:01 ARTEMIO JOSEPH DO Patient complains of: Positive blood cultures History of Present Illness: SHIKHA DEAN is a 38 year old female who presented to the emergency room upon request for a return visit due to positive blood cultures obtained on 12/15/2018. She admits that she was seen for her generalized weakness, malaise, fatigue, acutely increased abdominal pain and episodic fever with chills on the , diagnosed as having a urinary tract infection and treated with IV rocephin X 1 dose and given a prescription for oral keflex which she is still taking. The blood cultures that are now positive for gram positive cocci in clusters were obtained on that visit from a site in her arm and from her PICC line. She further reports that her constitutional symptoms have remained of mederate intensity with out any improvement. She also notes a fever of 101.9 on the and 100.4 on the . Her abdominal pain has also remained severe. The pain is described as a severe, constant, aching in her right flank/CVA and right lower abdomen extending across the periumbilical abdomen to the left upper quadrant anteriorly without radiation. She was notified by her ER provider on the that she needed to return to the ER for further evaluation. In the ER she was found to have a lactic acid of 1.8, a WBC of 4.9, a K+ of 3.0 and a hemoglobin o f 8. She will be hospitalized for IV antibiotic therapy pending the ID and sesitivity results of her blood cultures. Past Medical History Cardiac Medical History: Denies: Atrial Fibrillation, Congestive Heart Failure, Coronary Artery Disease, DVT, Myocardial Infarction, Hyperlipidema, Hypertension, Peripheral Vascular Disease, Pulmonary Embolism, Heart Murmur Pulmonary Medical History: Denies: Asthma, Bronchitis, Chronic Obstructive Pulmonary Disease (COPD), Pneumonia, Tuberculosis EENT Medical History: Denies: Cataracts, Ears - hearing deficits Neurological Medical History: Denies: Hemorrhagic CVA, Ischemic CVA, Multiple Sclerosis, Seizures Endocrine Medical History: Reports: Hypothyroidism Denies: Diabetes Mellitus Type 1, Diabetes Mellitus Type 2, Hyperthyroidism, Obesity Renal/ Medical History: Reports: Other - chronic hypokalemia Denies: Chronic Kidney Disease, Nephrolithiasis Malignancy Medical History: Reports: None GI Medical History: Reports: Other - status post totaal colectomy and gastric antrectomy Denies: Cirrhosis, Gastroesophageal Reflux Disease, Hepatitis Musculoskeltal Medical History: Denies: Arthritis, Gout Skin Medical History: Denies: Eczema, Psoriasis Psychiatric Medical History: Reports: General Anxiety Disorder Denies: Alcohol Dependency, Substance Abuse, Tobacco Dependency Traumatic Medical History: Reports: None Hematology: Reports: Anemia Denies: Bleeding Tendencies Infectious Medical History: Reports: Other Infectious History Note: History of sepsis. Past Surgical History Past Surgical History: Reports: Appendectomy, Cholecystectomy, Ileostomy, Other - Gastric antrectomy/vagotomy; colectomy Social History Information Source: Patient Lives with: Parents Smoking Status: Never Smoker Frequency of Alcohol Use: None Hx Recreational Drug Use: No Drugs: None Hx Prescription Drug Abuse: No - Advance Directive Resuscitation Status: Full Code Surrogate healthcare decision maker:: Mother Family History Family History: CAD, DM, Hypertension, Malignancy, Other - Alzheimer's disease and Parkinson's disease Parental Family History Reviewed: Yes Children Family History Reviewed: No Sibling(s) Family History Reviewed.: Yes Medication/Allergy Home Medications: Aspirin/Acetaminophen/Caffeine [Excedrin Migraine Caplet] 1 tab PO DAILYP PRN 11/24/17 Clonazepam [Klonopin 2 mg Tablet] 4 mg PO QHS 11/24/17 Furosemide [Lasix 20 mg Tablet] 20 mg PO DAILY 11/24/17 Ibuprofen [Motrin 800 mg Tablet] 800 mg PO DAILY 11/24/17 Chlorpheniramine Maleate [Chlor-Trimeton] 4 mg PO DAILYP PRN 02/16/18 Promethazine HCl [Phenergan 25 mg Tablet] 25 mg PO Q6HP PRN 02/16/18 Rizatriptan Benzoate [Maxalt Pointer Helper] 10 mg PO DAILYP PRN MDD 1 TAB AT ONSET REPEAT ONCE PRN 02/16/18 Cephalexin Monohydrate [Keflex 500 mg Capsule] 500 mg PO BID 7 Days #14 capsule 12/15/18 Ondansetron [Zofran Odt 4 mg Tablet] 1 - 2 tab PO Q4H PRN #15 tab.rapdis 12/15/18 Polyethylene Glycol 3350 [Miralax Powder 17 gm/Packet] 1 packet PO DAILY #10 pkg 12/15/18 Rizatriptan Benzoate [Maxalt] 5 mg PO Q8H PRN #10 tablet 12/15/18 Allergies/Adverse Reactions: amoxicillin [Amoxicillin] Allergy (Severe, Verified 12/15/18 14:42) Review of Systems Constitutional: PRESENT: as per HPI, chills, fatigue, fever(s), weakness, other - malaise Eyes: ABSENT: visual disturbances, other - Eye pain Ears: ABSENT: hearing changes, other - Ear pain Nose, Mouth, and Throat: ABSENT: mouth pain, sore throat Cardiovascular: ABSENT: chest pain, palpitations Respiratory: ABSENT: cough, dyspnea Gastrointestinal: PRESENT: as per HPI, abdominal pain - Acute and chronic. ABSENT: constipation, diarrhea, nausea, vomiting Genitourinary: ABSENT: dysuria, hematuria Musculoskeletal: ABSENT: back pain, joint swelling Integumentary: ABSENT: pruritus, rash Neurological: ABSENT: confusion, convulsions, focal weakness, memory loss Psychiatric: ABSENT: anxiety, depression Endocrine: ABSENT: cold intolerance, heat intolerance Hematologic/Lymphatic: ABSENT: easy bleeding, easy bruising Physical Exam Vital Signs: Temp Pulse Resp BP Pulse Ox 98.5 F 76 31 H 106/67 100 12/18/18 20:44 12/18/18 20:44 12/18/18 23:01 12/18/18 23:00 12/18/18 20:44 Intake & Output 12/17/18 12/18/18 12/19/18 23:59 23:59 23:59 Weight 44.3 kg General appearance: PRESENT: no acute distress, cooperative, thin Head exam: PRESENT: atraumatic, normocephalic Eye exam: PRESENT: conjunctiva pink. ABSENT: scleral icterus Ear exam: PRESENT: normal external ear exam. ABSENT: drainage Mouth exam: PRESENT: dry mucosa, neck supple Neck exam: ABSENT: JVD, meningismus, thyromegaly, tracheal deviation Respiratory exam: PRESENT: clear to auscultation jamaal, symmetrical, unlabored Cardiovascular exam: PRESENT: RRR. ABSENT: clicks, gallop, rubs Pulses: PRESENT: normal radial pulses, normal dorsalis pedis pul Vascular exam: PRESENT: pallor. ABSENT: normal capillary refill - Capillary refill is delayed to approximately 3 seconds GI/Abdominal exam: PRESENT: distended - Mild gaseous distention is present., hypoactive bowel sounds, soft, tenderness - Severe pain on palpation in the right flank and right lower quadrant as well as the periumbilical area in the left upper quadrant. No point localization is noted. Rectal exam: PRESENT: deferred Extremities exam: ABSENT: joint swelling, pedal edema Musculoskeletal exam: ABSENT: full ROM, normal inspection, tenderness Neurological exam: PRESENT: alert, awake, oriented to person, oriented to place, oriented to time, oriented to situation, CN II-XII grossly intact. ABSENT: motor sensory deficit Psychiatric exam: PRESENT: appropriate affect, normal mood Skin exam: PRESENT: dry, intact, warm. ABSENT: jaundice, rash, urticaria Results Laboratory Results: 12/18/18 22:28 12/18/18 22:28 12/18/18 12/18/18 12/18/18 22:14 22:26 22:28 WBC 4.9 RBC 3.28 L Hgb 8.0 L Hct 24.6 L MCV 75 L MCH 24.4 L MCHC 32.7 RDW 14.5 H Plt Count 301 Seg Neutrophils % 57.8 Lymphocytes % 32.7 Monocytes % 6.2 Eosinophils % 2.0 Basophils % 1.3 Absolute Neutrophils 2.8 Absolute Lymphocytes 1.6 Absolute Monocytes 0.3 Absolute Eosinophils 0.1 Absolute Basophils 0.1 Sodium Potassium Chloride Carbon Dioxide Anion Gap BUN Creatinine Est GFR ( Amer) Est GFR (Non-Af Amer) Glucose Lactic Acid 1.8 Calcium Total Bilirubin AST ALT Alkaline Phosphatase Total Protein Albumin Serum HCG, Qual Urine Color STRAW Urine Appearance CLEAR Urine pH 6.0 Ur Specific [place] 1.009 Urine Protein NEGATIVE Urine Glucose (UA) NEGATIVE Urine Ketones NEGATIVE Urine Blood NEGATIVE Urine Nitrite NEGATIVE Ur Leukocyte Esterase NEGATIVE Urine RBC (Auto) 1 12/18/18 12/18/18 22:28 22:28 WBC RBC Hgb Hct MCV MCH MCHC RDW Plt Count Seg Neutrophils % Lymphocytes % Monocytes % Eosinophils % Basophils % Absolute Neutrophils Absolute Lymphocytes Absolute Monocytes Absolute Eosinophils Absolute Basophils Sodium 136.4 L Potassium 3.0 L* Chloride 101 Carbon Dioxide 24 Anion Gap 11 BUN 9 Creatinine 0.62 Est GFR ( Amer) > 60 Est GFR (Non-Af Amer) > 60 Glucose 130 H Lactic Acid Calcium 9.0 Total Bilirubin 0.1 L AST 19 ALT 23 Alkaline Phosphatase 83 Total Protein 6.7 Albumin 3.9 Serum HCG, Qual NEGATIVE Urine Color Urine Appearance Urine pH Ur Specific [place] Urine Protein Urine Glucose (UA) Urine Ketones Urine Blood Urine Nitrite Ur Leukocyte Esterase Urine RBC (Auto) Assessment and Plan - Diagnosis (1) Positive blood cultures Is this a current diagnosis for this admission?: Yes Plan: Patient be started on IV antibiotics utilizing vancomycin with the dosage to be determined by pharmacy. IV antibiotics will be continued until bacterial identification and antibiotic sensitivity have been finalized. Both blood cultures from 12/15/2018 are growing gram-positive cocci in clusters. (2) Malnutrition Qualifiers: Malnutrition type: protein-calorie malnutrition Protein-calorie malnutrition severity: moderate Qualified Code(s): E44.0 - Moderate protein- calorie malnutrition Is this a current diagnosis for this admission?: Yes Plan: Patient will be continued on her 12-hour TPN therapy every day during her hospital course. (3) Chronic anemia Is this a current diagnosis for this admission?: Yes Plan: Patient's anemia will be monitored with daily CBCs and intervention will be provided as appropriate if the patient should require transfusion. (4) Hypokalemia Is this a current diagnosis for this admission?: Yes Plan: Patient will have her potassium level replaced and daily metabolic profiles obtained to assure normal electrolyte levels. A serum magnesium level also be obtained daily. (5) Hypothyroidism (acquired) Is this a current diagnosis for this admission?: Yes Plan: Patient's thyroid functions will be checked with a thyroid profile. She will be continued on her usual thyroid dosage initially in this hospital course. (6) Abdominal pain Qualifiers: Abdominal location: unspecified location Qualified Code(s): R10.9 - Unspecified abdominal pain Is this a current diagnosis for this admission?: Yes Plan: Patient's abdominal pain is acute on chronic and will be treated with morphine sulfate on a sliding scale basis 2-4 mg IV every 2 hours. Her pain will be reevaluated on a clinical basis daily with surgical consultation obtained if appropriate. - Time Time Spent with patient: 35 or more minutes Medications reviewed and adjusted accordingly: Yes Anticipated discharge: Home, Home with Homehealth - Inpatient Certification Based on my medical assessment, after consideration of the patient's comorbidities, presenting symptoms, or acuity I expect that the services needed warrant INPATIENT care.: Yes I certify that my determination is in accordance with my understanding of [facility]'s requirements for reasonable and necessary INPATIENT services [42 CFR 412.3e].: Yes Medical Necessity: Significant Comorbidiites Make Outpatient Treatment Too Risky, Need Close Monitoring Due to Risk of Patient Decompensation, Need for Pain Control, Need for IV Antibiotics, Risk of Complication if Not Cared For in Hospital, Risk of Diagnosis Which Will Require Inpatient Eval/Care/Monitoring
[2018-12-19] MEDS: HEPARIN SOD (PORCINE) 5,000 UNIT/ML 1 ML SYRINGE SUBCUT SCH ×3 (05:10→21:29)
[2018-12-19] MEDS: POTASSIUM CHLORIDE 10 MEQ CAPSULE.ER PO SCH ×3 (08:47→16:30)
[2018-12-19] MEDS ORDERED: VANCOMYCIN HCL INJ 1000 MG VIAL IV SCH (10:00)
[2018-12-19] MEDS: IBUPROFEN 800 MG TABLET PO SCH (10:01)
[2018-12-19] MEDS: FUROSEMIDE 20 MG TABLET PO SCH (10:01)
[2018-12-19] MEDS: VANCOMYCIN HCL 500 MG in DEXTROSE 5%-WATER 100 ML IV SCH ×2 (10:43→21:26)
--- NOTE | 2018-12-19 17:19 | Progress Note ---
Provider Note Provider Note: 38 y.o. F with a PMH of colectomy, appendectomy, hypertrophic pelvic stenosis, gastric antrectomy and vagotomy, small bowel obstruction, chronic abdominal pain, that comes to the emergency department for chief complaint of positive blood cultures. She was notified that blood cultures from 12/15/2018 were growing gram (+) cocci, likely staph. Patient seen this afternoon on rounds, she is resting comfortably in bed with family at the bedside. She complains of mild abdominal discomfort. Upon assessment, hyperactive bowel sounds. Mild distention. 1. POSITIVE BLOOD CULTURES: Staph epidermidis (+) in 2 bottles (1 from each set). Labs were initially drawn from PICC line. Blood cultures obtained 12/18/2018 from PIV and PICC. Awaiting cultures and sensitivities from 12/18 set. 2. CONSTIPATION: Patient states she has not had a bowel movement in 10+ days. KUB from 12/15/2018 reveals mild amount of stool in the rectum. Plan for soapsuds enema. 3. MALNUTRITION: Currently on daily TPN infusions at home. Contacted patient's home health company, [employer] [facility]. Received TPN formulary. Will discuss with pharmacy. Plan to resume TPN infusions JONNY. 4. CHRONIC PAIN: Morphine sliding scale
[2018-12-19] MEDS ORDERED: NORMAL SALINE 1000 ML 1,000 ML IV PRN (17:54)
[2018-12-19] MEDS ORDERED: ALTEPLASE INJ 2 MG VIAL (CATH CLEARANCE) INJ ONE (23:00)
[2018-12-19] MEDS ORDERED: ALTEPLASE INJ 2 MG VIAL (CATH CLEARANCE) ONE (23:16)
[2018-12-20] MEDS: MORPHINE SULFATE 10 MG/ML INJ IV PRN ×6 (01:03→20:43)
[2018-12-20] MEDS: HEPARIN SOD (PORCINE) 5,000 UNIT/ML 1 ML SYRINGE SUBCUT SCH ×3 (05:18→22:34)
[2018-12-20 06:49] LABS: ABSOLUTE BASOPHILS # (AUTO) 0.1 10^3/uL (0.0-0.2); ABSOLUTE EOSINOPHILS # (AUTO) 0.3 10^3/uL (0.0-0.6); ABSOLUTE LYMPHOCYTES (AUTO) 1.9 10^3/uL (0.5-4.7); ABSOLUTE MONOCYTES (AUTO) 0.5 10^3/uL (0.1-1.4); ABSOLUTE NEUT (AUTO) 2.5 10^3/uL (1.7-8.2); BASOPHILS % (AUTO) 1.2 % (0-2); EOSINOPHILS % (AUTO) 5.6 % (0-6); HEMATOCRIT 21.2 % (36.0-47.0); LYMPHOCYTES % (AUTO) 35.5 % (13-45); MEAN CORPUSCULAR HEMOGLOBIN 23.9 pg (27.0-33.4); MEAN CORPUSCULAR HGB CONC 31.6 g/dL (32.0-36.0); MEAN CORPUSCULAR VOLUME 76 fl (80-97); MONOCYTES % (AUTO) 9.4 % (3-13); PLATELET COUNT 234 10^3/uL (150-450); RED CELL DISTRIBUTION WIDTH 14.7 % (11.5-14.0); SEGMENTED NEUTROPHILS % (AUTO) 48.3 % (42-78); TOTAL CELLS COUNTED % (AUTO) 100 %; WHITE BLOOD COUNT 5.3 10^3/uL (4.0-10.5)
[2018-12-20 06:57] LABS: ALANINE AMINOTRANSFERASE 32 U/L (9-52); ALBUMIN 2.7 g/dL (3.5-5.0); ALKALINE PHOSPHATASE 64 U/L (38-126); ASPARTATE AMINO TRANSFERASE 12 U/L (14-36); BLOOD UREA NITROGEN 12 mg/dL (7-20); GLUCOSE 87 mg/dL (75-110); PHOSPHORUS 3.3 mg/dL (2.5-4.5); TOTAL PROTEIN 5.1 g/dL (6.3-8.2)
[2018-12-20 07:02] LABS: CARBON DIOXIDE 25 mmol/L (22-30); CHLORIDE 110 mmol/L (98-107); SODIUM 138.3 mmol/L (137-145)
[2018-12-20 07:05] LABS: BILIRUBIN,TOTAL < 0.1 mg/dL (0.2-1.3)
[2018-12-20 07:06] LABS: ANION GAP 3 (5-19)
[2018-12-20 07:13] LABS: HEMOGLOBIN 6.7 g/dL (12.0-15.5)
[2018-12-20 07:21] LABS: FREE T3 3.64 pg/mL (2.77-5.27); FREE T4 (FREE THYROXINE) 0.73 ng/dL (0.78-2.19)
[2018-12-20 07:35] LABS: THYROID STIMULATING HORMONE 0.79 uIU/mL (0.47-4.68)
[2018-12-20] MEDS ORDERED: NORMAL SALINE 250 ML IV PRN ×2 (07:53)
[2018-12-20] MEDS: POTASSIUM CHLORIDE 10 MEQ CAPSULE.ER PO SCH ×3 (08:41→16:56)
[2018-12-20] MEDS: VANCOMYCIN HCL 500 MG in DEXTROSE 5%-WATER 100 ML IV SCH ×2 (09:45→22:40)
[2018-12-20] MEDS: FUROSEMIDE 20 MG TABLET PO SCH (09:51)
[2018-12-20] MEDS: IBUPROFEN 800 MG TABLET PO SCH (09:51)
[2018-12-20 10:20] LABS: VANCOMYCIN,TROUGH 7.7 ug/mL (5.0-20.0)
--- NOTE | 2018-12-20 16:53 | PDOC PROGRESS REPORT ---
Subjective Progress Note for:: 12/20/18 Subjective:: 38 y.o. F with a PMH of colectomy, appendectomy, hypertrophic pelvic stenosis, gastric antrectomy and vagotomy, small bowel obstruction, chronic abdominal pain, that comes to the emergency department for chief complaint of positive blood cultures. She was notified that blood cultures from 12/15/2018 were growing gram (+) cocci, likely staph. The patient was seen this morning on rounds. She is resting comfortably in bed, endorses lower back pain & mild abdominal discomfort. The patient received a soapsuds enema last night, she immediately had a sizable bowel movement. Patient states that this helped relieve some of her abdominal discomfort. Upon assessment, the patient is extremely pale. Lungs are clear to auscultation. S1-S2. She is extremely thin. No peripheral edema. Pulses are palpable in the upper and lower extremities. There is no evidence of bleeding, denies vomiting or diarrhea. Lower back pain is easily reproduced with palpation. Patient's Hgb this morning was 6.7. Transfuse 2 units PRBCs. Plan for anemia studies. Likely iron deficiency anemia secondary to malnutrition in a patient who cannot tolerate p.o. intake and is sustained on TPN and lipids. Reason For Visit: POSITIVE BLOOD CULTURES Physical Exam Vital Signs: Temp Pulse Resp BP Pulse Ox 98.2 F 73 16 115/67 100 12/20/18 11:33 12/20/18 11:33 12/20/18 11:33 12/20/18 11:33 12/20/18 11:33 Intake & Output 12/19/18 12/20/18 12/21/18 06:59 06:59 06:59 Intake Total 290 1940 725 Balance 290 1940 725 Weight 44.7 kg 44.3 kg General appearance: PRESENT: thin Eye exam: PRESENT: conjunctiva pale, PERRLA Mouth exam: PRESENT: moist, tongue midline Neck exam: PRESENT: full ROM Respiratory exam: PRESENT: clear to auscultation jamaal, symmetrical, unlabored Cardiovascular exam: PRESENT: RRR Pulses: PRESENT: normal radial pulses, normal dorsalis pedis pul Vascular exam: PRESENT: pallor GI/Abdominal exam: PRESENT: hyperactive bowel sounds, soft, tenderness. ABSENT: distended Rectal exam: PRESENT: deferred Extremities exam: PRESENT: full ROM. ABSENT: pedal edema Musculoskeletal exam: PRESENT: ambulatory, full ROM, normal inspection Neurological exam: PRESENT: alert, awake, oriented to person, oriented to place, oriented to time, oriented to situation Skin exam: PRESENT: dry, intact, pallor Results Laboratory Results: 12/20/18 06:33 12/20/18 06:33 12/20/18 12/20/18 12/20/18 06:33 06:33 06:33 WBC 5.3 RBC 2.80 L Hgb 6.7 L Hct 21.2 L MCV 76 L MCH 23.9 L MCHC 31.6 L RDW 14.7 H Plt Count 234 Seg Neutrophils % 48.3 Lymphocytes % 35.5 Monocytes % 9.4 Eosinophils % 5.6 Basophils % 1.2 Absolute Neutrophils 2.5 Absolute Lymphocytes 1.9 Absolute Monocytes 0.5 Absolute Eosinophils 0.3 Absolute Basophils 0.1 Sodium 138.3 Potassium 4.0 Chloride 110 H Carbon Dioxide 25 Anion Gap 3 L BUN 12 Creatinine 0.94 Est GFR ( Amer) > 60 Est GFR (Non-Af Amer) > 60 Glucose 87 Calcium 8.0 L Phosphorus 3.3 Magnesium 2.1 Total Bilirubin < 0.1 L AST 12 L ALT 32 Alkaline Phosphatase 64 Total Protein 5.1 L Albumin 2.7 L TSH 0.79 Free T4 0.73 L Free T3 pg/mL 3.64 Blood Type Antibody Screen 12/20/18 09:23 WBC RBC Hgb Hct MCV MCH MCHC RDW Plt Count Seg Neutrophils % Lymphocytes % Monocytes % Eosinophils % Basophils % Absolute Neutrophils Absolute Lymphocytes Absolute Monocytes Absolute Eosinophils Absolute Basophils Sodium Potassium Chloride Carbon Dioxide Anion Gap BUN Creatinine Est GFR ( Amer) Est GFR (Non-Af Amer) Glucose Calcium Phosphorus Magnesium Total Bilirubin AST ALT Alkaline Phosphatase Total Protein Albumin TSH Free T4 Free T3 pg/mL Blood Type A POSITIVE Antibody Screen NEGATIVE 12/18/18 22:14 Clean Catch Midstream Urine Culture - Final NO GROWTH 2 DAYS Status: Imported from PACS Assessment and Plan - Diagnosis (1) Positive blood cultures Is this a current diagnosis for this admission?: Yes Plan: Both blood cultures from 12/15/2018 are growing gram-positive cocci in clusters. (2) Anemia Qualifiers: Anemia type: unspecified type Qualified Code(s): D64.9 - Anemia, unspecified Is this a current diagnosis for this admission?: Yes Plan: Hgb 6.7 Likely stemming from iron deficiency anemia or anemia of chronic disease Patient exists without p.o. intake, requiring daily TPN and lipids Plan for 2 units PRBC transfusion today Follow-up with anemia studies tomorrow a.m. (3) Abdominal pain Qualifiers: Abdominal location: unspecified location Qualified Code(s): R10.9 - Unspecified abdominal pain Is this a current diagnosis for this admission?: Yes Plan: Likely stemming from constipation Patient states she has not had a bowel movement in 10+ days. KUB from 12/15/2018 reveals mild amount of stool in the rectum. (+) BM following soapsuds enema, patient reports mild relief (4) Flank pain Is this a current diagnosis for this admission?: Yes Plan: Lower back/flank pain Easily reproducible with palpation Likely musculoskeletal pain Renal function and urinalysis labs all within normal limits K pack as needed Flexeril p.o. as needed Morphine sliding scale as needed (5) Chronic pain Is this a current diagnosis for this admission?: Yes Plan: Morphine sliding scale - Time Time Spent with patient: 15-24 minutes Medications reviewed and adjusted accordingly: Yes Anticipated discharge: Home - Inpatient Certification Based on my medical assessment, after consideration of the patient's comorbidities, presenting symptoms, or acuity I expect that the services needed warrant INPATIENT care.: Yes I certify that my determination is in accordance with my understanding of Medicare's requirements for reasonable and necessary INPATIENT services [42 CFR 412.3e].: Yes Medical Necessity: Need For Continuous Telemetry Monitoring, Risk of Complication if Not Cared For in Hospital
[2018-12-20] MEDS ORDERED: VANCOMYCIN HCL 500 MG in DEXTROSE 5%-WATER 100 ML IV SCH (18:00)
[2018-12-20] MEDS: CYCLOBENZAPRINE HCL 10 MG TABLET PO PRN (20:42)
[2018-12-21] MEDS: MORPHINE SULFATE 10 MG/ML INJ IV PRN ×5 (00:14→21:22)
[2018-12-21 00:29] LABS: ABSOLUTE EOSINOPHILS # (AUTO) 0.4 10^3/uL (0.0-0.6); ABSOLUTE LYMPHOCYTES (AUTO) 1.8 10^3/uL (0.5-4.7); ABSOLUTE MONOCYTES (AUTO) 0.5 10^3/uL (0.1-1.4); ABSOLUTE NEUT (AUTO) 3.2 10^3/uL (1.7-8.2); BASOPHILS % (AUTO) 0.8 % (0-2); EOSINOPHILS % (AUTO) 6.7 % (0-6); HEMATOCRIT 33.5 % (36.0-47.0); LYMPHOCYTES % (AUTO) 30.6 % (13-45); MEAN CORPUSCULAR HEMOGLOBIN 26.6 pg (27.0-33.4); MEAN CORPUSCULAR HGB CONC 33.4 g/dL (32.0-36.0); MONOCYTES % (AUTO) 8.2 % (3-13); PLATELET COUNT 274 10^3/uL (150-450); RED CELL DISTRIBUTION WIDTH 16.8 % (11.5-14.0); SEGMENTED NEUTROPHILS % (AUTO) 53.7 % (42-78); TOTAL CELLS COUNTED % (AUTO) 100 %; WHITE BLOOD COUNT 5.9 10^3/uL (4.0-10.5)
[2018-12-21 00:30] LABS: HEMOGLOBIN 11.2 g/dL (12.0-15.5)
[2018-12-21 00:31] LABS: MEAN CORPUSCULAR VOLUME 80 fl (80-97)
[2018-12-21] MEDS: HEPARIN SOD (PORCINE) 5,000 UNIT/ML 1 ML SYRINGE SUBCUT SCH ×3 (05:29→21:21)
[2018-12-21] MEDS: VANCOMYCIN HCL 500 MG in DEXTROSE 5%-WATER 100 ML IV SCH ×3 (05:37→21:23)
[2018-12-21 06:02] LABS: ABSOLUTE BASOPHILS # (AUTO) 0.1 10^3/uL (0.0-0.2); ABSOLUTE EOSINOPHILS # (AUTO) 0.5 10^3/uL (0.0-0.6); ABSOLUTE LYMPHOCYTES (AUTO) 2.3 10^3/uL (0.5-4.7); ABSOLUTE MONOCYTES (AUTO) 0.6 10^3/uL (0.1-1.4); ABSOLUTE NEUT (AUTO) 3.2 10^3/uL (1.7-8.2); BASOPHILS % (AUTO) 0.8 % (0-2); HEMATOCRIT 31.3 % (36.0-47.0); HEMOGLOBIN 10.5 g/dL (12.0-15.5); LYMPHOCYTES % (AUTO) 34.3 % (13-45); MEAN CORPUSCULAR HEMOGLOBIN 26.6 pg (27.0-33.4); MEAN CORPUSCULAR HGB CONC 33.4 g/dL (32.0-36.0); MEAN CORPUSCULAR VOLUME 80 fl (80-97); PLATELET COUNT 255 10^3/uL (150-450); RED BLOOD COUNT 3.93 10^6/uL (3.72-5.28); RED CELL DISTRIBUTION WIDTH 16.9 % (11.5-14.0); RETICULOCYTE COUNT (AUTO) 1.51 % (0.66-2.85); SEGMENTED NEUTROPHILS % (AUTO) 47.9 % (42-78); TOTAL CELLS COUNTED % (AUTO) 100 %; WHITE BLOOD COUNT 6.6 10^3/uL (4.0-10.5)
[2018-12-21 07:17] LABS: CALCIUM 8.5 mg/dL (8.4-10.2); GLUCOSE 88 mg/dL (75-110)
[2018-12-21 07:18] LABS: ANION GAP 7 (5-19); BLOOD UREA NITROGEN 11 mg/dL (7-20); CARBON DIOXIDE 22 mmol/L (22-30); CHLORIDE 109 mmol/L (98-107); POTASSIUM 4.1 mmol/L (3.6-5.0)
[2018-12-21 07:19] LABS: ALANINE AMINOTRANSFERASE 22 U/L (9-52); ALKALINE PHOSPHATASE 77 U/L (38-126); ASPARTATE AMINO TRANSFERASE 13 U/L (14-36); BILIRUBIN,DIRECT 0.2 mg/dL (0.0-0.4); BILIRUBIN,TOTAL 0.3 mg/dL (0.2-1.3); TOTAL PROTEIN 5.3 g/dL (6.3-8.2)
[2018-12-21 07:20] LABS: IRON(TIBC) 69.1 ug/dL (37-170); PHOSPHORUS 3.1 mg/dL (2.5-4.5)
[2018-12-21 07:21] LABS: FERRITIN 4.66 ng/mL (6.2-137.0); FOLATE 3.99 ng/mL (>2.76)
[2018-12-21] MEDS: IBUPROFEN 800 MG TABLET PO SCH (11:06)
[2018-12-21] MEDS: FUROSEMIDE 20 MG TABLET PO SCH (11:07)
[2018-12-21] MEDS: POTASSIUM CHLORIDE 10 MEQ CAPSULE.ER PO SCH ×3 (11:08→17:19)
[2018-12-21] MEDS: CYCLOBENZAPRINE HCL 10 MG TABLET PO PRN ×2 (11:24→22:33)
--- NOTE | 2018-12-21 19:21 | RADIOLOGY REPORT (SQ) ---
EXAM DESCRIPTION: CT ABD/PELVIS WITH IV ONLY COMPLETED DATE/TIME: 12/21/2018 6:41 pm REASON FOR STUDY: Abd/back pain COMPARISON: None. TECHNIQUE: CT scan of the abdomen and pelvis performed using helical scanning technique with dynamic intravenous contrast injection. No oral contrast. Images reviewed with lung, soft tissue, and bone w indows. Reconstructed coronal and sagittal MPR images reviewed. Delayed images for evaluation of the urinary system also acquired. All images stored on PACS. All CT scanners at this facility use dose modulation, iterative reconstruction, and/or weight based d osing when appropriate to reduce radiation dose to as low as reasonably achievable (ALARA). [facility]: Dose Right [facility]: CareDose [facility]: Dose Right [facility]: Teradose 4D [facility]: [employer] CONTRAST TYPE AND DOSE: contrast/concentration: Isovue 350.00 mg/ml; Total Contrast Delivered: 50.0 ml; Total Saline Delivered: 65.0 ml RENAL FUNCTION: GFR > 60. RADIATION DOSE: CT Rad equipment meets quality standard of care and radiation dose reduction techniq ues were employed. CTDIvol: 4.8 - 5.1 mGy. DLP: 515 mGy-cm.. LIMITATIONS: None. FINDINGS: LOWER CHEST: No significant findings. LIVER: Normal size. No enhancing masses. No dilated ducts. SPLEEN: Normal size. No focal lesions. PANCREAS: No masses identified. No significant calcifications. No adjacent inflammation or peripancre atic fluid collections. Pancreatic duct not dilated. GALLBLADDER: Surgically absent. ADRENAL GLANDS: No significant masses. RIGHT KIDNEY AND URETER: No cysts identified. No solid masses identified. No calcified stones. No hyd ronephrosis or hydroureter. LEFT KIDNEY AND URETER: No cysts identified. No solid masses identified. No calcified stones. No hydr onephrosis or hydroureter. AORTA AND VESSELS: No aneurysm. No dissection. Renal arteries, SMA, celiac without significant stenos is. RETROPERITONEUM: No bulky retroperitoneal adenopathy. BOWEL AND PERITONEAL CAVITY: Surgical changes in the stomach -GE junction. Large amount of stool pre sent in the colon, particularly right lower quadrant. No obstruction. No free fluid. APPENDIX: Not visualized. PELVIS: No mass. No free fluid. Unremarkable bladder. ABDOMINAL WALL: No masses. No hernias. BONES: No acute findings. OTHER: No other significant finding. IMPRESSION: Large amount of stool present in the colon, particularly right lower quadrant. No obstr uction. No free fluid. TECHNICAL DOCUMENTATION: JOB ID: [id number] Quality ID # [id number]: Final reports with documentation of one or more dose reduction techniques (e.g., Au tomated exposure control, adjustment of the mA and/or kV according to patient size, use of iterative reconstruction technique) 2010 [email or web address]- All Rights Reserved Reading location - IP/workstation name: [email or web address]
[2018-12-22] MEDS: MORPHINE SULFATE 10 MG/ML INJ IV PRN ×2 (04:12→09:31)
[2018-12-22 07:06] LABS: ABSOLUTE BASOPHILS # (AUTO) 0.1 10^3/uL (0.0-0.2); ABSOLUTE EOSINOPHILS # (AUTO) 0.4 10^3/uL (0.0-0.6); ABSOLUTE LYMPHOCYTES (AUTO) 2.1 10^3/uL (0.5-4.7); ABSOLUTE MONOCYTES (AUTO) 0.5 10^3/uL (0.1-1.4); ABSOLUTE NEUT (AUTO) 4.2 10^3/uL (1.7-8.2); BASOPHILS % (AUTO) 1.2 % (0-2); EOSINOPHILS % (AUTO) 6.1 % (0-6); HEMATOCRIT 31.9 % (36.0-47.0); HEMOGLOBIN 10.5 g/dL (12.0-15.5); LYMPHOCYTES % (AUTO) 28.5 % (13-45); MEAN CORPUSCULAR HEMOGLOBIN 26.3 pg (27.0-33.4); MEAN CORPUSCULAR HGB CONC 32.9 g/dL (32.0-36.0); MEAN CORPUSCULAR VOLUME 80 fl (80-97); MONOCYTES % (AUTO) 6.6 % (3-13); PLATELET COUNT 296 10^3/uL (150-450); SEGMENTED NEUTROPHILS % (AUTO) 57.6 % (42-78); TOTAL CELLS COUNTED % (AUTO) 100 %; WHITE BLOOD COUNT 7.2 10^3/uL (4.0-10.5)
[2018-12-22 07:25] LABS: ALBUMIN 3.2 g/dL (3.5-5.0); ASPARTATE AMINO TRANSFERASE 12 U/L (14-36); BILIRUBIN,DIRECT 0.2 mg/dL (0.0-0.4); BILIRUBIN,TOTAL 0.2 mg/dL (0.2-1.3); BLOOD UREA NITROGEN 12 mg/dL (7-20); CARBON DIOXIDE 24 mmol/L (22-30); CHLORIDE 103 mmol/L (98-107); GLUCOSE 146 mg/dL (75-110); PHOSPHORUS 2.7 mg/dL (2.5-4.5); TOTAL PROTEIN 5.4 g/dL (6.3-8.2)
[2018-12-22 07:34] LABS: ALANINE AMINOTRANSFERASE 22 U/L (9-52); ALKALINE PHOSPHATASE 86 U/L (38-126); ANION GAP 10 (5-19); CALCIUM 8.9 mg/dL (8.4-10.2); POTASSIUM 4.5 mmol/L (3.6-5.0); SODIUM 136.5 mmol/L (137-145)
--- NOTE | 2018-12-22 08:00 | PDOC PROGRESS REPORT ---
Subjective Progress Note for:: 12/21/18 Subjective:: 38 y.o. F with a PMH of colectomy, appendectomy, hypertrophic pelvic stenosis, gastric antrectomy and vagotomy, small bowel obstruction, chronic abdominal pain, that comes to the emergency department for chief complaint of positive blood cultures. She was notified that blood cultures from 12/15/2018 were growing gram (+) cocci, likely staph. The patient was seen this morning on rounds. She is resting comfortably in bed, endorses lower back pain & mild abdominal discomfort. Lungs are clear to auscultation. S1-S2. She is extremely thin. No peripheral edema. Pulses are palpable in the upper and lower extremities. There is no evidence of bleeding, denies vomiting or diarrhea. Home TPN formulary is significantly different than [facility] TPN. Pharmacist, Rona, states it would be easier for patient to bring in home supply. Notified patient and her mother of this, family is going to bring in TPN, lipids and pump. Plan for CT abd/pelvis to evaluate for pathology other than constipation seen on KUB. Patient continues to endorse abdominal pain despite passing sizable bowel movement after receiving enema. Reason For Visit: POSITIVE BLOOD CULTURES Physical Exam Vital Signs: Temp Pulse Resp BP Pulse Ox 97.9 F 90 16 102/57 L 100 12/21/18 15:09 12/21/18 15:09 12/21/18 15:09 12/21/18 15:09 12/21/18 15:09 Intake & Output 12/20/18 12/21/18 12/22/18 06:59 06:59 06:59 Intake Total 1940 1619 644 Output Total 1800 Balance 1940 1619 -1156 Weight 44.3 kg 44.3 kg General appearance: PRESENT: thin Eye exam: PRESENT: conjunctiva pale, PERRLA Mouth exam: PRESENT: moist, tongue midline Teeth exam: PRESENT: poor dentation Neck exam: PRESENT: full ROM. ABSENT: JVD Respiratory exam: PRESENT: clear to auscultation jamaal, symmetrical, unlabored Cardiovascular exam: PRESENT: RRR Pulses: PRESENT: normal radial pulses, normal dorsalis pedis pul Vascular exam: PRESENT: pallor GI/Abdominal exam: PRESENT: soft. ABSENT: distended, tenderness Rectal exam: PRESENT: deferred Extremities exam: PRESENT: full ROM. ABSENT: pedal edema Musculoskeletal exam: PRESENT: ambulatory, full ROM, normal inspection. ABSENT: deformity Neurological exam: PRESENT: alert, awake, oriented to person, oriented to place, oriented to time, oriented to situation Psychiatric exam: PRESENT: appropriate affect Skin exam: PRESENT: dry, intact, pallor Results Laboratory Results: 12/21/18 05:30 12/21/18 05:30 12/21/18 12/21/18 12/21/18 00:00 05:30 05:30 WBC 5.9 6.6 RBC 4.20 3.93 Hgb 11.2 L D 10.5 L Hct 33.5 L 31.3 L MCV 80 D 80 MCH 26.6 L 26.6 L MCHC 33.4 33.4 RDW 16.8 H 16.9 H Plt Count 274 255 Seg Neutrophils % 53.7 47.9 Lymphocytes % 30.6 34.3 Monocytes % 8.2 9.0 Eosinophils % 6.7 H 8.0 H Basophils % 0.8 0.8 Absolute Neutrophils 3.2 3.2 Absolute Lymphocytes 1.8 2.3 Absolute Monocytes 0.5 0.6 Absolute Eosinophils 0.4 0.5 Absolute Basophils 0.0 0.1 Retic Count (auto) 1.51 Absolute Retic 0.060 Sodium Cancelled Potassium Cancelled Chloride Cancelled Carbon Dioxide Cancelled Anion Gap Cancelled BUN Cancelled Creatinine Cancelled Est GFR ( Amer) Cancelled Est GFR (Non-Af Amer) Cancelled Glucose Cancelled Lactic Acid Calcium Cancelled Phosphorus Cancelled Magnesium Cancelled Iron Cancelled TIBC Cancelled % Saturation Cancelled Ferritin Cancelled Total Bilirubin Cancelled AST Cancelled ALT Cancelled Alkaline Phosphatase Cancelled Total Protein Cancelled Albumin Cancelled Vitamin B12 Cancelled Folate Cancelled 12/21/18 12/21/18 05:30 05:30 WBC RBC Hgb Hct MCV MCH MCHC RDW Plt Count Seg Neutrophils % Lymphocytes % Monocytes % Eosinophils % Basophils % Absolute Neutrophils Absolute Lymphocytes Absolute Monocytes Absolute Eosinophils Absolute Basophils Retic Count (auto) Absolute Retic Sodium 138.0 Potassium 4.1 Chloride 109 H Carbon Dioxide 22 Anion Gap 7 BUN 11 Creatinine 0.62 Est GFR ( Amer) > 60 Est GFR (Non-Af Amer) > 60 Glucose 88 Lactic Acid 0.6 L Calcium 8.5 Phosphorus 3.1 Magnesium 2.1 Iron 69.1 TIBC 439 % Saturation 16 Ferritin 4.66 L Total Bilirubin 0.3 AST 13 L ALT 22 Alkaline Phosphatase 77 Total Protein 5.3 L Albumin 3.0 L Vitamin B12 185.0 L Folate 3.99 Impressions: Abdomen/Pelvis CT 12/21/18 15:39 IMPRESSION: Large amount of stool present in the colon, particularly right lower quadrant. No obstruction. No free fluid. Status: Imported from PACS Assessment and Plan - Diagnosis (1) Positive blood cultures Is this a current diagnosis for this admission?: Yes Plan: Both blood cultures from 12/15/2018 are growing gram-positive cocci in clusters. Patient called back to [facility] to (+) blood cultures Current set from this hospitalization done 12/18/2018: - blood culture set from PICC loo growing G+ cocci in clusters, awaiting C&S - blood culture set from peripheral venipuncture NO GROWTH It is possible that both sets of blood cultures from 12/15/2018 were drawn from PICC line Patient has had multiple access site failures secondary to infection (PICC line, mediport) Will consult ID once 12/18/2018 C&S have resulted Continue IV vancomycin for now (2) Anemia Qualifiers: Anemia type: unspecified type Qualified Code(s): D64.9 - Anemia, unspecified Is this a current diagnosis for this admission?: Yes Plan: Improved. Hgb 6.7-->10.5 Likely stemming from iron deficiency anemia or anemia of chronic disease Patient exists without p.o. intake, requiring daily TPN and lipids S/p 2 units PRBC. Hbg has remained stable since then Follow-up with anemia studies (3) Abdominal pain Qualifiers: Abdominal location: unspecified location Qualified Code(s): R10.9 - Unspecified abdominal pain Is this a current diagnosis for this admission?: Yes Plan: Likely stemming from constipation Patient states she has not had a bowel movement in 10+ days. KUB from 12/15/2018 reveals mild amount of stool in the rectum. (+) BM following soapsuds enema, patient reports mild relief Plan for CT Abdomen w/o contrast to evaluate for additional pathology (4) Flank pain Is this a current diagnosis for this admission?: Yes Plan: Lower back/flank pain Easily reproducible with palpation Likely musculoskeletal pain Renal function and urinalysis labs all within normal limits Previous UA from 12/15/2018 (+) for UTI started on keflex Current UA and urine culture negative K pack as needed Flexeril p.o. as needed Morphine sliding scale as needed (5) Chronic pain Is this a current diagnosis for this admission?: Yes Plan: Morphine sliding scale - Time Time Spent with patient: 15-24 minutes Medications reviewed and adjusted accordingly: Yes Anticipated discharge: Home - Inpatient Certification Based on my medical assessment, after consideration of the patient's comorbidities, presenting symptoms, or acuity I expect that the services needed warrant INPATIENT care.: Yes I certify that my determination is in accordance with my understanding of Medicare's requirements for reasonable and necessary INPATIENT services [42 CFR 412.3e].: Yes Medical Necessity: Risk of Complication if Not Cared For in Hospital
[2018-12-22] MEDS: VANCOMYCIN HCL 500 MG in DEXTROSE 5%-WATER 100 ML IV SCH (09:20)
[2018-12-22] MEDS: IBUPROFEN 800 MG TABLET PO SCH (09:21)
[2018-12-22] MEDS: FUROSEMIDE 20 MG TABLET PO SCH (09:21)
[2018-12-22] MEDS: POTASSIUM CHLORIDE 10 MEQ CAPSULE.ER PO SCH (09:22)
[2018-12-22 13:52] VITALS: BP 98/57
--- NOTE | 2018-12-23 12:49 | PDOC DISCHARGE SUMMARY ---
General - Admit/Disc Date/PCP Admission Date/Primary Care Provider: 12/19/18 00:01 ARTEMIO MENDEZ, Discharge Date: 12/22/18 - Discharge Diagnosis (1) Bacteremia due to Staphylococcus Is this a current diagnosis for this admission?: Yes Summary: The patient had blood cultures drawn when she visited the emergency department or to admission. Blood cultures were positive. Both sets grew staph epidermidis. This is typically considered a contaminant but that is usually associated with a single bottle being positive. The patient was started on IV antibiotic therapy. Her white blood cell count is normal. She will complete a course of dicloxacillin as an outpatient. The patient has had multiple intravenous access devices including picklines and Port-A-Cath insertions. She has had infections with lines before. As well as PICC lines. Vascular access is probably going to be an issue moving forward if this Port-A-Cath needs to be removed. The 2 blood cultures drawn in the emergency department list staph epidermidis with 1 being drawn peripherally from the patient's arm and one being drawn from the "pick line "but I believe it was drawn from her Port-A-Cath. Because she is on TPN this is an issue. I would like her to complete a course of antibiotic therapy. I would recommend repeat blood cultures after the course of antibiotics. If these are again positive with same organism in the Port-A-Cath will have to be removed. This will prevent a significant problem for the patient with regard to IV access. She will likely have to see Dr. Watson to reassess other means of access. (2) Abdominal pain Is this a current diagnosis for this admission?: Yes Summary: The patient has had multiple bowel surgeries including partial gastrectomy (vagotomy and antrectomy). She has extremely limited appetite. She does not have dysphasia. She has chronic abdominal pain. CT scan of the abdomen did not reveal a focal abscess or specific lesion. We discussed adhesions and the fact that with her multiple surgeries she likely has multiple adhesions. The certainly can be causing pain. It does not appear that they are obstructing bowel as there is no evidence of obstruction or ileus. This is the pain that is likely also radiating up into the left upper quadrant causing flank pain. She has been to several specialists and there is been no indication for additional surgery. I did asked her if anybody mentioned a jejunostomy line for tube feeding. She does not believe that this was ever discussed. With all of her surgeries this certainly would be a difficult option. We also discussed the possibility of another opinion and a large Medical Center. She has relatives in [place] and [place] and so a center in the [facility] area would be a consideration. This is a very difficult situation (3) Flank pain Is this a current diagnosis for this admission?: Yes Summary: As above. In addition the patient reports being treated for urinary tract infection prior to this admission. There was no positive urine culture prior to this admission in the urine obtained on this admission was no growth. She may certainly have had an infection and this would also cause left flank pain but there is no evidence of hydronephrosis or inflammation by CT scan. (4) Symptomatic anemia Is this a current diagnosis for this admission?: Yes Summary: The patient received 2 units of packed red blood cells. With her nutrition mostly dependent on TPN she likely has anemia of chronic disease limited intake. She would likely benefit from supplements. I will defer to her primary care physician. (5) Anemia Is this a current diagnosis for this admission?: Yes Summary: The patient did receive 2 units of packed red blood cells during this admission. Workup revealed a normal iron level with a low ferritin. Folic acid was normal 12 level was low. She does rely on TPN for most of her calories. I will defer to her primary care physician regarding suggestions for supplements. - Additional Information Resuscitation Status: Full Code Discharge Diet: As Tolerated, Other (Comments) - Continue TPN at night Discharge Activity: Activity As Tolerated Prescriptions: Cephalexin [Cephalexin 500 MG Tablet] 500 mg PO BID 10 Days #20 tablet Clonazepam [Klonopin 1 mg Tablet] 1 mg PO QHS PRN 2 Days #2 tablet PRN Reason: Sleep Or Insomnia Furosemide [Lasix 20 mg Tablet] 20 mg PO DAILY 15 Days #30 tablet Potassium Chloride [Klor-Con 10 Meq Capsule ER] 10 meq PO MEALS 14 Days #54 capsule.er Home Medications: Clonazepam [Klonopin 2 mg Tablet] 2 mg PO QHS 12/19/18 Diltiazem HCl [Cardizem Cd 120 mg Capsule] 120 mg PO DAILY 12/19/18 Promethazine HCl [Phenergan 25 mg Tablet] 25 mg PO Q6HP PRN 12/19/18 Rizatriptan Benzoate [Maxalt] 5 mg PO DAILYP PRN 12/19/18 Trazodone HCl [Desyrel 50 mg Tablet] 50 mg PO QHS 12/19/18 Cephalexin [Cephalexin 500 MG Tablet] 500 mg PO BID 10 Days #20 tablet 12/22/18 Clonazepam [Klonopin 1 mg Tablet] 1 mg PO QHS PRN 2 Days #2 tablet 12/22/18 Furosemide [Lasix 20 mg Tablet] 20 mg PO DAILY 15 Days #30 tablet 12/22/18 Potassium Chloride [Klor-Con 10 Meq Capsule ER] 10 meq PO MEALS 14 Days #54 capsule.er 12/22/18 History of Present Illness Patient complains of: Positive blood cultures History of Present Illness: SHIKHA DEAN is a 38 year old female with a very complex surgical history. She presented to the emergency department on December 16. Her complaint was the abdominal pain. Blood cultures we obtained. Evaluation did not reveal a notable etiology. She has had multiple abdominal surgeries will likely have chronic abdominal pain permanently. She was discharged home but blood cultures returned positive she was called by the hospital instructed to return. She was admitted by the hospitalist service for IV antibiotics. Also noted during reevaluation anemia. Hospital Course Hospital Course: The patient's hospital course was unremarkable. She never had an elevated white blood cell count. She never had a fever. She did receive antibiotic therapy and this did not have any impact on her abdominal pain. As noted above we discussed potential etiologies for her pain as well as seeking an additional opinion due to the complexity of her current situation. She has been afebrile. She tolerated the transfusion of 2 units of packed red blood cells. As noted anatoliy pastrana the patient will be discharged home with follow-up with Dr. Mendez. Physical Exam Vital Signs: Temp Pulse Resp BP Pulse Ox 98.1 F 81 17 116/48 L 100 12/22/18 08:14 12/22/18 08:14 12/22/18 08:14 12/22/18 08:14 12/22/18 08:14 Intake & Output 12/21/18 12/22/18 12/23/18 06:59 06:59 06:59 Intake Total 1619 966 100 Output Total 2500 Balance 1619 -1534 100 Weight 44.3 kg 44.3 kg General appearance: PRESENT: cooperative, mild distress, thin Head exam: PRESENT: atraumatic, normocephalic Eye exam: PRESENT: conjunctiva pale. ABSENT: scleral icterus Ear exam: PRESENT: normal external ear exam Mouth exam: PRESENT: moist, tongue midline Neck exam: ABSENT: carotid bruit Respiratory exam: PRESENT: clear to auscultation jamaal, symmetrical, unlabored. ABSENT: rales, rhonchi, wheezes Cardiovascular exam: PRESENT: RRR, +S1, +S2 GI/Abdominal exam: PRESENT: hypoactive bowel sounds, soft, tenderness - Diffuse nonfocal tenderness. ABSENT: distended, guarding Rectal exam: PRESENT: deferred Gentrourinary exam: ABSENT: indwelling catheter Extremities exam: ABSENT: pedal edema Neurological exam: PRESENT: alert, awake, oriented to person, oriented to place, oriented to time, oriented to situation, CN II-XII grossly intact Psychiatric exam: PRESENT: flat affect. ABSENT: agitated, anxious Focused psych exam: ABSENT: delusional, restlessness Results Laboratory Results: 12/22/18 06:00 12/22/18 06:00 12/21/18 12/22/18 12/22/18 22:25 06:00 06:00 WBC 7.2 RBC 4.00 Hgb 10.5 L Hct 31.9 L MCV 80 MCH 26.3 L MCHC 32.9 RDW 17.0 H Plt Count 296 Seg Neutrophils % 57.6 Lymphocytes % 28.5 Monocytes % 6.6 Eosinophils % 6.1 H Basophils % 1.2 Absolute Neutrophils 4.2 Absolute Lymphocytes 2.1 Absolute Monocytes 0.5 Absolute Eosinophils 0.4 Absolute Basophils 0.1 Sodium 136.5 L Potassium 4.5 Chloride 103 Carbon Dioxide 24 Anion Gap 10 BUN 12 Creatinine 0.59 0.64 Est GFR ( Amer) > 60 > 60 Est GFR (Non-Af Amer) > 60 > 60 Glucose 146 H Calcium 8.9 Phosphorus 2.7 Magnesium 2.0 Total Bilirubin 0.2 AST 12 L ALT 22 Alkaline Phosphatase 86 Total Protein 5.4 L Albumin 3.2 L Lipase 12/22/18 06:00 WBC RBC Hgb Hct MCV MCH MCHC RDW Plt Count Seg Neutrophils % Lymphocytes % Monocytes % Eosinophils % Basophils % Absolute Neutrophils Absolute Lymphocytes Absolute Monocytes Absolute Eosinophils Absolute Basophils Sodium Potassium Chloride Carbon Dioxide Anion Gap BUN Creatinine Est GFR ( Amer) Est GFR (Non-Af Amer) Glucose Calcium Phosphorus Magnesium Total Bilirubin AST ALT Alkaline Phosphatase Total Protein Albumin Lipase 141.9 12/18/18 22:28 Blood Blood Culture - Final Staphylococcus Epidermidis Impressions: Abdomen/Pelvis CT 12/21/18 15:39 IMPRESSION: Large amount of stool present in the colon, particularly right lower quadrant. No obstruction. No free fluid. Qualifiers - * PATIENT BEING DISCHARGED WITH ANY OF THE FOLLOWING DIAGNOSIS: No Plan Discharge Plan: Follow-up with Dr. Mendez. The patient may in fact need this Port-A-Cath removed. This will be quite difficult as her vessels have been accessed multiple times in different areas. Time Spent: Greater than 30 Minutes
== END 2018-12-22 14:18 | disposition home health service (06) | DRG 872 ==
LOC: ER 20:19 → EH 12-19 00:01 → 2N 12-19 02:57 → 5 12-20 12:44
PROVIDERS: ADMIT Emergency Medicine; ATTEND Emergency Medicine
PROC: 30233N1 Transfusion of Nonautologous Red Blood Cells into Peripheral Vein, Percutaneous Approach (ICD-10-PCS; principal; 2018-12-20)
PROC: 3E02340 Introduction of Influenza Vaccine into Muscle, Percutaneous Approach (ICD-10-PCS; 2018-12-22)
DX: R78.81 Bacteremia (principal); E44.0 Moderate protein-calorie malnutrition; Z68.1 Body mass index [BMI] 19.9 or less, adult; B95.7 Other staphylococcus as the cause of diseases classified elsewhere; D63.8 Anemia in other chronic diseases classified elsewhere; E03.9 Hypothyroidism, unspecified; E87.6 Hypokalemia; F41.1 Generalized anxiety disorder; G89.29 Other chronic pain; K59.00 Constipation, unspecified; Z90.3 Acquired absence of stomach [part of]; Z90.49 Acquired absence of other specified parts of digestive tract; Z23 Encounter for immunization; Z82.49 Family history of ischemic heart disease and other diseases of the circulatory system; Z83.3 Family history of diabetes mellitus; Z80.9 Family history of malignant neoplasm, unspecified; Z79.899 Other long term (current) drug therapy; Z79.82 Long term (current) use of aspirin; Z88.1 Allergy status to other antibiotic agents
CPT/HCPCS: 36415; 36430; 74177; 80053; 80202; 81001; 82565; 82607; 82728; 82746; 83540; 83550; 83605; 83690; 83735; 84100; 84439; 84443; 84481; 84703; 85025; 85045; 86850; 86900; 86901; 86920; 87040; 87077; 87086; 87186; 90471; 90686; 96365; 96375; 99284; G0008; J1644; J2270; J2997; J3010; J3370; J3480; J3490; J7030; P9016

== ENCOUNTER 2019-04-09 13:57 | Emergency (ER) | payer OTHER ==
[2019-04-09] MEDS ORDERED: NORMAL SALINE 1000 ML 1,000 ML IV ONE (15:48)
--- NOTE | 2019-04-09 15:52 | ER Document Report ---
ED Medical Screen (RME) - General Chief Complaint: Abnormal Lab Results Stated Complaint: HEADACHE Time Seen by Provider: 04/09/19 15:47 Primary Care Provider: ARTEMIO JOSEPH DO [Primary Care Provider] - Follow up as needed Mode of Arrival: Ambulatory Information source: Patient Notes: 38-year-old female presented to ED for low H&H. She states that she has had a long drawnout history of bleeding ulcers multiple failed surgeries and multiple misstep surgeries and she was called today that her H&H dropped from 10 to what ever it is today she ate. She stated that her blood was drawn on Saturday and they told her it was a 9 patient is ghost white with pale mucous membranes. Patient states she is very weak she is falling multiple times due to the poor nutrition that she has had since all of her failed surgeries. Patient is alert oriented respirations regular and unlabored she is with her . I have greeted and performed a rapid initial assessment of this patient. A comprehensive ED assessment and evaluation of the patient, analysis of test results and completion of medical decision making process will be conducted by an additional ED providers. Dictation of this chart was performed using voice recognition software; therefore, there may be some unintended grammatical errors. TRAVEL OUTSIDE OF THE [place] IN LAST 30 DAYS: No - Related Data Allergies/Adverse Reactions: amoxicillin [Amoxicillin] Allergy (Severe, Verified 04/09/19 14:05) Past Medical History - Past Medical History Cardiac Medical History: Denies: Hx Atrial Fibrillation, Hx Congestive Heart Failure, Hx Coronary Artery Disease, Hx DVT, Hx Heart Attack, Hx Hypercholesterolemia, Hx Hypertension, Hx Peripheral Vascular Disease, Hx Pulmonary Embolism, Hx Heart Murmur Pulmonary Medical History: Denies: Hx Asthma, Hx Bronchitis, Hx COPD, Hx Pneumonia, Hx Tuberculosis Neurological Medical History: Denies: Hx Cerebrovascular Accident, Hx Seizures Endocrine Medical History: Reports: Hx Hypothyroidism. Denies: Hx Diabetes Mellitus Type 1, Hx Diabetes Mellitus Type 2, Hx Hyperthyroidism Renal/ Medical History: Denies: Hx End Stage Renal Disease, Hx Kidney Stones, Hx Peritoneal Dialysis GI Medical History: Reports: Hx Ulcer - malasportion disease, tachycardia. Denies: Hx Cirrhosis, Hx Gastroesophageal Reflux Disease, Hx Hepatitis Musculoskeltal Medical History: Denies Hx Arthritis, Denies Hx Gout, Denies Hx Multiple Sclerosis Skin Medical History: Denies Hx Eczema, Denies Hx Psoriasis Psychiatric Medical History: Denies: Hx Bipolar Disorder, Hx Depression, Hx Schizophrenia Infectious Medical History: Denies: Hx Hepatitis Past Surgical History: Reports: Hx Abdominal Surgery - entrectomy, vagotomy, SBO, Hx Appendectomy, Hx Cholecystectomy, Hx Genitourinary Surgery - intestines removed from prior bowel obstruction, Hx Ileostomy, Other - Gastric antrectomy/vagotomy. Denies: Hx Hysterectomy, Hx Pacemaker - Immunizations Hx Diphtheria, Pertussis, Tetanus Vaccination: Yes History of Influenza Vaccine for 06/2017 - 11/2017 Season: Yes Physical Exam - Vital signs Vitals: Temp Pulse Resp BP Pulse Ox 97.9 F 110 H 16 107/69 99 04/09/19 14:05 04/09/19 14:05 04/09/19 14:05 04/09/19 14:05 04/09/19 14:05 Course - Vital Signs Vital signs: Temp Pulse Resp BP Pulse Ox 97.9 F 110 H 16 107/69 99 04/09/19 14:05 04/09/19 14:05 04/09/19 14:05 04/09/19 14:05 04/09/19 14:05 Doctor's Discharge - Discharge Referrals: ARTEMIO JOSEPH DO [Primary Care Provider] - Follow up as needed
[2019-04-09] MEDS ORDERED: ONDANSETRON HCL INJ/PF 4 MG/2 ML SDV IV ONE (15:56)
[2019-04-09 16:25] LABS: ABSOLUTE LYMPHOCYTES (AUTO) 1.4 10^3/uL (0.5-4.7); ABSOLUTE MONOCYTES (AUTO) 0.4 10^3/uL (0.1-1.4); BASOPHILS % (AUTO) 0.6 % (0-2); EOSINOPHILS % (AUTO) 0.5 % (0-6); HEMATOCRIT 32.8 % (36.0-47.0); HEMOGLOBIN 10.9 g/dL (12.0-15.5); LYMPHOCYTES % (AUTO) 23.3 % (13-45); MEAN CORPUSCULAR HGB CONC 33.1 g/dL (32.0-36.0); MEAN CORPUSCULAR VOLUME 82 fl (80-97); MONOCYTES % (AUTO) 7.2 % (3-13); PLATELET COUNT 339 10^3/uL (150-450); RED BLOOD COUNT 4.02 10^6/uL (3.72-5.28); RED CELL DISTRIBUTION WIDTH 13.2 % (11.5-14.0); SEGMENTED NEUTROPHILS % (AUTO) 68.4 % (42-78); TOTAL CELLS COUNTED % (AUTO) 100 %; WHITE BLOOD COUNT 5.8 10^3/uL (4.0-10.5)
[2019-04-09 16:30] LABS: APPEARANCE,URINE CLEAR; BILIRUBIN,URINE NEGATIVE (NEGATIVE); COLOR,URINE YELLOW; GLUCOSE, URINE NEGATIVE (NEGATIVE); KETONES,URINE NEGATIVE (NEGATIVE); LEUKOCYTE ESTERASE,URINE NEGATIVE (NEGATIVE); NITRITE,URINE NEGATIVE (NEGATIVE); PROTEIN,URINE NEGATIVE (NEGATIVE); UROBILINOGEN,URINE NEGATIVE mg/dL (<2.0)
[2019-04-09 16:48] LABS: ALANINE AMINOTRANSFERASE 30 U/L (9-52); ALBUMIN 4.1 g/dL (3.5-5.0); ALKALINE PHOSPHATASE 92 U/L (38-126); ANION GAP 11 (5-19); ASPARTATE AMINO TRANSFERASE 31 U/L (14-36); BILIRUBIN,DIRECT 0.1 mg/dL (0.0-0.4); BILIRUBIN,TOTAL 0.1 mg/dL (0.2-1.3); BLOOD UREA NITROGEN 14 mg/dL (7-20); CALCIUM 8.9 mg/dL (8.4-10.2); CARBON DIOXIDE 25 mmol/L (22-30); CHLORIDE 101 mmol/L (98-107); GLUCOSE 95 mg/dL (75-110); LIPASE 70.8 U/L (23-300); POTASSIUM 3.4 mmol/L (3.6-5.0); SODIUM 136.5 mmol/L (137-145); TOTAL PROTEIN 6.8 g/dL (6.3-8.2)
--- NOTE | 2019-04-09 17:35 | ER Document Report ---
ED General - General Chief Complaint: Abnormal Lab Results Stated Complaint: HEADACHE Time Seen by Provider: 04/09/19 15:47 Primary Care Provider: ARTEMIO JOSEPH DO [Primary Care Provider] - Follow up as needed Mode of Arrival: Ambulatory Notes: HPI: Patient is a 38-year-old female with past medical history as recorded including anemia for the last 5 years intermittently. Supposedly they cannot find the source of bleeding. No heavy menstrual periods. Patient is followed by the GI doctor Dr. Pugh. Colonoscopy and endoscopy have supposedly been unrevealing. Patient was sent here secondary to the primary care physician and home health nurse who wanted the patient's hemoglobin reassessed. Patient states she normally gets transfusions every 6 months. She denies any chest pain, worsening lightheadedness or dizziness. Patient has what an extensive note on the triage sheet and I have spoken to her and her family about this. Patient states around 5 days ago she is developed a left-sided headache. Regarding the intermittent left hand numbness and some intermittent slurred spe ech, the patient and family states that she has had this for 6 months. Patient states she is a long history of migraines. She states she has a history of a TIA and a complex migraine in the past. Patient states that she is told her physicians about the symptoms and the patient has not had any imaging for greater than 1 year. She states that the headache came on slowly. Is left- sided in nature. No trauma. No fevers. No blurry vision. ROS: See HPI All other review of systems reviewed and otherwise negative Reviewed vital signs and nursing note as charted by RN. PHYSICAL EXAM: CONSTITUTIONAL: Alert and oriented and responds appropriately to questions. Well-appearing; well-nourished HEAD: Normocephalic; atraumatic EYES: PERRL; no nystagmus noted ENT: Normal nose; no rhinorrhea; moist mucous membranes; pharynx without lesions noted NECK: Supple without meningismus; non-tender; no carotid bruit; no cervical lymphadenopathy, no masses CARD: Regular rate and rhythm; no murmurs; symmetric distal pulses RESP: Normal chest excursion without splinting or tachypnea; breath sounds clear and equal bilaterally; no wheezes, no rhonchi, no rales ABD/GI: Normal bowel sounds; non-distended; soft, non-tender; no palpable organomegaly or masses BACK: The back appears normal and is non-tender to palpation EXT: Normal ROM in all joints; non-tender to palpation; no edema SKIN: No acute lesions noted NEURO: CN 2-12 intact; 5/5 bilateral upper and lower extremity strength with sensation intact to light touch PSYCH: The patient's mood and manner are appropriate. Grooming and personal hygiene are appropriate. TRAVEL OUTSIDE OF THE [place] IN LAST 30 DAYS: No - Related Data Allergies/Adverse Reactions: amoxicillin [Amoxicillin] Allergy (Severe, Verified 04/09/19 14:05) Past Medical History - General Information source: Patient - Social History Smoking Status: Never Smoker Family History: Reviewed & Not Pertinent, Hypertension Patient has suicidal ideation: No Patient has homicidal ideation: No - Past Medical History Cardiac Medical History: Denies: Hx Atrial Fibrillation, Hx Congestive Heart Failure, Hx Coronary Artery Disease, Hx DVT, Hx Heart Attack, Hx Hypercholesterolemia, Hx Hypertension, Hx Peripheral Vascular Disease, Hx Pulmonary Embolism, Hx Heart Murmur Pulmonary Medical History: Denies: Hx Asthma, Hx Bronchitis, Hx COPD, Hx Pneumonia, Hx Tuberculosis Neurological Medical History: Denies: Hx Cerebrovascular Accident, Hx Seizures Endocrine Medical History: Reports: Hx Hypothyroidism. Denies: Hx Diabetes Mellitus Type 1, Hx Diabetes Mellitus Type 2, Hx Hyperthyroidism Renal/ Medical History: Denies: Hx End Stage Renal Disease, Hx Kidney Stones, Hx Peritoneal Dialysis GI Medical History: Reports: Hx Ulcer - malasportion disease, tachycardia. Denies: Hx Cirrhosis, Hx Gastroesophageal Reflux Disease, Hx Hepatitis Musculoskeletal Medical History: Denies Hx Arthritis, Denies Hx Gout, Denies Hx Multiple Sclerosis Skin Medical History: Denies Hx Eczema, Denies Hx Psoriasis Psychiatric Medical History: Denies: Hx Bipolar Disorder, Hx Depression, Hx Schizophrenia Infectious Medical History: Denies: Hx Hepatitis Past Surgical History: Reports: Hx Abdominal Surgery - entrectomy, vagotomy, SBO, Hx Appendectomy, Hx Cholecystectomy, Hx Genitourinary Surgery - intestines removed from prior bowel obstruction, Hx Ileostomy, Other - Gastric antrectomy/vagotomy. Denies: Hx Hysterectomy, Hx Pacemaker - Immunizations Hx Diphtheria, Pertussis, Tetanus Vaccination: Yes Physical Exam - Vital signs Vitals: Temp Pulse Resp BP Pulse Ox 97.9 F 110 H 16 107/69 99 04/09/19 14:05 04/09/19 14:05 04/09/19 14:05 04/09/19 14:05 04/09/19 14:05 Notes: HPI: ROS: See HPI All other review of systems reviewed and otherwise negative Reviewed vital signs and nursing note as charted by RN. PHYSICAL EXAM: CONSTITUTIONAL: Alert and oriented and responds appropriately to questions. Well-appearing; well-nourished HEAD: Normocephalic; atraumatic EYES: PERRL; Conjunctivae clear, sclerae non-icteric ENT: Normal nose; no rhinorrhea; moist mucous membranes; pharynx without lesions noted NECK: Supple without meningismus; non-tender; no cervical lymphadenopathy, no masses CARD: Regular rate and rhythm; no murmurs; symmetric distal pulses RESP: Normal chest excursion without splinting or tachypnea; catheter in the right chest; breath sounds clear and equal bilaterally; no wheezes, no rhonchi, no rales ABD/GI: Normal bowel sounds; non-distended; soft, non-tender; no palpable organomegaly or masses BACK: The back appears normal and is non-tender to palpation EXT: Normal ROM in all joints; non-tender to palpation; no edema SKIN: No acute lesions noted NEURO: CN 2-12 intact; 5/5 bilateral upper and lower extremity strength with sensation intact to light touch PSYCH: The patient's mood and manner are appropriate. Grooming and personal hygiene are appropriate. Course - Re-evaluation Re-evalutation: Given the above history and physical with the patient's past medical conditions, we will obtain basic labs including hemoglobin level. Given the patient's intermittent symptomatology for 6 months with a left-sided slow developing headache without weakness or numbness, blurry vision, with soft globes, without fevers, or trauma, I do believe acute angle-closure glaucoma, temporal arteritis, acute bacterial meningitis, and subarachnoid hemorrhage to be unlikely. Patient currently has no focal neurological deficits. Supposedly the patient has a history of complex migraines treated with Maxalt as well as a possible TIA?. I will perform directly an MRI of the brain. If this is unremarkable, I believe that the patient can follow-up with the primary doctor. We will treat the patient's headache at this time. 04/09/19 17:35 Hemoglobin as recorded. This is actually very high for the patient. 04/09/19 21:04 Patient's headache has improved. MRI as recorded. Still no focal neurological deficits. Given the length of time of the patient's intermittent symptoms, with a negative MRI, with a history of complex migraines, I believe it is reasonable to discharge the patient home with strict return precautions. Patient is in agreement with this plan. - Vital Signs Vital signs: Temp Pulse Resp BP Pulse Ox 97.9 F 110 H 22 H 114/68 91 L 04/09/19 14:05 04/09/19 14:05 04/09/19 18:01 04/09/19 18:01 04/09/19 18:01 - Laboratory Result Diagrams: 04/09/19 16:07 04/09/19 16:07 Laboratory results interpreted by me: 04/09/19 04/09/19 04/09/19 16:07 16:07 16:07 Hgb 10.9 L Hct 32.8 L Sodium 136.5 L Potassium 3.4 L Total Bilirubin 0.1 L Urine Blood LARGE H Discharge - Discharge Clinical Impression: Headache Qualifiers: Headache type: unspecified Headache chronicity pattern: acute headache Intractability: not intractable Qualified Code(s): R51 - Headache Condition: Good Disposition: HOME, SELF-CARE Additional Instructions: Come back immediately for any worsening headache, fever, vomiting, lightheadedness or dizziness, worsening weakness or numbness, blurry vision, or any other acute problems. Please follow-up with the primary care physician as discussed. Referrals: ARTEMIO JOSEPH DO [Primary Care Provider] - Follow up as needed
[2019-04-09] MEDS ORDERED: PROMETHAZINE HCL INJ 25 MG/1 ML VIAL IV ONE (17:36)
[2019-04-09] MEDS ORDERED: DIPHENHYDRAMINE HCL 50 MG/ML VIAL IV ONE (17:47)
--- NOTE | 2019-04-09 20:17 | RADIOLOGY REPORT (SQ) ---
EXAM DESCRIPTION: MR BRAIN WITHOUT IV CONTRAST COMPLETED DATE/TME: 04/09/2019 17:29 CLINICAL HISTORY: 38 years, Female, . Left-sided headache with intermittent slurred COMPARISON: MRI from 02/16/2018. TECHNIQUE: Multisequence multiplanar images without gadolinium. Images stored on PACS. FINDINGS: Normal size ventricles. No suspicious intra-axial or extra-axial abnormality. No evidence for restricted diffusion. Gradient echo images are unremarkable. Pituitary gland is not enlarged. Very minimal mucosal thickening in the right maxillary sinus unchanged compared to previous study from 2019. IMPRESSION: Unremarkable MRI of the brain.
[2019-04-09] MEDS ORDERED: MORPHINE SULFATE 10 MG/ML INJ IV ONE (21:04)
[2019-04-09 21:15] VITALS: BP 105/64
== END 2019-04-09 21:35 | disposition home or self-care (01) ==
LOC: ER 13:57
DX: R51 Headache (principal); D64.9 Anemia, unspecified
CPT/HCPCS: 36591; 99284; 96361; 96374; 96375; 86900; 86901; 36415; 86850; 83690; 84703; 85025; 80053; 81001; 70551; J1200; J2270; J2550; J2405; J7030; J1642

== ENCOUNTER 2019-07-03 16:14 | Inpatient (IN) | payer OTHER ==
[2019-07-03] MEDS ORDERED: ONDANSETRON 4 MG TAB.RAPDIS PO ONE (17:04)
--- NOTE | 2019-07-03 17:08 | ER Document Report ---
ED Medical Screen (RME) - General Stated Complaint: WEAKNESS,ABDOMINAL PAIN, FEVER Time Seen by Provider: 07/03/19 17:00 Primary Care Provider: ARTEMIO MENDEZ DO [Primary Care Provider] - Follow up as needed Mode of Arrival: Ambulatory Information source: Patient Notes: 38-year-old female presented to ED for complaint of weakness nausea abdominal pain for the last week. She states is been worse over the last couple days and today is been the worst day. She states last night she felt like she was going to pass out. She did have a surgery to remove part of her stomach for ulcers which was according to patient and her mother messed up by the surgeon so she had to have it revised at [facility]. She now has malabsorption and had to be on TPN 18 hours a day. She states she is also had a TIA 2 years ago, severe anemia. She states she was sent by Dr. Mendez for fluids medicine and blood transfusion. I have greeted and performed a rapid initial assessment of this patient. A comprehensive ED assessment and evaluation of the patient, analysis of test results and completion of medical decision making process will be conducted by an additional ED providers. TRAVEL OUTSIDE OF THE [place] IN LAST 30 DAYS: No - Related Data Allergies/Adverse Reactions: amoxicillin [Amoxicillin] Allergy (Severe, Verified 07/03/19 17:00) Past Medical History - Past Medical History Cardiac Medical History: Denies: Hx Atrial Fibrillation, Hx Congestive Heart Failure, Hx Coronary Artery Disease, Hx DVT, Hx Heart Attack, Hx Hypercholesterolemia, Hx Hypertension, Hx Peripheral Vascular Disease, Hx Pulmonary Embolism, Hx Heart Murmur Pulmonary Medical History: Denies: Hx Asthma, Hx Bronchitis, Hx COPD, Hx Pneumonia, Hx Tuberculosis Neurological Medical History: Denies: Hx Cerebrovascular Accident, Hx Seizures, Hx Parkinson's Disease Endocrine Medical History: Reports: Hx Hypothyroidism. Denies: Hx Diabetes Mellitus Type 1, Hx Diabetes Mellitus Type 2, Hx Hyperthyroidism Renal/ Medical History: Denies: Hx End Stage Renal Disease, Hx Kidney Stones, Hx Peritoneal Dialysis GI Medical History: Reports: Hx Ulcer - malasportion disease, tachycardia. Denies: Hx Cirrhosis, Hx Gastroesophageal Reflux Disease, Hx Hepatitis Musculoskeltal Medical History: Denies Hx Arthritis, Denies Hx Gout, Denies Hx Multiple Sclerosis Skin Medical History: Denies Hx Eczema, Denies Hx Psoriasis Psychiatric Medical History: Denies: Hx Bipolar Disorder, Hx Depression, Hx Schizophrenia Infectious Medical History: Denies: Hx Hepatitis Past Surgical History: Reports: Hx Abdominal Surgery - entrectomy, vagotomy, SBO, Hx Appendectomy, Hx Cholecystectomy, Hx Genitourinary Surgery - intestines removed from prior bowel obstruction, Hx Ileostomy, Other - Gastric antrectomy/vagotomy. Denies: Hx Hysterectomy, Hx Pacemaker - Immunizations Hx Diphtheria, Pertussis, Tetanus Vaccination: Yes Physical Exam - Vital signs Vitals: Temp Pulse Resp BP Pulse Ox 97.5 F 73 16 94/48 L 100 07/03/19 16:20 07/03/19 16:20 07/03/19 16:20 07/03/19 16:20 07/03/19 16:20 Course - Vital Signs Vital signs: Temp Pulse Resp BP Pulse Ox 97.5 F 73 16 94/48 L 100 07/03/19 16:20 07/03/19 16:20 07/03/19 16:20 07/03/19 16:20 07/03/19 16:20 Doctor's Discharge - Discharge Referrals: ARTEMIO MENDEZ DO [Primary Care Provider] - Follow up as needed
[2019-07-03] MEDS ORDERED: NORMAL SALINE 1000 ML 1,000 ML IV ONE ×2 (17:26→19:14)
[2019-07-03] MEDS ORDERED: PANTOPRAZOLE SODIUM 40 MG VIAL IV ONE (18:38)
[2019-07-03 18:41] LABS: HEMATOCRIT 27.1 % (36.0-47.0); HEMOGLOBIN 8.1 g/dL (12.0-15.5); MEAN CORPUSCULAR HEMOGLOBIN 22.1 pg (27.0-33.4); MEAN CORPUSCULAR HGB CONC 30.1 g/dL (32.0-36.0); MEAN CORPUSCULAR VOLUME 73 fl (80-97); PLATELET COUNT 377 10^3/uL (150-450); RED BLOOD COUNT 3.69 10^6/uL (3.72-5.28); RED CELL DISTRIBUTION WIDTH 15.9 % (11.5-14.0); WHITE BLOOD COUNT 27.7 10^3/uL (4.0-10.5)
[2019-07-03 19:05] LABS: ABSOLUTE LYMPHOCYTES# (MANUAL) 1.4 10^3/uL (0.5-4.7); ABSOLUTE MONOCYTES # (MANUAL) 1.1 10^3/uL (0.1-1.4); ALBUMIN 3.3 g/dL (3.5-5.0); ALKALINE PHOSPHATASE 113 U/L (38-126); ANION GAP 10 (5-19); ASPARTATE AMINO TRANSFERASE 83 U/L (14-36); BAND NEUTROPHILS % (MANUAL) 2 % (3-5); BASOPHILS % (MANUAL) 0 % (0-2); BILIRUBIN,DIRECT 0.1 mg/dL (0.0-0.4); BILIRUBIN,TOTAL 0.1 mg/dL (0.2-1.3); BLOOD UREA NITROGEN 19 mg/dL (7-20); CALCIUM 8.3 mg/dL (8.4-10.2); CARBON DIOXIDE 20 mmol/L (22-30); CHLORIDE 105 mmol/L (98-107); EOSINOPHILS % (MANUAL) 0 % (0-6); GLUCOSE 101 mg/dL (75-110); LYMPHOCYTES % (MANUAL) 5 % (13-45); MONOCYTES % (MANUAL) 4 % (3-13); POTASSIUM 3.3 mmol/L (3.6-5.0); SEGMENTED NEUTROPHILS % (MAN) 89 % (42-78); TOTAL CELLS COUNTED 100; TOTAL PROTEIN 5.9 g/dL (6.3-8.2)
[2019-07-03 19:09] LABS: ANISOCYTOSIS SLIGHT; HYPOCHROMASIA 1+; PLATELET COMMENT ADEQUATE; PLATELET LARGE PRESENT; POLYCHROMASIA SLIGHT
[2019-07-03 19:23] LABS: INTERNATIONAL RATION (INR) 1.22; PROTHROMBIN TIME 15.5 SEC (11.4-15.4)
[2019-07-03] MEDS ORDERED: CEFEPIME 1 GM/D5W RTU 1 GM/50 ML RTUPB IV ONE (19:44)
[2019-07-03] MEDS ORDERED: VANCOMYCIN HCL INJ 1000 MG VIAL IV ONE (19:44)
[2019-07-03] MEDS ORDERED: LEVOFLOXACIN 500 MG/D5W RTU 500 MG/100 ML RTUPB IV ONE (19:45)
--- NOTE | 2019-07-03 19:46 | RADIOLOGY REPORT (SQ) ---
EXAM DESCRIPTION: CHEST SINGLE VIEW COMPLETED DATE/TIME: 07/03/2019 7:32 pm REASON FOR STUDY: sepsis COMPARISON: Two-view chest 10/15/2018 EXAM PARAMETERS: NUMBER OF VIEWS: One view. TECHNIQUE: Single frontal radiographic view of the chest acquired. RADIATION DOSE: NA LIMITATIONS: None. FINDINGS: LUNGS AND PLEURA: No opacities, masses or pneumothorax. No pleural effusion. MEDIASTINUM AND HILAR STRUCTURES: No masses. Contour normal. HEART AND VASCULAR STRUCTURES: Heart normal in size. Normal vasculature. BONES: No acute findings. HARDWARE: Right-sided tunneled catheter tip in the superior vena cava. Clips right upper quadrant po st cholecystectomy. OTHER: No other significant finding. IMPRESSION: NO ACUTE RADIOGRAPHIC FINDING IN THE CHEST. TECHNICAL DOCUMENTATION: JOB ID: [id number] [employer]- All Rights Reserved Reading location - IP/workstation name: [email or web address]
[2019-07-03] MEDS ORDERED: FLUCONAZOLE 200 MG/NS RTU 200 MG/100 ML RTUPB IV ONE (20:15)
--- NOTE | 2019-07-03 21:03 | RADIOLOGY REPORT (SQ) ---
EXAM DESCRIPTION: CLINICAL HISTORY: 38 years Female flank pain, fever COMPARISON: CT from 12/21/2018 TECHNIQUE: Axial images without IV or oral contrast. Sagittal coronal reconstruction. This exam was performed according to our departmental dose-optimization program, which includes automated exposure control, adjustment of the mA and/or kV according to patient size and/or use of iterative reconstruction technique. FINDINGS: Lung bases unremarkable. Low density of the blood in the cardiac chambers may indicate anemia. Liver, pancreas, adrenal glands, aorta and articulations are unremarkable. Cholecystectomy. No significant biliary dilatation. Previous surgery in the midline upper abdomen presumably bariatric surgery. There is severe colonic distention with increased stool transverse diameter of the descending colon is 5.7 cm. Similar measurement on 12/21/2018. There is however additional dilatation of small bowel loops most conspicuous in the left upper quadrant. Was present previously but currently increased. Kidneys demonstrated without stones hydronephrosis or focal lesions. CT of the pelvis demonstrates massive distention of the urinary bladder. Retroverted uterus. No obvious enlargement of the adnexa or free fluid. No adenopathy. No obvious abnormality or significant dilatation of the distal colon. IMPRESSION: 1. Kidneys without stones or hydronephrosis. Prominent distention of the urinary bladder. 2. Severe colonic stool and dilatation in the upper abdomen. The rectosigmoid colon is not significantly distended. Similar findings were seen on 12/21/2018. The cause for the chronic massive colonic dilatation is not clear. 3. Previous cholecystectomy. Previous surgery related to the stomach presumably bariatric. 4. There is currently dilatation of small bowel loops in the left upper quadrant. This is increased compared to the previous study and suspicious for small bowel obstruction. Differential diagnosis includes distal anastomotic narrowing versus internal hernia. This can possibly be evaluated with limited upper GI. Preferably to be done with iodinated contrast and not barium.
[2019-07-03 21:47] LABS: VENOUS BLOOD BASE EXCESS -11.2 mmol/L; VENOUS BLOOD HCO3 15.5 mmol/L (20-32); VENOUS BLOOD PCO2 38.3 mmHg (35-63); VENOUS BLOOD PH 7.23 (7.30-7.42)
[2019-07-03 22:21] LABS: APPEARANCE,URINE CLEAR; BILIRUBIN,URINE NEGATIVE (NEGATIVE); COLOR,URINE STRAW; GLUCOSE, URINE NEGATIVE (NEGATIVE); KETONES,URINE NEGATIVE (NEGATIVE); LEUKOCYTE ESTERASE,URINE NEGATIVE (NEGATIVE); NITRITE,URINE NEGATIVE (NEGATIVE); PROTEIN,URINE NEGATIVE (NEGATIVE); URINE SPECIFIC GRAVITY 1.006; UROBILINOGEN,URINE NEGATIVE mg/dL (<2.0)
[2019-07-03 22:32] LABS: PHOSPHORUS 2.9 mg/dL (2.5-4.5)
[2019-07-03] MEDS ORDERED: VANCOMYCIN HCL INJ 1000 MG VIAL ONE (23:03)
--- NOTE | 2019-07-03 23:21 | EKG REPORT ---
SEVERITY:- ABNORMAL ECG - SINUS RHYTHM NONSPECIFIC T ABNORMALITIES, DIFFUSE LEADS : Confirmed by: Padma Mota MD 03-Jul-2019 23:20:30
--- NOTE | 2019-07-03 23:23 | ER Document Report ---
Entered by JOSUE WESTBROOK SCRIBE 07/03/19 2077 Acting as scribe for:JADON WATSON DO ED General - General Chief Complaint: Abdominal Pain Stated Complaint: WEAKNESS,ABDOMINAL PAIN, FEVER Time Seen by Provider: 07/03/19 17:00 Primary Care Provider: ARTEMIO JOSEPH DO [Primary Care Provider] - Follow up as needed Mode of Arrival: Ambulatory Notes: 38 year old female with status post antrectomy and vagotomy that presents today with complaints of back pain for 1 week, shortness of breath, pain all over, fevers, and nausea. Patient states she is on TPN 18 hours a day but has lost 6 pounds over the last week. Patient denies a cough or dysuria. TRAVEL OUTSIDE OF THE [place] IN LAST 30 DAYS: No - Related Data Allergies/Adverse Reactions: amoxicillin [Amoxicillin] Allergy (Severe, Verified 07/03/19 17:00) Past Medical History - General Information source: Patient - Social History Smoking Status: Never Smoker Cigarette use (# per day): No Chew tobacco use (# tins/day): No Frequency of alcohol use: None Drug Abuse: None Lives with: Family Family History: Reviewed & Not Pertinent, Hypertension Patient has suicidal ideation: No Patient has homicidal ideation: No Endocrine Medical History: Reports: Hx Hypothyroidism GI Medical History: Reports: Hx Ulcer - malabsorption disease Past Surgical History: Reports: Hx Abdominal Surgery - antrectomy, vagotomy, SBO, Hx Appendectomy, Hx Cholecystectomy, Hx Genitourinary Surgery - intestines removed from prior bowel obstruction, Hx Ileostomy, Other - Gastric antrectomy/vagotomy. Denies: Hx Hysterectomy, Hx Pacemaker - Immunizations Hx Diphtheria, Pertussis, Tetanus Vaccination: Yes Review of Systems - Review of Systems Constitutional: See HPI, Fever EENT: No symptoms reported Cardiovascular: No symptoms reported Respiratory: See HPI, Short of breath. denies: Cough Gastrointestinal: See HPI, Abdominal pain, Nausea Genitourinary: denies: Dysuria Female Genitourinary: No symptoms reported Musculoskeletal: See HPI, Back pain Skin: No symptoms reported Hematologic/Lymphatic: No symptoms reported Neurological/Psychological: No symptoms reported -: Yes All other systems reviewed and negative Physical Exam - Vital signs Vitals: Temp Pulse Resp BP Pulse Ox 97.5 F 73 16 94/48 L 100 07/03/19 16:20 10/04/19 16:20 07/03/19 16:20 07/03/19 16:20 07/03/19 16:20 Interpretation: Hypotensive - General General appearance: Alert In distress: None Notes: Cachectic - HEENT Head: Normocephalic, Atraumatic Cornea: Normal Extraocular movements intact: Yes Pupils: PERRL Mucous membranes: Dry - Respiratory Respiratory status: No respiratory distress Breath sounds: Normal - Cardiovascular Rhythm: Regular - Abdominal Inspection: Normal Distension: No distension Tenderness: Tender - Bilateral upper quadrant tenderness. - Back Back: CVA tenderness - L - Extremities General upper extremity: Normal ROM General lower extremity: Normal ROM - Neurological Neuro grossly intact: Yes Cognition: Normal Orientation: AAOx4 Migel Coma Scale Eye Opening: Spontaneous [place] Coma Scale Verbal: Oriented Migel Coma Scale Motor: Obeys Commands Migel Coma Scale Total: 15 Speech: Normal Motor strength normal: LUE, RUE, LLE, RLE - Psychological Associated symptoms: Flat affect - Skin Skin Temperature: Warm Skin Moisture: Dry Course - Re-evaluation Re-evalutation: 07/03/19 21:[address] Pedersen, will return call. 07/03/19 22:23 Dr. Pedersen called back, accepts patient for admission. 07/03/19 Patient is a 38-year-old female who comes in not feeling well. Patient has a history of bacteremia in the past and is also had line infections before. Central line site looks good today. No surrounding erythema or fluctuance. No drainage. White count however is 27 with 2% bands. Culture sent and antibiotics initiated. Patient is complained of some flank pain but no acute findings there. Possible bowel obstruction. Patient is also anemic with her leukocytosis. Protonix had been initiated due to concerns of upper abdominal pain and bleeding by patient. Patient denies any dark stool and states that she often does not have bowel movements because she does not eat and is only on TPN. Regardless, given leukocytosis with bands, patient will need to be admitted for IV antibiotics and cultures. Fluconazole has also been added due to history of fungemia in the past due to [place]. Discussed with the hospitalist who will accept the patient to the [facility] Patient is agreeable to this plan and stable at the time of admission. - Vital Signs Vital signs: Temp Pulse Resp BP Pulse Ox 97.5 F 73 11 L 86/41 L 100 07/03/19 16:20 07/03/19 16:20 07/03/19 20:30 07/03/19 20:30 07/03/19 20:30 - Laboratory Result Diagrams: 07/03/19 18:15 07/03/19 18:15 Laboratory results interpreted by me: 07/03/19 07/03/19 07/03/19 18:15 18:15 18:15 WBC 27.7 H RBC 3.69 L Hgb 8.1 L Hct 27.1 L MCV 73 L MCH 22.1 L MCHC 30.1 L RDW 15.9 H Seg Neuts % (Manual) 89 H Band Neutrophils % 2 L Lymphocytes % (Manual) 5 L Abs Neuts (Manual) 25.2 H PT 15.5 H VBG pH VBG HCO3 Sodium 135.3 L Potassium 3.3 L Carbon Dioxide 20 L Calcium 8.3 L Total Bilirubin 0.1 L AST 83 H Total Protein 5.9 L Albumin 3.3 L 07/03/19 21:38 WBC RBC Hgb Hct MCV MCH MCHC RDW Seg Neuts % (Manual) Band Neutrophils % Lymphocytes % (Manual) Abs Neuts (Manual) PT VBG pH 7.23 L VBG HCO3 15.5 L Sodium Potassium Carbon Dioxide Calcium Total Bilirubin AST Total Protein Albumin Critical Care Note - Critical Care Note Total time excluding time spent on procedures (mins): 35 - Evaluation and management of probable sepsis, discussion with patient, coordination of admiss ion, multiple re-evaluations Discharge - Discharge Clinical Impression: Anorexia Anemia Qualifiers: Anemia type: unspecified type Qualified Code(s): D64.9 - Anemia, unspecified Chronic pain Qualifiers: Chronic pain type: other chronic pain Qualified Code(s): G89.29 - Other chronic pain Sepsis Qualifiers: Sepsis type: sepsis due to unspecified organism Sepsis acute organ dysfunction status: without acute organ dysfunction Qualified Code(s): A41.9 - Sepsis, unspecified organism Condition: Stable Disposition: ADMITTED INPATIENT Admitting Provider: Nuvia (Hospitalist) Unit Admitted: IMCU Referrals: ARTEMIO JOSEPH DO [Primary Care Provider] - Follow up as needed I personally performed the services described in the documentation, reviewed and edited the documentation which was dictated to the scribe in my presence, and it accurately records my words and actions.
[2019-07-04] MEDS ORDERED: NALBUPHINE HCL INJ 10 MG/1 ML AMPULE IV PRN ×2 (00:23→01:01)
[2019-07-04] MEDS ORDERED: ONDANSETRON HCL INJ/PF 4 MG/2 ML SDV IV PRN (00:29)
[2019-07-04] MEDS ORDERED: MEROPENEM 1 GM VIAL IV PRN (00:45)
[2019-07-04] MEDS: ACETAMINOPHEN 325 MG TABLET PO PRN ×2 (01:18→09:08)
[2019-07-04 01:37] LABS: FREE T3 2.6 pg/mL (2.77-5.27); FREE T4 (FREE THYROXINE) 0.97 ng/dL (0.78-2.19)
[2019-07-04] MEDS: NALBUPHINE HCL INJ 10 MG/1 ML AMPULE IV PRN ×2 (02:43→09:09)
[2019-07-04] MEDS: METRONIDAZOLE 500 MG/NS RTU 500 MG/100 ML RTUPB IV SCH ×4 (02:54→22:11)
[2019-07-04] MEDS: RINGERS SOLUTION,LACTATED 1,000 ML IV PRN ×2 (02:54→08:53)
[2019-07-04] MEDS ORDERED: MEROPENEM 1 GM VIAL ONE (03:14)
[2019-07-04] MEDS ORDERED: CLONAZEPAM 1 MG TABLET PO ONE (03:30)
[2019-07-04] MEDS ORDERED: TRAZODONE HCL 50 MG TABLET PO ONE (04:00)
[2019-07-04] MEDS: MEROPENEM 1 GM in NORMAL SALINE 50 ML IV SCH ×3 (04:28→19:05)
[2019-07-04] MEDS ORDERED: HEPARIN SOD (PORCINE) 5,000 UNIT/ML 1 ML VIAL SUBCUT SCH (06:00)
--- NOTE | 2019-07-04 06:19 | PDOC H&P ---
History of Present Illness Admission Date/PCP: 07/03/2019 22:34 ARTEMIO JOSEPH DO Patient complains of: Back pain History of Present Illness: SHIKHA DEAN is a 38 year old female who presented to the emergency room with a one-week history of abdominal pain. She admits gradually worsening abdominal pain becoming severe on the day of admission. Her abdominal pain is been accompanied by weakness, nausea, malaise, subjective fever, dyspnea, a 6 pound weight loss and vague bilateral lower back and flank pain. She denies other associated or accompanying signs and symptoms she was seen by her primary care provider who sent her to the ER to get IV fluids, "medicine" and a blood transfusion. She admits prior similar symptoms but has not identified any aggravating or ameliorating factors for her abdominal pain. In the emergency room she was found to have a white blood count of 27,700 with a hemoglobin of 8.1, a potassium of 3.1 and a normal lactic acid level. Her serum protein and albumin are actually improved from her previous hospital records. Patient was subsequently admitted to the hospital for further evaluation and treatment. Past Medical History Cardiac Medical History: Denies: Atrial Fibrillation, Congestive Heart Failure, Coronary Artery Disease, DVT, Myocardial Infarction, Hyperlipidema, Hypertension, Peripheral Vascular Disease, Pulmonary Embolism, Heart Murmur Pulmonary Medical History: Denies: Asthma, Bronchitis, Chronic Obstructive Pulmonary Disease (COPD), Pneumonia, Tuberculosis EENT Medical History: Denies: Cataracts, Ears - Hearing aids Neurological Medical History: Reports: Other - TIA Denies: Hemorrhagic CVA, Ischemic CVA, Seizures Endocrine Medical History: Reports: Hypothyroidism Denies: Diabetes Mellitus Type 1, Diabetes Mellitus Type 2, Hyperthyroidism, Obesity Renal/ Medical History: Denies: Chronic Kidney Disease, Nephrolithiasis Malignancy Medical History: Reports: None GI Medical History: Reports: Peptic Ulcer Disease, Other - Malabsorption syndrome Denies: Cirrhosis, Crohn's Disease, Gastroesophageal Reflux Disease, Hepatitis, Ulcerative Colitis GI History Note: Patient has had numerous gastrointestinal problems resulting in several surger ies and a current state of malabsorption syndrome. Musculoskeltal Medical History: Denies: Arthritis, Gout Skin Medical History: Denies: Eczema, Psoriasis Psychiatric Medical History: Denies: Alcohol Dependency, Bipolar Disorder, Depression, Substance Abuse, Tobacco Dependency Traumatic Medical History: Reports: None Hematology: Reports: Anemia Denies: Bleeding Tendencies Infectious Medical History: Reports: None Past Surgical History Past Surgical History: Reports: Appendectomy, Cholecystectomy, Other - Gastric antrectomy/vagotomy, partial colectomy Social History Information Source: Patient Lives with: Family Smoking Status: Never Smoker Electronic Cigarette use?: No Frequency of Alcohol Use: None Hx Recreational Drug Use: No Drugs: None Hx Prescription Drug Abuse: No - Advance Directive Resuscitation Status: Full Code Surrogate healthcare decision maker:: Elyse Dean Family History Family History: DM, Hypertension, Malignancy, Other - Alzheimer's disease, Parkinson's disease Parental Family History Reviewed: Yes Children Family History Reviewed: No Sibling(s) Family History Reviewed.: Yes Medication/Allergy Home Medications: Clonazepam [Klonopin 2 mg Tablet] 2 mg PO QHS 12/19/18 Diltiazem HCl [Cardizem Cd 120 mg Capsule] 120 mg PO DAILY 12/19/18 Promethazine HCl [Phenergan 25 mg Tablet] 25 mg PO Q6HP PRN 12/19/18 Rizatriptan Benzoate [Maxalt] 5 mg PO DAILYP PRN 12/19/18 Trazodone HCl [Desyrel 50 mg Tablet] 100 mg PO QHS 12/19/18 Furosemide [Lasix 40 mg Tablet] 40 mg PO DAILY 07/04/19 Ibuprofen [Ibu] 800 mg PO Q8HP PRN 07/04/19 Allergies/Adverse Reactions: amoxicillin [Amoxicillin] Allergy (Severe, Verified 07/03/19 17:00) Review of Systems Constitutional: PRESENT: as per HPI, anorexia - Chronic, fever(s) - Subjective, weakness - Generalized, weight loss - 6 pounds, other - Malaise. ABSENT: chills Eyes: ABSENT: visual disturbances, other - Eye pain Ears: ABSENT: hearing changes, other - Ear pain Nose, Mouth, and Throat: ABSENT: mouth pain, sore throat Cardiovascular: ABSENT: chest pain, palpitations Respiratory: ABSENT: cough, dyspnea Gastrointestinal: PRESENT: as per HPI, abdominal pain, nausea. ABSENT: constipation, diarrhea, vomiting Genitourinary: ABSENT: dysuria, hematuria Musculoskeletal: PRESENT: as per HPI, back pain. ABSENT: joint swelling, muscle weakness Integumentary: ABSENT: pruritus, rash Neurological: ABSENT: confusion, convulsions, focal weakness, memory loss, synco pe Psychiatric: ABSENT: anxiety, depression Endocrine: ABSENT: cold intolerance, heat intolerance Hematologic/Lymphatic: ABSENT: easy bleeding, easy bruising Allergic/Immunologic: ABSENT: seasonal rhinorrhea Physical Exam Vital Signs: Temp Pulse Resp BP Pulse Ox 97.5 F 73 11 L 86/41 L 100 07/03/19 16:20 07/03/19 16:20 07/03/19 20:30 07/03/19 20:30 07/03/19 20:30 Intake & Output 07/01/19 07/02/19 07/03/19 23:59 23:59 23:59 Intake Total 1000 Balance 1000 Weight 39 kg General appearance: PRESENT: no acute distress, cooperative, thin Head exam: PRESENT: atraumatic, normocephalic Eye exam: PRESENT: conjunctiva pink. ABSENT: conjunctival injection, scleral icterus Ear exam: PRESENT: normal external ear exam. ABSENT: bleeding, drainage Mouth exam: PRESENT: dry mucosa, neck supple Neck exam: ABSENT: JVD, thyromegaly, tracheal deviation Respiratory exam: PRESENT: clear to auscultation jamaal, symmetrical, unlabored Cardiovascular exam: PRESENT: RRR. ABSENT: clicks, gallop, rubs Pulses: PRESENT: normal radial pulses, normal dorsalis pedis pul Vascular exam: PRESENT: normal capillary refill. ABSENT: pallor GI/Abdominal exam: PRESENT: normal bowel sounds, soft Rectal exam: PRESENT: deferred Extremities exam: ABSENT: joint swelling, pedal edema Musculoskeletal exam: ABSENT: deformity, dislocation Neurological exam: PRESENT: alert, oriented to person, oriented to place, oriented to time, oriented to situation, CN II-XII grossly intact. ABSENT: motor sensory deficit Psychiatric exam: PRESENT: appropriate affect, normal mood Skin exam: PRESENT: dry, intact, warm. ABSENT: jaundice, rash, urticaria Results Laboratory Results: 07/03/19 18:15 07/03/19 18:15 07/03/19 07/03/19 07/03/19 18:15 18:15 18:15 WBC 27.7 H RBC 3.69 L Hgb 8.1 L Hct 27.1 L MCV 73 L MCH 22.1 L MCHC 30.1 L RDW 15.9 H Plt Count 377 Seg Neutrophils % Not Reportable VBG pH VBG pCO2 VBG HCO3 VBG Base Excess Sodium 135.3 L Potassium 3.3 L Chloride 105 Carbon Dioxide 20 L Anion Gap 10 BUN 19 Creatinine 0.86 Est GFR ( Amer) > 60 Glucose 101 Lactic Acid Calcium 8.3 L Phosphorus Magnesium Total Bilirubin 0.1 L AST 83 H Alkaline Phosphatase 113 Total Protein 5.9 L Albumin 3.3 L Serum HCG, Qual NEGATIVE Urine Color Urine Appearance Urine pH Ur Specific [place] Urine Protein Urine Glucose (UA) Urine Ketones Urine Blood Urine Nitrite Ur Leukocyte Esterase Urine WBC (Auto) Urine RBC (Auto) Blood Type Antibody Screen 07/03/19 07/03/19 07/03/19 18:15 18:15 20:33 WBC RBC Hgb Hct MCV MCH MCHC RDW Plt Count Seg Neutrophils % VBG pH VBG pCO2 VBG HCO3 VBG Base Excess Sodium Potassium Chloride Carbon Dioxide Anion Gap BUN Creatinine Est GFR ( Amer) Glucose Lactic Acid 1.1 Calcium Phosphorus 2.9 Magnesium 2.1 Total Bilirubin AST Alkaline Phosphatase Total Protein Albumin Serum HCG, Qual Urine Color Urine Appearance Urine pH Ur Specific [place] Urine Protein Urine Glucose (UA) Urine Ketones Urine Blood Urine Nitrite Ur Leukocyte Esterase Urine WBC (Auto) Urine RBC (Auto) Blood Type A POSITIVE Antibody Screen NEGATIVE 07/03/19 07/03/19 21:38 21:57 WBC RBC Hgb Hct MCV MCH MCHC RDW Plt Count Seg Neutrophils % VBG pH 7.23 L VBG pCO2 38.3 VBG HCO3 15.5 L VBG Base Excess -11.2 Sodium Potassium Chloride Carbon Dioxide Anion Gap BUN Creatinine Est GFR ( Amer) Glucose Lactic Acid Calcium Phosphorus Magnesium Total Bilirubin AST Alkaline Phosphatase Total Protein Albumin Serum HCG, Qual Urine Color STRAW Urine Appearance CLEAR Urine pH 6.0 Ur Specific [place] 1.006 Urine Protein NEGATIVE Urine Glucose (UA) NEGATIVE Urine Ketones NEGATIVE Urine Blood NEGATIVE Urine Nitrite NEGATIVE Ur Leukocyte Esterase NEGATIVE Urine WBC (Auto) 2 Urine RBC (Auto) 1 Blood Type Antibody Screen Impressions: Chest X-Ray 07/03/19 19:14 IMPRESSION: NO ACUTE RADIOGRAPHIC FINDING IN THE CHEST. Abdomen/Pelvis CT 07/03/19 19:46 IMPRESSION: 1. Kidneys without stones or hydronephrosis. Prominent distention of the urinary bladder. 2. Severe colonic stool and dilatation in the upper abdomen. The rectosigmoid colon is not significantly distended. Similar findings were seen on 12/21/2018. The cause for the chronic massive colonic dilatation is not clear. 3. Previous cholecystectomy. Previous surgery related to the stomach presumably bariatric. 4. There is currently dilatation of small bowel loops in the left upper quadrant. This is increased compared to the previous study and suspicious for small bowel obstruction. Differential diagnosis includes distal anastomotic narrowing versus internal hernia. This can possibly be evaluated with limited upper GI. Preferably to be done with iodinated contrast and not barium. Assessment and Plan - Diagnosis (1) SIRS (systemic inflammatory response syndrome) Is this a current diagnosis for this admission?: Yes (2) Leukocytosis Qualifiers: Leukocytosis type: unspecified Qualified Code(s): D72.829 - Elevated white blood cell count, unspecified Is this a current diagnosis for this admission?: Yes (3) Hypothyroidism Qualifiers: Hypothyroidism type: unspecified Qualified Code(s): E03.9 - Hypothyroidism, unspecified Is this a current diagnosis for this admission?: Yes (4) Anemia Qualifiers: Anemia type: unspecified type Qualified Code(s): D64.9 - Anemia, un specified Is this a current diagnosis for this admission?: Yes (5) Protein-calorie malnutrition, moderate Is this a current diagnosis for this admission?: Yes (6) Hypokalemia Is this a current diagnosis for this admission?: Yes (7) Hypotension Qualifiers: Hypotension type: unspecified hypotension type Qualified Code(s): I95.9 - Hypotension, unspecified Is this a current diagnosis for this admission?: Yes - Plan Summary Summary: Patient will be admitted to the hospital for treatment with IV antibiotics using meropenem, vancomycin, metronidazole and fluconazole. Will receive careful observation while awaiting blood and urine culture results. Her vital signs will be observed closely and she will be telemetry monitored on IMCU. A dietary consultation will be obtained for TPN. Patient's pain will be treated with Nubain 5 to 10 mg IV every 3 hours as needed on a sliding pain scale. She will receive supportive and symptomatic cares as needed. A surgical consultation will be obtained regarding the patient's abdominal pain. Patient's hypertension will be treated with IV fluid boluses and reevaluation. If her hypotension should worsen she will be treated with vasopressor agents as required to maintain an adequate blood pressure. Serial CBCs, metabolic profiles and magnesium levels will be used to follow the patient's progress 07/04/2018 Abdominal pain-abdominal pain continues although has improved. Patient with a leukocytosis and is receiving meropenem, vancomycin, Flagyl and fluconazole IV. Blood cultures and urine cultures are pending. N.p.o. patient will be seen by dietary for TPN. I have added Dilaudid 0.5 mg IV every 3 hours as needed for pain. We will continue to follow await cultures Leukocytosis-improved this a.m. Continue antibiotics until cultures return. Anemia-unknown etiology. Hemoglobin 6.3 this a.m. Will obtain a guaiac stool and give patient 2 units of packed cells. Continue to follow Hypotension Patient remains hypotensive this time. I suspect this most likely secondary to her anemia. We will transfer fused 2 units packed cells and the patient remains hypotensive we will treat at that time. We will also give 500 cc bolus at this time a normal saline Hypokalemia-potassium rider 20 mEq IV x2. Repeat BMP in a.m. Hypocalcemia-1 g calcium gluconate IV. Repeat calcium level in a.m. - Time Time Spent with patient: 25-34 minutes Medications reviewed and adjusted accordingly: Yes Anticipated discharge: Home with Homehealth - Inpatient Certification Based on my medical assessment, after consideration of the patient's comorbidities, presenting symptoms, or acuity I expect that the services needed warrant INPATIENT care.: Yes I certify that my determination is in accordance with my understanding of Medicare's requirements for reasonable and necessary INPATIENT services [42 CFR 412.3e].: Yes Medical Necessity: Need Close Monitoring Due to Risk of Patient Decompensation, Need For IV Fluids, Need for Pain Control, Need for IV Antibiotics, Risk of Complication if Not Cared For in Hospital, Risk of Diagnosis Which Will Require Inpatient Eval/Care/Monitoring
[2019-07-04 06:46] LABS: VENOUS BLOOD BASE EXCESS -6.6 mmol/L; VENOUS BLOOD HCO3 19.8 mmol/L (20-32); VENOUS BLOOD PCO2 43.7 mmHg (35-63); VENOUS BLOOD PH 7.27 (7.30-7.42)
[2019-07-04 06:50] LABS: HEMATOCRIT 20.3 % (36.0-47.0); MEAN CORPUSCULAR HEMOGLOBIN 22.6 pg (27.0-33.4); MEAN CORPUSCULAR VOLUME 73 fl (80-97); PLATELET COUNT 266 10^3/uL (150-450); RED BLOOD COUNT 2.79 10^6/uL (3.72-5.28); WHITE BLOOD COUNT 14.8 10^3/uL (4.0-10.5)
[2019-07-04 06:56] LABS: HEMOGLOBIN 6.3 g/dL (12.0-15.5)
[2019-07-04 07:14] LABS: BLOOD UREA NITROGEN 13 mg/dL (7-20); CALCIUM 7.7 mg/dL (8.4-10.2); CARBON DIOXIDE 21 mmol/L (22-30); CHLORIDE 113 mmol/L (98-107); GLUCOSE 86 mg/dL (75-110); POTASSIUM 3.1 mmol/L (3.6-5.0)
[2019-07-04 07:19] LABS: ANION GAP 4 (5-19)
[2019-07-04] MEDS ORDERED: NORMAL SALINE 250 ML IV PRN ×2 (07:31)
[2019-07-04] MEDS: FAMOTIDINE INJ/PF 20 MG/2 ML SDV IV SCH ×2 (09:09→22:13)
[2019-07-04] MEDS ORDERED: VANCOMYCIN HCL INJ 1000 MG VIAL IV SCH (10:00)
[2019-07-04] MEDS ORDERED: FLUCONAZOLE 200 MG/NS RTU 200 MG/100 ML RTUPB IV SCH (10:00)
[2019-07-04] MEDS ORDERED: CALCIUM GLUCONATE 1,000 MG in DEXTROSE 5%-WATER 50 ML IV ONE (10:14)
[2019-07-04] MEDS ORDERED: POTASSI CL 20 MEQ/50 ML RIDER 20 MEQ/50 ML RTUPB IV ONE (10:19)
[2019-07-04] MEDS ORDERED: NORMAL SALINE 1000 ML 500 ML IV PRN (10:21)
--- NOTE | 2019-07-04 10:22 | PDOC PROGRESS REPORT ---
Subjective Progress Note for:: 07/04/19 Subjective:: 07/04/2019-continued abdominal and low back pain Reason For Visit: SIRS SYNDROME Physical Exam Vital Signs: Temp Pulse Resp BP Pulse Ox 97.3 F 57 L 20 76/38 L 100 07/04/19 08:15 07/04/19 08:15 07/04/19 08:15 07/04/19 08:15 07/04/19 08:15 Intake & Output 07/03/19 07/04/19 07/05/19 06:59 06:59 06:59 Intake Total 3395 129 Output Total 0 Balance 3395 129 Weight 40.1 kg General appearance: PRESENT: no acute distress, well-developed, well-nourished Neck exam: ABSENT: carotid bruit, JVD, lymphadenopathy, thyromegaly Respiratory exam: PRESENT: clear to auscultation jamaal. ABSENT: rales, rhonchi, wheezes Cardiovascular exam: PRESENT: RRR. ABSENT: diastolic murmur, rubs, systolic murmur Pulses: PRESENT: normal dorsalis pedis pul GI/Abdominal exam: PRESENT: hypoactive bowel sounds, soft. ABSENT: distended, guarding, mass, organolmegaly, rebound, tenderness Extremities exam: PRESENT: full ROM. ABSENT: calf tenderness, clubbing, pedal edema Neurological exam: PRESENT: alert, awake, oriented to person, oriented to place, oriented to time, oriented to situation, CN II-XII grossly intact. ABSENT: motor sensory deficit Psychiatric exam: PRESENT: appropriate affect, normal mood. ABSENT: homicidal ideation, suicidal ideation Skin exam: PRESENT: dry, intact, warm. ABSENT: cyanosis, rash Results Laboratory Results: 07/04/19 06:25 07/04/19 06:25 07/03/19 07/03/19 07/03/19 18:15 18:15 18:15 WBC 27.7 H RBC 3.69 L Hgb 8.1 L Hct 27.1 L MCV 73 L MCH 22.1 L MCHC 30.1 L RDW 15.9 H Plt Count 377 Seg Neutrophils % Not Reportable VBG pH VBG pCO2 VBG HCO3 VBG Base Excess Sodium 135.3 L Potassium 3.3 L Chloride 105 Carbon Dioxide 20 L Anion Gap 10 BUN 19 Creatinine 0.86 Est GFR ( Amer) > 60 Glucose 101 Lactic Acid Calcium 8.3 L Phosphorus Magnesium Total Bilirubin 0.1 L AST 83 H Alkaline Phosphatase 113 Total Protein 5.9 L Albumin 3.3 L Free T4 Free T3 pg/mL Serum HCG, Qual NEGATIVE Urine Color Urine Appearance Urine pH Ur Specific [place] Urine Protein Urine Glucose (UA) Urine Ketones Urine Blood Urine Nitrite Ur Leukocyte Esterase Urine WBC (Auto) Urine RBC (Auto) Blood Type Antibody Screen 07/03/19 07/03/19 07/03/19 18:15 18:15 18:15 WBC RBC Hgb Hct MCV MCH MCHC RDW Plt Count Seg Neutrophils % VBG pH VBG pCO2 VBG HCO3 VBG Base Excess Sodium Potassium Chloride Carbon Dioxide Anion Gap BUN Creatinine Est GFR ( Amer) Glucose Lactic Acid Calcium Phosphorus 2.9 Magnesium 2.1 Total Bilirubin AST Alkaline Phosphatase Total Protein Albumin Free T4 0.97 Free T3 pg/mL 2.60 L Serum HCG, Qual Urine Color Urine Appearance Urine pH Ur Specific [place] Urine Protein Urine Glucose (UA) Urine Ketones Urine Blood Urine Nitrite Ur Leukocyte Esterase Urine WBC (Auto) Urine RBC (Auto) Blood Type A POSITIVE Antibody Screen NEGATIVE 07/03/19 07/03/19 07/03/19 20:33 21:38 21:57 WBC RBC Hgb Hct MCV MCH MCHC RDW Plt Count Seg Neutrophils % VBG pH 7.23 L VBG pCO2 38.3 VBG HCO3 15.5 L VBG Base Excess -11.2 Sodium Potassium Chloride Carbon Dioxide Anion Gap BUN Creatinine Est GFR ( Amer) Glucose Lactic Acid 1.1 Calcium Phosphorus Magnesium Total Bilirubin AST Alkaline Phosphatase Total Protein Albumin Free T4 Free T3 pg/mL Serum HCG, Qual Urine Color STRAW Urine Appearance CLEAR Urine pH 6.0 Ur Specific [place] 1.006 Urine Protein NEGATIVE Urine Glucose (UA) NEGATIVE Urine Ketones NEGATIVE Urine Blood NEGATIVE Urine Nitrite NEGATIVE Ur Leukocyte Esterase NEGATIVE Urine WBC (Auto) 2 Urine RBC (Auto) 1 Blood Type Antibody Screen 07/04/19 07/04/19 07/04/19 01:10 06:25 06:25 WBC 14.8 H RBC 2.79 L Hgb 6.3 L Hct 20.3 L MCV 73 L MCH 22.6 L MCHC 31.0 L RDW 16.0 H Plt Count 266 Seg Neutrophils % VBG pH VBG pCO2 VBG HCO3 VBG Base Excess Sodium 138.1 Potassium 3.1 L Chloride 113 H Carbon Dioxide 21 L Anion Gap 4 L BUN 13 Creatinine 0.70 Est GFR ( Amer) > 60 Glucose 86 Lactic Acid 0.6 L Calcium 7.7 L Phosphorus Magnesium 1.8 Total Bilirubin AST Alkaline Phosphatase Total Protein Albumin Free T4 Free T3 pg/mL Serum HCG, Qual Urine Color Urine Appearance Urine pH Ur Specific [place] Urine Protein Urine Glucose (UA) Urine Ketones Urine Blood Urine Nitrite Ur Leukocyte Esterase Urine WBC (Auto) Urine RBC (Auto) Blood Type Antibody Screen 07/04/19 07/04/19 06:25 06:25 WBC RBC Hgb Hct MCV MCH MCHC RDW Plt Count Seg Neutrophils % VBG pH 7.27 L VBG pCO2 43.7 VBG HCO3 19.8 L VBG Base Excess -6.6 Sodium Potassium Chloride Carbon Dioxide Anion Gap BUN Creatinine Est GFR ( Amer) Glucose Lactic Acid 0.7 Calcium Phosphorus Magnesium Total Bilirubin AST Alkaline Phosphatase Total Protein Albumin Free T4 Free T3 pg/mL Serum HCG, Qual Urine Color Urine Appearance Urine pH Ur Specific [place] Urine Protein Urine Glucose (UA) Urine Ketones Urine Blood Urine Nitrite Ur Leukocyte Esterase Urine WBC (Auto) Urine RBC (Auto) Blood Type Antibody Screen Impressions: Chest X-Ray 07/03/19 19:14 IMPRESSION: NO ACUTE RADIOGRAPHIC FINDING IN THE CHEST. Abdomen/Pelvis CT 07/03/19 19:46 IMPRESSION: 1. Kidneys without stones or hydronephrosis. Prominent distention of the urinary bladder. 2. Severe colonic stool and dilatation in the upper abdomen. The rectosigmoid colon is not significantly distended. Similar findings were seen on 12/21/2018. The cause for the chronic massive colonic dilatation is not clear. 3. Previous cholecystectomy. Previous surgery related to the stomach presumably bariatric. 4. There is currently dilatation of small bowel loops in the left upper quadrant. This is increased compared to the previous study and suspicious for small bowel obstruction. Differential diagnosis includes distal anastomotic narrowing versus internal hernia. This can possibly be evaluated with limited upper GI. Preferably to be done with iodinated contrast and not barium. Assessment and Plan - Plan Summary Summary: Patient will be admitted to the hospital for treatment with IV antibiotics using meropenem, vancomycin, metronidazole and fluconazole. Will receive careful observation while awaiting blood and urine culture results. Her vital signs will be observed closely and she will be telemetry monitored on IMCU. A dietary consultation will be obtained for TPN. Patient's pain will be treated with Nubain 5 to 10 mg IV every 3 hours as needed on a sliding pain scale. She will receive supportive and symptomatic cares as needed. A surgical consultation will be obtained regarding the patient's abdominal pain. Patient's hypertension will be treated with IV fluid boluses and reevaluation. If her hypotension should worsen she will be treated with vasopressor agents as required to maintain an adequate blood pressure. Serial CBCs, metabolic profiles and magnesium levels will be used to follow the patient's progress 07/04/2018 Abdominal pain-abdominal pain continues although has improved. Patient with a leukocytosis and is receiving meropenem, vancomycin, Flagyl and fluconazole IV. Blood cultures and urine cultures are pending. N.p.o. patient will be seen by dietary for TPN. I have added Dilaudid 0.5 mg IV every 3 hours as needed for pain. We will continue to follow await cultures Leukocytosis-improved this a.m. Continue antibiotics until cultures return. Anemia-unknown etiology. Hemoglobin 6.3 this a.m. Will obtain a guaiac stool and give patient 2 units of packed cells. Continue to follow Hypotension Patient remains hypotensive this time. I suspect this most likely secondary to her anemia. We will transfer fused 2 units packed cells and the patient remains hypotensive we will treat at that time. We will also give 500 cc bolus at this time a normal saline Hypokalemia-potassium rider 20 mEq IV x2. Repeat BMP in a.m. Hypocalcemia-1 g calcium gluconate IV. Repeat calcium level in a.m. - Time Time Spent with patient: 25-34 minutes - Inpatient Certification Based on my medical assessment, after consideration of the patient's comorbidities, presenting symptoms, or acuity I expect that the services needed warrant INPATIENT care.: Yes I certify that my determination is in accordance with my understanding of Medicare's requirements for reasonable and necessary INPATIENT services [42 CFR 412.3e].: Yes Medical Necessity: Other - IV fluids, blood transfusion, IV antibiotics
[2019-07-04] MEDS ORDERED: CALCIUM GLUCONATE 1000 MG/10 ML INJ IV ONE (11:00)
[2019-07-04] MEDS: HYDROMORPHONE HCL INJ/PF 2 MG/ML AMPULE IV PRN ×3 (11:05→20:37)
[2019-07-04] MEDS ORDERED: POTASSIUM CHLORIDE 20 MEQ/50 ML RTU IV ONE (17:30)
[2019-07-04 18:14] LABS: ABSOLUTE BASOPHILS # (AUTO) 0.1 10^3/uL (0.0-0.2); ABSOLUTE EOSINOPHILS # (AUTO) 0.2 10^3/uL (0.0-0.6); ABSOLUTE NEUT (AUTO) 7.6 10^3/uL (1.7-8.2); BASOPHILS % (AUTO) 0.6 % (0-2); EOSINOPHILS % (AUTO) 2.1 % (0-6); HEMATOCRIT 30.1 % (36.0-47.0); MEAN CORPUSCULAR HEMOGLOBIN 25.5 pg (27.0-33.4); MEAN CORPUSCULAR HGB CONC 32.5 g/dL (32.0-36.0); MONOCYTES % (AUTO) 9.2 % (3-13); PLATELET COUNT 230 10^3/uL (150-450); RED BLOOD COUNT 3.84 10^6/uL (3.72-5.28); RED CELL DISTRIBUTION WIDTH 19.9 % (11.5-14.0); SEGMENTED NEUTROPHILS % (AUTO) 70.1 % (42-78); TOTAL CELLS COUNTED % (AUTO) 100 %; WHITE BLOOD COUNT 10.9 10^3/uL (4.0-10.5)
[2019-07-04 18:26] LABS: HEMOGLOBIN 9.8 g/dL (12.0-15.5)
[2019-07-04 18:27] LABS: MEAN CORPUSCULAR VOLUME 78 fl (80-97)
[2019-07-04] MEDS: VANCOMYCIN HCL 500 MG in DEXTROSE 5%-WATER 100 ML IV SCH (20:29)
[2019-07-04] MEDS: TRAZODONE HCL 50 MG TABLET PO SCH (22:12)
[2019-07-04] MEDS: CLONAZEPAM 1 MG TABLET PO SCH (22:13)
[2019-07-05] MEDS: MEROPENEM 1 GM in NORMAL SALINE 50 ML IV SCH ×3 (02:09→17:26)
[2019-07-05] MEDS: HYDROMORPHONE HCL INJ/PF 2 MG/ML AMPULE IV PRN ×7 (02:13→22:17)
[2019-07-05] MEDS: METRONIDAZOLE 500 MG/NS RTU 500 MG/100 ML RTUPB IV SCH ×4 (02:52→20:44)
[2019-07-05] MEDS: VANCOMYCIN HCL 500 MG in DEXTROSE 5%-WATER 100 ML IV SCH ×2 (05:23→18:19)
[2019-07-05 05:55] LABS: HEMATOCRIT 32.9 % (36.0-47.0); HEMOGLOBIN 10.6 g/dL (12.0-15.5); MEAN CORPUSCULAR HEMOGLOBIN 25.3 pg (27.0-33.4); MEAN CORPUSCULAR HGB CONC 32.3 g/dL (32.0-36.0); MEAN CORPUSCULAR VOLUME 78 fl (80-97); PLATELET COUNT 256 10^3/uL (150-450); RED CELL DISTRIBUTION WIDTH 19.5 % (11.5-14.0); WHITE BLOOD COUNT 10.1 10^3/uL (4.0-10.5)
[2019-07-05 06:16] LABS: VENOUS BLOOD BASE EXCESS -11.4 mmol/L; VENOUS BLOOD HCO3 15.1 mmol/L (20-32); VENOUS BLOOD PCO2 35.7 mmHg (35-63); VENOUS BLOOD PH 7.24 (7.30-7.42)
[2019-07-05 06:22] LABS: ALBUMIN 2.3 g/dL (3.5-5.0); ALKALINE PHOSPHATASE 78 U/L (38-126); ANION GAP 7 (5-19); ASPARTATE AMINO TRANSFERASE 19 U/L (14-36); BILIRUBIN,DIRECT 0.1 mg/dL (0.0-0.4); BILIRUBIN,TOTAL 0.2 mg/dL (0.2-1.3); BLOOD UREA NITROGEN 12 mg/dL (7-20); CALCIUM 8.1 mg/dL (8.4-10.2); CARBON DIOXIDE 19 mmol/L (22-30); CHLORIDE 114 mmol/L (98-107); GLUCOSE 113 mg/dL (75-110); PHOSPHORUS 3.4 mg/dL (2.5-4.5); POTASSIUM 3.6 mmol/L (3.6-5.0); TOTAL PROTEIN 4.5 g/dL (6.3-8.2)
[2019-07-05] MEDS ORDERED: ZOLPIDEM TARTRATE 5 MG TABLET PO PRN (09:07)
--- NOTE | 2019-07-05 09:10 | PDOC PROGRESS REPORT ---
Subjective Progress Note for:: 07/05/19 Subjective:: 07/04/2019-continued abdominal and low back pain 07/05/2019-patient states she feels much improved this morning. Reason For Visit: SIRS SYNDROME Physical Exam Vital Signs: Temp Pulse Resp BP Pulse Ox 97.4 F 63 14 84/55 L 98 07/05/19 04:00 07/05/19 07:00 07/05/19 04:00 07/05/19 04:00 07/05/19 04:00 Intake & Output 07/04/19 07/05/19 07/06/19 06:59 06:59 06:59 Intake Total 3395 2214 100 Output Total 0 1000 Balance 3395 1214 100 Weight 40.1 kg 46.6 kg General appearance: PRESENT: no acute distress, well-developed, well-nourished Neck exam: ABSENT: carotid bruit, JVD, lymphadenopathy, thyromegaly Respiratory exam: PRESENT: clear to auscultation jamaal. ABSENT: rales, rhonchi, wheezes Cardiovascular exam: PRESENT: RRR. ABSENT: diastolic murmur, rubs, systolic murmur Pulses: PRESENT: +1 pedal pulses bilateral Vascular exam: PRESENT: normal capillary refill GI/Abdominal exam: PRESENT: hypoactive bowel sounds, soft Extremities exam: PRESENT: full ROM. ABSENT: calf tenderness, clubbing, pedal edema Neurological exam: PRESENT: alert, awake, oriented to person, oriented to place, oriented to time, oriented to situation, CN II-XII grossly intact. ABSENT: motor sensory deficit Psychiatric exam: PRESENT: appropriate affect, normal mood. ABSENT: homicidal ideation, suicidal ideation Skin exam: PRESENT: dry, intact, warm. ABSENT: cyanosis, rash Results Laboratory Results: 07/05/19 05:35 07/05/19 05:35 07/03/19 07/04/19 07/04/19 18:15 09:00 17:42 WBC 10.9 H RBC 3.84 Hgb 9.8 L D Hct 30.1 L MCV 78 L D MCH 25.5 L MCHC 32.5 RDW 19.9 H Plt Count 230 Seg Neutrophils % 70.1 VBG pH VBG pCO2 VBG HCO3 VBG Base Excess Sodium Potassium Chloride Carbon Dioxide Anion Gap BUN Creatinine Est GFR ( Amer) Glucose Lactic Acid Cancelled Calcium Phosphorus Magnesium Total Bilirubin AST Alkaline Phosphatase Total Protein Albumin TSH Blood Type A POSITIVE Antibody Screen NEGATIVE 07/05/19 07/05/19 07/05/19 05:35 05:35 05:35 WBC 10.1 RBC 4.20 Hgb 10.6 L Hct 32.9 L MCV 78 L MCH 25.3 L MCHC 32.3 RDW 19.5 H Plt Count 256 Seg Neutrophils % VBG pH VBG pCO2 VBG HCO3 VBG Base Excess Sodium 140.4 Potassium 3.6 Chloride 114 H Carbon Dioxide 19 L Anion Gap 7 BUN 12 Creatinine 0.67 Est GFR ( Amer) > 60 Glucose 113 H Lactic Acid Calcium 8.1 L Phosphorus 3.4 Magnesium 1.8 Total Bilirubin 0.2 AST 19 Alkaline Phosphatase 78 Total Protein 4.5 L Albumin 2.3 L TSH 0.81 Blood Type Antibody Screen 07/05/19 05:35 WBC RBC Hgb Hct MCV MCH MCHC RDW Plt Count Seg Neutrophils % VBG pH 7.24 L VBG pCO2 35.7 VBG HCO3 15.1 L VBG Base Excess -11.4 Sodium Potassium Chloride Carbon Dioxide Anion Gap BUN Creatinine Est GFR ( Amer) Glucose Lactic Acid Calcium Phosphorus Magnesium Total Bilirubin AST Alkaline Phosphatase Total Protein Albumin TSH Blood Type Antibody Screen Impressions: Chest X-Ray 07/03/19 19:14 IMPRESSION: NO ACUTE RADIOGRAPHIC FINDING IN THE CHEST. Abdomen/Pelvis CT 07/03/19 19:46 IMPRESSION: 1. Kidneys without stones or hydronephrosis. Prominent distention of the urinary bladder. 2. Severe colonic stool and dilatation in the upper abdomen. The rectosigmoid colon is not significantly distended. Similar findings were seen on 12/21/2018. The cause for the chronic massive colonic dilatation is not clear. 3. Previous cholecystectomy. Previous surgery related to the stomach presumably bariatric. 4. There is currently dilatation of small bowel loops in the left upper quadrant. This is increased compared to the previous study and suspicious for small bowel obstruction. Differential diagnosis includes distal anastomotic narrowing versus internal hernia. This can possibly be evaluated with limited upper GI. Preferably to be done with iodinated contrast and not barium. Assessment and Plan - Plan Summary Summary: Patient will be admitted to the hospital for treatment with IV antibiotics using meropenem, vancomycin, metronidazole and fluconazole. Will receive careful observation while awaiting blood and urine culture results. Her vital signs will be observed closely and she will be telemetry monitored on [facility]. A dietary consultation will be obtained for TPN. Patient's pain will be treated with Nubain 5 to 10 mg IV every 3 hours as needed on a sliding pain scale. She will receive supportive and symptomatic cares as needed. A surgical consultation will be obtained regarding the patient's abdominal pain. Patient's hypertension will be treated with IV fluid boluses and reevaluation. If her hypotension should worsen she will be treated with vasopressor agents as required to maintain an adequate blood pressure. Serial CBCs, metabolic profiles and magnesium levels will be used to follow the patient's progress 07/04/2018 Abdominal pain-abdominal pain continues although has improved. Patient with a leukocytosis and is receiving meropenem, vancomycin, Flagyl and fluconazole IV. Blood cultures and urine cultures are pending. N.p.o. patient will be seen by dietary for TPN. I have added Dilaudid 0.5 mg IV every 3 hours as needed for pain. We will continue to follow await cultures Leukocytosis-improved this a.m. Continue antibiotics until cultures return. Anemia-unknown etiology. Hemoglobin 6.3 this a.m. Will obtain a guaiac stool and give patient 2 units of packed cells. Continue to follow Hypotension Patient remains hypotensive this time. I suspect this most likely secondary to her anemia. We will transfer fused 2 units packed cells and the patient remains hypotensive we will treat at that time. We will also give 500 cc bolus at this time a normal saline Hypokalemia-potassium rider 20 mEq IV x2. Repeat BMP in a.m. Hypocalcemia-1 g calcium gluconate IV. Repeat calcium level in a.m. 07/05/2019- Abdominal pain-improved. Continues on meropenem, vancomycin, Flagyl and fluconazole IV. Cultures are still pending although one is showing a gram- positive cocci in clusters. Patient taking clear liquids at this time. Dilaudid for pain control has improved pain at this time. Continue to follow Leukocytosis. Continue antibiotic await cultures. Anemia-improved hemoglobin 10 this morning. Continue to follow await guaiac stool Hypotension-seem to be patient's normal blood pressure. No symptomology. Patient to get 2 units packed cells yesterday continue to follow Hypokalemia-improved continue to follow daily BMPs Hypocalcemia improved. Continue to follow - Time Time Spent with patient: 15-24 minutes - Inpatient Certification Based on my medical assessment, after consideration of the patient's comorbidities, presenting symptoms, or acuity I expect that the services needed warrant INPATIENT care.: Yes I certify that my determination is in accordance with my understanding of Medicare's requirements for reasonable and necessary INPATIENT services [42 CFR 412.3e].: Yes Medical Necessity: Other - IV fluids, IV pain control
[2019-07-05] MEDS: FAMOTIDINE INJ/PF 20 MG/2 ML SDV IV SCH ×2 (10:58→22:17)
[2019-07-05] MEDS: ACETAMINOPHEN 325 MG TABLET PO PRN (11:06)
[2019-07-05] MEDS: PROMETHAZINE HCL INJ 25 MG/1 ML VIAL IV PRN (18:17)
[2019-07-05] MEDS ORDERED: FLUCONAZOLE 200 MG/NS RTU 200 MG/100 ML RTUPB IV SCH (22:00)
[2019-07-05] MEDS: CLONAZEPAM 1 MG TABLET PO SCH (22:16)
[2019-07-05] MEDS: TRAZODONE HCL 50 MG TABLET PO SCH (22:17)
[2019-07-06] MEDS: MEROPENEM 1 GM in NORMAL SALINE 50 ML IV SCH (02:27)
[2019-07-06] MEDS: METRONIDAZOLE 500 MG/NS RTU 500 MG/100 ML RTUPB IV SCH (03:14)
[2019-07-06] MEDS: VANCOMYCIN HCL 500 MG in DEXTROSE 5%-WATER 100 ML IV SCH (06:10)
[2019-07-06 06:46] LABS: ALBUMIN 2.3 g/dL (3.5-5.0); ALKALINE PHOSPHATASE 72 U/L (38-126); ASPARTATE AMINO TRANSFERASE 13 U/L (14-36); BILIRUBIN,DIRECT 0.1 mg/dL (0.0-0.4); BILIRUBIN,TOTAL 0.2 mg/dL (0.2-1.3); BLOOD UREA NITROGEN 12 mg/dL (7-20); CALCIUM 7.8 mg/dL (8.4-10.2); CARBON DIOXIDE 25 mmol/L (22-30); CHLORIDE 110 mmol/L (98-107); GLUCOSE 90 mg/dL (75-110); PHOSPHORUS 3.8 mg/dL (2.5-4.5); POTASSIUM 3.4 mmol/L (3.6-5.0); TOTAL PROTEIN 4.5 g/dL (6.3-8.2)
[2019-07-06 06:49] LABS: HEMATOCRIT 33.1 % (36.0-47.0); MEAN CORPUSCULAR HEMOGLOBIN 25.4 pg (27.0-33.4); MEAN CORPUSCULAR HGB CONC 33.1 g/dL (32.0-36.0); MEAN CORPUSCULAR VOLUME 77 fl (80-97); PLATELET COUNT 262 10^3/uL (150-450); RED BLOOD COUNT 4.31 10^6/uL (3.72-5.28); RED CELL DISTRIBUTION WIDTH 19.6 % (11.5-14.0); VANCOMYCIN,TROUGH 7.9 ug/mL (5.0-20.0); WHITE BLOOD COUNT 6.7 10^3/uL (4.0-10.5)
[2019-07-06 06:50] LABS: ANION GAP 5 (5-19)
--- NOTE | 2019-07-06 08:52 | PDOC PROGRESS REPORT ---
Subjective Progress Note for:: 07/06/19 Subjective:: 07/04/2019-continued abdominal and low back pain 07/05/2019-patient states she feels much improved this morning. 07/06/2019-abdominal pain. No bowel movement for a while. Reason For Visit: SIRS SYNDROME Physical Exam Vital Signs: Temp Pulse Resp BP Pulse Ox 97.8 F 59 L 14 90/64 L 99 07/06/19 07:43 07/06/19 07:43 07/06/19 07:43 07/06/19 07:43 07/06/19 07:43 Intake & Output 07/05/19 07/06/19 07/07/19 06:59 06:59 06:59 Intake Total 2214 1512 100 Output Total 1000 4600 Balance 1214 -3088 100 Weight 46.6 kg 45.9 kg General appearance: PRESENT: no acute distress, well-developed, well-nourished Neck exam: ABSENT: carotid bruit, JVD, lymphadenopathy, thyromegaly Respiratory exam: PRESENT: clear to auscultation jamaal. ABSENT: rales, rhonchi, wheezes Cardiovascular exam: PRESENT: RRR. ABSENT: diastolic murmur, rubs, systolic mur mur Pulses: PRESENT: normal dorsalis pedis pul Vascular exam: PRESENT: normal capillary refill GI/Abdominal exam: PRESENT: hypoactive bowel sounds, soft Extremities exam: PRESENT: full ROM. ABSENT: calf tenderness, clubbing, pedal edema Neurological exam: PRESENT: alert, awake, oriented to person, oriented to place, oriented to time, oriented to situation, CN II-XII grossly intact. ABSENT: motor sensory deficit Psychiatric exam: PRESENT: appropriate affect, normal mood. ABSENT: homicidal ideation, suicidal ideation Skin exam: PRESENT: dry, intact, warm. ABSENT: cyanosis, rash Adult Front & Back Image: 1 - Port-A-Cath Results Laboratory Results: 07/06/19 05:45 07/06/19 05:45 07/06/19 07/06/19 05:45 05:45 WBC 6.7 RBC 4.31 Hgb 11.0 L Hct 33.1 L MCV 77 L MCH 25.4 L MCHC 33.1 RDW 19.6 H Plt Count 262 Sodium 139.4 Potassium 3.4 L Chloride 110 H Carbon Dioxide 25 Anion Gap 5 BUN 12 Creatinine 0.64 Est GFR ( Amer) > 60 Glucose 90 Calcium 7.8 L Phosphorus 3.8 Magnesium 1.8 Total Bilirubin 0.2 AST 13 L Alkaline Phosphatase 72 Total Protein 4.5 L Albumin 2.3 L 07/03/19 21:57 Clean Catch Midstream Urine Culture - Final NO GROWTH 2 DAYS Impressions: Chest X-Ray 07/03/19 19:14 IMPRESSION: NO ACUTE RADIOGRAPHIC FINDING IN THE CHEST. Abdomen/Pelvis CT 07/03/19 19:46 IMPRESSION: 1. Kidneys without stones or hydronephrosis. Prominent distention of the urinary bladder. 2. Severe colonic stool and dilatation in the upper abdomen. The rectosigmoid colon is not significantly distended. Similar findings were seen on 12/21/2018. The cause for the chronic massive colonic dilatation is not clear. 3. Previous cholecystectomy. Previous surgery related to the stomach presumably bariatric. 4. There is currently dilatation of small bowel loops in the left upper quadrant. This is increased compared to the previous study and suspicious for small bowel obstruction. Differential diagnosis includes distal anastomotic narrowing versus internal hernia. This can possibly be evaluated with limited upper GI. Preferably to be done with iodinated contrast and not barium. Assessment and Plan - Plan Summary Summary: Patient will be admitted to the hospital for treatment with IV antibiotics using meropenem, vancomycin, metronidazole and fluconazole. Will receive careful observation while awaiting blood and urine culture results. Her vital signs will be observed closely and she will be telemetry monitored on [facility]. A dietary consultation will be obtained for TPN. Patient's pain will be treated with Nubain 5 to 10 mg IV every 3 hours as needed on a sliding pain scale. She will receive supportive and symptomatic cares as needed. A surgical consultation will be obtained regarding the patient's abdominal pain. Patient's hypertension will be treated with IV fluid boluses and reevaluation. If her hypotension should worsen she will be treated with vasopressor agents as required to maintain an adequate blood pressure. Serial CBCs, metabolic profiles and magnesium levels will be used to follow the patient's progress 07/04/2018 Abdominal pain-abdominal pain continues although has improved. Patient with a leukocytosis and is receiving meropenem, vancomycin, Flagyl and fluconazole IV. Blood cultures and urine cultures are pending. N.p.o. patient will be seen by dietary for TPN. I have added Dilaudid 0.5 mg IV every 3 hours as needed for pain. We will continue to follow await cultures Leukocytosis-improved this a.m. Continue antibiotics until cultures return. Anemia-unknown etiology. Hemoglobin 6.3 this a.m. Will obtain a guaiac stool and give patient 2 units of packed cells. Continue to follow Hypotension Patient remains hypotensive this time. I suspect this most likely secondary to her anemia. We will transfer fused 2 units packed cells and the patient remains hypotensive we will treat at that time. We will also give 500 cc bolus at this time a normal saline Hypokalemia-potassium rider 20 mEq IV x2. Repeat BMP in a.m. Hypocalcemia-1 g calcium gluconate IV. Repeat calcium level in a.m. 07/05/2019- Abdominal pain-improved. Continues on meropenem, vancomycin, Flagyl and fluconazole IV. Cultures are still pending although one is showing a gram- positive cocci in clusters. Patient taking clear liquids at this time. Dilaudid for pain control has improved pain at this time. Continue to follow Leukocytosis. Continue antibiotic await cultures. Anemia-improved hemoglobin 10 this morning. Continue to follow await guaiac stool Hypotension-seem to be patient's normal blood pressure. No symptomology. Patient to get 2 units packed cells yesterday continue to follow Hypokalemia-improved continue to follow daily BMPs Hypocalcemia improved. Continue to follow. 07/06/2019- Abdominal pain-has returned somewhat. Will obtain a KUB at this time to rule out small bowel obstruction patient has very diminished bowel sounds and states she has not had a stool in a while. Will await KUB make change plan of care as appropriate. Ftdekukplfyj-pmayicbi-efybufyd IV antibiotics. As blood cultures only showing gram-positive cocci in clusters I have DC'd all antibiotics except for IV vancomycin Anemia-stable continue to follow Hypotension-patient seems to be having a normal blood pressure between 70s and 90s systolic. I suspect this is her normal range and will not aggressively pursue. Hypokalemia-mild this morning. Will give patient 20 mEq IV potassium rider. Repeat BMP in a.m. Hypocalcemia-improved stable - Time Time Spent with patient: 15-24 minutes - Inpatient Certification Based on my medical assessment, after consideration of the patient's comorbidities, presenting symptoms, or acuity I expect that the services needed warrant INPATIENT care.: Yes I certify that my determination is in accordance with my understanding of Medicare's requirements for reasonable and necessary INPATIENT services [42 CFR 412.3e].: Yes Medical Necessity: Other - IV fluids, IV antibiotics
--- NOTE | 2019-07-06 08:54 | RADIOLOGY REPORT (SQ) ---
EXAM DESCRIPTION: KUB/ABDOMEN (SINGLE VIEW) COMPLETED DATE/TIME: 07/06/2019 8:27 am REASON FOR STUDY: abdominal pain COMPARISON: CT abdomen pelvis 07/03/2019 KUB 06/06/2013 NUMBER OF VIEWS: One view. TECHNIQUE: Supine radiographic image of the abdomen acquired. LIMITATIONS: None. FINDINGS: BOWEL GAS PATTERN: Large amount of stool throughout the colon. No dilated small bowel loo ps worrisome for obstruction. Clips left upper quadrant post gastric bypass. CALCIFICATIONS: No suspicious calcifications. SOFT TISSUES: No gross mass or suggestion of organomegaly. HARDWARE: Clips left upper quadrant post bypass. Clips right upper quadrant post cholecystectomy. BONES: No acute fracture. No worrisome bone lesions. OTHER: No other significant finding. IMPRESSION: Large amount of stool throughout the colon TECHNICAL DOCUMENTATION: JOB ID: [id number] [employer]- All Rights Reserved Reading location - IP/workstation name: [email or web address]
[2019-07-06] MEDS ORDERED: POTASSI CL 20 MEQ/50 ML RIDER 20 MEQ/50 ML RTUPB IV ONE (09:00)
[2019-07-06] MEDS: FAMOTIDINE INJ/PF 20 MG/2 ML SDV IV SCH ×2 (09:07→22:19)
[2019-07-06] MEDS: HYDROMORPHONE HCL INJ/PF 2 MG/ML AMPULE IV PRN ×4 (09:08→20:39)
[2019-07-06] MEDS ORDERED: VANCOMYCIN HCL 500 MG in DEXTROSE 5%-WATER 100 ML IV SCH (12:00)
[2019-07-06] MEDS ORDERED: MAGNESIUM CITRATE 296 ML BOTTLE PO ONE (15:00)
[2019-07-06] MEDS: LEVOFLOXACIN 750 MG TABLET PO SCH (16:23)
[2019-07-06] MEDS ORDERED: INFLUENZA QUAD (6MOS+) 2019-20 VAC 0.5 ML SYR IM ONE (18:00)
[2019-07-06] MEDS: CLONAZEPAM 1 MG TABLET PO SCH (22:19)
[2019-07-06] MEDS: TRAZODONE HCL 50 MG TABLET PO SCH (22:19)
[2019-07-07] MEDS: HYDROMORPHONE HCL INJ/PF 2 MG/ML AMPULE IV PRN ×6 (01:38→22:09)
[2019-07-07 06:59] LABS: HEMATOCRIT 33.1 % (36.0-47.0); HEMOGLOBIN 10.8 g/dL (12.0-15.5); MEAN CORPUSCULAR HEMOGLOBIN 25.3 pg (27.0-33.4); MEAN CORPUSCULAR HGB CONC 32.7 g/dL (32.0-36.0); MEAN CORPUSCULAR VOLUME 78 fl (80-97); PLATELET COUNT 270 10^3/uL (150-450); RED BLOOD COUNT 4.27 10^6/uL (3.72-5.28); RED CELL DISTRIBUTION WIDTH 19.4 % (11.5-14.0); WHITE BLOOD COUNT 6.8 10^3/uL (4.0-10.5)
[2019-07-07 07:27] LABS: ALBUMIN 2.4 g/dL (3.5-5.0); ALKALINE PHOSPHATASE 64 U/L (38-126); ASPARTATE AMINO TRANSFERASE 17 U/L (14-36); BILIRUBIN,DIRECT 0.1 mg/dL (0.0-0.4); BILIRUBIN,TOTAL 0.2 mg/dL (0.2-1.3); BLOOD UREA NITROGEN 12 mg/dL (7-20); CALCIUM 8.2 mg/dL (8.4-10.2); CHLORIDE 109 mmol/L (98-107); GLUCOSE 87 mg/dL (75-110); PHOSPHORUS 3.6 mg/dL (2.5-4.5); POTASSIUM 4.1 mmol/L (3.6-5.0); TOTAL PROTEIN 4.6 g/dL (6.3-8.2)
[2019-07-07 07:33] LABS: CARBON DIOXIDE 25 mmol/L (22-30)
[2019-07-07 07:36] LABS: ANION GAP 3 (5-19)
[2019-07-07] MEDS: DOCUSATE SODIUM 100 MG CAPSULE PO SCH ×2 (09:32→18:18)
[2019-07-07] MEDS: FAMOTIDINE INJ/PF 20 MG/2 ML SDV IV SCH ×2 (09:32→22:10)
[2019-07-07] MEDS: LEVOFLOXACIN 750 MG TABLET PO SCH (13:13)
[2019-07-07] MEDS ORDERED: (PENDING PHARMACY ID) (Rizatriptan Benzoate [Maxalt] 5 MG) PO PRN (19:23)
--- NOTE | 2019-07-07 20:20 | PDOC PROGRESS REPORT ---
Subjective Progress Note for:: 07/07/19 Subjective:: 38 year old female who presented to the emergency room with a one-week history of abdominal pain. She admits gradually worsening abdominal pain becoming severe on the day of admission. Her abdominal pain is been accompanied by weakness, nausea, malaise, subjective fever, dyspnea, a 6 pound weight loss and vague bilateral lower back and flank pain. She denies other associated or accompanying signs and symptoms she was seen by her primary care provider who sent her to the ER to get IV fluids, "medicine" and a blood transfusion. She admits prior similar symptoms but has not identified any aggravating or ameliorating factors for her abdominal pain. In the emergency room she was found to have a white blood count of 27,700 with a hemoglobin of 8.1, a potassi um of 3.1 and a normal lactic acid level. Her serum protein and albumin are actually improved from her previous hospital records. Patient was subsequently admitted to the hospital for further evaluation and treatment. 07/07/[id number]-old female with multiple medical problems including multiple surgeries over the abdomen admitted with severe abdominal pain associated nausea generalized malaise subjective fever and weight loss. Patient is still off TPN receiving IV fluids. KUB done yesterday indicates large amount of stool. electrolytes are improving. Patient is still complaining of abdominal pain she is receiving 1 mg of IV Dilaudid every 3 hours as needed. Reason For Visit: SIRS SYNDROME Physical Exam Vital Signs: Temp Pulse Resp BP Pulse Ox 97.6 F 70 18 110/54 L 100 07/07/19 14:52 07/07/19 14:52 07/07/19 14:52 07/07/19 14:52 07/07/19 14:52 Intake & Output 07/06/19 07/07/19 07/08/19 06:59 06:59 06:59 Intake Total 1512 1294 840 Output Total 4600 1700 Balance -3088 -406 840 Weight 45.9 kg 46 kg General appearance: PRESENT: no acute distress, thin Head exam: PRESENT: atraumatic Eye exam: PRESENT: PERRLA Mouth exam: PRESENT: moist, tongue midline Neck exam: ABSENT: carotid bruit, JVD, lymphadenopathy, thyromegaly Respiratory exam: PRESENT: decreased breath sounds Cardiovascular exam: PRESENT: RRR. ABSENT: diastolic murmur, rubs, systolic murmur GI/Abdominal exam: PRESENT: normal bowel sounds, soft. ABSENT: distended, guarding, mass, organolmegaly, rebound, tenderness Rectal exam: PRESENT: deferred Extremities exam: PRESENT: full ROM. ABSENT: calf tenderness, clubbing, pedal e fahad Neurological exam: PRESENT: alert, awake, oriented to person, oriented to place, oriented to time, oriented to situation, CN II-XII grossly intact. ABSENT: motor sensory deficit Psychiatric exam: PRESENT: appropriate affect, normal mood. ABSENT: homicidal ideation, suicidal ideation Results Laboratory Results: 07/07/19 06:37 07/07/19 06:37 07/07/19 07/07/19 06:37 06:37 WBC 6.8 RBC 4.27 Hgb 10.8 L Hct 33.1 L MCV 78 L MCH 25.3 L MCHC 32.7 RDW 19.4 H Plt Count 270 Sodium 137.2 Potassium 4.1 Chloride 109 H Carbon Dioxide 25 Anion Gap 3 L BUN 12 Creatinine 0.59 Est GFR ( Amer) > 60 Glucose 87 Calcium 8.2 L Phosphorus 3.6 Magnesium 2.0 Total Bilirubin 0.2 AST 17 Alkaline Phosphatase 64 Total Protein 4.6 L Albumin 2.4 L Impressions: Chest X-Ray 07/03/19 19:14 IMPRESSION: NO ACUTE RADIOGRAPHIC FINDING IN THE CHEST. Abdomen/Pelvis CT 07/03/19 19:46 IMPRESSION: 1. Kidneys without stones or hydronephrosis. Prominent distention of the urinary bladder. 2. Severe colonic stool and dilatation in the upper abdomen. The rectosigmoid colon is not significantly distended. Similar findings were seen on 12/21/2018. The cause for the chronic massive colonic dilatation is not clear. 3. Previous cholecystectomy. Previous surgery related to the stomach presumably bariatric. 4. There is currently dilatation of small bowel loops in the left upper quadrant. This is increased compared to the previous study and suspicious for small bowel obstruction. Differential diagnosis includes distal anastomotic narrowing versus internal hernia. This can possibly be evaluated with limited upper GI. Preferably to be done with iodinated contrast and not barium. KUB X-Ray 07/06/19 00:00 IMPRESSION: Large amount of stool throughout the colon Assessment and Plan - Plan Summary Summary: Patient will be admitted to the hospital for treatment with IV antibiotics using meropenem, vancomycin, metronidazole and fluconazole. Will receive careful observation while awaiting blood and urine culture results. Her vital signs will be observed closely and she will be telemetry monitored on [facility]. A dietary consultation will be obtained for TPN. Patient's pain will be treated with Nubain 5 to 10 mg IV every 3 hours as needed on a sliding pain scale. She will receive supportive and symptomatic cares as needed. A surgical consultation will be obtained regarding the patient's abdominal pain. Patient's hypertension will be treated with IV fluid boluses and reevaluation. If her hypotension should worsen she will be treated with vasopressor agents as required to maintain an adequate blood pressure. Serial CBCs, metabolic profiles and magnesium levels will be used to follow the patient's progress 07/04/2018 Abdominal pain-abdominal pain continues although has improved. Patient with a leukocytosis and is receiving meropenem, vancomycin, Flagyl and fluconazole IV. Blood cultures and urine cultures are pending. N.p.o. patient will be seen by dietary for TPN. I have added Dilaudid 0.5 mg IV every 3 hours as needed for pain. We will continue to follow await cultures Leukocytosis-improved this a.m. Continue antibiotics until cultures return. Anemia-unknown etiology. Hemoglobin 6.3 this a.m. Will obtain a guaiac stool and give patient 2 units of packed cells. Continue to follow Hypotension Patient remains hypotensive this time. I suspect this most likely secondary to her anemia. We will transfer fused 2 units packed cells and the patient remains hypotensive we will treat at that time. We will also give 500 cc bolus at this time a normal saline Hypokalemia-potassium rider 20 mEq IV x2. Repeat BMP in a.m. Hypocalcemia-1 g calcium gluconate IV. Repeat calcium level in a.m. 07/05/2019- Abdominal pain-improved. Continues on meropenem, vancomycin, Flagyl and fluconazole IV. Cultures are still pending although one is showing a gram- positive cocci in clusters. Patient taking clear liquids at this time. Dilaudid for pain control has improved pain at this time. Continue to follow Leukocytosis. Continue antibiotic await cultures. Anemia-improved hemoglobin 10 this morning. Continue to follow await guaiac stool Hypotension-seem to be patient's normal blood pressure. No symptomology. Patient to get 2 units packed cells yesterday continue to follow Hypokalemia-improved continue to follow daily BMPs Hypocalcemia improved. Continue to follow. 07/06/2019- Abdominal pain-has returned somewhat. Will obtain a KUB at this time to rule out small bowel obstruction patient has very diminished bowel sounds and states she has not had a stool in a while. Will await KUB make change plan of care as appropriate. Rnmcdmypcahv-drqtvqtc-tduwqnuy IV antibiotics. As blood cultures only showing gram-positive cocci in clusters I have DC'd all antibiotics except for IV vancomycin Anemia-stable continue to follow Hypotension-patient seems to be having a normal blood pressure between 70s and 90s systolic. I suspect this is her normal range and will not aggressively pursue. Hypokalemia-mild this morning. Will give patient 20 mEq IV potassium rider. Repeat BMP in a.m. Hypocalcemia-improved stable 07/07/2019 Abdominal pain patient is receiving Dilaudid 1 mg IV every 3 as needed still complaining of pain scale 8/10. KUB shows large stool. To give Fleet enema today. Pressure today is 110/54. Hypotension resolved. Patient receiving IV fluids at this time. Hypokalemia Serum potassium is 4.1 today hypokalemia is resolved. Hypocalcemia Calcium is 8.2 hypocalcemia is resolving.
[2019-07-07] MEDS: TRAZODONE HCL 50 MG TABLET PO SCH (22:09)
[2019-07-07] MEDS: CLONAZEPAM 1 MG TABLET PO SCH (22:09)
[2019-07-08] MEDS ORDERED: NA PHOS,M-B/NA PHOS,DI-BA (ADULT) 133 ML ENEMA PR ONE (01:00)
[2019-07-08] MEDS: HYDROMORPHONE HCL INJ/PF 2 MG/ML AMPULE IV PRN (05:37)
[2019-07-08 06:12] LABS: ABSOLUTE BASOPHILS # (AUTO) 0.1 10^3/uL (0.0-0.2); ABSOLUTE EOSINOPHILS # (AUTO) 0.4 10^3/uL (0.0-0.6); ABSOLUTE LYMPHOCYTES (AUTO) 2.2 10^3/uL (0.5-4.7); ABSOLUTE MONOCYTES (AUTO) 0.4 10^3/uL (0.1-1.4); ABSOLUTE NEUT (AUTO) 2.2 10^3/uL (1.7-8.2); BASOPHILS % (AUTO) 1.1 % (0-2); EOSINOPHILS % (AUTO) 8.3 % (0-6); HEMATOCRIT 33.2 % (36.0-47.0); MEAN CORPUSCULAR HEMOGLOBIN 25.3 pg (27.0-33.4); MEAN CORPUSCULAR HGB CONC 33.1 g/dL (32.0-36.0); MEAN CORPUSCULAR VOLUME 76 fl (80-97); MONOCYTES % (AUTO) 7.4 % (3-13); PLATELET COUNT 247 10^3/uL (150-450); RED BLOOD COUNT 4.36 10^6/uL (3.72-5.28); RED CELL DISTRIBUTION WIDTH 19.6 % (11.5-14.0); SEGMENTED NEUTROPHILS % (AUTO) 42.2 % (42-78); TOTAL CELLS COUNTED % (AUTO) 100 %; WHITE BLOOD COUNT 5.3 10^3/uL (4.0-10.5)
[2019-07-08 06:40] LABS: ALBUMIN 2.4 g/dL (3.5-5.0); ALKALINE PHOSPHATASE 62 U/L (38-126); ANION GAP 5 (5-19); ASPARTATE AMINO TRANSFERASE 16 U/L (14-36); BILIRUBIN,DIRECT 0.1 mg/dL (0.0-0.4); BILIRUBIN,TOTAL 0.1 mg/dL (0.2-1.3); BLOOD UREA NITROGEN 13 mg/dL (7-20); CALCIUM 8.1 mg/dL (8.4-10.2); CARBON DIOXIDE 26 mmol/L (22-30); CHLORIDE 106 mmol/L (98-107); GLUCOSE 80 mg/dL (75-110); TOTAL PROTEIN 4.6 g/dL (6.3-8.2)
[2019-07-08] MEDS ORDERED: OXYCODONE-ACETAMINOPHEN 5-325 MG TABLET PO PRN (08:04)
[2019-07-08] MEDS ORDERED: LACTULOSE SYRUP 20 GM/30 ML UDCUP PO ONE (08:08)
[2019-07-08] MEDS: DILTIAZEM HCL 120 MG CAP.SR.24H PO SCH (09:10)
[2019-07-08] MEDS: DOCUSATE SODIUM 100 MG CAPSULE PO SCH ×2 (09:10→17:04)
[2019-07-08] MEDS: FAMOTIDINE INJ/PF 20 MG/2 ML SDV IV SCH ×2 (09:11→21:51)
[2019-07-08] MEDS: LEVOFLOXACIN 750 MG TABLET PO SCH (12:39)
--- NOTE | 2019-07-08 14:07 | RADIOLOGY REPORT (SQ) ---
EXAM DESCRIPTION: KUB/ABDOMEN (SINGLE VIEW) COMPLETED DATE/TIME: 07/08/2019 1:52 pm REASON FOR STUDY: abd pain COMPARISON: 07/06/2019 NUMBER OF VIEWS: One view. TECHNIQUE: Supine radiographic image of the abdomen acquired. LIMITATIONS: None. FINDINGS: BOWEL GAS PATTERN: Normal bowel gas pattern. No dilated loops. Large amount of formed sto ol throughout the colon. CALCIFICATIONS: No suspicious calcifications. SOFT TISSUES: No gross mass or suggestion of organomegaly. HARDWARE: Prior cholecystectomy. Chain thelma overlie left upper quadrant. BONES: No acute fracture. No worrisome bone lesions. OTHER: No other significant finding. IMPRESSION: Large formed stool burden throughout the colon. No other evidence of acute intra-abdomi nal/pelvic process. TECHNICAL DOCUMENTATION: JOB ID: [id number] [employer]- All Rights Reserved Reading location - IP/workstation name: [email or web address]
[2019-07-08] MEDS ORDERED: BISACODYL 10 MG SUPP.RECT PR ONE (16:00)
[2019-07-08] MEDS: LACTULOSE SYRUP 20 GM/30 ML UDCUP PO SCH ×2 (16:50→21:50)
[2019-07-08] MEDS ORDERED: METOCLOPRAMIDE HCL INJ/PF 10 MG/2 ML SDV IV ONE (17:00)
[2019-07-08] MEDS ORDERED: DIPHENHYDRAMINE HCL 50 MG/ML VIAL IV ONE (17:00)
[2019-07-08] MEDS ORDERED: KETOROLAC TROMETHAMINE INJ/PF 30 MG/1 ML SDV IV ONE (17:00)
--- NOTE | 2019-07-08 17:10 | PDOC PROGRESS REPORT ---
Subjective Progress Note for:: 07/08/19 Subjective:: The patient is a 38-year-old female with a past medical history significant for TIA, hypothyroidism, malabsorption disorder chronically on TPN related to PUD/severe GI bleeding resulting in near total antrectomy/vagotomy, cholecystectomy, appendectomy, and partial colectomy who presented to the emergency department with a was admitted 07/03/2019 for SIRS and found to have severe constipation/fecal impaction. Patient was seen on afternoon rounds with her mother present. She was found resting in bed comfortably on room air. She reports continued abdominal discom fort/distention, decreased passing of gas, nausea without vomiting. She does report she had a small bowel movement this morning following fleets enema. She reports that this is not been especially effective in the past and requests soapsuds enema. We had a long discussion regarding opiate medications causing worsening constipation. She reports that she has in the past with been treated with a combination of Toradol, Benadryl, and Reglan; requests to trial this tonight. She denies fever, chills, chest pain, palpitations, dyspnea, cough. They have no other questions at this time. No specific questions per nursing. Reason For Visit: SIRS SYNDROME Physical Exam Vital Signs: Temp Pulse Resp BP Pulse Ox 98.0 F 64 13 94/52 L 100 07/08/19 04:24 07/08/19 07:00 07/08/19 04:24 07/08/19 04:24 07/08/19 04:24 Intake & Output 07/07/19 07/08/19 07/09/19 06:59 06:59 06:59 Intake Total 1294 1100 480 Output Total 1700 Balance -406 1100 480 Weight 46 kg 46 kg General appearance: PRESENT: no acute distress, cooperative, thin, well-develo ped Head exam: PRESENT: atraumatic, normocephalic Eye exam: PRESENT: conjunctiva pink, EOMI, PERRLA. ABSENT: scleral icterus Ear exam: PRESENT: normal external ear exam Mouth exam: PRESENT: moist, tongue midline Neck exam: ABSENT: carotid bruit, JVD, lymphadenopathy, thyromegaly Respiratory exam: PRESENT: clear to auscultation jamaal, symmetrical, unlabored. ABSENT: rales, rhonchi, wheezes Cardiovascular exam: PRESENT: RRR, +S1, +S2. ABSENT: diastolic murmur, rubs, systolic murmur Pulses: PRESENT: normal dorsalis pedis pul Vascular exam: PRESENT: normal capillary refill GI/Abdominal exam: PRESENT: distended, firm, hyperactive bowel sounds, te nderness. ABSENT: guarding, mass, organolmegaly, rebound Rectal exam: PRESENT: deferred Extremities exam: PRESENT: full ROM. ABSENT: calf tenderness, clubbing, pedal edema Neurological exam: PRESENT: alert, awake, oriented to person, oriented to place, oriented to time, oriented to situation, CN II-XII grossly intact. ABSENT: motor sensory deficit Psychiatric exam: PRESENT: appropriate affect, normal mood. ABSENT: homicidal ideation, suicidal ideation Skin exam: PRESENT: dry, intact, warm. ABSENT: cyanosis, rash Results Laboratory Results: 07/08/19 05:50 07/08/19 05:50 07/08/19 07/08/19 07/08/19 05:50 05:50 11:47 WBC 5.3 RBC 4.36 Hgb 11.0 L Hct 33.2 L MCV 76 L MCH 25.3 L MCHC 33.1 RDW 19.6 H Plt Count 247 Seg Neutrophils % 42.2 Sodium 136.7 L Potassium 4.0 Chloride 106 Carbon Dioxide 26 Anion Gap 5 BUN 13 Creatinine 0.52 Est GFR ( Amer) > 60 Glucose 80 Calcium 8.1 L Magnesium 2.1 Total Bilirubin 0.1 L AST 16 Alkaline Phosphatase 62 Total Protein 4.6 L Albumin 2.4 L Stool Occult Blood NEGATIVE Impressions: Chest X-Ray 07/03/19 19:14 IMPRESSION: NO ACUTE RADIOGRAPHIC FINDING IN THE CHEST. Abdomen/Pelvis CT 07/03/19 19:46 IMPRESSION: 1. Kidneys without stones or hydronephrosis. Prominent distention of the urinary bladder. 2. Severe colonic stool and dilatation in the upper abdomen. The rectosigmoid colon is not significantly distended. Similar findings were seen on 12/21/2018. The cause for the chronic massive colonic dilatation is not clear. 3. Previous cholecystectomy. Previous surgery related to the stomach presumably bariatric. 4. There is currently dilatation of small bowel loops in the left upper quadrant. This is increased compared to the previous study and suspicious for small bowel obstruction. Differential diagnosis includes distal anastomotic narrowing versus internal hernia. This can possibly be evaluated with limited upper GI. Preferably to be done with iodinated contrast and not barium. KUB X-Ray 07/08/19 00:00 IMPRESSION: Large formed stool burden throughout the colon. No other evidence of acute intra-abdominal/pelvic process. Assessment and Plan - Diagnosis (1) Fecal impaction Is this a current diagnosis for this admission?: Yes Plan: KUB today confirms persistent large stool burden without evidence of obstruction at this time. Patient request soap suds enema. Continue lactulose 3 times daily. Dulcolax suppository. IV Reglan x1 today. Patient reports good effect in the past. Avoid narcotic pain medications. (2) Abnormal abdominal CT scan Is this a current diagnosis for this admission?: Yes Plan: CT abdomen/pelvis revealed dilatation of the small bowel loops in the left upper quadrant, increased compared to previous study and suspicious for small bowel obstruction. Differential diagnosis included distal NS anastomotic narrowing versus internal hernia; recommended further evaluation with a limited upper GI utilizing iodinated contrast not barium. Upper GI series pending. Consider surgical consultation following results. Remaining evaluation management as above. (3) Protein-calorie malnutrition, moderate Is this a current diagnosis for this admission?: Yes Plan: The patient chronically utilizes TPN at home. We will obtain daily TPN labs. Discussed with pharmacy; TPN should be available tomorrow afternoon. Registered dietitian is consulted. (4) Anemia of chronic disease Is this a current diagnosis for this admission?: Yes Plan: Improved; now status post 2 units PRBC. Hemoglobin is stable at 11. No signs of active bleeding at this time. Likely related to chronic malnutrition. Registered dietitian is consulted. (5) Hypotension Qualifiers: Hypotension type: unspecified hypotension type Qualified Code(s): I95.9 - Hypotension, unspecified Is this a current diagnosis for this admission?: Yes Plan: Likely physiologic given the patient's small stature. May also be related to the patient's home dose diltiazem for control of PAF. She is asymptomatic. Fall precautions. Continue to monitor for need for medication dose adjustments.. (6) Leukocytosis Qualifiers: Leukocytosis type: unspecified Qualified Code(s): D72.829 - Elevated white blood cell count, unspecified Is this a current diagnosis for this admission?: Yes Plan: Resolved. Likely secondary to fecal impaction. Blood cultures were negative (staph epidermidis is contaminant). Urine culture is negative. Patient remains afebrile. We will discontinue Levaquin. Continue to monitor. (7) SIRS (systemic inflammatory response syndrome) Is this a current diagnosis for this admission?: Yes Plan: Resolved. Likely secondary to fecal impaction. Leukocytosis has resolved, patient remains afebrile. She does not appear acutely ill. Blood and urine cultures negative. Antibiotics are discontinued. (8) Hypokalemia Is this a current diagnosis for this admission?: Yes Plan: Resolved; secondary to chronic malnutrition. We will continue to monitor daily chemistries and replace as necessary. (9) Hypothyroidism Qualifiers: Hypothyroidism type: unspecified Qualified Code(s): E03.9 - Hypothyroidism, unspecified Is this a current diagnosis for this admission?: No Plan: Thyroid panel is acceptable. Does not require levothyroxine. - Time Time Spent with patient: 35 or more minutes Medications reviewed and adjusted accordingly: Yes Anticipated discharge: Home with Homehealth Within: within 48 hours
[2019-07-08] MEDS: KETOROLAC TROMETHAMINE INJ/PF 30 MG/1 ML SDV IV PRN (21:50)
[2019-07-08] MEDS: TRAZODONE HCL 50 MG TABLET PO SCH (21:51)
[2019-07-08] MEDS: CLONAZEPAM 1 MG TABLET PO SCH (21:52)
[2019-07-09] MEDS: KETOROLAC TROMETHAMINE INJ/PF 30 MG/1 ML SDV IV PRN ×3 (03:22→18:54)
[2019-07-09] MEDS: LACTULOSE SYRUP 20 GM/30 ML UDCUP PO SCH ×3 (06:46→23:33)
[2019-07-09 07:21] LABS: HEMATOCRIT 30.7 % (36.0-47.0); HEMOGLOBIN 9.9 g/dL (12.0-15.5); MEAN CORPUSCULAR HEMOGLOBIN 25.2 pg (27.0-33.4); MEAN CORPUSCULAR HGB CONC 32.4 g/dL (32.0-36.0); MEAN CORPUSCULAR VOLUME 78 fl (80-97); PLATELET COUNT 194 10^3/uL (150-450); RED BLOOD COUNT 3.94 10^6/uL (3.72-5.28); WHITE BLOOD COUNT 5.2 10^3/uL (4.0-10.5)
[2019-07-09 07:38] LABS: ALBUMIN 2.3 g/dL (3.5-5.0); ALKALINE PHOSPHATASE 56 U/L (38-126); ASPARTATE AMINO TRANSFERASE 22 U/L (14-36); BLOOD UREA NITROGEN 17 mg/dL (7-20); CALCIUM 7.6 mg/dL (8.4-10.2); GLUCOSE 77 mg/dL (75-110); PHOSPHORUS 3.9 mg/dL (2.5-4.5); TOTAL PROTEIN 4.4 g/dL (6.3-8.2)
[2019-07-09 07:41] LABS: PROTHROMBIN TIME 14.2 SEC (11.4-15.4)
[2019-07-09 07:43] LABS: CARBON DIOXIDE 24 mmol/L (22-30); CHLORIDE 108 mmol/L (98-107)
[2019-07-09 07:46] LABS: PREALBUMIN 16.9 mg/dL (17.6-36.0)
[2019-07-09 07:50] LABS: BILIRUBIN,TOTAL < 0.1 mg/dL (0.2-1.3)
[2019-07-09 07:51] LABS: ANION GAP 4 (5-19)
[2019-07-09] MEDS ORDERED: DEXTROSE 10%-WATER 1,000 ML IV PRN (10:00)
[2019-07-09] MEDS ORDERED: DEXTROSE 40% GEL 15 GM TUBE PO PRN (10:00)
[2019-07-09] MEDS ORDERED: GLUCAGON,HUMAN RECOMB 1 MG INJ IM PRN (10:00)
[2019-07-09] MEDS ORDERED: FAT EMULSIONS 250 ML IV SCH (10:00)
[2019-07-09] MEDS ORDERED: DEXTROSE 50%-WATER SYRINGE 12.5 GM/25 ML DOSE IV PRN (10:00)
[2019-07-09] MEDS ORDERED: DEXTROSE 50%-WATER SYRINGE 25 GM/50 ML DOSE IV PRN (10:00)
[2019-07-09] MEDS ORDERED: DEXTROSE 40% GEL 15 GM TUBE X 2 PO PRN (10:00)
[2019-07-09] MEDS: DILTIAZEM HCL 120 MG CAP.SR.24H PO SCH (11:26)
[2019-07-09] MEDS: DOCUSATE SODIUM 100 MG CAPSULE PO SCH ×2 (11:27→23:35)
[2019-07-09] MEDS: FAMOTIDINE INJ/PF 20 MG/2 ML SDV IV SCH (11:27)
[2019-07-09] MEDS: PROMETHAZINE HCL INJ 25 MG/1 ML VIAL IV PRN ×3 (11:36→23:40)
--- NOTE | 2019-07-09 13:06 | RADIOLOGY REPORT (SQ) ---
EXAM DESCRIPTION: UPPER GI/SM BOWEL COMPLETED DATE/TIME: 07/09/2019 REASON FOR STUDY: recurrent SBO COMPARISON: 07/08/2019, 07/06/2019, 12/15/[address] abdomen pelvis 07/03/2019, 12/21/2018 TECHNIQUE: Ingestion of 120 mL of Gastrografin while being imaged with digital spot and plain films. RADIATION DOSE: 1.4 minutes of total fluoro time 7 series of digital images saved to PACS. LIMITATIONS: None FINDINGS: ESOPHAGUS: No structural or mechanical abnormality. STOMACH: Patient is post subtotal gastrectomy. Small fundal pouch is present with gastric bypass gaby kenneth, Lopez loop promptly empties from the stomach pouch. SMALL BOWEL: Normal transit time. No evidence of malrotation, or stricture. No dilated small bowel loops. PROXIMAL LARGE BOWEL: There is a massive amount stool throughout the colon. Right upper quadrant clips post cholecystectomy. IMPRESSION: Massive amount of stool throughout the colon. Subtotal gastrectomy with Lopez loop anatomy. No delay in emptying of the gastric fundal pouch. No evidence of small-bowel obstruction. COMMENT: Quality ID [id number]: Final reports for procedures using fluoroscopy that document radiation exp osure indices, or exposure time and number of fluorographic images (if radiation exposure indices are not available) TECHNICAL DOCUMENTATION: JOB ID: [id number] [employer]- All Rights Reserved Reading location - IP/workstation name: [email or web address]
[2019-07-09] MEDS: INSULIN REG, HUMAN 100 UNIT/ML 3 ML VIAL (PYX) SUBCUT SCH ×2 (13:32→18:45)
[2019-07-09] MEDS ORDERED: AMINO ACIDS 5 %/DEXTROSE 20 % 1,000 ML IV PRN (18:00)
[2019-07-09] MEDS ORDERED: POLYETHYLENE GLYCOL 3350 POWDER 17 GM/1 PACKET PO ONE (18:17)
--- NOTE | 2019-07-09 18:56 | PDOC PROGRESS REPORT ---
Subjective Progress Note for:: 07/09/19 Subjective:: The patient is a 38-year-old female with a past medical history significant for TIA, hypothyroidism, malabsorption disorder chronically on TPN related to PUD/severe GI bleeding resulting in near total antrectomy/vagotomy, cholecystectomy, appendectomy, and partial colectomy who presented to the emergency department with a was admitted 07/03/2019 for SIRS and found to have severe constipation/fecal impaction. Patient was seen on afternoon rounds with her mother present. She was found resting in bed comfortably on room air. She reports continued abdominal discom fort/distention, decreased passing of gas, nausea without vomiting. She states she had a small, hard/round bm following enema today but otherwise has not passed stool. Patient reports she believes she has a rectal prolapse that has spontaneously reduced; she will not describe her symptoms stating that she is "too embarrassed" and shows me a google article that "matches exactly what is happening." She further declines rectal exam. She denies fever, chills, chest pain, palpitations, dyspnea, cough. They have no other questions at this time. No questions per nursing. Reason For Visit: SIRS SYNDROME Physical Exam Vital Signs: Temp Pulse Resp BP Pulse Ox 98.0 F 68 17 92/44 L 98 07/09/19 07:36 07/09/19 07:36 07/09/19 07:36 07/09/19 07:36 07/09/19 07:36 Intake & Output 07/08/19 07/09/19 07/10/19 06:59 06:59 06:59 Intake Total 1100 1080 0 Output Total 0 Balance 1100 1080 0 Weight 46 kg 46.8 kg General appearance: PRESENT: no acute distress, cooperative, thin, well- developed Head exam: PRESENT: atraumatic, normocephalic Eye exam: PRESENT: conjunctiva pink, EOMI, PERRLA. ABSENT: scleral icterus Ear exam: PRESENT: normal external ear exam Mouth exam: PRESENT: moist, tongue midline Neck exam: ABSENT: carotid bruit, JVD, lymphadenopathy, thyromegaly Respiratory exam: PRESENT: clear to auscultation jamaal, symmetrical, unlabored. ABSENT: rales, rhonchi, wheezes Cardiovascular exam: PRESENT: RRR, +S1, +S2. ABSENT: diastolic murmur, rubs, systolic murmur Pulses: PRESENT: normal dorsalis pedis pul Vascular exam: PRESENT: normal capillary refill GI/Abdominal exam: PRESENT: normal bowel sounds, soft. ABSENT: distended, guarding, mass, organolmegaly, rebound, tenderness Rectal exam: PRESENT: deferred Extremities exam: PRESENT: full ROM. ABSENT: calf tenderness, clubbing, pedal edema Musculoskeletal exam: PRESENT: ambulatory Neurological exam: PRESENT: alert, awake, oriented to person, oriented to place, oriented to time, oriented to situation, CN II-XII grossly intact. ABSENT: motor sensory deficit Psychiatric exam: PRESENT: appropriate affect, normal mood. ABSENT: homicidal ideation, suicidal ideation Skin exam: PRESENT: dry, intact, warm. ABSENT: cyanosis, rash Results Laboratory Results: 07/09/19 06:40 07/09/19 06:40 07/09/19 07/09/19 06:40 06:40 WBC 5.2 RBC 3.94 Hgb 9.9 L Hct 30.7 L MCV 78 L MCH 25.2 L MCHC 32.4 RDW 20.0 H Plt Count 194 Sodium 135.8 L Potassium 4.0 Chloride 108 H Carbon Dioxide 24 Anion Gap 4 L BUN 17 Creatinine 0.60 Est GFR ( Amer) > 60 Glucose 77 Calcium 7.6 L Phosphorus 3.9 Total Bilirubin < 0.1 L AST 22 Alkaline Phosphatase 56 Total Protein 4.4 L Albumin 2.3 L Prealbumin 16.9 L 07/03/19 21:38 Blood Blood Culture - Final NO GROWTH IN 5 DAYS Impressions: Chest X-Ray 07/03/19 19:14 IMPRESSION: NO ACUTE RADIOGRAPHIC FINDING IN THE CHEST. Abdomen/Pelvis CT 07/03/19 19:46 IMPRESSION: 1. Kidneys without stones or hydronephrosis. Prominent distention of the urinary bladder. 2. Severe colonic stool and dilatation in the upper abdomen. The rectosigmoid colon is not significantly distended. Similar findings were seen on 12/21/2018. The cause for the chronic massive colonic dilatation is not clear. 3. Previous cholecystectomy. Previous surgery related to the stomach presumably bariatric. 4. There is currently dilatation of small bowel loops in the left upper quadrant. This is increased compared to the previous study and suspicious for small bowel obstruction. Differential diagnosis includes distal anastomotic narrowing versus internal hernia. This can possibly be evaluated with limited upper GI. Preferably to be done with iodinated contrast and not barium. KUB X-Ray 07/08/19 00:00 IMPRESSION: Large formed stool burden throughout the colon. No other evidence of acute intra-abdominal/pelvic process. Upper GI and Small Bowel X-Ray 07/09/19 00:00 IMPRESSION: Massive amount of stool throughout the colon. Subtotal gastrectomy with Lopez loop anatomy. No delay in emptying of the gastric fundal pouch. No evidence of small-bowel obstruction. Assessment and Plan - Diagnosis (1) Fecal impaction Is this a current diagnosis for this admission?: Yes Plan: KUB yesterday confirms persistent large stool burden without evidence of obstruction at this time. Upper GI and small bowel follow through shows continued massive volume of stool. Discussed w/ Dr. Schroeder's today. Appreciate his review of imaging and adv ice/recommendations. Repeat soap suds enema today. Continue lactulose 4 times daily. Start MiraLax daily. Increase Colace to 200 BID. Milk of Mag prn. Consider Mag Citrate. Patient MUST ambulate as much as possible. Patient requests not to have dietary change; if impaction persists will change to Clear Liquids tomorrow. Avoid narcotic pain medications. (2) Abnormal abdominal CT scan Is this a current diagnosis for this admission?: Yes Plan: CT abdomen/pelvis revealed dilatation of the small bowel loops in the left upper quadrant, increased compared to previous study and suspicious for small bowel obstruction. Differential diagnosis included distal NS anastomotic narrowing versus internal hernia; recommended further evaluation with a limited upper GI utilizing iodinated contrast not barium. Upper GI series shows massive amount of stool throughout the colon. Subtotal gastrectomy with Lopez loop anatomy, no delay in emptying of the gastric fundal pouch and without evidence of small bowel obstruction. Remaining evaluation management as above. (3) Protein-calorie malnutrition, moderate Is this a current diagnosis for this admission?: Yes Plan: The patient chronically utilizes TPN at home. We will obtain daily TPN labs. Start TPN today. Registered dietitian is consulted. (4) Anemia of chronic disease Is this a current diagnosis for this admission?: Yes Plan: Improved; now status post 2 units PRBC on 07/04/2019. Hemoglobin 11-> 9.9. No signs of active bleeding at this time. Likely related to chronic malnutrition poor absorption of/B12. Will obtain anemia panel with a.m. lab work. Registered dietitian is consulted. (5) Hypotension Qualifiers: Hypotension type: unspecified hypotension type Qualified Code(s): I95.9 - Hypotension, unspecified Is this a current diagnosis for this admission?: Yes Plan: Likely physiologic given the patient's small stature; patient is asymptomatic. May also be related to the patient's home dose diltiazem for control of PAF. Fall precautions. Continue to monitor for need for medication dose adjustments.. (6) Leukocytosis Qualifiers: Leukocytosis type: unspecified Qualified Code(s): D72.829 - Elevated white blood cell count, unspecified Is this a current diagnosis for this admission?: Yes Plan: Resolved. Likely secondary to fecal impaction. Blood cultures were negative (staph epidermidis is contaminant). Urine culture is negative. Patient remains afebrile. We will discontinue Levaquin. Continue to monitor. (7) SIRS (systemic inflammatory response syndrome) Is this a current diagnosis for this admission?: Yes Plan: Resolved. Likely secondary to fecal impaction. Leukocytosis has resolved, patient remains afebrile. She does not appear acutely ill. Blood and urine cultures negative. Antibiotics are discontinued. (8) Hypokalemia Is this a current diagnosis for this admission?: Yes Plan: Resolved; secondary to chronic malnutrition. We will continue to monitor daily chemistries and replace as necessary. (9) Hypothyroidism Qualifiers: Hypothyroidism type: unspecified Qualified Code(s): E03.9 - Hypothyroidism, unspecified Is this a current diagnosis for this admission?: No Plan: Thyroid panel is acceptable. Does not require levothyroxine. - Time Time Spent with patient: 25-34 minutes Medications reviewed and adjusted accordingly: Yes Anticipated discharge: Home Within: within 24 hours - following large bm.
[2019-07-09] MEDS: TRAZODONE HCL 50 MG TABLET PO SCH (23:34)
[2019-07-09] MEDS: CLONAZEPAM 1 MG TABLET PO SCH (23:34)
[2019-07-10] MEDS: INSULIN REG, HUMAN 100 UNIT/ML 3 ML VIAL (PYX) SUBCUT SCH ×4 (01:22→18:15)
[2019-07-10] MEDS: KETOROLAC TROMETHAMINE INJ/PF 30 MG/1 ML SDV IV PRN ×2 (01:26→09:12)
[2019-07-10] MEDS: PROMETHAZINE HCL INJ 25 MG/1 ML VIAL IV PRN ×2 (04:45→11:03)
[2019-07-10 05:44] LABS: ABSOLUTE RETICS # 0.051 10^6/uL (0.028-0.122); RETICULOCYTE COUNT (AUTO) 1.28 % (0.66-2.85)
[2019-07-10 06:03] LABS: IRON(TIBC) 48.5 ug/dL (37-170)
[2019-07-10 06:40] LABS: FERRITIN 8.84 ng/mL (6.2-137.0)
[2019-07-10 07:10] LABS: FOLATE 4.85 ng/mL (>2.76)
[2019-07-10] MEDS: LACTULOSE SYRUP 20 GM/30 ML UDCUP PO SCH ×2 (07:37→11:03)
[2019-07-10] MEDS: DILTIAZEM HCL 120 MG CAP.SR.24H PO SCH (09:27)
[2019-07-10] MEDS ORDERED: DOCUSATE SODIUM 100 MG CAPSULE PO SCH (10:00)
[2019-07-10] MEDS ORDERED: MAGNESIUM HYDROXIDE SUSP 30 ML UDCUP PO SCH (10:00)
[2019-07-10] MEDS ORDERED: POLYETHYLENE GLYCOL 3350 POWDER 17 GM/1 PACKET PO SCH (10:00)
[2019-07-10] MEDS ORDERED: ALTEPLASE INJ 2 MG VIAL (CATH CLEARANCE) IV ONE (16:30)
[2019-07-10 18:21] VITALS: BP 84/55
--- NOTE | 2019-07-11 12:53 | PDOC DISCHARGE SUMMARY ---
Impression - Admit/DC Date/PCP Admission Date/Primary Care Provider: 07/03/19 23:33 ARTEMIO JOSEPH DO Discharge Date: 07/10/19 - Discharge Diagnosis (1) Fecal impaction Is this a current diagnosis for this admission?: Yes (2) Abnormal abdominal CT scan Is this a current diagnosis for this admission?: Yes (3) Protein-calorie malnutrition, moderate Is this a current diagnosis for this admission?: Yes (4) Anemia of chronic disease Is this a current diagnosis for this admission?: Yes (5) Hypotension Is this a current diagnosis for this admission?: Yes (6) Leukocytosis Is this a current diagnosis for this admission?: Yes (7) SIRS (systemic inflammatory response syndrome) Is this a current diagnosis for this admission?: Yes (8) Hypokalemia Is this a current diagnosis for this admission?: Yes (9) Hypothyroidism Is this a current diagnosis for this admission?: No (10) B12 deficiency anemia Is this a current diagnosis for this admission?: Yes - Additional Information Resuscitation Status: Full Code Discharge Diet: As Tolerated Discharge Activity: Activity As Tolerated, Balance Activity w/Rest, Walk Frequently Referrals: MENDEZ OLIVEIRA MD [ACTIVE STAFF] - (Follow up with Surgery as needed.) ML BRADY MD [ACTIVE STAFF] - (Please establish with local GI specialist for local, continued, care.) ARTEMIO JOSEPH DO [Primary Care Provider] - (Follow up within 1 week.) Prescriptions: Lactulose [Cephulac Syrup 20 gm/30 ml Udcup] 20 gm PO Q6 #20 udc Docusate Sodium [Colace 100 mg Capsule] 200 mg PO BID #60 capsule Promethazine HCl [Phenergan 25 mg Tablet] 25 mg PO Q6HP PRN #20 PRN Reason: For Nausea/Vomiting Tramadol HCl [Ultram 50 mg Tablet] 50 mg PO Q6HP PRN #20 tablet PRN Reason: Home Medications: Clonazepam [Klonopin 2 mg Tablet] 2 mg PO QHS 12/19/18 Diltiazem HCl [Cardizem Cd 120 mg Capsule] 120 mg PO DAILY 12/19/18 Rizatriptan Benzoate [Maxalt] 5 mg PO DAILYP PRN 12/19/18 Trazodone HCl [Desyrel 50 mg Tablet] 100 mg PO QHS 12/19/18 Furosemide [Lasix 40 mg Tablet] 40 mg PO DAILY 07/04/19 Ibuprofen [Ibu] 800 mg PO Q8HP PRN 07/04/19 Acetaminophen [Tylenol 325 mg Tablet] 650 mg PO Q4HP PRN tablet 07/10/19 Docusate Sodium [Colace 100 mg Capsule] 200 mg PO BID #60 capsule 07/10/19 Lactulose [Cephulac Syrup 20 gm/30 ml Udcup] 20 gm PO Q6 #20 udc 07/10/19 Magnesium Hydroxide [Milk of Magnesia 30 ml Udcup] 30 ml PO DAILY udc 07/10/19 Polyethylene Glycol 3350 [Miralax Powder 17 gm/Packet] 17 gm PO DAILY powd.pack 07/10/19 Promethazine HCl [Phenergan 25 mg Tablet] 25 mg PO Q6HP PRN #20 07/10/19 Tramadol HCl [Ultram 50 mg Tablet] 50 mg PO Q6HP PRN #20 tablet 07/10/19 History of Present Illiness History of Present Illness: Per H&P by Dr. Pedersen: SHIKHA DEAN is a 38 year old female who presented to the emergency room with a one-week history of abdominal pain. She admits gradually worsening abdominal pain becoming severe on the day of admission. Her abdominal pain is been accompanied by weakness, nausea, malaise, subjective fever, dyspnea, a 6 pound weight loss and vague bilateral lower back and flank pain. She denies other associated or accompanying signs and symptoms she was seen by her primary care provider who sent her to the ER to get IV fluids, "medicine" and a blood transfusion. She admits prior similar symptoms but has not identified any aggravating or ameliorating factors for her abdominal pain. In the emergency room she was found to have a white blood count of 27,700 with a hemoglobin of 8.1, a potassium of 3.1 and a normal lactic acid level. Her serum protein and albumin are actually improved from her previous hospital records. Patient was subsequently admitted to the hospital for further evaluation and treatment. Hospital Course Hospital Course: (1) Fecal impaction Serial KUBs confirmed persistent large stool burden without evidence of obstruction at this time. Upper GI and small bowel follow through shows continued massive volume of stool. Discussed w/ Dr. Bassetts. Appreciate his review of imaging and advice/recommendations. The patient's constipation/fecal impaction was treated with aggressive bowel regiment of soap suds enema, p.o. lactulose, MiraLAX, Colace, milk of magnesia. The patient was encouraged to ambulate as much as possible; fortunately, she was minimally active during her stay. However, she did begin having multiple moderate volume bowel movements with resolution of her abdominal distention and discomfort. She is now requesting to be discharged home. (2) Abnormal abdominal CT scan CT abdomen/pelvis revealed dilatation of the small bowel loops in the left upper quadrant, increased compared to previous study and suspicious for small bowel obstruction. Differential diagnosis included distal NS anastomotic narrowing versus internal hernia; recommended further evaluation with a limited upper GI utilizing iodinated contrast not barium. Upper GI series shows massive amount of stool throughout the colon. Subtotal ga strectomy with Lopez loop anatomy, no delay in emptying of the gastric fundal pouch and without evidence of small bowel obstruction. Remaining evaluation management as above. (3) Protein-calorie malnutrition, moderate The patient chronically utilizes TPN at home. Registered dietitian was consulted; continued TPN while admitted. (4) Anemia of chronic disease Improved; now status post 2 units PRBC on 07/04/2019. Hemoglobin 11-> 9.9. No signs of active bleeding at this time. Anemia panel revealed l low B12; 231. Likely related to chronic malnutrition poor absorption of/B12. Patient would likely benefit from routine B12 injections by PCP. (5) Hypotension Likely physiologic given the patient's small stature; patient is asymptomatic. May also be related to the patient's home dose diltiazem for control of PAF. Asymptomatic; no medication adjustments made. (6) Leukocytosis Resolved. Likely secondary to fecal impaction. Blood cultures were negative (staph epidermidis is contaminant). Urine culture is negative. Patient remains afebrile. (7) SIRS (systemic inflammatory response syndrome) Resolved. Likely secondary to fecal impaction. Leukocytosis has resolved, patient remains afebrile. She does not appear acutely ill. Blood and urine cultures negative. (8) Hypokalemia Resolved; secondary to chronic malnutrition. (9) Hypothyroidism Thyroid panel is acceptable; ruled out. Does not require levothyroxine. (10) Low B12 Recommend outpatient administration of B12. Physical Exam Vital Signs: Temp Pulse Resp BP Pulse Ox 97.6 F 92 16 84/55 L 100 07/10/19 18:16 07/10/19 18:16 07/10/19 18:16 07/10/19 18:16 07/10/19 18:16 Intake & Output 07/10/19 07/11/19 07/12/19 06:59 06:59 06:59 Intake Total 590 Balance 590 Weight 48.9 kg General appearance: PRESENT: no acute distress, thin, well-developed Head exam: PRESENT: atraumatic, normocephalic Eye exam: PRESENT: conjunctiva pink, EOMI, PERRLA. ABSENT: scleral icterus Ear exam: PRESENT: normal external ear exam Mouth exam: PRESENT: moist, tongue midline Neck exam: ABSENT: carotid bruit, JVD, lymphadenopathy, thyromegaly Respiratory exam: PRESENT: clear to auscultation jamaal, symmetrical, unlabored. ABSENT: rales, rhonchi, wheezes Cardiovascular exam: PRESENT: RRR. ABSENT: diastolic murmur, rubs, systolic m urmur Pulses: PRESENT: normal dorsalis pedis pul Vascular exam: PRESENT: normal capillary refill GI/Abdominal exam: PRESENT: normal bowel sounds, soft. ABSENT: distended, guarding, mass, organolmegaly, rebound, tenderness Rectal exam: PRESENT: deferred Extremities exam: PRESENT: full ROM. ABSENT: calf tenderness, clubbing, pedal edema Musculoskeletal exam: PRESENT: ambulatory Neurological exam: PRESENT: alert, awake, oriented to person, oriented to place, oriented to time, oriented to situation, CN II-XII grossly intact. ABSENT: motor sensory deficit Psychiatric exam: PRESENT: appropriate affect, normal mood. ABSENT: homicidal ideation, suicidal ideation Skin exam: PRESENT: dry, intact, warm. ABSENT: cyanosis, rash Results Laboratory Results: WBC 5.2 10^3/uL (4.0-10.5) 07/09/19 06:40 RBC 3.94 10^6/uL (3.72-5.28) 07/09/19 06:40 Hgb 9.9 g/dL (12.0-15.5) L 07/09/19 06:40 Hct 30.7 % (36.0-47.0) L 07/09/19 06:40 MCV 78 fl (80-97) L 07/09/19 06:40 MCH 25.2 pg (27.0-33.4) L 07/09/19 06:40 MCHC 32.4 g/dL (32.0-36.0) 07/09/19 06:40 RDW 20.0 % (11.5-14.0) H 07/09/19 06:40 Plt Count 194 10^3/uL (150-450) 07/09/19 06:40 Lymph % (Auto) 41.0 % (13-45) 07/08/19 05:50 [place] % (Auto) 7.4 % (3-13) 07/08/19 05:50 Eos % (Auto) 8.3 % (0-6) H 07/08/19 05:50 Baso % (Auto) 1.1 % (0-2) 07/08/19 05:50 Reticulocyte # 0.051 10^6/uL (0.028-0.122) 07/10/19 04:26 Absolute Neuts (auto) 2.2 10^3/uL (1.7-8.2) 07/08/19 05:50 Absolute Lymphs (auto) 2.2 10^3/uL (0.5-4.7) 07/08/19 05:50 Absolute Monos (auto) 0.4 10^3/uL (0.1-1.4) 07/08/19 05:50 Absolute Eos (auto) 0.4 10^3/uL (0.0-0.6) 07/08/19 05:50 Absolute Basos (auto) 0.1 10^3/uL (0.0-0.2) 07/08/19 05:50 Total Counted 100 07/03/19 18:15 Seg Neutrophils % 42.2 % (42-78) 07/08/19 05:50 Seg Neuts % (Manual) 89 % (42-78) H 07/03/19 18:15 Band Neutrophils % 2 % (3-5) L 07/03/19 18:15 Lymphocytes % (Manual) 5 % (13-45) L 07/03/19 18:15 Monocytes % (Manual) 4 % (3-13) 07/03/19 18:15 Eosinophils % (Manual) 0 % (0-6) 07/03/19 18:15 Basophils % (Manual) 0 % (0-2) 07/03/19 18:15 Abs Neuts (Manual) 25.2 10^3/uL (1.7-8.2) H 07/03/19 18:15 Abs Lymphs (Manual) 1.4 10^3/uL (0.5-4.7) 07/03/19 18:15 Abs Monocytes (Manual) 1.1 10^3/uL (0.1-1.4) 07/03/19 18:15 Absolute Eos (Manual) 0.0 10^3/uL (0.0-0.6) 07/03/19 18:15 Abs Basophils (Manual) 0.0 10^3/uL (0.0-0.2) 07/03/19 18:15 Large Platelets PRESENT 07/03/19 18:15 Platelet Comment ADEQUATE 07/03/19 18:15 Polychromasia SLIGHT 07/03/19 18:15 Hypochromasia 1+ 07/03/19 18:15 Anisocytosis SLIGHT 07/03/19 18:15 Microcytosis 1+ 07/03/19 18:15 Retic Count (auto) 1.28 % (0.66-2.85) 07/10/19 04:26 PT 14.2 SEC (11.4-15.4) 07/09/19 06:40 INR 1.10 07/09/19 06:40 VBG pH 7.24 (7.30-7.42) L 07/05/19 05:35 VBG pCO2 35.7 mmHg (35-63) 07/05/19 05:35 VBG HCO3 15.1 mmol/L (20-32) L 07/05/19 05:35 VBG Base Excess -11.4 mmol/L 07/05/19 05:35 Sodium 135.8 mmol/L (137-145) L 07/09/19 06:40 Potassium 4.0 mmol/L (3.6-5.0) 07/09/19 06:40 Chloride 108 mmol/L (98-107) H 07/09/19 06:40 Carbon Dioxide 24 mmol/L (22-30) 07/09/19 06:40 Anion Gap 4 (5-19) L 07/09/19 06:40 BUN 17 mg/dL (7-20) 07/09/19 06:40 Creatinine 0.60 mg/dL (0.52-1.25) 07/09/19 06:40 Est GFR ( Amer) > 60 (>60) 07/09/19 06:40 Est GFR (MDRD) Non-Af > 60 (>60) 07/09/19 06:40 Glucose 77 mg/dL (75-110) 07/09/19 06:40 POC Glucose 124 mg/dL (70-110) H 07/10/19 16:48 Lactic Acid Cancelled 07/04/19 09:00 Calcium 7.6 mg/dL (8.4-10.2) L 07/09/19 06:40 Phosphorus 3.9 mg/dL (2.5-4.5) 07/09/19 06:40 Magnesium 2.1 mg/dL (1.6-2.3) 07/08/19 05:50 Iron 48.5 ug/dL (37-170) 07/10/19 04:26 TIBC 333 ug/dL (250-450) 07/10/19 04:26 % Saturation 15 % 07/10/19 04:26 Ferritin 8.84 ng/mL (6.2-137.0) 07/10/19 04:26 Total Bilirubin < 0.1 mg/dL (0.2-1.3) L 07/09/19 06:40 Direct Bilirubin mg/dL (0.0-0.4) 07/09/19 06:40 Neonat Total Bilirubin Not Reportable 07/09/19 06:40 Neonat Direct Bilirubin Not Reportable 07/09/19 06:40 Neonat Indirect Bili Not Reportable 07/09/19 06:40 AST 22 U/L (14-36) 07/09/19 06:40 ALT 20 U/L (<35) 07/09/19 06:40 Alkaline Phosphatase 56 U/L (38-126) 07/09/19 06:40 Total Protein 4.4 g/dL (6.3-8.2) L 07/09/19 06:40 Albumin 2.3 g/dL (3.5-5.0) L 07/09/19 06:40 Prealbumin 16.9 mg/dL (17.6-36.0) L 07/09/19 06:40 Vitamin B12 231.0 pg/mL (239-931) L 07/10/19 04:26 Folate 4.85 ng/mL (>2.76) 07/10/19 04:26 TSH 0.81 uIU/mL (0.47-4.68) 07/05/19 05:35 Free T4 0.97 ng/dL (0.78-2.19) 07/03/19 18:15 Free T3 pg/mL 2.60 pg/mL (2.77-5.27) L 07/03/19 18:15 Serum HCG, Qual NEGATIVE (NEGATIVE) 07/03/19 18:15 Urine Color STRAW 07/03/19 21:57 Urine Appearance CLEAR 07/03/19 21:57 Urine pH 6.0 (5.0-9.0) 07/03/19 21:57 Ur Specific [place] 1.006 07/03/19 21:57 Urine Protein NEGATIVE mg/dL (NEGATIVE) 07/03/19 21:57 Urine Glucose (UA) NEGATIVE mg/dL (NEGATIVE) 07/03/19 21:57 Urine Ketones NEGATIVE mg/dL (NEGATIVE) 07/03/19 21:57 Urine Blood NEGATIVE (NEGATIVE) 07/03/19 21:57 Urine Nitrite NEGATIVE (NEGATIVE) 07/03/19 21:57 Urine Bilirubin NEGATIVE (NEGATIVE) 07/03/19 21:57 Urine Urobilinogen NEGATIVE mg/dL (<2.0) 07/03/19 21:57 Ur Leukocyte Esterase NEGATIVE (NEGATIVE) 07/03/19 21:57 Urine WBC (Auto) 2 /HPF 07/03/19 21:57 Urine RBC (Auto) 1 /HPF 07/03/19 21:57 U Hyaline Cast (Auto) 1 /LPF 07/03/19 21:57 Urine Bacteria (Auto) 1+ /HPF 07/03/19 21:57 Squamous Epi Cells Auto <1 /HPF 07/03/19 21:57 Urine Ascorbic Acid NEGATIVE (NEGATIVE) 07/03/19 21:57 Stool Occult Blood NEGATIVE (NEGATIVE) 07/08/19 11:47 Time Trough Drawn 0545 07/06/19 05:45 Vancomycin Trough 7.9 ug/mL (5.0-20.0) 07/06/19 05:45 Blood Type A POSITIVE 07/03/19 18:15 Blood Type Confirm A POSITIVE 07/03/19 18:15 Antibody Screen NEGATIVE 07/03/19 18:15 Crossmatch See Detail 07/03/19 18:15 Impressions: Chest X-Ray 07/03/19 19:14 IMPRESSION: NO ACUTE RADIOGRAPHIC FINDING IN THE CHEST. Abdomen/Pelvis CT 07/03/19 19:46 IMPRESSION: 1. Kidneys without stones or hydronephrosis. Prominent distention of the urinary bladder. 2. Severe colonic stool and dilatation in the upper abdomen. The rectosigmoid colon is not significantly distended. Similar findings were seen on 12/21/2018. The cause for the chronic massive colonic dilatation is not clear. 3. Previous cholecystectomy. Previous surgery related to the stomach presumably bariatric. 4. There is currently dilatation of small bowel loops in the left upper quadrant. This is increased compared to the previous study and suspicious for small bowel obstruction. Differential diagnosis includes distal anastomotic narrowing versus internal hernia. This can possibly be evaluated with limited upper GI. Preferably to be done with iodinated contrast and not barium. KUB X-Ray 07/06/19 00:00 IMPRESSION: Large amount of stool throughout the colon KUB X-Ray 07/08/19 00:00 IMPRESSION: Large formed stool burden throughout the colon. No other evidence of acute intra-abdominal/pelvic process. Upper GI and Small Bowel X-Ray 07/09/19 00:00 IMPRESSION: Massive amount of stool throughout the colon. Subtotal gastrectomy with Lopez loop anatomy. No delay in emptying of the gastric fundal pouch. No evidence of small-bowel obstruction. Plan Plan of Treatment: The patient is discharged home in stable condition with resumption of her home health services. She is advised to continue clear liquid diet and to advance slowly as tolerated with resolution of her constipation. She is encouraged to continue an aggressive bowel regimen of lactulose, Colace, and MiraLAX. She is instructed to follow-up with her primary care provider within 1 week. Recommend B12 supplementation; unfortunately this was not noted/addressed prior to patient's discharge. She is also encouraged to establish with a athletic trainer for management of her chronic GI issues. She is provided a referral to Dr. Oliveira; may follow-up as needed. She is instructed to return to the emergency department as needed for concerning symptoms. Time Spent: Greater than 30 Minutes Stroke Is this a Stroke Patient?: No Acute Heart Failure - Is this a Heart Failure Patient?: No
== END 2019-07-10 18:43 | disposition home or self-care (01) | DRG 389 ==
LOC: ER 16:14 → EH 23:33 → 3S 07-04 02:24
PROVIDERS: ADMIT Emergency Medicine; ATTEND Emergency Medicine
PROC: 30233N1 Transfusion of Nonautologous Red Blood Cells into Peripheral Vein, Percutaneous Approach (ICD-10-PCS; principal; 2019-07-04)
PROC: 3E02340 Introduction of Influenza Vaccine into Muscle, Percutaneous Approach (ICD-10-PCS; 2019-07-10)
DX: K56.41 Fecal impaction (principal); R65.10 Systemic inflammatory response syndrome (SIRS) of non-infectious origin without acute organ dysfunction; E44.0 Moderate protein-calorie malnutrition; D63.8 Anemia in other chronic diseases classified elsewhere; I95.9 Hypotension, unspecified; E87.6 Hypokalemia; E03.9 Hypothyroidism, unspecified; D51.9 Vitamin B12 deficiency anemia, unspecified; G89.29 Other chronic pain; E83.51 Hypocalcemia; Z23 Encounter for immunization; Z79.899 Other long term (current) drug therapy; Z79.1 Long term (current) use of non-steroidal anti-inflammatories (NSAID); Z87.11 Personal history of peptic ulcer disease; Z83.3 Family history of diabetes mellitus; Z82.49 Family history of ischemic heart disease and other diseases of the circulatory system; Z80.9 Family history of malignant neoplasm, unspecified; Z88.1 Allergy status to other antibiotic agents; Z86.73 Personal history of transient ischemic attack (TIA), and cerebral infarction without residual deficits
CPT/HCPCS: 36415; 36430; 71045; 74018; 74176; 74249; 80048; 80053; 80076; 80202; 81001; 82272; 82607; 82728; 82746; 82803; 82962; 83540; 83550; 83605; 83735; 84100; 84134; 84439; 84443; 84481; 84703; 85025; 85027; 85045; 85610; 86850; 86900; 86901; 86920; 87040; 87077; 87086; 87186; 90686; 93005; 93010; 96361; 96365; 96367; 96375; 99291; J0610; J0692; J1170; J1200; J1450; J1644; J1885; J1956; J2185; J2300; J2550; J2765; J2997; J3370; J3480; J3490; J7030; J7060; J7120; P9016; S0028; S0119; S0164

== ENCOUNTER 2020-02-22 12:08 | Emergency (ER) | payer OTHER, MEDICARE ==
--- NOTE | 2020-02-22 13:00 | ER Document Report ---
ED Medical Screen (RME) - General Chief Complaint: Abnormal Lab Results Stated Complaint: ABNORMAL LABS Time Seen by Provider: 02/22/20 12:58 Primary Care Provider: ARTEMIO JOSEPH DO [Primary Care Provider] - Follow up as needed Mode of Arrival: Wheelchair Information source: Patient Notes: 39-year-old female presented to ED for multiple complaints. She states she usually has low potassium tachycardia low blood count uses Lasix and pain medicine to control her multiple chronic conditions. She states usually she ends up with 18-hour infusions that she has never blood products while she is in the emergency room. She states she does have a port. Her level blood levels are lower than the last draw by the home health nurse. I have greeted and performed a rapid initial assessment of this patient. A comprehensive ED assessment and evaluation of the patient, analysis of test results and completion of medical decision making process will be conducted by a n additional ED providers. TRAVEL OUTSIDE OF THE [place] IN LAST 30 DAYS: No - Related Data Allergies/Adverse Reactions: amoxicillin [Amoxicillin] Allergy (Severe, Verified 07/03/19 17:00) Past Medical History - Past Medical History Cardiac Medical History: Denies: Hx Atrial Fibrillation, Hx Congestive Heart Failure, Hx Coronary Artery Disease, Hx DVT, Hx Heart Attack, Hx Hypercholesterolemia, Hx Hypertension, Hx Peripheral Vascular Disease, Hx Pulmonary Embolism, Hx Heart Murmur Pulmonary Medical History: Denies: Hx Asthma, Hx Bronchitis, Hx COPD, Hx Pneumonia, Hx Tuberculosis Neurological Medical History: Denies: Hx Cerebrovascular Accident, Hx Seizures, Hx Parkinson's Disease Endocrine Medical History: Reports: Hx Hypothyroidism. 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 Denies: Hx Cirrhosis, Hx Crohn's Disease, Hx Gastroesophageal Reflux Disease, Hx Hepatitis, Hx Ulcerative Colitis Musculoskeltal Medical History: Denies Hx Arthritis, Denies Hx Gout, Denies Hx Multiple Sclerosis Skin Medical History: Denies Hx Eczema, Denies Hx Psoriasis Psychiatric Medical History: Denies: Hx Bipolar Disorder, Hx Depression, Hx Schizophrenia Infectious Medical History: Denies: Hx Hepatitis Past Surgical History: Reports: Hx Abdominal Surgery - antrectomy, vagotomy, SBO, Hx Appendectomy, Hx Cholecystectomy, Hx Genitourinary Surgery - intestines removed from prior bowel obstruction, Hx Ileostomy, Other - Gastric antrectomy/vagotomy, partial colectomy. Denies: Hx Hysterectomy, Hx Pacemaker - Immunizations Hx Diphtheria, Pertussis, Tetanus Vaccination: Yes Physical Exam - Vital signs Vitals: Temp Pulse Resp BP Pulse Ox 97.9 F 92 16 107/54 L 100 02/22/20 12:15 02/22/20 12:15 02/22/20 12:15 02/22/20 12:15 02/22/20 12:15 Course - Vital Signs Vital signs: Temp Pulse Resp BP Pulse Ox 97.9 F 92 16 107/54 L 100 02/22/20 12:15 02/22/20 12:15 02/22/20 12:15 02/22/20 12:15 02/22/20 12:15 Doctor's Discharge - Discharge Referrals: ARTEMIO JOSEPH DO [Primary Care Provider] - Follow up as needed
[2020-02-22 13:48] LABS: INTERNATIONAL RATION (INR) 1.12; PROTHROMBIN TIME 14.4 SEC (11.4-15.4)
[2020-02-22 13:49] LABS: PARTIAL THROMBOPLASTIN TIME 27.4 SEC (23.5-35.8)
[2020-02-22 13:54] LABS: ABSOLUTE BASOPHILS # (AUTO) 0.1 10^3/uL (0.0-0.2); ABSOLUTE EOSINOPHILS # (AUTO) 0.3 10^3/uL (0.0-0.6); ABSOLUTE LYMPHOCYTES (AUTO) 1.1 10^3/uL (0.5-4.7); ABSOLUTE MONOCYTES (AUTO) 0.4 10^3/uL (0.1-1.4); ABSOLUTE NEUT (AUTO) 3.6 10^3/uL (1.7-8.2); BASOPHILS % (AUTO) 0.9 % (0-2); EOSINOPHILS % (AUTO) 5.8 % (0-6); HEMOGLOBIN 9.6 g/dL (12.0-15.5); LYMPHOCYTES % (AUTO) 19.6 % (13-45); MEAN CORPUSCULAR HEMOGLOBIN 23.9 pg (27.0-33.4); MEAN CORPUSCULAR VOLUME 75 fl (80-97); MONOCYTES % (AUTO) 7.8 % (3-13); PLATELET COUNT 337 10^3/uL (150-450); RED BLOOD COUNT 4.02 10^6/uL (3.72-5.28); SEGMENTED NEUTROPHILS % (AUTO) 65.9 % (42-78); TOTAL CELLS COUNTED % (AUTO) 100 %; WHITE BLOOD COUNT 5.5 10^3/uL (4.0-10.5)
[2020-02-22 14:07] LABS: ALBUMIN 3.8 g/dL (3.5-5.0); ALKALINE PHOSPHATASE 119 U/L (38-126); ANION GAP 9 (5-19); ASPARTATE AMINO TRANSFERASE 17 U/L (14-36); BILIRUBIN,TOTAL 0.2 mg/dL (0.2-1.3); BLOOD UREA NITROGEN 16 mg/dL (7-20); CALCIUM 8.4 mg/dL (8.4-10.2); CARBON DIOXIDE 25 mmol/L (22-30); CHLORIDE 103 mmol/L (98-107); GLUCOSE 91 mg/dL (75-110); PHOSPHORUS 3.3 mg/dL (2.5-4.5); POTASSIUM 3.2 mmol/L (3.6-5.0); TOTAL PROTEIN 6.7 g/dL (6.3-8.2)
[2020-02-22] MEDS ORDERED: POTASSIUM CHLORIDE 20 MEQ PACKET PO ONE (14:38)
[2020-02-22] MEDS ORDERED: ONDANSETRON HCL INJ/PF 4 MG/2 ML SDV IV ONE (14:40)
[2020-02-22] MEDS ORDERED: MORPHINE SULFATE 10 MG/ML INJ IV ONE (14:40)
[2020-02-22 15:49] LABS: APPEARANCE,URINE CLEAR; BILIRUBIN,URINE NEGATIVE (NEGATIVE); COLOR,URINE STRAW; GLUCOSE, URINE NEGATIVE (NEGATIVE); KETONES,URINE NEGATIVE (NEGATIVE); LEUKOCYTE ESTERASE,URINE NEGATIVE (NEGATIVE); NITRITE,URINE NEGATIVE (NEGATIVE); PROTEIN,URINE NEGATIVE (NEGATIVE); URINE SPECIFIC GRAVITY 1.005; UROBILINOGEN,URINE NEGATIVE mg/dL (<2.0)
--- NOTE | 2020-02-22 15:51 | ER Document Report ---
ED General - General Chief Complaint: Abnormal Lab Results Stated Complaint: ABNORMAL LABS Time Seen by Provider: 02/22/20 12:58 Primary Care Provider: ARTEMIO MENDEZ DO [Primary Care Provider] - Follow up as needed Mode of Arrival: Wheelchair Information source: Patient TRAVEL OUTSIDE OF THE [place] IN LAST 30 DAYS: No - HPI Notes: Patient presents complaining of generalized weakness" not feeling right". She states that she had a surgery for an ulcer several years ago that required multiple repeat surgery for complications. She states ever since she is on TPN 18 hours a day. She states she occasionally has to be admitted for blood transfusions and for electrolyte replacement and dehydration. She states recently she has not had vomiting or problem with stool. She has had some chronic nausea. No problems with urination. No fevers. She states she has had no rectal bleeding or vaginal bleeding. She states that when she required transfusion it is normally just chronic blood loss and has not had acute blood loss before. She states that lately she is got very weak. This weakness is constant. Is worse with exertion and better with rest. It radiates throughout her body. It is moderate to severe in intensity. - Related Data Allergies/Adverse Reactions: amoxicillin [Amoxicillin] Allergy (Severe, Verified 07/03/19 17:00) Past Medical History - General Information source: Patient - Social History Smoking Status: Never Smoker Frequency of alcohol use: None Drug Abuse: None Family History: DM, Hypertension, Malignancy, Other - Alzheimer's disease, Parkinson's disease Patient has homicidal ideation: No - Past Medical History Cardiac Medical History: Denies: Hx Atrial Fibrillation, Hx Congestive Heart Failure, Hx Coronary Artery Disease, Hx DVT, Hx Heart Attack, Hx Hypercholesterolemia, Hx Hypertension, Hx Peripheral Vascular Disease, Hx Pulmonary Embolism, Hx Heart Murmur Pulmonary Medical History: Denies: Hx Asthma, Hx Bronchitis, Hx COPD, Hx Pneumonia, Hx Tuberculosis Neurological Medical History: Denies: Hx Cerebrovascular Accident, Hx Seizures, Hx Parkinson's Disease Endocrine Medical History: Reports: Hx Hypothyroidism. 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 Denies: Hx Cirrhosis, Hx Crohn's Disease, Hx Gastroesophageal Reflux Disease, Hx Hepatitis, Hx Ulcerative Colitis Musculoskeletal Medical History: Denies Hx Arthritis, Denies Hx Gout, Denies Hx Multiple Sclerosis Skin Medical History: Denies Hx Eczema, Denies Hx Psoriasis Psychiatric Medical History: Denies: Hx Bipolar Disorder, Hx Depression, Hx Schizophrenia Infectious Medical History: Denies: Hx Hepatitis Past Surgical History: Reports: Hx Abdominal Surgery - antrectomy, vagotomy, SBO, Hx Appendectomy, Hx Cholecystectomy, Hx Genitourinary Surgery - intestines removed from prior bowel obstruction, Hx Ileostomy, Other - Gastric antrectomy/vagotomy, partial colectomy. Denies: Hx Hysterectomy, Hx Pacemaker - Immunizations Hx Diphtheria, Pertussis, Tetanus Vaccination: Yes Review of Systems - Review of Systems Constitutional: Malaise, Weakness. denies: Chills, Fever Cardiovascular: denies: Chest pain, Palpitations Respiratory: denies: Cough, Short of breath -: Yes All other systems reviewed and negative Physical Exam - Vital signs Vitals: Temp Pulse Resp BP Pulse Ox 97.9 F 92 16 107/54 L 100 02/22/20 12:15 02/22/20 12:15 02/22/20 12:15 02/22/20 12:15 02/22/20 12:15 Interpretation: Normal - General General appearance: Appears well, Alert - HEENT Head: Normocephalic, Atraumatic Eyes: Normal Pupils: PERRL - Respiratory Respiratory status: No respiratory distress Chest status: Nontender Breath sounds: Normal Chest palpation: Normal - Cardiovascular Rhythm: Regular Heart sounds: Normal auscultation Murmur: No - Abdominal Inspection: Normal Distension: No distension Bowel sounds: Normal Tenderness: Nontender Organomegaly: No organomegaly - Back Back: Normal, Nontender - Extremities General upper extremity: Normal inspection, Nontender, Normal color, Normal ROM, Normal temperature General lower extremity: Normal inspection, Nontender, Normal color, Normal ROM, Normal temperature, Normal weight bearing. No: Manjula's sign - Neurological Neuro grossly intact: Yes Cognition: Normal Orientation: AAOx4 Migel Coma Scale Eye Opening: Spontaneous Pitman Coma Scale Verbal: Oriented Pitman Coma Scale Motor: Obeys Commands Pitman Coma Scale Total: 15 Speech: Normal Motor strength normal: LUE, RUE, LLE, RLE Sensory: Normal - Psychological Associated symptoms: Normal affect, Normal mood - Skin Skin Temperature: Warm Skin Moisture: Dry Skin Color: Pale Course - Re-evaluation Re-evalutation: 02/22/20 16:00 I reviewed patient's vital signs. Heart rate here is normal and in the 80s. Blood pressure is 111 systolic. This is a very good blood pressure for the patient she is often in the 90s here for a systolic blood pressure. Patient does not have an elevated white blood cell count. Patient's hemoglobin is 9.6 which is stable for her. Patient's potassium is slightly low at 3.2. There is no other significant electrolyte abnormality. This potassium should be amenable to oral replacement. Patient states she feels that she needs to be admitted to the hospital. However I can find no reason the patient would benefit from hospital admission at this time. Laboratories exam and vital signs are not consistent with any type of significant dehydration, electrolyte abnormality or infection. I feel the safest thing for the patient is to be discharged and use oral potassium pain meds and nausea meds at home. I feel that patient seems prone to develop infectious processes and to be out of the hospital setting would be the safest thing for her. I did discuss pt with hospitalist service and they agree that pt would not benefit from admission. 02/22/20 16:02 - Vital Signs Vital signs: Temp Pulse Resp BP Pulse Ox 97.9 F 92 24 H 111/64 100 02/22/20 12:57 02/22/20 12:15 02/22/20 15:01 02/22/20 15:01 02/22/20 15:01 - Laboratory Result Diagrams: 02/22/20 13:20 02/22/20 13:20 Laboratory results interpreted by me: 02/22/20 02/22/20 13:20 13:20 Hgb 9.6 L Hct 30.0 L MCV 75 L MCH 23.9 L RDW 16.0 H Sodium 136.6 L Potassium 3.2 L - Diagnostic Test Radiology reviewed: Image reviewed, Reports reviewed Discharge - Discharge Clinical Impression: Weakness, Underweight, Anorexia, Hypokalemia Condition: Stable Disposition: HOME, SELF-CARE Instructions: Weakness ([facility]), Hypokalemia ([facility]) Additional Instructions: Please call Dr. Mendez first thing in the morning to arrange for follow-up Prescriptions: Hydrocodone/Acetaminophen [Keno 5-325 mg Tablet] 1 tab PO Q8 3 Days #6 tablet Potassium Chloride 10 meq PO DAILY 5 Days #5 tablet.er Ondansetron [Zofran Odt 4 mg Tablet] 1 tab PO Q6 3 Days #12 tab.lida Referrals: ARTEMIO MENDEZ DO [Primary Care Provider] - Follow up tomorrow
[2020-02-22] MEDS ORDERED: NORMAL SALINE 1000 ML 1,000 ML IV ONE (16:39)
[2020-02-22 18:46] VITALS: BP 106/61
== END 2020-02-22 18:50 | disposition home or self-care (01) ==
LOC: ER 12:08
DX: R63.0 Anorexia (principal); R53.1 Weakness; E87.6 Hypokalemia; R53.81 Other malaise; R11.0 Nausea; Z98.890 Other specified postprocedural states
CPT/HCPCS: 99283; 96361; 96374; 96375; 86900; 86901; 36415; 87040; 87086; 86850; 83690; 83735; 84100; 84703; 85025; 85610; 85730; 87077; 80053; 81001; 87150 ×26; J2270; J2405; J7030; J1642; J3490

== ENCOUNTER 2020-04-18 11:09 | Emergency (ER) | payer OTHER, MEDICARE ==
[2020-04-18] MEDS ORDERED: NORMAL SALINE 500 ML IV ONE (12:31)
--- NOTE | 2020-04-18 12:36 | ER Document Report ---
ED Medical Screen (RME) - General Chief Complaint: Abnormal Lab Results Stated Complaint: ABNORMAL LABS Time Seen by Provider: 04/18/20 12:21 Primary Care Provider: ARTEMIO JOSEPH DO [Primary Care Provider] - Follow up as needed Mode of Arrival: Wheelchair Information source: Patient Notes: Patient is a 39-year-old female who states she was sent to the emergency room by her primary care provider with a abnormal lab of a hemoglobin of 6.9. Patient has a long history of medical problems including malabsorption with gastric revisions. She currently is on TPN 8 hours/day. She also states that she has had intermittent chest discomfort and shortness of breath. Patient's current vital signs shows he has a blood pressure 97/60, heart rate is 77, oxygen saturation 100%. Physical examination: Patient is a slightly cachectic appearing 39-year-old female who is in no apparent distress on examination today. She does however appear weak and is in a wheelchair. Cardiac: Regular rate and rhythm no murmurs noted at this time. Lungs: Bilateral breath sounds increased and clear to auscultation. Abdomen: Bowel sounds are present all 4 quads it is nontender to palpate. Chest: Patient has a catheter placement right upper chest looks good. Further evaluation be performed by provider and back. I have greeted and performed a rapid initial assessment of this patient. A comprehensive ED assessment and evaluation of the patient, analysis of test results and completion of the medical decision making process will be conducted by additional ED providers. Dictation of this chart was performed using voice recognition software; therefore, there may be some unintended grammatical errors. TRAVEL OUTSIDE OF THE [place] IN LAST 30 DAYS: No - Related Data Allergies/Adverse Reactions: amoxicillin [Amoxicillin] Allergy (Severe, Verified 04/18/20 12:21) Past Medical History - Social History Chew tobacco use (# tins/day): No Drug Abuse: None - Past Medical History Cardiac Medical History: Denies: Hx Atrial Fibrillation, Hx Congestive Heart Failure, Hx Coronary Artery Disease, Hx DVT, Hx Heart Attack, Hx Hypercholesterolemia, Hx Hypertension, Hx Peripheral Vascular Disease, Hx Pulmonary Embolism, Hx Heart Murmur Pulmonary Medical History: Denies: Hx Asthma, Hx Bronchitis, Hx COPD, Hx Pneumonia, Hx Tuberculosis Neurological Medical History: Denies: Hx Cerebrovascular Accident, Hx Seizures, Hx Parkinson's Disease Endocrine Medical History: Reports: Hx Hypothyroidism. 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 Denies: Hx Cirrhosis, Hx Crohn's Disease, Hx Gastroesophageal Reflux Disease, Hx Hepatitis, Hx Ulcerative Colitis Musculoskeltal Medical History: Denies Hx Arthritis, Denies Hx Gout, Denies Hx Multiple Sclerosis Skin Medical History: Denies Hx Eczema, Denies Hx Psoriasis Psychiatric Medical History: Denies: Hx Bipolar Disorder, Hx Depression, Hx Schizophrenia Infectious Medical History: Denies: Hx Hepatitis Past Surgical History: Reports: Hx Abdominal Surgery - antrectomy, vagotomy, SBO, Hx Appendectomy, Hx Cholecystectomy, Hx Genitourinary Surgery - intestines removed from prior bowel obstruction, Hx Ileostomy, Other - Gastric antrectomy/vagotomy, partial colectomy. Denies: Hx Hysterectomy, Hx Pacemaker - Immunizations Hx Diphtheria, Pertussis, Tetanus Vaccination: Yes Physical Exam - Vital signs Vitals: Temp Pulse Resp BP Pulse Ox 98.1 F 77 16 97/60 L 100 04/18/20 11:12 04/18/20 11:12 04/18/20 11:12 04/18/20 11:12 04/18/20 11:12 Course - Vital Signs Vital signs: Temp Pulse Resp BP Pulse Ox 98.1 F 77 16 97/60 L 100 04/18/20 11:12 04/18/20 11:12 04/18/20 11:12 04/18/20 11:12 04/18/20 11:12 Doctor's Discharge - Discharge Referrals: ARTEMIO JOSEPH DO [Primary Care Provider] - Follow up as needed
--- NOTE | 2020-04-18 15:01 | ER Document Report ---
ED General - General Chief Complaint: Abnormal Lab Results Stated Complaint: ABNORMAL LABS Time Seen by Provider: 04/18/20 12:21 Primary Care Provider: ARTEMIO JOSEPH DO [Primary Care Provider] - Follow up as needed Mode of Arrival: Wheelchair Notes: 04/18/20 12:24 - ED Nursing Note by STAN RODRIGUEZ [facility] Num: [id number] : 1980 Patient Age: 39 Pt states PCP called [facility] is 6.9 and she will need transfusion. Pt states generalized body aches as well too. Has tunnelled port she would like used. Initialized on 04/18/20 12:24 - END OF NOTE Ry notes Patient is a 39-year-old female who states she was sent to the emergency room by her primary care provider with a abnormal lab of a hemoglobin of 6.9. Patient has a long history of medical problems including malabsorption with gastric revisions. She currently is on TPN 8 hours/day. She also states that she has had intermittent chest discomfort and shortness of breath. Patient's current vital signs shows he has a blood pressure 97/60, heart rate is 77, oxygen saturation 100%. Physical examination: Patient is a slightly cachectic appearing 39-year-old female who is in no apparent distress on examination today. She does however appear weak and is in a wheelchair. Cardiac: Regular rate and rhythm no murmurs noted at this time. Lungs: Bilateral breath sounds increased and clear to auscultation. Abdomen: Bowel sounds are present all 4 quads it is nontender to palpate. Chest: Patient has a catheter placement right upper chest looks good. Further evaluation be performed by provider and back. my notes 39-year-old female with chief complaint of having some chest discomfort shortness of breath weakness and her primary care at this time will discharge with return precautions and follow-up recommendations. Verbal discharge instructions given a the bedside and opportunity for questions given. Medication warnings reviewed. Patient is in agreement with this plan and has verbalized understanding of return precautions and the need for primary care follow-up in the next 24-72 hours. Reported hemoglobin of 6.9. Patient reports she needs TPN from a right chest port 8 hours/day because of stomach only one fourth of its original size because of bleeding ulcers and stomach intestinal resection in 2011. She had a small bowel obstruction as well. She had surgery via [facility] at that time. Dr. Suh her GI specialist sent her to [facility] afterwards and Dr. Osuna at [place] did revision of her surgery. Patient reports for the last 3 months she is been feeling quite tired short of breath and very pale. Patient denies any black tarry stools. Her feet feel cold and she advises "and since Saturday night she has had some swelling of her legs which usually alerts her that she is low on her blood count." " A friend told her she may have and it has been ongoing since a case of scleroderma and she would like a referral to a associate director." TRAVEL OUTSIDE OF THE [place] IN LAST 30 DAYS: No - HPI Onset: This morning Onset/Duration: Gradual, Persistent, Worse - Is a 13-year-old Quality of pain: Achy - in jamaal flanks Severity: Mild Pain Level: 1 Associated symptoms: Shortness of breath, Weakness Exacerbated by: Movement Relieved by: Denies Similar symptoms previously: Yes Recently seen / treated by doctor: Yes - Related Data Allergies/Adverse Reactions: amoxicillin [Amoxicillin] Allergy (Severe, Verified 04/18/20 12:21) Past Medical History - General Information source: Patient - Social History Smoking Status: Never Smoker Cigarette use (# per day): No Chew tobacco use (# tins/day): No Smoking Education Provided: No Frequency of alcohol use: None Drug Abuse: None Lives with: Family Family History: Reviewed & Not Pertinent, DM, Hypertension, Malignancy, Other - Alzheimer's disease, Parkinson's disease Patient has suicidal ideation: No Patient has homicidal ideation: No - Past Medical History Cardiac Medical History: Denies: Hx Atrial Fibrillation, Hx Congestive Heart Failure, Hx Coronary Artery Disease, Hx DVT, Hx Heart Attack, Hx Hypercholesterolemia, Hx Hype rtension, Hx Peripheral Vascular Disease, Hx Pulmonary Embolism, Hx Heart Murmur Pulmonary Medical History: Denies: Hx Asthma, Hx Bronchitis, Hx COPD, Hx Pneumonia, Hx Tuberculosis Neurological Medical History: Denies: Hx Cerebrovascular Accident, Hx Seizures, Hx Parkinson's Disease Endocrine Medical History: Reports: Hx Hypothyroidism. 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 Denies: Hx Cirrhosis, Hx Crohn's Disease, Hx Gastroesophageal Reflux Disease, Hx Hepatitis, Hx Ulcerative Colitis Musculoskeletal Medical History: Denies Hx Arthritis, Denies Hx Gout, Denies Hx Multiple Sclerosis Skin Medical History: Denies Hx Eczema, Denies Hx Psoriasis Psychiatric Medical History: Denies: Hx Bipolar Disorder, Hx Depression, Hx Schizophrenia Infectious Medical History: Denies: Hx Hepatitis Past Surgical History: Reports: Hx Abdominal Surgery - antrectomy, vagotomy, SBO, Hx Appendectomy, Hx Cholecystectomy, Hx Genitourinary Surgery - intestines removed from prior bowel obstruction, Hx Ileostomy, Other - Gastric antrectomy/vagotomy, partial colectomy. Denies: Hx Hysterectomy, Hx Pacemaker - Immunizations Hx Diphtheria, Pertussis, Tetanus Vaccination: Yes Review of Systems - Review of Systems Constitutional: See HPI, Weakness EENT: No symptoms reported Cardiovascular: See HPI, Dizziness, Lightheaded Respiratory: See HPI, Short of breath Gastrointestinal: See HPI, Abdominal pain Genitourinary: See HPI, Other - dec urine output per pt over 3 days Female Genitourinary: No symptoms reported Musculoskeletal: See HPI, Back pain Skin: No symptoms reported Hematologic/Lymphatic: No symptoms reported Neurological/Psychological: No symptoms reported Physical Exam - Vital signs Vitals: Temp Pulse Resp BP Pulse Ox 98.1 F 77 16 97/60 L 100 04/18/20 11:12 04/18/20 11:12 04/18/20 11:12 04/18/20 11:12 04/18/20 11:12 Interpretation: Hypotensive - General General appearance: Alert - HEENT Head: Normocephalic Eyes: Pale conjunctiva Conjunctiva: Normal Cornea: Normal Extraocular movements intact: Yes Eyelashes: Normal Pupils: PERRL Nasal: Normal Mouth/Lips: Normal Mucous membranes: Moist Pharynx: Normal Neck: Normal - Respiratory Respiratory status: No respiratory distress Chest status: Nontender Breath sounds: Normal Chest palpation: Normal - Cardiovascular Rhythm: Regular - Abdominal Inspection: Healed incision, Other - Midline surgical excision from breastbone to 8 cm caudal. She also has lap scar from appendectomy and gallbladder resection many years ago. All surgical scars are well-healed and white. Distension: No distension Bowel sounds: Hypoactive Tenderness: Nontender Organomegaly: No organomegaly - Rectal Hemorrhoids: Other - deferred - Genitourinary Bimanuel exam: Other - deferred - Back Back: Normal - Extremities General upper extremity: Normal inspection General lower extremity: Normal inspection, Other - cool to touch but DP PT aa full with pale skin Course - Vital Signs Vital signs: Temp Pulse Resp BP Pulse Ox 98.8 F 86 20 105/60 99 04/18/20 20:49 04/18/20 20:45 04/18/20 20:45 04/18/20 20:45 04/18/20 20:45 - Laboratory Result Diagrams: 04/18/20 14:46 04/18/20 14:46 Laboratory results interpreted by me: 04/18/20 04/18/20 04/18/20 14:46 14:46 14:46 WBC 3.5 L RBC 3.25 L Hgb 6.9 L Hct 22.4 L MCV 69 L MCH 21.3 L MCHC 30.9 L RDW 16.2 H Sodium 136.1 L Potassium 2.7 L* Anion Gap 3 L Calcium 7.1 L Total Bilirubin < 0.1 L Total Protein 5.3 L Albumin 2.8 L Urine Urobilinogen Crossmatch See Detail 04/18/20 15:58 WBC RBC Hgb Hct MCV MCH MCHC RDW Sodium Potassium Anion Gap Calcium Total Bilirubin Total Protein Albumin Urine Urobilinogen 2.0 H Crossmatch - Diagnostic Test Radiology reviewed: Reports reviewed - EKG Interpretation by Me EKG shows normal: Sinus rhythm Discharge - Discharge Clinical Impression: Hypokalemia, Weakness, Anemia requiring transfusions Constipation Qualifiers: Constipation type: unspecified constipation type Qualified Code(s): K59.00 - Constipation, unspecified Condition: Good Disposition: HOME, SELF-CARE Additional Instructions: Follow-up with associate director like Dr. Hood in [place] or associate director of choice. Prescriptions: Misoprostol [Cytotec 0.2 mg Tablet] 200 mcg PO BID PRN #20 tablet PRN Reason: constipation Referrals: ARTEMIO JOSEPH DO [Primary Care Provider] - Follow up as needed
[2020-04-18 15:05] LABS: ABSOLUTE EOSINOPHILS # (AUTO) 0.2 10^3/uL (0.0-0.6); ABSOLUTE LYMPHOCYTES (AUTO) 1.2 10^3/uL (0.5-4.7); ABSOLUTE MONOCYTES (AUTO) 0.3 10^3/uL (0.1-1.4); ABSOLUTE NEUT (AUTO) 1.8 10^3/uL (1.7-8.2); BASOPHILS % (AUTO) 1.1 % (0-2); EOSINOPHILS % (AUTO) 4.8 % (0-6); HEMATOCRIT 22.4 % (36.0-47.0); MEAN CORPUSCULAR HEMOGLOBIN 21.3 pg (27.0-33.4); MEAN CORPUSCULAR HGB CONC 30.9 g/dL (32.0-36.0); MEAN CORPUSCULAR VOLUME 69 fl (80-97); MONOCYTES % (AUTO) 7.3 % (3-13); PLATELET COUNT 285 10^3/uL (150-450); RED BLOOD COUNT 3.25 10^6/uL (3.72-5.28); RED CELL DISTRIBUTION WIDTH 16.2 % (11.5-14.0); SEGMENTED NEUTROPHILS % (AUTO) 51.8 % (42-78); TOTAL CELLS COUNTED % (AUTO) 100 %; WHITE BLOOD COUNT 3.5 10^3/uL (4.0-10.5)
[2020-04-18] MEDS ORDERED: NORMAL SALINE 250 ML IV PRN ×2 (15:07)
[2020-04-18 15:09] LABS: HEMOGLOBIN 6.9 g/dL (12.0-15.5)
[2020-04-18 15:28] LABS: ALBUMIN 2.8 g/dL (3.5-5.0); ALKALINE PHOSPHATASE 82 U/L (38-126); ASPARTATE AMINO TRANSFERASE 16 U/L (14-36); BLOOD UREA NITROGEN 15 mg/dL (7-20); CALCIUM 7.1 mg/dL (8.4-10.2); GLUCOSE 83 mg/dL (75-110); TOTAL PROTEIN 5.3 g/dL (6.3-8.2)
[2020-04-18 15:33] LABS: CARBON DIOXIDE 26 mmol/L (22-30); CHLORIDE 107 mmol/L (98-107)
[2020-04-18 15:40] LABS: BILIRUBIN,TOTAL < 0.1 mg/dL (0.2-1.3)
[2020-04-18 15:47] LABS: POTASSIUM 2.7 mmol/L (3.6-5.0)
[2020-04-18 16:05] LABS: ANION GAP 3 (5-19)
--- NOTE | 2020-04-18 16:21 | RADIOLOGY REPORT (SQ) ---
EXAM DESCRIPTION: CT ABD/PELVIS NO ORAL OR IV IMAGES COMPLETED DATE/TIME: 04/18/2020 4:09 pm REASON FOR STUDY: flank pains low h/h COMPARISON: 07/03/2019 TECHNIQUE: CT scan of the abdomen and pelvis performed without intravenous or oral contrast. Images reviewed with lung, soft tissue, and bone windows. Reconstructed coronal and sagittal MPR images revi ewed. All images stored on PACS. All CT scanners at this facility use dose modulation, iterative reconstruction, and/or weight based d osing when appropriate to reduce radiation dose to as low as reasonably achievable (ALARA). [facility]: Dose Right [facility]: CareDose [facility]: Dose Right [facility]: Teradose 4D [facility]: Groove RADIATION DOSE: mGy. LIMITATIONS: None. FINDINGS: LOWER CHEST: No significant findings. No nodules or infiltrates. NON-CONTRASTED LIVER, SPLEEN, ADRENALS: Evaluation limited by lack of IV contrast. No identified sign ificant masses. PANCREAS: No masses. No peripancreatic inflammatory changes. GALLBLADDER: Surgically absent. RIGHT KIDNEY AND URETER: No suspicious masses. Assessment limited by lack of IV contrast. No signif icant calcifications. No hydronephrosis or hydroureter. LEFT KIDNEY AND URETER: No suspicious masses. Assessment limited by lack of IV contrast. No signifi cant calcifications. No hydronephrosis or hydroureter. AORTA AND RETROPERITONEUM: No aneurysm. No retroperitoneal masses or adenopathy. BOWEL AND PERITONEAL CAVITY: Postsurgical changes in the epigastric region consistent with prior clovis ally bypass. The colon is distended with stool and air. No small bowel distention. The rectum and s igmoid colon are air filled. APPENDIX: Surgically absent. PELVIS, BLADDER, AND ABDOMINAL WALL:No abnormal masses. No free fluid. Bladder normal. BONES: No significant findings. OTHER: No other significant finding. IMPRESSION: Moderate to severe constipation with colonic distention similar findings have been seen in the past. No other significant findings. COMMENT: Quality ID # [id number]: Final reports with documentation of one or more dose reduction techniques (e.g., Automated exposure control, adjustment of the mA and/or kV according to patient size, use of iterative reconstruction technique) TECHNICAL DOCUMENTATION: JOB ID: [id number] 2010 [employer]- All Rights Reserved Reading location - IP/workstation name: [email or web address]
[2020-04-18] MEDS ORDERED: POTASSI CL 20 MEQ/50 ML RIDER 20 MEQ/50 ML RTUPB IV ONE (16:25)
[2020-04-18 17:29] LABS: APPEARANCE,URINE SLIGHTLY-CLOUDY; BILIRUBIN,URINE NEGATIVE (NEGATIVE); COLOR,URINE YELLOW; GLUCOSE, URINE NEGATIVE (NEGATIVE); KETONES,URINE NEGATIVE (NEGATIVE); PROTEIN,URINE NEGATIVE (NEGATIVE); URINE SPECIFIC GRAVITY 1.025
--- NOTE | 2020-04-18 21:12 | EKG REPORT ---
SEVERITY:- BORDERLINE ECG - SINUS RHYTHM BORDERLINE T ABNORMALITIES, DIFFUSE LEADS : Confirmed by: Souleymane Blanco MD 18-Apr-2020 21:11:59
[2020-04-19 00:05] VITALS: BP 102/58
== END 2020-04-18 23:30 | disposition home or self-care (01) ==
LOC: ER 11:09
DX: D64.9 Anemia, unspecified (principal); R53.1 Weakness; E87.6 Hypokalemia; K59.00 Constipation, unspecified; R06.02 Shortness of breath
CPT/HCPCS: 93005; 99284; 96361; 96365; 96366; 86900; 86901; 36415; 36430; 86850; 85025; 80053; 81001; 86920; 74176; 93010; P9016; J3480; J7050; J7040

== ENCOUNTER 2020-07-25 14:05 | Observation (INO) | payer OTHER, MEDICARE ==
[~2020-07-25 14:05] MED LIST changes: -CLINDAMYCIN 300 MG/D5W RTU 300 MG/50 ML RTUPB IV PRN; -DEXTROSE 5%-1/2 NORMAL SALINE 1,000 ML IV PRN; -DIAZEPAM 5 MG TABLET PO PRN; -OXYCODONE-ACETAMINOPHEN 5-325 MG TABLET PO PRN; +ROCURONIUM BROMIDE INJ 50 MG/5 ML VIAL IV ONE; +SUCCINYLCHOLINE CHLORIDE INJ 200 MG/10 ML VIAL ONE
[2020-07-25] MEDS ORDERED: ONDANSETRON HCL INJ/PF 4 MG/2 ML SDV IV ONE ×2 (15:34→20:21)
--- NOTE | 2020-07-25 15:35 | ER Document Report ---
ED Medical Screen (RME) - General Stated Complaint: POSSIBLE BOWEL OBSTRUCTION Time Seen by Provider: 07/25/20 15:27 Primary Care Provider: ARTEMIO JOSEPH DO [Primary Care Provider] - Follow up as needed Notes: Patient presents complaining of abdominal pain and distention for the past 4 days. Patient reports a history of malabsorption and previous vagotomy and antrectomy. Patient also reports history of cholecystectomy and appendectomy. Patient states that she receives TPN. Patient is concerned about possible bowel obstruction. Last bowel movement was last week. Patient states that she has been dry heaving at home and is unable to vomit due to her previous surgeries. Patient complains of tender palpable mass to the right inguinal area. I have greeted and performed a rapid initial assessment of this patient. A comprehensive ED assessment and evaluation of the patient, analysis of test results and completion of the medical decision making process will be conducted by additional ED providers. TRAVEL OUTSIDE OF THE [place] IN LAST 30 DAYS: No - Related Data Allergies/Adverse Reactions: amoxicillin [Amoxicillin] Allergy (Severe, Verified 04/18/20 12:21) Past Medical History - Past Medical History Cardiac Medical History: Denies: Hx Atrial Fibrillation, Hx Congestive Heart Failure, Hx Coronary Artery Disease, Hx DVT, Hx Heart Attack, Hx Hypercholesterolemia, Hx Hypertension, Hx Peripheral Vascular Disease, Hx Pulmonary Embolism, Hx Heart Murmur Pulmonary Medical History: Denies: Hx Asthma, Hx Bronchitis, Hx COPD, Hx Pneumonia, Hx Tuberculosis Neurological Medical History: Denies: Hx Cerebrovascular Accident, Hx Seizures, Hx Parkinson's Disease Endocrine Medical History: Reports: Hx Hypothyroidism. 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 Denies: Hx Cirrhosis, Hx Crohn's Disease, Hx Gastroesophageal Reflux Disease, Hx Hepatitis, Hx Ulcerative Colitis Musculoskeltal Medical History: Denies Hx Arthritis, Denies Hx Gout, Denies Hx Multiple Sclerosis Skin Medical History: Denies Hx Eczema, Denies Hx Psoriasis Psychiatric Medical History: Denies: Hx Bipolar Disorder, Hx Depression, Hx Schizophrenia Infectious Medical History: Denies: Hx Hepatitis Past Surgical History: Reports: Hx Abdominal Surgery - antrectomy, vagotomy, SBO, Hx Appendectomy, Hx Cholecystectomy, Hx Genitourinary Surgery - intestines removed from prior bowel obstruction, Hx Ileostomy, Other - Gastric antrectomy/vagotomy, partial colectomy. Denies: Hx Hysterectomy, Hx Pacemaker - Immunizations Hx Diphtheria, Pertussis, Tetanus Vaccination: Yes Physical Exam - Vital signs Vitals: Temp Pulse Resp BP Pulse Ox 98.1 F 94 16 102/67 100 07/25/20 14:56 07/25/20 14:56 07/25/20 14:56 07/25/20 14:56 07/25/20 14:56 - General General appearance: Alert In distress: Mild Notes: Cachectic, pale, generalized abdominal tenderness Course - Vital Signs Vital signs: Temp Pulse Resp BP Pulse Ox 98.1 F 94 16 102/67 100 07/25/20 14:56 07/25/20 14:56 07/25/20 14:56 07/25/20 14:56 07/25/20 14:56 Doctor's Discharge - Discharge Referrals: ARTEMIO JOSEPH DO [Primary Care Provider] - Follow up as needed
--- NOTE | 2020-07-25 15:54 | RADIOLOGY REPORT (SQ) ---
EXAM DESCRIPTION: KUB/ABDOMEN (SINGLE VIEW) IMAGES COMPLETED DATE/TIME: 07/25/2020 3:46 pm REASON FOR STUDY: abd pain, distention COMPARISON: 07/08/2019 NUMBER OF VIEWS: One view. TECHNIQUE: Supine radiographic image of the abdomen acquired. LIMITATIONS: None. FINDINGS: BOWEL GAS PATTERN: Significant small-bowel distention. Mildly dilated colon as well. Les s stool in the colon when compared to 07/08/2019. Today's plain films however concerning for developi ng small bowel obstruction. Adynamic ileus is thought to be less likely but not excluded. CALCIFICATIONS: No suspicious calcifications. SOFT TISSUES: No gross mass or suggestion of organomegaly. HARDWARE: None in the abdomen. BONES: No acute fracture. No worrisome bone lesions. OTHER: No other significant finding. IMPRESSION: Small-bowel distention significantly increased from July 08. Developing small bowel obstruction cannot be excluded. Diffuse adynamic ileus remains a possibility. There is less stool in the colon when compared to prior exam. TECHNICAL DOCUMENTATION: JOB ID: [id number] 2010 [employer]- All Rights Reserved Reading location - IP/workstation name: [email or web address]
[2020-07-25] MEDS ORDERED: MORPHINE SULFATE 10 MG/ML INJ IV ONE (17:00)
[2020-07-25 17:03] LABS: ABSOLUTE LYMPHOCYTES (AUTO) 0.4 10^3/uL (0.5-4.7); ABSOLUTE MONOCYTES (AUTO) 0.1 10^3/uL (0.1-1.4); BASOPHILS % (AUTO) 0.3 % (0-2); EOSINOPHILS % (AUTO) 0.6 % (0-6); LYMPHOCYTES % (AUTO) 5.5 % (13-45); MEAN CORPUSCULAR HEMOGLOBIN 27.5 pg (27.0-33.4); MEAN CORPUSCULAR HGB CONC 34.4 g/dL (32.0-36.0); MEAN CORPUSCULAR VOLUME 80 fl (80-97); MONOCYTES % (AUTO) 1.4 % (3-13); RED BLOOD COUNT 4.38 10^6/uL (3.72-5.28); SEGMENTED NEUTROPHILS % (AUTO) 92.2 % (42-78); TOTAL CELLS COUNTED % (AUTO) 100 %; WHITE BLOOD COUNT 7.6 10^3/uL (4.0-10.5)
[2020-07-25 17:09] LABS: APPEARANCE,URINE SLIGHTLY-CLOUDY; BILIRUBIN,URINE SMALL (NEGATIVE); COLOR,URINE AMBER; GLUCOSE, URINE NEGATIVE (NEGATIVE); KETONES,URINE NEGATIVE (NEGATIVE); LEUKOCYTE ESTERASE,URINE NEGATIVE (NEGATIVE); NITRITE,URINE NEGATIVE (NEGATIVE); PROTEIN,URINE 30 mg/dL (NEGATIVE); URINE SPECIFIC GRAVITY 1.024
[2020-07-25 17:16] LABS: ALBUMIN 4.2 g/dL (3.5-5.0); ALKALINE PHOSPHATASE 134 U/L (38-126); ANION GAP 13 (5-19); ASPARTATE AMINO TRANSFERASE 28 U/L (14-36); BILIRUBIN,DIRECT 0.2 mg/dL (0.0-0.4); BILIRUBIN,TOTAL 0.7 mg/dL (0.2-1.3); BLOOD UREA NITROGEN 18 mg/dL (7-20); CALCIUM 9.2 mg/dL (8.4-10.2); CARBON DIOXIDE 23 mmol/L (22-30); CHLORIDE 98 mmol/L (98-107); GLUCOSE 103 mg/dL (75-110); POTASSIUM 4.2 mmol/L (3.6-5.0); TOTAL PROTEIN 7.1 g/dL (6.3-8.2)
[2020-07-25 17:32] LABS: ANISOCYTOSIS SLIGHT; PLATELET CLUMPS PRESENT; PLATELET COMMENT ADEQUATE; POIKILOCYTOSIS SLIGHT; POLYCHROMASIA SLIGHT; SCHISTOCYTES SLIGHT
[2020-07-25 17:33] LABS: PLATELET COUNT 308 10^3/uL (150-450)
[2020-07-25] MEDS ORDERED: FENTANYL CITRATE INJ/PF 100 MCG/2 ML AMPUL IV ONE (20:21)
[2020-07-25] MEDS ORDERED: NORMAL SALINE 1000 ML 1,000 ML IV ONE (20:22)
--- NOTE | 2020-07-25 20:22 | ER Document Report ---
ED GI/ - General Chief Complaint: Abdominal Pain Stated Complaint: POSSIBLE BOWEL OBSTRUCTION Time Seen by Provider: 07/25/20 15:27 Notes: Patient is a 39-year-old female who comes emergency department for chief complaint of abdominal pain and worsening abdominal distention. She states she has not had a bowel movement over a week although this is normal for her, however she has had distending abdomen for the past 4 days with developing pain, today the pain became severe. She states she is unable to pass any flatus and has not done so for over a day and a half. Patient has been dry heaving but is unable to vomit, she has a history of vagotomy and antrectomy with a revision. She also has had a bowel obstruction with surgical intervention in 2011 at [place]. She has TPN but also does eat small portions and take pills by mouth. Remaining surgical history includes cholecystectomy and appendectomy. TRAVEL OUTSIDE OF THE [place] IN LAST 30 DAYS: No - Related Data Allergies/Adverse Reactions: amoxicillin [Amoxicillin] Allergy (Severe, Verified 04/18/20 12:21) Past Medical History - General Information source: Patient - Social History Smoking Status: Never Smoker Frequency of alcohol use: None Drug Abuse: None Lives with: Family Family History: Reviewed & Not Pertinent, DM, Hypertension, Malignancy, Other - Alzheimer's disease, Parkinson's disease - Past Medical History Cardiac Medical History: Denies: Hx Atrial Fibrillation, Hx Congestive Heart Failure, Hx Coronary Artery Disease, Hx DVT, Hx Heart Attack, Hx Hypercholesterolemia, Hx Hypertension, Hx Peripheral Vascular Disease, Hx Pulmonary Embolism, Hx Heart Murmur Pulmonary Medical History: Denies: Hx Asthma, Hx Bronchitis, Hx COPD, Hx Pneumonia, Hx Tuberculosis Neurological Medical History: Denies: Hx Cerebrovascular Accident, Hx Seizures, Hx Parkinson's Disease Endocrine Medical History: Reports: Hx Hypothyroidism. 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 Denies: Hx Cirrhosis, Hx Crohn's Disease, Hx Gastroesophageal Reflux Disease, Hx Hepatitis, Hx Ulcerative Colitis Musculoskeletal Medical History: Denies Hx Arthritis, Denies Hx Gout, Denies Hx Multiple Sclerosis Skin Medical History: Denies Hx Eczema, Denies Hx Psoriasis Psychiatric Medical History: Denies: Hx Bipolar Disorder, Hx Depression, Hx Schizophrenia Infectious Medical History: Denies: Hx Hepatitis Past Surgical History: Reports: Hx Abdominal Surgery - antrectomy, vagotomy, SBO, Hx Appendectomy, Hx Cholecystectomy, Hx Ileostomy, Other - Gastric antrectomy/vagotomy, partial colectomy. Denies: Hx Hysterectomy, Hx Pacemaker - Immunizations Hx Diphtheria, Pertussis, Tetanus Vaccination: Yes Review of Systems - Review of Systems Constitutional: No symptoms reported EENT: No symptoms reported Cardiovascular: No symptoms reported Respiratory: No symptoms reported Gastrointestinal: See HPI Genitourinary: No symptoms reported Female Genitourinary: No symptoms reported Musculoskeletal: No symptoms reported Skin: No symptoms reported Hematologic/Lymphatic: No symptoms reported Neurological/Psychological: No symptoms reported Physical Exam - Vital signs Vitals: Temp Pulse Resp BP Pulse Ox 98.1 F 94 16 102/67 100 07/25/20 14:56 07/25/20 14:56 07/25/20 14:56 07/25/20 14:56 07/25/20 14:56 - Notes Notes: GENERAL: Patient is thin, chronically ill-appearing, and in addition to this she appears to be in moderate distress HEAD: Normocephalic, atraumatic. EYES: Pupils equal, round, and reactive to light. Extraocular movements intact. ENT: Oral mucosa dry, tongue midline. Oropharynx unremarkable. Airway patent. NECK: Full range of motion. Supple. Trachea midline. No lymphadenopathy. LUNGS: Clear to auscultation bilaterally, no wheezes, rales, or rhonchi. No respiratory distress. Non-tender chest wall. HEART: Regular rate and rhythm. No murmur ABDOMEN: Abdomen appears distended, positive tympanic sounds, generally tender on palpation. There is what appears to be a tender and most likely incarcerated right inguinal hernia on exam as well. Bowel sounds are very quiet. EXTREMITIES: Moves all 4 extremities spontaneously. No edema, normal radial and dorsalis pedis pulses bilaterally. No cyanosis. BACK: no cervical, thoracic, lumbar midline tenderness. No saddle anesthesia, normal distal neurovascular exam. Moves all extremities in full range of motion. NEUROLOGICAL: Alert and oriented x3. Normal speech. Cranial nerves II through XII grossly intact. Strength 5/5 in all extremities. PSYCH: Slightly agitated but cooperative SKIN: Warm, dry, normal turgor. No rashes or lesions noted. Course - Re-evaluation Re-evalutation: Patient's evaluation is very concerning, she is very uncomfortable, has a distended abdomen, has what appears to be an incarcerated right inguinal hernia on exam with tenderness. KUB concerning for developing obstruction, laboratory work-up unremarkable. I am concerned that patient has an incarcerated hernia causing a secondary bowel obstruction. Patient medicated, placed in Trendelenburg, single attempt needed to attempt to reduce but unable to reduce. 07/25/20 20:[address] Cheng, general surgery, he requests a rapid Covid test, he will evaluate the patient. Dr. Cheng evaluate the patient, recommends patient be taken to the operating room immediately, requests Unasyn or equivalent antibiotic, she is alert amoxicillin, given Levaquin and Flagyl. Patient states understanding and agreement with plan. - Vital Signs Vital signs: Temp Pulse Resp BP Pulse Ox 98.6 F 80 16 106/70 98 07/25/20 21:38 07/25/20 21:38 07/25/20 21:38 07/25/20 21:38 07/25/20 21:38 - Laboratory Result Diagrams: 07/25/20 16:26 07/25/20 16:26 Laboratory results interpreted by me: 07/25/20 07/25/20 07/25/20 16:20 16:26 16:26 Hct 35.0 L RDW 15.0 H Lymph % (Auto) 5.5 L Morrill % (Auto) 1.4 L Absolute Lymphs (auto) 0.4 L Seg Neutrophils % 92.2 H Sodium 133.5 L Lactic Acid Alkaline Phosphatase 134 H Urine Protein 30 H Urine Bilirubin SMALL H Urine Urobilinogen 4.0 H 07/25/20 19:40 Hct RDW Lymph % (Auto) Morrill % (Auto) Absolute Lymphs (auto) Seg Neutrophils % Sodium Lactic Acid 0.6 L Alkaline Phosphatase Urine Protein Urine Bilirubin Urine Urobilinogen Discharge - Discharge Clinical Impression: Incarcerated inguinal hernia, Small bowel obstruction Abdominal pain Qualifiers: Abdominal location: generalized Qualified Code(s): R10.84 - Generalized abdominal pain Condition: Stable Disposition: ADMITTED INPATIENT Admitting Provider: Surgicalist Unit Admitted: OR
[2020-07-25] MEDS ORDERED: LEVOFLOXACIN 750 MG/D5W RTU 750 MG/150 ML RTUPB IV ONE (20:50)
[2020-07-25] MEDS ORDERED: METRONIDAZOLE 500 MG/NS RTU 500 MG/100 ML RTUPB IV ONE (20:50)
--- NOTE | 2020-07-25 21:37 | PDOC H&P ---
History of Present Illness Admission Date/PCP: ARTEMIO JOSEPH DO Patient complains of: Abdominal pain, nausea, right groin mass History of Present Illness: SHIKHA DEAN is a 39 year old female Presents to the emergency department via ground rescue complaining of a 4-day history of progressive abdominal pain, nausea, anorexia, and 24 hours ago developed a painful right groin mass that could not be reduced. Patient was brought to the emergency department approximately 7 hours ago where she was noted to have abdominal distention, and acute abdominal series showed possible small bowel obstruction. Patient was passed to provider TERRIE Davis, who diagnosed her with an incarcerated right inguinal hernia and immediately called Dr. Cheng, surgeon on-call. Patient was seen, evaluated found to have a possible strangulated right inguinal hernia and immediately called the operating room team to come in and addressed the patient's needs. A rapid Covid test pending. Past Medical History Past Medical History: Chronic malnutrition, malabsorption syndrome, multiple central line, port and PICC line placements over the last 6years, chronic pain syndrome, hypothyroidism. Anxiety disorder Cardiac Medical History: Denies: Atrial Fibrillation, Congestive Heart Failure, Coronary Artery Disease, DVT, Myocardial Infarction, Hyperlipidema, Hypertension, Peripheral Vascular Disease, Pulmonary Embolism, Heart Murmur Pulmonary Medical History: Denies: Asthma, Bronchitis, Chronic Obstructive Pulmonary Disease (COPD), Pneumonia, Tuberculosis Neurological Medical History: Denies: Seizures Endocrine Medical History: Reports: Hypothyroidism Denies: Diabetes Mellitus Type 1, Diabetes Mellitus Type 2, Hyperthyroidism Renal/ Medical History: Denies: End Stage Renal Disease GI Medical History: Denies: Cirrhosis, Crohn's Disease, Gastroesophageal Reflux Disease, Hepatitis, Ulcerative Colitis Musculoskeltal Medical History: Denies: Arthritis, Gout Skin Medical History: Denies: Eczema, Psoriasis Psychiatric Medical History: Denies: Bipolar Disorder, Depression Hematology: Reports: Anemia Denies: Bleeding Tendencies Past Surgical History Past Surgical History: Patient is status post partial gastrectomy followed by near complete gastrectomy 6 years ago, Dr. Barrett Osuna, [facility]; patient has chronic nutrition due to inadequate p.o. intake; has not had a feeding tube placed, instead relied on PN via various central lines for the past 6 years. Past Surgical History: Reports: Appendectomy, Cholecystectomy, Ileostomy, Other - Gastric antrectomy/vagotomy, partial colectomy Denies: Hysterectomy, Pacemaker Social History Information Source: Patient Lives with: Family Smoking Status: Never Smoker Frequency of Alcohol Use: None Hx Recreational Drug Use: No Drugs: None Hx Prescription Drug Abuse: No Family History Family History: None, Reviewed & Not Pertinent, DM, Hypertension, Malignancy, Other - Alzheimer's disease, Parkinson's disease Parental Family History Reviewed: No Children Family History Reviewed: No Sibling(s) Family History Reviewed.: No Medication/Allergy Home Medications: Clonazepam [Klonopin 2 mg Tablet] 2 mg PO QHS 12/19/18 Diltiazem HCl [Cardizem Cd 120 mg Capsule] 120 mg PO DAILY 12/19/18 Rizatriptan Benzoate [Maxalt] 5 mg PO DAILYP PRN 12/19/18 Trazodone HCl [Desyrel 50 mg Tablet] 100 mg PO QHS 12/19/18 Furosemide [Lasix 40 mg Tablet] 40 mg PO DAILY 07/04/19 Ibuprofen [Ibu] 800 mg PO Q8HP PRN 07/04/19 Acetaminophen [Tylenol 325 mg Tablet] 650 mg PO Q4HP PRN tablet 07/10/19 Docusate Sodium [Colace 100 mg Capsule] 200 mg PO BID #60 capsule 07/10/19 Lactulose [Cephulac Syrup 20 gm/30 ml Udcup] 20 gm PO Q6 #20 udc 07/10/19 Magnesium Hydroxide [Milk of Magnesia 30 ml Udcup] 30 ml PO DAILY udc 07/10/19 Polyethylene Glycol 3350 [Miralax Powder 17 gm/Packet] 17 gm PO DAILY powd.pack 07/10/19 Promethazine HCl [Phenergan 25 mg Tablet] 25 mg PO Q6HP PRN #20 07/10/19 Tramadol HCl [Ultram 50 mg Tablet] 50 mg PO Q6HP PRN #20 tablet 07/10/19 Hydrocodone/Acetaminophen [[place] 5-325 mg Tablet] 1 tab PO Q8 3 Days #6 tablet 02/22/20 Ondansetron [Zofran Odt 4 mg Tablet] 1 tab PO Q6 3 Days #12 tab.rapdis 02/22/20 Potassium Chloride 10 meq PO DAILY 5 Days #5 tablet.er 02/22/20 Misoprostol [Cytotec 0.2 mg Tablet] 200 mcg PO BID PRN #20 tablet 04/18/20 Allergies/Adverse Reactions: amoxicillin [Amoxicillin] Allergy (Severe, Verified 04/18/20 12:21) Review of Systems Constitutional: PRESENT: as per HPI Eyes: ABSENT: visual disturbances Ears: ABSENT: hearing changes Cardiovascular: PRESENT: other - History of resting tachycardia on Cardizem Gastrointestinal: PRESENT: other - Chronic abdominal pain Musculoskeletal: PRESENT: other - Chronic cachexia Neurological: PRESENT: other - No gross disturbances Physical Exam Vital Signs: Temp Pulse Resp BP Pulse Ox 98.4 F 86 17 101/71 97 07/25/20 19:32 07/25/20 19:32 07/25/20 19:32 07/25/20 19:32 07/25/20 19:32 Intake & Output 07/24/20 07/25/20 07/26/20 06:59 06:59 06:59 Weight 40.1 kg General appearance: PRESENT: mild distress Head exam: PRESENT: normocephalic Eye exam: PRESENT: EOMI Mouth exam: PRESENT: dry mucosa Neck exam: PRESENT: full ROM Respiratory exam: PRESENT: clear to auscultation jamaal Cardiovascular exam: PRESENT: RRR Pulses: PRESENT: normal carotid pulses, normal radial pulses, normal femoral pulses, normal dorsalis pedis pul GI/Abdominal exam: PRESENT: other - Abdomen is distended, moderately tympanic, with guarding. No rigidity. Bowel sounds hypoactive. In the right groin there is a erythematous sheen over the lower abdomen groin and thigh; there is a tight hard mass in the right inguinal region that cannot be reduced, very t geoff. Rectal exam: PRESENT: deferred Extremities exam: PRESENT: full ROM Musculoskeletal exam: PRESENT: full ROM, other - Marked muscle wasting Neurological exam: PRESENT: oriented to person, oriented to place, oriented to time, oriented to situation Psychiatric exam: PRESENT: appropriate affect Skin exam: PRESENT: dry Results Laboratory Results: 07/25/20 16:26 07/25/20 16:26 07/25/20 07/25/20 07/25/20 16:20 16: 16:26 WBC 7.6 RBC 4.38 Hgb 12.0 Hct 35.0 L MCV 80 MCH 27.5 MCHC 34.4 RDW 15.0 H Plt Count 308 Seg Neutrophils % 92.2 H Sodium 133.5 L Potassium 4.2 Chloride 98 Carbon Dioxide 23 Anion Gap 13 BUN 18 Creatinine 0.69 Est GFR ( Amer) > 60 Glucose 103 Lactic Acid Calcium 9.2 Magnesium 2.1 Total Bilirubin 0.7 AST 28 Alkaline Phosphatase 134 H Total Protein 7.1 Albumin 4.2 Lipase 27.8 Serum HCG, Qual Urine Color VASQUEZ Urine Appearance SLIGHTLY-CLOUDY Urine pH 5.0 Ur Specific [place] 1.024 Urine Protein 30 H Urine Glucose (UA) NEGATIVE Urine Ketones NEGATIVE Urine Blood NEGATIVE Urine Nitrite NEGATIVE Ur Leukocyte Esterase NEGATIVE Urine WBC (Auto) 2 Urine RBC (Auto) 1 07/25/20 07/25/20 16:26 19:40 WBC RBC Hgb Hct MCV MCH MCHC RDW Plt Count Seg Neutrophils % Sodium Potassium Chloride Carbon Dioxide Anion Gap BUN Creatinine Est GFR ( Amer) Glucose Lactic Acid 0.6 L Calcium Magnesium Total Bilirubin AST Alkaline Phosphatase Total Protein Albumin Lipase Serum HCG, Qual NEGATIVE Urine Color Urine Appearance Urine pH Ur Specific [place] Urine Protein Urine Glucose (UA) Urine Ketones Urine Blood Urine Nitrite Ur Leukocyte Esterase Urine WBC (Auto) Urine RBC (Auto) Impressions: KUB X-Ray 07/25/20 15:33 IMPRESSION: Small-bowel distention significantly increased from July 08. Developing small bowel obstruction cannot be excluded. Diffuse adynamic ileus remains a possibility. There is less stool in the colon when compared to prior exam. Assessment & Plan - Diagnosis (1) Incarcerated inguinal hernia Is this a current diagnosis for this admission?: Yes Plan: Impression: Acute incarcerated right inguinal hernia suspicious for strangulation and cachectic 39-year-old white female with chronic malnutrition status post near total gastrectomy on 18 hour/day TPN, with resultant bowel obstruction. Patient needs emergent surgery Plan: 1. Admit, n.p.o., IV fluids, intravenous antibiotics, rapid Covid test 2. Take patient to operating room for general anesthesia, right inguinal exploration, possible exploratory laparotomy, hernia reduction, repair, possible small bowel [facility] This was explained to patient and her mother who is at bedside 3. I have spoken with Dr. Hanson, hospitalist, who will follow patient from a internal medicine management standpoint including TPN, and other chronic conditions. (2) Status post partial gastrectomy Is this a current diagnosis for this admission?: Yes (3) On total parenteral nutrition (TPN) Is this a current diagnosis for this admission?: Yes (4) Small bowel obstruction Is this a current diagnosis for this admission?: Yes (5) Anemia Qualifiers: Is this a current diagnosis for this admission?: Yes (6) Malnutrition Qualifiers: Is this a current diagnosis for this admission?: Yes - Time Time Spent: 50 to 70 Minutes Critical Time spent with patient: 15-24 minutes Smoking Cessation Education: 3 to 10 minutes Medications reviewed and adjusted accordingly: Yes Anticipated Discharge Disposition: Home, Self Care Anticipated Discharge Timeframe: within 72 hours
[2020-07-25] MEDS ORDERED: BUPIVACAINE HCL 0.25 % INJ/PF (2.5 MG/1 ML) 30 ML VIAL ONE (21:44)
[2020-07-25] MEDS ORDERED: DEXAMETHASONE SOD PHOSPHATE INJ 4 MG/1 ML VIAL ONE (21:45)
[2020-07-25] MEDS ORDERED: ONDANSETRON HCL INJ/PF 4 MG/2 ML SDV ONE (21:45)
[2020-07-25] MEDS ORDERED: MORPHINE SULFATE 10 MG/ML INJ ONE (21:45)
[2020-07-25] MEDS ORDERED: MIDAZOLAM 2 MG/2 ML INJ ONE (21:45)
[2020-07-25] MEDS ORDERED: KETOROLAC TROMETHAMINE 60 MG/2 ML SDV ONE (21:45)
[2020-07-25] MEDS ORDERED: FENTANYL CITRATE INJ/PF 100 MCG/2 ML AMPUL ONE (21:45)
[2020-07-25] MEDS ORDERED: PROPOFOL INJ 200 MG/20 ML VIAL IV ONE (21:46)
[2020-07-25] MEDS ORDERED: OXYCODONE-ACETAMINOPHEN 5-325 MG TABLET PO PRN ×2 (22:35)
[2020-07-25] MEDS ORDERED: MEPERIDINE HCL/PF INJ 25 MG/1 ML DISP.SYRIN IV PRN (22:35)
[2020-07-25] MEDS ORDERED: MORPHINE SULFATE 10 MG/ML INJ IV PRN (22:35)
[2020-07-25] MEDS ORDERED: FENTANYL CITRATE INJ/PF 100 MCG/2 ML AMPUL IV PRN ×2 (22:35)
[2020-07-25] MEDS ORDERED: PROMETHAZINE HCL INJ 25 MG/1 ML VIAL IV PRN (22:35)
[2020-07-25] MEDS ORDERED: DIPHENHYDRAMINE HCL 50 MG/ML VIAL IV PRN (22:35)
[2020-07-25] MEDS ORDERED: ONDANSETRON HCL INJ/PF 4 MG/2 ML SDV IV PRN (22:35)
--- NOTE | 2020-07-25 23:15 | Operative Report ---
Operative Report DATE OF SURGERY: 07/25/20 PREOPERATIVE DIAGNOSIS: 1. Incarcerated, possible strangulated right inguinal hernia. 2. Small bowel obstruction. 3. Chronic malnutrition POSTOPERATIVE DIAGNOSIS: Incarcerated left threatened bowel in the right femoral hernia OPERATION: 1. Right inguinal exploration. 2. Reduction of incarcerated right femoral hernia. 3. Right femoral herniorrhaphy with medium size Bard mesh PerFix plug SURGEON: ELVIN HILL ANESTHESIA: GA TISSUE REMOVED OR ALTERED: None COMPLICATIONS: None ESTIMATED BLOOD LOSS: Minimal INTRAOPERATIVE FINDINGS: See below PROCEDURE: Patient was taken the preop holding area to the induction room with negative pressure as the patient's Covid status was unknown. Patient underwent successful orotracheal intubation and then was taken intubated to room 1, main operating room where she was placed in supine position arms abducted, hair from the inguinal areas were removed, and the entire abdomen and groins and pubic area prepped and draped sterile fashion Surgical plan and surgical timeout were conducted. We approached the right inguinal area by anesthetizing it with 1% plain lidocaine. There was a moderate size bulge along the inguinal canal with surrounding erythema. The skin was incised with #10 blade, subcutaneous tissue and Carlos's fascia divided with electrocautery. We then mobilized the soft tissue, and lymph nodes from around the incarcerated loop of bowel. Once the surrounding tissue was completely divided, we were able to easily reduce the incarcerated bowel. There was no foul smell, drainage or evidence of necrosis. The loop of bowel appeared to be covered by the peritoneum which was somewhat congested but not ischemic. It was unclear whether this was a portion of the cecum, or a loop of small bowel. Nonetheless, once it was reduced through the hernia defect, we could monitor it visually. We inspected the surrounding anatomy and it was apparent that this in fact was an incarcerated right femoral hernia, with several surrounding lymph nodes, the right common femoral vein just lateral to the defect. We irrigated the wound field, and was satisfied we were safe to close. Of note anesthesia did pass a nasogastric tube, but never got any return of all small bowel contents, consistent with the patient's previous subtotal gastrectomy. I felt that it was safe to deploy a prosthesis to support a strong repair. We brought onto the field a medium size Bard mesh PerFix plug, and positioned it into the femoral hernia cavity which occupied it very nicely. I then secured the with approximately 6 0- PDS sutures to the anterior, medial and inferior aspects of the surrounding tissue. I left the side adjacent to the right common femoral vein unsecured. I was confident with the fixation of the mesh. We irrigated the cavity out again, checked for bleeding and there was none. I closed the wound in layers with 2-0 Vicryl 3-0 Vicryl and thelma. Sterile dressing was applied after additional application of 1% plain lidocaine.
[2020-07-25] MEDS ORDERED: CIPROFLOXACIN 400 MG/D5W RTU 200 ML IV SCH (23:45)
[2020-07-26] MEDS ORDERED: CIPROFLOXACIN 400 MG/D5W RTU 400 MG/200 ML RTUPB IV ONE
[2020-07-26] MEDS ORDERED: ACETAMINOPHEN INJ/PF 1000 MG/100 ML SDV IV SCH
[2020-07-26] MEDS: ACETAMINOPHEN 1,000 MG/100 ML RTUPB IV SCH ×4 (01:02→17:26)
[2020-07-26] MEDS: NORMAL SALINE 1000 ML 1,000 ML IV PRN ×3 (01:03→17:23)
[2020-07-26] MEDS: PROMETHAZINE HCL INJ 25 MG/1 ML VIAL IV PRN ×3 (02:49→23:30)
[2020-07-26] MEDS: KETOROLAC TROMETHAMINE INJ/PF 30 MG/1 ML SDV IV PRN ×3 (05:28→20:58)
--- NOTE | 2020-07-26 06:36 | PDOC CONSULTATION ---
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 Currently patient is in immediate postop period after after reduction and femoral herniorrhaphy. Apart from pain at the surgical wound site patient denies any current nausea, vomiting, fever, cough, chills, shortness of breath, palpitations or lightheadedness. Past Medical History Cardiac Medical History: Denies: Atrial Fibrillation, Congestive Heart Failure, Coronary Artery Disease, DVT, Myocardial Infarction, Hyperlipidema, Hypertension, Peripheral Vascular Disease, Pulmonary Embolism, Heart Murmur Pulmonary Medical History: Denies: Asthma, Bronchitis, Chronic Obstructive Pulmonary Disease (COPD), Pneumonia, Tuberculosis Neurological Medical History: Denies: Seizures Endocrine Medical History: Reports: Hypothyroidism Denies: Diabetes Mellitus Type 1, Diabetes Mellitus Type 2, Hyperthyroidism Renal/ Medical History: Denies: End Stage Renal Disease GI Medical History: Denies: Cirrhosis, Crohn's Disease, Gastroesophageal Reflux Disease, Hepatitis, Ulcerative Colitis Musculoskeltal Medical History: Denies: Arthritis, Gout Skin Medical History: Denies: Eczema, Psoriasis Psychiatric Medical History: Denies: Bipolar Disorder, Depression Hematology: Reports: Anemia Denies: Bleeding Tendencies Past Surgical History Past Surgical History: Reports: Appendectomy, Cholecystectomy, Ileostomy, Other - Gastric antrectomy/vagotomy, partial colectomy Denies: Hysterectomy, Pacemaker Social History Information Source: Patient Lives with: Family Smoking Status: Never Smoker Electronic Cigarette use?: No Frequency of Alcohol Use: None Hx Recreational Drug Use: No Drugs: None Hx Prescription Drug Abuse: No - Advance Directive Resuscitation Status: Full Code Family History Family History: Reviewed & Not Pertinent, DM, Hypertension, Malignancy, Other - Alzheimer's disease, Parkinson's disease Parental Family History Reviewed: Yes Children Family History Reviewed: Yes Sibling(s) Family History Reviewed.: Yes Medication/Allergy Home Medications: Clonazepam [Klonopin 2 mg Tablet] 2 mg PO QHS 12/19/18 Diltiazem HCl [Cardizem Cd 120 mg Capsule] 120 mg PO DAILY 12/19/18 Rizatriptan Benzoate [Maxalt] 5 mg PO DAILYP PRN 12/19/18 Trazodone HCl [Desyrel 50 mg Tablet] 100 mg PO QHS 12/19/18 Furosemide [Lasix 40 mg Tablet] 40 mg PO DAILY 07/04/19 Ibuprofen [Ibu] 800 mg PO Q8HP PRN 07/04/19 Acetaminophen [Tylenol 325 mg Tablet] 650 mg PO Q4HP PRN tablet 07/10/19 Docusate Sodium [Colace 100 mg Capsule] 200 mg PO BID #60 capsule 07/10/19 Lactulose [Cephulac Syrup 20 gm/30 ml Udcup] 20 gm PO Q6 #20 udc 07/10/19 Magnesium Hydroxide [Milk of Magnesia 30 ml Udcup] 30 ml PO DAILY udc 07/10/19 Polyethylene Glycol 3350 [Miralax Powder 17 gm/Packet] 17 gm PO DAILY powd.pack 07/10/19 Promethazine HCl [Phenergan 25 mg Tablet] 25 mg PO Q6HP PRN #20 07/10/19 Tramadol HCl [Ultram 50 mg Tablet] 50 mg PO Q6HP PRN #20 tablet 07/10/19 Hydrocodone/Acetaminophen [[place] 5-325 mg Tablet] 1 tab PO Q8 3 Days #6 tablet 02/22/20 Ondansetron [Zofran Odt 4 mg Tablet] 1 tab PO Q6 3 Days #12 tab.rapdis 02/22/20 Potassium Chloride 10 meq PO DAILY 5 Days #5 tablet.er 02/22/20 Misoprostol [Cytotec 0.2 mg Tablet] 200 mcg PO BID PRN #20 tablet 04/18/20 Allergies/Adverse Reactions: amoxicillin [Amoxicillin] Allergy (Severe, Verified 04/18/20 12:21) Review of Systems All systems: reviewed and no additional remarkable complaints except as stated - Mild pain around surgical wound site Physical Exam Vital Signs: Temp Pulse Resp BP Pulse Ox 98.3 F 83 16 120/67 100 07/26/20 00:04 07/26/20 00:04 07/26/20 00:04 07/26/20 00:04 07/26/20 00:04 Intake & Output 07/24/20 07/25/20 07/26/20 06:59 06:59 06:59 Intake Total 900 Output Total 565 Balance 335 Weight 40.1 kg Additional comments: GENERAL APPEARANCE: Cachectic, in no acute distress, appears lethargic likely due to postop sedation HEENT: Normocephalic and atraumatic. No scleral icterus. Oral mucosa is pink and moist with NECK: Supple. No evidence of thyroid enlargement. No lymphadenopathy. No JVD CHEST: Symmetric. Nontender to palpation. There is an IV port access site on the right upper chest area with no surrounding skin erythema LUNGS: Breath sounds are equal and clear bilaterally. No wheezes, rhonchi, or rales. HEART: Regular rate and rhythm with normal S1 and S2. No murmurs, gallops, or rubs. ABDOMEN: Flat, soft, hypoactive bowel sound, dressing of surgical wound around right lower quadrant area EXTREMITIES: No cyanosis, clubbing, or edema. MUSCULOSKELETAL: No deformity, atrophy or swelling noted PSYCHIATRIC: The patient is awake, alert, and oriented x3. Recent and remote me darling is intact. Appropriate mood and affect. SKIN: Warm, dry, and well perfused. No lesions or rashes are noted. NEUROLOGIC: No focal sensory or motor deficits are noted. Results Laboratory Results: 07/25/20 16:26 07/25/20 16:26 07/25/20 07/25/20 07/25/20 16:20 16:26 16:26 WBC 7.6 RBC 4.38 Hgb 12.0 Hct 35.0 L MCV 80 MCH 27.5 MCHC 34.4 RDW 15.0 H Plt Count 308 Seg Neutrophils % 92.2 H Sodium 133.5 L Potassium 4.2 Chloride 98 Carbon Dioxide 23 Anion Gap 13 BUN 18 Creatinine 0.69 Est GFR ( Amer) > 60 Glucose 103 Lactic Acid Calcium 9.2 Magnesium 2.1 Total Bilirubin 0.7 AST 28 Alkaline Phosphatase 134 H Total Protein 7.1 Albumin 4.2 Lipase 27.8 Serum HCG, Qual Urine Color VASQUEZ Urine Appearance SLIGHTLY-CLOUDY Urine pH 5.0 Ur Specific [place] 1.024 Urine Protein 30 H Urine Glucose (UA) NEGATIVE Urine Ketones NEGATIVE Urine Blood NEGATIVE Urine Nitrite NEGATIVE Ur Leukocyte Esterase NEGATIVE Urine WBC (Auto) 2 Urine RBC (Auto) 1 07/25/20 07/25/20 16:26 19:40 WBC RBC Hgb Hct MCV MCH MCHC RDW Plt Count Seg Neutrophils % Sodium Potassium Chloride Carbon Dioxide Anion Gap BUN Creatinine Est GFR ( Amer) Glucose Lactic Acid 0.6 L Calcium Magnesium Total Bilirubin AST Alkaline Phosphatase Total Protein Albumin Lipase Serum HCG, Qual NEGATIVE Urine Color Urine Appearance Urine pH Ur Specific [place] Urine Protein Urine Glucose (UA) Urine Ketones Urine Blood Urine Nitrite Ur Leukocyte Esterase Urine WBC (Auto) Urine RBC (Auto) Impressions: KUB X-Ray 07/25/20 15:33 IMPRESSION: Small-bowel distention significantly increased from July 08. Developing small bowel obstruction cannot be excluded. Diffuse adynamic ileus remains a possibility. There is less stool in the colon when compared to prior exam. Assessment and Plan - Diagnosis (1) Incarcerated inguinal hernia Is this a current diagnosis for this admission?: Yes Plan: Immediate postop period S/p reduction of incarcerated right femoral hernia and herniorrhaphy Being managed by surgical team (2) On total parenteral nutrition (TPN) Is this a current diagnosis for this admission?: Yes Plan: patient has been on long-term TPN for the past 6years for chronic malnutrition possibly due to short bowel Currently in immediate post operative period following reduction of incarcerated femoral hernia In this patient who has chronic severe protein energy malnutrition, it would be appropriate to initiate parenteral nutrition earlier than five daysto decrease post op complications and improve wound healing. (3) Hypothyroidism Qualifiers: Hypothyroidism type: unspecified Qualified Code(s): E03.9 - Hypothyroidism, unspecified Is this a current diagnosis for this admission?: Yes Plan: patient denies symptoms of hypothyroidism Will obtain TSH level Resume levothyroxine when initiating feeding If oral intake cannot be resumed in 5 to 7 days, T4 can be given intravenously - Time Time Spent with patient: 35 or more minutes Total Critical Time (Minutes): 40 Medications reviewed and adjusted accordingly: Yes Anticipated Discharge Disposition: Home with Home Health Anticipated Discharge Timeframe: per surgical team decision - Inpatient Certification Based on my medical assessment, after consideration of the patient's comorbidities, presenting symptoms, or acuity I expect that the services needed warrant INPATIENT care.: Yes I certify that my determination is in accordance with my understanding of Medicare's requirements for reasonable and necessary INPATIENT services [42 CFR 412.3e].: Yes Medical Necessity: Need for Surgery Post Hospital Care: Other - To be determined by surgical team
[2020-07-26 09:33] LABS: FREE T3 2.12 pg/mL (2.77-5.27); FREE T4 (FREE THYROXINE) 0.99 ng/dL (0.78-2.19)
[2020-07-26 09:46] LABS: THYROID STIMULATING HORMONE 0.08 uIU/mL (0.47-4.68)
--- NOTE | 2020-07-26 10:21 | PDOC PROGRESS REPORT ---
Subjective Progress Note for:: 07/26/20 Reason For Visit: STRANGULATED RIGHT INGUINAL HERNIA Patient feeling better; tolerated nasogastric tube removal; Chaney catheter still in Physical Exam Vital Signs: Temp Pulse Resp BP Pulse Ox 97.7 F 57 L 16 108/66 100 07/26/20 09:35 07/26/20 07:48 07/26/20 07:48 07/26/20 07:48 07/26/20 07:48 Intake & Output 07/25/20 07/26/20 07/27/20 06:59 06:59 06:59 Intake Total 2000 Output Total 565 Balance 1435 Weight 40.1 kg General appearance: PRESENT: no acute distress GI/Abdominal exam: PRESENT: other - Abdomen less distended, minimally tender; right groin dressing dry and intact. Results Laboratory Results: 07/25/20 16:26 07/25/20 16:26 07/25/20 07/25/20 07/25/20 16:20 16:26 16:26 WBC 7.6 RBC 4.38 Hgb 12.0 Hct 35.0 L MCV 80 MCH 27.5 MCHC 34.4 RDW 15.0 H Plt Count 308 Seg Neutrophils % 92.2 H Sodium 133.5 L Potassium 4.2 Chloride 98 Carbon Dioxide 23 Anion Gap 13 BUN 18 Creatinine 0.69 Est GFR ( Amer) > 60 Glucose 103 Lactic Acid Calcium 9.2 Magnesium 2.1 Total Bilirubin 0.7 AST 28 Alkaline Phosphatase 134 H Total Protein 7.1 Albumin 4.2 Lipase 27.8 TSH Free T4 Free T3 pg/mL Serum HCG, Qual Urine Color VASQUEZ Urine Appearance SLIGHTLY-CLOUDY Urine pH 5.0 Ur Specific [place] 1.024 Urine Protein 30 H Urine Glucose (UA) NEGATIVE Urine Ketones NEGATIVE Urine Blood NEGATIVE Urine Nitrite NEGATIVE Ur Leukocyte Esterase NEGATIVE Urine WBC (Auto) 2 Urine RBC (Auto) 1 07/25/20 07/25/20 07/26/20 16:26 19:40 08:51 WBC RBC Hgb Hct MCV MCH MCHC RDW Plt Count Seg Neutrophils % Sodium Potassium Chloride Carbon Dioxide Anion Gap BUN Creatinine Est GFR ( Amer) Glucose Lactic Acid 0.6 L Calcium Magnesium Total Bilirubin AST Alkaline Phosphatase Total Protein Albumin Lipase TSH 0.08 L Free T4 0.99 Free T3 pg/mL 2.12 L Serum HCG, Qual NEGATIVE Urine Color Urine Appearance Urine pH Ur Specific [place] Urine Protein Urine Glucose (UA) Urine Ketones Urine Blood Urine Nitrite Ur Leukocyte Esterase Urine WBC (Auto) Urine RBC (Auto) Impressions: KUB X-Ray 07/25/20 15:33 IMPRESSION: Small-bowel distention significantly increased from July 08. Developing small bowel obstruction cannot be excluded. Diffuse adynamic ileus remains a possibility. There is less stool in the colon when compared to prior exam. Assessment & Plan - Diagnosis (1) Incarcerated inguinal hernia Is this a current diagnosis for this admission?: Yes Plan: Impression: Patient 1 day status post right inguinal exploration, reduction of incarcerated hernia, operative repair with mesh, doing well, no complications, with movement and abdominal distention and pain Plan: 1. Will DC Chaney cath 2. Start TPN per home regimen 3. Start clear liquids 4. Anticipate discharge home in 24 hours. (2) Status post partial gastrectomy Is this a current diagnosis for this admission?: Yes (3) On total parenteral nutrition (TPN) Is this a current diagnosis for this admission?: Yes (4) Small bowel obstruction Is this a current diagnosis for this admission?: Yes (5) Anemia Qualifiers: Is this a current diagnosis for this admission?: Yes (6) Malnutrition Qualifiers: Is this a current diagnosis for this admission?: Yes - Time Time Spent: 30 to 50 Minutes Critical Time spent with patient: Less than 15 minutes Smoking Cessation Education: 3 to 10 minutes Medications reviewed and adjusted accordingly: Yes Anticipated Discharge Disposition: Home, Self Care Anticipated Discharge Timeframe: within 24 hours
[2020-07-26] MEDS: CIPROFLOXACIN 400 MG/D5W RTU 400 MG/200 ML RTUPB IV SCH ×2 (11:10→23:30)
[2020-07-26] MEDS ORDERED: (PENDING PHARMACY ID) (Rizatriptan Benzoate [Maxalt] 10 MG) PO PRN (20:13)
[2020-07-26] MEDS ORDERED: TIZANIDINE HCL 4 MG TABLET PO PRN (20:13)
[2020-07-26] MEDS ORDERED: PROMETHAZINE HCL 25 MG TABLET PO PRN (20:13)
--- NOTE | 2020-07-26 20:25 | PDOC PROGRESS REPORT ---
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 Currently patient is in immediate postop period after after reduction and femoral herniorrhaphy. Apart from pain at the surgical wound site patient denies any current nausea, vomiting, fever, cough, chills, shortness of breath, palpitations or lightheadedness. She was seen and examined at bedside postop day 1 status post right inguinal exploration with reduction of incarcerated hernia, operative repair with mesh. No flatus no BM. Minimal postop pain, afebrile. Hospitalist service consulted for TPN which the patient has been on chronically at home. Reason For Visit: STRANGULATED RIGHT INGUINAL HERNIA Physical Exam Vital Signs: Temp Pulse Resp BP Pulse Ox 98.1 F 60 16 110/70 100 07/26/20 15:59 07/26/20 15:59 07/26/20 15:59 07/26/20 15:59 07/26/20 15:59 Intake & Output 07/25/20 07/26/20 07/27/20 06:59 06:59 06:59 Intake Total 1999 1778 Output Total 565 Balance 1435 1778 Weight 40.1 kg General appearance: PRESENT: no acute distress, cooperative, thin Head exam: PRESENT: atraumatic, normocephalic Eye exam: PRESENT: EOMI, PERRLA Mouth exam: PRESENT: moist Neck exam: PRESENT: full ROM Respiratory exam: PRESENT: clear to auscultation jamaal, symmetrical, unlabored Cardiovascular exam: PRESENT: RRR, +S1 GI/Abdominal exam: PRESENT: hypoactive bowel sounds, soft. ABSENT: rebound, tenderness Extremities exam: PRESENT: full ROM Musculoskeletal exam: PRESENT: full ROM Neurological exam: PRESENT: alert, awake, oriented to person, oriented to place, oriented to time Skin exam: PRESENT: other - Regan catheter noted on right anterior chest Results Laboratory Results: 07/25/20 16:26 07/25/20 16:26 07/25/20 07/26/20 19:40 08:51 Lactic Acid 0.6 L TSH 0.08 L Free T4 0.99 Free T3 pg/mL 2.12 L Impressions: KUB X-Ray 07/25/20 15:33 IMPRESSION: Small-bowel distention significantly increased from July 08. Developing small bowel obstruction cannot be excluded. Diffuse adynamic ileus remains a possibility. There is less stool in the colon when compared to prior exam. Assessment and Plan - Diagnosis (1) Incarcerated inguinal hernia Is this a current diagnosis for this admission?: Yes Plan: -That is post day 1 reduction of incarcerated right femoral hernia with mesh repair. -Being managed by surgical team -Pain meds per surgical team (2) On total parenteral nutrition (TPN) Is this a current diagnosis for this admission?: Yes Plan: -patient has been on long term care phlebotomist TPN for the past 6years for chronic malnutrition possibly due to short bowel -Currently in immediate post operative period following reduction of incarcerated femoral hernia -In this patient who has chronic severe protein energy malnutrition, it would be appropriate to initiate parenteral nutrition earlier than five daysto decrease post op complications and improve wound healing. -May resume TPN if okay with surgery (3) Hypothyroidism Qualifiers: Hypothyroidism type: unspecified Qualified Code(s): E03.9 - Hypothyroidism, unspecified Is this a current diagnosis for this admission?: Yes Plan: patient denies symptoms of hypothyroidism -TSH 0.08 -We will confirm with patient what dose of levothyroxine she was taking as it does not appear in her med rec - Plan Summary Summary: Hospitalist service consulted for TPN after incarcerated hernia repair. Hospitalist service okay to resume TPN. - Time Time Spent with patient: 25-34 minutes Anticipated Discharge Disposition: Home, Self Care Anticipated Discharge Timeframe: to be determined
[2020-07-27] MEDS: ACETAMINOPHEN 1,000 MG/100 ML RTUPB IV SCH ×3 (01:50→12:05)
[2020-07-27] MEDS: KETOROLAC TROMETHAMINE INJ/PF 30 MG/1 ML SDV IV PRN ×3 (05:52→18:25)
[2020-07-27] MEDS: NORMAL SALINE 1000 ML 1,000 ML IV PRN (05:57)
[2020-07-27] MEDS ORDERED: INFLUENZA QUAD (6MOS+) 2020-21 VAC 0.5 ML SYR IM ONE (08:00)
[2020-07-27] MEDS: PROMETHAZINE HCL INJ 25 MG/1 ML VIAL IV PRN ×2 (08:27→21:39)
[2020-07-27] MEDS: CLONAZEPAM 1 MG TABLET PO SCH ×2 (10:08→21:29)
[2020-07-27] MEDS: DILTIAZEM HCL 120 MG CAP.SR.24H PO SCH (10:08)
[2020-07-27] MEDS: FUROSEMIDE 40 MG TABLET PO SCH (10:10)
[2020-07-27] MEDS: AMITRIPTYLINE HCL 10 MG TABLET PO SCH (10:10)
[2020-07-27] MEDS: CIPROFLOXACIN 400 MG/D5W RTU 400 MG/200 ML RTUPB IV SCH ×2 (10:11→21:29)
[2020-07-27] MEDS: ACETAMINOPHEN 325 MG TABLET PO SCH ×2 (18:23→23:17)
--- NOTE | 2020-07-27 18:51 | PDOC PROGRESS REPORT ---
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 Currently patient is in immediate postop period after after reduction and femoral herniorrhaphy. Apart from pain at the surgical wound site patient denies any current nausea, vomiting, fever, cough, chills, shortness of breath, palpitations or lightheadedness. She was seen and examined at bedside postop day 1 status post right inguinal exploration with reduction of incarcerated hernia, operative repair with mesh. No flatus no BM. Minimal postop pain, afebrile. Hospitalist service consulted for TPN which the patient has been on chronically at home. 07/27/20 She was seen and examined at bedside. She complains of bloatedness and constipation. No BM or flatus. Post op pain is minimal. She was also noted to be bloated. She remains afebrile. TPN was resumed yesterday, tolerating well. She is eager to eat something which I told her will depend on the surgery service. Reason For Visit: STRANGULATED RIGHT INGUINAL HERNIA Physical Exam Vital Signs: Temp Pulse Resp BP Pulse Ox 98.4 F 90 12 94/44 L 100 07/27/20 16:00 07/27/20 16:00 07/27/20 16:00 07/27/20 16:00 07/27/20 16:00 Intake & Output 07/26/20 07/27/20 07/28/20 06:59 06:59 06:59 Intake Total 1999 3558 1318 Output Total 565 1100 Balance 1435 2458 1318 Weight 40.1 kg 40.2 kg General appearance: PRESENT: no acute distress, cooperative, thin Head exam: PRESENT: atraumatic, normocephalic Eye exam: PRESENT: EOMI, PERRLA Mouth exam: PRESENT: moist Neck exam: PRESENT: full ROM Respiratory exam: PRESENT: clear to auscultation jamaal, symmetrical, unlabored Cardiovascular exam: PRESENT: RRR, +S1, +S2 GI/Abdominal exam: PRESENT: distended, hypoactive bowel sounds, soft. ABSENT: rebound, tenderness Rectal exam: ABSENT: black stool Extremities exam: PRESENT: full ROM Musculoskeletal exam: PRESENT: full ROM Neurological exam: PRESENT: alert, awake, oriented to place, oriented to time, oriented to situation Psychiatric exam: PRESENT: normal mood Skin exam: PRESENT: normal color Results Laboratory Results: 07/25/20 16:26 07/25/20 16:26 Impressions: KUB X-Ray 07/25/20 15:33 IMPRESSION: Small-bowel distention significantly increased from July 08. Developing small bowel obstruction cannot be excluded. Diffuse adynamic ileus remains a possibility. There is less stool in the colon when compared to prior exam. Assessment and Plan - Diagnosis (1) Incarcerated inguinal hernia Is this a current diagnosis for this admission?: Yes Plan: -That is post day 2 reduction of incarcerated right femoral hernia with mesh repair. - mild abdominal distention - No bm of flatus yet - TPN resumed -Being managed by surgical team -Pain meds per surgical team (2) On total parenteral nutrition (TPN) Is this a current diagnosis for this admission?: Yes Plan: -patient has been on long chain beamer TPN for the past 6years for chronic malnutrition possibly due to short bowel -Currently in immediate post operative period following reduction of incarcerated femoral hernia -In this patient who has chronic severe protein energy malnutrition, it would be appropriate to initiate parenteral nutrition earlier than five daysto decrease post op complications and improve wound healing. -TPN resumed (3) Hypothyroidism Qualifiers: Hypothyroidism type: unspecified Qualified Code(s): E03.9 - Hypothyroidism, unspecified Is this a current diagnosis for this admission?: Yes Plan: patient denies symptoms of hypothyroidism -TSH 0.08 -We will confirm with patient what dose of levothyroxine she was taking as it does not appear in her med rec - Plan Summary Summary: Hospitalist service consulted for TPN after incarcerated hernia repair. Hospitalist service okay to resume TPN. - Time Time Spent with patient: 25-34 minutes Anticipated Discharge Disposition: Home, Self Care Anticipated Discharge Timeframe: to be determined
--- NOTE | 2020-07-27 19:31 | PDOC PROGRESS REPORT ---
Subjective Progress Note for:: 07/27/20 Reason For Visit: STRANGULATED RIGHT INGUINAL HERNIA Physical Exam Vital Signs: Temp Pulse Resp BP Pulse Ox 98.4 F 90 12 94/44 L 100 07/27/20 16:00 07/27/20 16:00 07/27/20 16:00 07/27/20 16:00 07/27/20 16:00 Intake & Output 07/26/20 07/27/20 07/28/20 06:59 06:59 06:59 Intake Total 2000 3558 1318 Output Total 565 1100 Balance 1435 2458 1318 Weight 40.1 kg 40.2 kg Results Laboratory Results: 07/25/20 16:26 07/25/20 16:26 Impressions: KUB X-Ray 07/25/20 15:33 IMPRESSION: Small-bowel distention significantly increased from July 08. Developing small bowel obstruction cannot be excluded. Diffuse adynamic ileus remains a possibility. There is less stool in the colon when compared to prior exam. Assessment & Plan - Time Anticipated Discharge Disposition: Home, Self Care Anticipated Discharge Timeframe: within 24 hours - Plan Summary Plan Summary: 39-year-old female status post incarcerated femoral hernia repair. She is postoperative day number 2. She reports that her pain is improving. She denies any nausea or vomiting. She is tolerating liquids. She still feels a mild amount of abdominal distention. She has been passing very small amounts of fla tus. I will advance her diet to a soft mechanical. Possible discharge tomorrow, if her condition continues to improve.
[2020-07-28] MEDS: KETOROLAC TROMETHAMINE INJ/PF 30 MG/1 ML SDV IV PRN ×4 (01:37→20:23)
[2020-07-28] MEDS: ACETAMINOPHEN 325 MG TABLET PO SCH ×4 (05:43→23:58)
--- NOTE | 2020-07-28 08:37 | RADIOLOGY REPORT (SQ) ---
EXAM DESCRIPTION: KUB/ABDOMEN (SINGLE VIEW) IMAGES COMPLETED DATE/TIME: 07/28/2020 8:14 am REASON FOR STUDY: sbo COMPARISON: 07/25/2020. NUMBER OF VIEWS: One view. TECHNIQUE: Supine radiographic image of the abdomen acquired. LIMITATIONS: None. FINDINGS: BOWEL GAS PATTERN: Gas-filled dilated small bowel unchanged. Diffuse stool throughout the colon. CALCIFICATIONS: No suspicious calcifications. SOFT TISSUES: No gross mass or suggestion of organomegaly. HARDWARE: Clips in the right upper quadrant. Drake in the right inguinal region. BONES: No acute fracture. No worrisome bone lesions. OTHER: No other significant finding. IMPRESSION: GAS-FILLED DILATED SMALL BOWEL AND DIFFUSE STOOL THROUGHOUT THE COLON. NO SIGNIFICANT C HANGE. TECHNICAL DOCUMENTATION: JOB ID: [id number] [employer]- All Rights Reserved Reading location - IP/workstation name: [email or web address]
[2020-07-28] MEDS: CLONAZEPAM 1 MG TABLET PO SCH ×2 (11:12→22:16)
[2020-07-28] MEDS: FUROSEMIDE 40 MG TABLET PO SCH (11:12)
[2020-07-28] MEDS: PROMETHAZINE HCL INJ 25 MG/1 ML VIAL IV PRN ×2 (11:19→20:37)
[2020-07-28] MEDS: CIPROFLOXACIN 400 MG/D5W RTU 400 MG/200 ML RTUPB IV SCH ×2 (11:20→22:15)
[2020-07-28] MEDS: AMITRIPTYLINE HCL 10 MG TABLET PO SCH (11:22)
[2020-07-28] MEDS: DILTIAZEM HCL 120 MG CAP.SR.24H PO SCH (11:22)
[2020-07-28] MEDS ORDERED: BISACODYL 10 MG SUPP.RECT PR ONE (12:00)
--- NOTE | 2020-07-28 12:51 | PDOC PROGRESS REPORT ---
Subjective Progress Note for:: 07/28/20 Subjective:: pt with multiple complaints. no c/o abd pain except she has not passed flatus or stool eating a regular diet Reason For Visit: STRANGULATED RIGHT INGUINAL HERNIA Physical Exam Vital Signs: Temp Pulse Resp BP Pulse Ox 99.0 F 106 H 16 98/47 L 100 07/28/20 11:28 07/28/20 11:28 07/28/20 11:28 07/28/20 11:28 07/28/20 11:28 Intake & Output 07/27/20 07/28/20 07/29/20 06:59 06:59 06:59 Intake Total 3558 2398 482 Output Total 1100 Balance 2458 2398 482 Weight 40.2 kg 40.2 kg General appearance: PRESENT: no acute distress Head exam: PRESENT: normocephalic Eye exam: PRESENT: EOMI Ear exam: PRESENT: normal external ear exam Mouth exam: PRESENT: moist Teeth exam: PRESENT: poor dentation Neck exam: PRESENT: full ROM Respiratory exam: PRESENT: clear to auscultation jamaal Cardiovascular exam: PRESENT: RRR Pulses: PRESENT: normal radial pulses, normal femoral pulses Breast: PRESENT: Normal GI/Abdominal exam: PRESENT: soft Rectal exam: PRESENT: deferred Extremities exam: PRESENT: full ROM Musculoskeletal exam: PRESENT: full ROM Neurological exam: PRESENT: alert, awake, oriented to person, oriented to place Psychiatric exam: PRESENT: appropriate affect Skin exam: PRESENT: dry Results Laboratory Results: 07/25/20 16:26 07/25/20 16:26 Impressions: KUB X-Ray 07/28/20 00:00 IMPRESSION: GAS-FILLED DILATED SMALL BOWEL AND DIFFUSE STOOL THROUGHOUT THE COLON. NO SIGNIFICANT CHANGE. Assessment & Plan - Time Anticipated Discharge Disposition: Home, Self Care Anticipated Discharge Timeframe: unk - Plan Summary Plan Summary: s/p repair of incarcerated inguinal hernia kub this am show ileus despited pt taking reg diet no flatus or stool as yet will cont current rx dulcolax supp
--- NOTE | 2020-07-28 20:30 | PDOC PROGRESS REPORT ---
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 Currently patient is in immediate postop period after after reduction and femoral herniorrhaphy. Apart from pain at the surgical wound site patient denies any current nausea, vomiting, fever, cough, chills, shortness of breath, palpitations or lightheadedness. She was seen and examined at bedside postop day 1 status post right inguinal exploration with reduction of incarcerated hernia, operative repair with mesh. No flatus no BM. Minimal postop pain, afebrile. Hospitalist service consulted for TPN which the patient has been on chronically at home. 07/27/20 She was seen and examined at bedside. She complains of bloatedness and constipation. No BM or flatus. Post op pain is minimal. She was also noted to be bloated. She remains afebrile. TPN was resumed yesterday, tolerating well. She is eager to eat something which I told her will depend on the surgery service. 07/28/20. She was seen and examined at bedside. Still no BM or flatus. XR showed ileus. She remains afebrile, no nausea/vomiting Reason For Visit: STRANGULATED RIGHT INGUINAL HERNIA Physical Exam Vital Signs: Temp Pulse Resp BP Pulse Ox 98.3 F 103 H 17 113/53 L 99 07/28/20 15:46 07/28/20 15:46 07/28/20 15:46 07/28/20 15:46 07/28/20 15:46 Intake & Output 07/27/20 07/28/20 07/29/20 06:59 06:59 06:59 Intake Total 0998 2398 1422 Output Total 1100 Balance 2458 2398 1422 Weight 40.2 kg 40.2 kg General appearance: PRESENT: no acute distress, cooperative, thin Head exam: PRESENT: atraumatic, normocephalic Eye exam: PRESENT: EOMI, PERRLA Mouth exam: PRESENT: moist Neck exam: PRESENT: full ROM Respiratory exam: PRESENT: clear to auscultation jamaal, symmetrical, unlabored Cardiovascular exam: PRESENT: RRR, +S1, +S2 GI/Abdominal exam: PRESENT: distended, hypoactive bowel sounds, soft. ABSENT: rebound Extremities exam: PRESENT: full ROM. ABSENT: +2 edema Musculoskeletal exam: PRESENT: full ROM Neurological exam: PRESENT: alert, awake, oriented to person, oriented to place, oriented to time, oriented to situation Psychiatric exam: PRESENT: normal mood Skin exam: PRESENT: normal color Results Laboratory Results: 07/25/20 16:26 07/25/20 16:26 Impressions: KUB X-Ray 07/28/20 00:00 IMPRESSION: GAS-FILLED DILATED SMALL BOWEL AND DIFFUSE STOOL THROUGHOUT THE COLON. NO SIGNIFICANT CHANGE. Assessment and Plan - Diagnosis (1) Incarcerated inguinal hernia Is this a current diagnosis for this admission?: Yes Plan: -That is post day 2 reduction of incarcerated right femoral hernia with mesh repair. - mild abdominal distention - No bm of flatus yet - dulcolax per surgery service - TPN resumed -Being managed by surgical team -Pain meds per surgical team (2) On total parenteral nutrition (TPN) Is this a current diagnosis for this admission?: Yes Plan: -patient has been on rn long term care TPN for the past 6years for chronic malnutrition possibly due to short bowel -Currently in immediate post operative period following reduction of incarcerated femoral hernia -In this patient who has chronic severe protein energy malnutrition, it would be appropriate to initiate parenteral nutrition earlier than five daysto decrease post op complications and improve wound healing. -TPN resumed (3) Hypothyroidism Qualifiers: Hypothyroidism type: unspecified Qualified Code(s): E03.9 - Hypothyroidism, unspecified Is this a current diagnosis for this admission?: Yes Plan: patient denies symptoms of hypothyroidism -TSH 0.08 -We will confirm with patient what dose of levothyroxine she was taking as it does not appear in her med rec - Plan Summary Summary: Hospitalist service consulted for TPN after incarcerated hernia repair. Hospitalist service okay to resume TPN. - Time Time Spent with patient: 15-24 minutes Anticipated Discharge Disposition: Home, Self Care Anticipated Discharge Timeframe: within 48 hours
[2020-07-29] MEDS: KETOROLAC TROMETHAMINE INJ/PF 30 MG/1 ML SDV IV PRN ×3 (02:35→14:21)
[2020-07-29] MEDS: PROMETHAZINE HCL INJ 25 MG/1 ML VIAL IV PRN ×2 (02:36→08:26)
[2020-07-29] MEDS: ACETAMINOPHEN 325 MG TABLET PO SCH ×2 (07:02→11:31)
--- NOTE | 2020-07-29 08:56 | PDOC DISCHARGE SUMMARY ---
General - Admit/Disc Date/PCP Admission Date/Primary Care Provider: 07/25/20 21:37 ARTEMIO JOSEPH, Discharge Date: 07/29/20 - Discharge Diagnosis Final Diagnosis: incarcerated right femoral hernia - Assessment Summary: 39-year-old female with an incarcerated right femoral hernia, nausea, and abdominal bloating. She had evidence of small bowel obstruction. She was taken to the operating room where reduction of her femoral hernia and repair of the defect was performed. She was taken to the floor in stable condition. Over the subsequent days, she began tolerating a diet and having bowel movements. Today she is stable, taking oral pain medications, having normal bowel function, and overall doing well. She has reached maximal hospital benefit, and is fit for discharge. - Additional Information Resuscitation Status: Full Code Discharge Diet: As Tolerated Discharge Activity: Balance Activity w/Rest, No Lifting Over 10 Pounds, No Lifting/Push/Pulling Referrals: ELVIN HILL MD [ACTIVE STAFF] - 08/05/20 3:30 pm Prescriptions: Tramadol HCl [Ultram 50 mg Tablet] 50 mg PO Q4HP PRN #28 tab PRN Reason: For Pain Home Medications: Diltiazem HCl [Cardizem Cd 120 mg Capsule] 120 mg PO DAILY 12/19/18 Rizatriptan Benzoate [Maxalt] 10 mg PO DAILYP PRN 12/19/18 Furosemide [Lasix 40 mg Tablet] 40 mg PO DAILY 07/04/19 Promethazine HCl [Phenergan 25 mg Tablet] 25 mg PO Q6HP PRN #20 07/10/19 Amitriptyline HCl [Elavil 10 mg Tablet] 10 mg PO DAILY 07/26/20 Clonazepam [Klonopin 1 mg Tablet] 1 mg PO BID 07/26/20 Dextroamphetamine/Amphetamine [Adderall 10 mg Tablet] 10 mg PO BID 07/26/20 Tizanidine HCl [Zanaflex 4 mg Tablet] 6 mg PO Q8HP PRN MDD 3 07/26/20 Tramadol HCl [Ultram 50 mg Tablet] 50 mg PO Q4HP PRN #28 tab 07/29/20 History of Present Illiness History of Present Illness: SHIKHA DEAN is a 39 year old female Physical Exam Vital Signs: Temp Pulse Resp BP Pulse Ox 98.6 F 62 16 88/44 L 100 07/29/20 08:44 07/29/20 07:39 07/29/20 07:39 07/29/20 07:39 07/29/20 07:39 Intake & Output 07/28/20 07/29/20 07/30/20 06:59 06:59 06:59 Intake Total 2397 2090 Balance 2397 2090 Weight 40.2 kg 47.7 kg Results Laboratory Results: WBC 7.6 10^3/uL (4.0-10.5) 07/25/20 16:26 RBC 4.38 10^6/uL (3.72-5.28) 07/25/20 16:26 Hgb 12.0 g/dL (12.0-15.5) 07/25/20 16:26 Hct 35.0 % (36.0-47.0) L 07/25/20 16:26 MCV 80 fl (80-97) 07/25/20 16:26 MCH 27.5 pg (27.0-33.4) 07/25/20 16:26 MCHC 34.4 g/dL (32.0-36.0) 07/25/20 16:26 RDW 15.0 % (11.5-14.0) H 07/25/20 16:26 Plt Count 308 10^3/uL (150-450) 07/25/20 16:26 Lymph % (Auto) 5.5 % (13-45) L 07/25/20 16:26 [place] % (Auto) 1.4 % (3-13) L 07/25/20 16:26 Eos % (Auto) 0.6 % (0-6) 07/25/20 16:26 Baso % (Auto) 0.3 % (0-2) 07/25/20 16:26 Absolute Neuts (auto) 7.0 10^3/uL (1.7-8.2) 07/25/20 16:26 Absolute Lymphs (auto) 0.4 10^3/uL (0.5-4.7) L 07/25/20 16:26 Absolute Monos (auto) 0.1 10^3/uL (0.1-1.4) 07/25/20 16:26 Absolute Eos (auto) 0.0 10^3/uL (0.0-0.6) 07/25/20 16:26 Absolute Basos (auto) 0.0 10^3/uL (0.0-0.2) 07/25/20 16:26 Seg Neutrophils % 92.2 % (42-78) H 07/25/20 16:26 Clumped Platelets PRESENT 07/25/20 16:26 Platelet Comment ADEQUATE 07/25/20 16:26 Polychromasia SLIGHT 07/25/20 16:26 Poikilocytosis SLIGHT 07/25/20 16:26 Anisocytosis SLIGHT 07/25/20 16:26 Schistocytes SLIGHT 07/25/20 16:26 Sodium 133.5 mmol/L (137-145) L 07/25/20 16:26 Potassium 4.2 mmol/L (3.6-5.0) 07/25/20 16:26 Chloride 98 mmol/L (98-107) 07/25/20 16:26 Carbon Dioxide 23 mmol/L (22-30) 07/25/20 16:26 Anion Gap 13 (5-19) 07/25/20 16:26 BUN 18 mg/dL (7-20) 07/25/20 16:26 Creatinine 0.69 mg/dL (0.52-1.25) 07/25/20 16:26 Est GFR ( Amer) > 60 (>60) 07/25/20 16:26 Est GFR (MDRD) Non-Af > 60 (>60) 07/25/20 16:26 Glucose 103 mg/dL (75-110) 07/25/20 16:26 Lactic Acid 0.6 mmol/L (0.7-2.1) L 07/25/20 19:40 Calcium 9.2 mg/dL (8.4-10.2) 07/25/20 16:26 Magnesium 2.1 mg/dL (1.6-2.3) 07/25/20 16:26 Total Bilirubin 0.7 mg/dL (0.2-1.3) 07/25/20 16:26 Direct Bilirubin 0.2 mg/dL (0.0-0.4) 07/25/20 16:26 Neonat Total Bilirubin Not Reportable 07/25/20 16:26 Neonat Direct Bilirubin Not Reportable 07/25/20 16:26 Neonat Indirect Bili Not Reportable 07/25/20 16: AST 28 U/L (14-36) 07/25/20 16: ALT 14 U/L (<35) 07/25/20 16:26 Alkaline Phosphatase 134 U/L (38-126) H 07/25/20 16:26 Total Protein 7.1 g/dL (6.3-8.2) 07/25/20 16: Albumin 4.2 g/dL (3.5-5.0) 07/25/20 16: Lipase 27.8 U/L (23-300) 07/25/20 16: TSH 0.08 uIU/mL (0.47-4.68) L 07/26/20 08:51 Free T4 0.99 ng/dL (0.78-2.19) 07/26/20 08:51 Free T3 pg/mL 2.12 pg/mL (2.77-5.27) L 07/26/20 08:51 Serum HCG, Qual NEGATIVE (NEGATIVE) 07/25/20 16: Urine Color VASQUEZ 07/25/20 16:20 Urine Appearance SLIGHTLY-CLOUDY 07/25/20 16:20 Urine pH 5.0 (5.0-9.0) 07/25/20 16:20 Ur Specific Canon 1.024 07/25/20 16:20 Urine Protein 30 mg/dL (NEGATIVE) H 07/25/20 16:20 Urine Glucose (UA) NEGATIVE mg/dL (NEGATIVE) 07/25/20 16:20 Urine Ketones NEGATIVE mg/dL (NEGATIVE) 07/25/20 16:20 Urine Blood NEGATIVE (NEGATIVE) 07/25/20 16:20 Urine Nitrite NEGATIVE (NEGATIVE) 07/25/20 16:20 Urine Bilirubin SMALL (NEGATIVE) H 07/25/20 16:20 Urine Urobilinogen 4.0 mg/dL (<2.0) H 07/25/20 16:20 Ur Leukocyte Esterase NEGATIVE (NEGATIVE) 07/25/20 16:20 Urine WBC (Auto) 2 /HPF 07/25/20 16:20 Urine RBC (Auto) 1 /HPF 07/25/20 16:20 Urine Bacteria (Auto) TRACE /HPF 07/25/20 16:20 Squamous Epi Cells Auto 5 /HPF 07/25/20 16:20 Urine Mucus (Auto) FEW /LPF 07/25/20 16:20 Urine Ascorbic Acid NEGATIVE (NEGATIVE) 07/25/20 16:20 SARS-CoV-2 (PCR) NEGATIVE (NEGATIVE) 07/25/20 20:55 Impressions: KUB X-Ray 07/25/20 15:33 IMPRESSION: Small-bowel distention significantly increased from July 08. Developing small bowel obstruction cannot be excluded. Diffuse adynamic ileus remains a possibility. There is less stool in the colon when compared to prior exam. KUB X-Ray 07/28/20 00:00 IMPRESSION: GAS-FILLED DILATED SMALL BOWEL AND DIFFUSE STOOL THROUGHOUT THE COLON. NO SIGNIFICANT CHANGE.
[2020-07-29] MEDS: CIPROFLOXACIN 400 MG/D5W RTU 400 MG/200 ML RTUPB IV SCH (09:11)
[2020-07-29] MEDS: CLONAZEPAM 1 MG TABLET PO SCH (09:12)
[2020-07-29] MEDS: AMITRIPTYLINE HCL 10 MG TABLET PO SCH (09:12)
[2020-07-29] MEDS: FUROSEMIDE 40 MG TABLET PO SCH (11:29)
[2020-07-29] MEDS: DILTIAZEM HCL 120 MG CAP.SR.24H PO SCH (11:29)
[2020-07-29 15:44] VITALS: BP 88/40
== END 2020-07-29 14:50 | disposition home health service (06) ==
LOC: ER 14:05 → EH 21:37 → INTOOBSV 21:37 → 4W 23:54
PROVIDERS: ATTEND Surgery
DX: K41.30 Unilateral femoral hernia, with obstruction, without gangrene, not specified as recurrent (principal); E43 Unspecified severe protein-calorie malnutrition; G89.18 Other acute postprocedural pain; K59.00 Constipation, unspecified; K56.699 Other intestinal obstruction unspecified as to partial versus complete obstruction; R64 Cachexia; E03.9 Hypothyroidism, unspecified; D64.9 Anemia, unspecified; F41.9 Anxiety disorder, unspecified; G89.4 Chronic pain syndrome; R00.0 Tachycardia, unspecified; R14.0 Abdominal distension (gaseous); Z23 Encounter for immunization; Z03.818 Encounter for observation for suspected exposure to other biological agents ruled out; Z90.49 Acquired absence of other specified parts of digestive tract; Z79.899 Other long term (current) drug therapy; Z90.3 Acquired absence of stomach [part of]; Z87.19 Personal history of other diseases of the digestive system
CPT/HCPCS: 99285; 96375; 96365; 36415 ×2; 84439; 82962; 83605; 83690; 83735; 84443; 84703; 85025; 87635; 80053; 81001; 84481; 74018 ×2; 90686; 99140; 00830; 49553; G0378 ×4; G0008; C1781; J3490 ×4; J2250; J1100; J1885 ×5; J3010; J2270; J2550 ×4; J0330; J2405; J7030 ×3; J2704; J0744 ×4; J1956; J1642; J0131 ×2; C9803; 830; 90471